=== PATIENT | male | born 1960 | race Caucasian/White ===

== ENCOUNTER 2016-08-29 12:16 | Inpatient (IN) | payer OTHER ==
--- NOTE | 2016-08-29 13:26 | EDPHY ---
H & P Stated Complaint: ETOH, First onset abdo distention. Time Seen by Provider: 08/29/16 13:25 - Personal History Current Tetanus/Diphtheria Vaccine: Unsure Current Tetanus Diphtheria and Acellular Pertussis (TDAP): Unsure - Medical/Surgical History Hx Asthma: No Hx Chronic Respiratory Disease: No Hx Diabetes: No Hx Cardiac Disease: No Hx Renal Disease: No Hx Cirrhosis: No Hx Alcoholism: No Hx HIV/AIDS: No Hx Splenectomy or Spleen Trauma: No Other PMH: HTN, Bilateral meniscus and ACL, Tib/Fib fracture, marijuana user. - Social History Smoking Status: Current some day smoker Constitutional: Initial Vital Signs Temperature (C) 36.4 C 08/29/16 12:37 Heart Rate 135 H 08/29/16 12:37 Respiratory Rate 18 08/29/16 12:37 Blood Pressure 129/87 H 08/29/16 12:37 O2 Sat (%) 90 L 08/29/16 12:37 O2 Delivery Mode Room Air Allergies/Adverse Reactions: No Known Allergies Allergy (Verified 08/29/16 12:40) Home Medications: Medication Instructions Recorded Lisinopril 08/29/16 Medical Decision Making ED Course/Re-evaluation: CHIEF COMPLAINT: Abdominal pain and distension HISTORY OF PRESENT ILLNESS: The patient is a 56 y/o male, with a history of alcoholism, complaining of progressively worsening abdominal pain and distension onset 2 weeks ago. He reports his abdomen has become significantly distended in the course of a couple weeks. He denies noticing jaundiced skin or eye, but he does note greenish light colored stool today without hematochezia. He denies history of ascites or liver disease and says his labs a few weeks ago were normal. His last alcohol use was 3 days ago. He denies fever, chills, vomiting, diarrhea, recent illness, or recent trauma. He reports 5lb increase over the last week. REVIEW OF SYSTEMS: A 10 point review of systems was performed and is negative with the exception of the elements mentioned in the history of present illness. PHYSICAL EXAM: HR 135, BP, O2 Sat, RR. Temp noted General Appearance: Alert, well hydrated, appropriate, and uncomfortable- appearing. Head: Atraumatic without scalp tenderness or obvious injury Eyes: Pupils equal, round, reactive to light and accommodation, EOMI, no trauma , no injection. Scleral icterus. Nose: Atraumatic, no rhinorrhea, clear. Throat: mucus membranes moist. Neck: Supple, nontender, no lymphadenopathy. No JVD. Respiratory: No retractions, no distress, no wheezes, and no accessory muscle use. Lungs are clear to auscultation, but diminished at the bases bilaterally. Cardiovascular: Tachycardic regular rate and rhythm, no murmurs, rubs, or gallops. Good capillary refill all extremities. Gastrointestinal: Abdomen is soft, diffuse tenderness, distension, no masses, no rebound, no guarding, no peritoneal signs. No medusa sign. Musculoskeletal: Normal active ROM of all extremities, atraumatic. No pedal edema. Neurological: Alert, appropriate, and interactive. Nonfocal neuro exam except presence of asterixis. Skin: No rashes, good turgor, no nodules on palpation. Spider angiomas on chest. Past medical history: Alcoholism, hypertension - lisinopril Past surgical history: denies Family history: mother had colon cancer Social history: Quit smoking 2 weeks ago. Heavy alcohol use. Marijuana use. Friend at bedside. PCP: [facility]. DIAGNOSTICS/PROCEDURES/CRITICAL CARE TIME: Abdominal CT. I viewed the images myself on the PACS system. DIFFERENTIAL DIAGNOSIS: The differential diagnosis for the patient's abdominal pain included but was not limited to cirrhosis, liver disease, ascites , viral hepatitis, alcohol withdrawal, appendicitis, cholecystitis, hernias, testicular torsion, gastritis, and urinary tract infection. MEDICAL DECISION MAKING: This is a 56 y/o male with a history of heavy alcohol use and no known liver disease who presents with a few week history of progressing abdominal pain and distension. He reports his most recent physical exam and labs were normal only a few weeks ago. His presentation is consistent with new onset alcoholic hepatitis and cirrhosis. Plan for IV, labs, imaging, pain management, and admission as he will require further interventions for nursing home management. 1425: Spoke with hospitalist service. Dr. Medina accepts admission. LFTs are significantly elevated. Creatinine is normal. Plan for abdominal CT. - Data Points Laboratory Results: Laboratory Results 08/29/16 13:56 08/29/16 13:56 08/29/16 08/29/16 08/29/16 13:56 13:56 13:56 WBC 7.50 10^3/uL 10^3/uL (3.80-9.50) RBC 4.86 10^6/uL 10^6/uL (4.40-6.38) Hgb 15.9 g/dL g/dL (13.7-17.5) Hct 45.9 % % (40.0-51.0) MCV 94.4 fL fL (81.5-99.8) MCH 32.7 pg pg (27.9-34.1) MCHC 34.6 g/dL g/dL (32.4-36.7) RDW 16.3 % H % (11.5-15.2) Plt Count 89 10^3/uL L 10^3/uL (150-400) MPV 10.1 fL fL (8.7-11.7) Neut % (Auto) 73.5 % % (39.3-74.2) Lymph % (Auto) 14.8 % L % (15.0-45.0) Rich % (Auto) 10.5 % % (4.5-13.0) Eos % (Auto) 0.5 % L % (0.6-7.6) Baso % (Auto) 0.3 % % (0.3-1.7) Nucleat RBC Rel Count 0.0 % % (0.0-0.2) Absolute Neuts (auto) 5.51 10^3/uL 10^3/uL (1.70-6.50) Absolute Lymphs (auto) 1.11 10^3/uL 10^3/uL (1.00-3.00) Absolute Monos (auto) 0.79 10^3/uL 10^3/uL (0.30-0.80) Absolute Eos (auto) 0.04 10^3/uL 10^3/uL (0.03-0.40) Absolute Basos (auto) 0.02 10^3/uL 10^3/uL (0.02-0.10) Absolute Nucleated RBC 0.00 10^3/uL 10^3/uL (0-0.01) Immature Gran % 0.4 % % (0.0-1.1) Immature Gran # 0.03 10^3/uL 10^3/uL (0.00-0.10) PT 17.0 SEC H SEC (12.0-15.0) INR 1.39 H (0.83-1.16) APTT 30.9 SEC SEC (23.0-38.0) Sodium 133 mEq/L L mEq/L (134-144) Potassium 3.9 mEq/L mEq/L (3.5-5.2) Chloride 95 mEq/L L mEq/L (97-110) Carbon Dioxide 26 mEq/l mEq/l (22-31) Anion Gap 12 mEq/L mEq/L (8-16) BUN 17 mg/dL mg/dL (7-23) Creatinine 0.8 mg/dL mg/dL (0.7-1.3) Estimated GFR > 60 Glucose 114 mg/dL H mg/dL (70-100) Calcium 8.2 mg/dL L mg/dL (8.5-10.4) Total Bilirubin 5.0 mg/dL H mg/dL (0.1-1.4) Conjugated Bilirubin 2.7 mg/dL H mg/dL (0.0-0.5) Unconjugated Bilirubin 2.3 mg/dL H mg/dL (0.0-1.1) AST 231 IU/L H IU/L (17-59) ALT 93 IU/L H IU/L (21-72) Alkaline Phosphatase 142 IU/L H IU/L (38-126) Total Protein 9.1 g/dL H g/dL (6.3-8.2) Albumin 3.2 g/dL L g/dL (3.5-5.0) Lipase 246.0 IU/L IU/L (23-300) Departure - Departure Disposition: [facility] Inpatient Acute Clinical Impression: Hyperbilirubinemia, Alcoholism Abdominal pain Qualifiers: Abdominal location: generalized Qualified Code(s): R10.84 - Generalized abdominal pain Ascites Qualifiers: Ascites type: due to alcoholic hepatitis Qualified Code(s): K70.11 - Alcoholic hepatitis with ascites Condition: Fair Referrals: Amy Pickard PA [Primary Care Provider] - As per Instructions Report Scribed for: Hasmukh Brandt Report Scribed by: Alicia Zuñiga Date of Report: 08/29/16 Time of Report: 14:35
[2016-08-29 14:23] LABS: % IMMATURE GRANULYOCYTES 0.4 % (0.0-1.1); ABSOLUTE IMMATURE GRANULOCYTES 0.03 10^3/uL (0.00-0.10); ADD DIFF? NO; ADD MORPH? NO; ADD SCAN? NO; ATYPICAL LYMPHOCYTE FLAG 30 (0-99); FRAGMENT RBC FLAG 0 (0-99); HEMATOCRIT 45.9 % (40.0-51.0); HEMOGLOBIN 15.9 g/dL (13.7-17.5); LEFT SHIFT FLG 0 (0-99); LIPEMIA HEMOLYSIS FLAG 90 (0-99); MEAN CELL HEMOGLOBIN 32.7 pg (27.9-34.1); MEAN CELL HEMOGLOBIN CONCENTR. 34.6 g/dL (32.4-36.7); MEAN CELL VOLUME 94.4 fL (81.5-99.8); MEAN PLATELET VOLUME 10.1 fL (8.7-11.7); PLATELET CLUMPS FLAG 10 (0-99); PLATELET COUNT 89 10^3/uL (150-400); RED BLOOD CELL COUNT 4.86 10^6/uL (4.40-6.38); RED CELL DISTRIBUTION WIDTH 16.3 % (11.5-15.2)
[2016-08-29 14:28] LABS: ALANINE AMINOTRANSFERASE 93 IU/L (21-72); ALBUMIN 3.2 g/dL (3.5-5.0); ALKALINE PHOSPHATASE 142 IU/L (38-126); ANION GAP 12 mEq/L (8-16); ASPARTATE AMINOTRANSFERASE 231 IU/L (17-59); BILIRUBIN-CONJUGATED 2.7 mg/dL (0.0-0.5); BILIRUBIN-UNCONJUGATED 2.3 mg/dL (0.0-1.1); CALCIUM 8.2 mg/dL (8.5-10.4); CARBON DIOXIDE 26 mEq/l (22-31); CHLORIDE 95 mEq/L (97-110); CREATININE 0.8 mg/dL (0.7-1.3); GLOMERULAR FILTRATION RATE > 60; GLUCOSE 114 mg/dL (70-100); POTASSIUM 3.9 mEq/L (3.5-5.2); SODIUM 133 mEq/L (134-144); TOTAL PROTEIN 9.1 g/dL (6.3-8.2)
[2016-08-29 14:30] LABS: INR 1.39 (0.83-1.16)
[2016-08-29 14:31] LABS: APTT 30.9 SEC (23.0-38.0)
[2016-08-29] MEDS ORDERED: IOPAMIDOL (ISOVUE-300) 100 ML BTL IV ONE (14:46)
--- NOTE | 2016-08-29 15:01 | PDGENHP ---
History and Physical History and Physical: HISTORY AND PHYSICAL CC: Abdominal pain and bloating HISTORY: Two weeks of increasing diffuse abdominal pain and distension, now with vomiting (no nausea) and loose stools (last yest) with no sign of bleeding, no fever, no chills or sweats, no sob, no chest pain. No prior hx of similar sxs, no hx of abd injury or surgery. No NSAID use. States he drinks a bottle of wine and 2 or so shots liquor daily. 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 Quit smoking 3 months ago ETOH as above MEDICATIONS: The patients list has been reconciled by our clinical pharmacist in the EMR. I have reviewed the list and ordered appropriate medicines. 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: Examination: General: alert, oriented, good mentation, relaxed Skin: warm, dry, mildly jaundiced, no rash HEENT: normal Neck: no mass or jvd Resps: relaxed Lungs: clear breath sounds Heart: regular, no murmur Abdomen: Quite distended with increased tension, mild diffuse tenderness without guarding or rebound, bowel sounds present, fluid wave and shifting dullness present suggest ascites, and caput medusae is present suggesting portal hypertension Upper Extremities: normal Lower Extremities: no edema, warm No Bleeding or bruising Neurologic: normal speech/language, normal orthodontic lab technician, no focal weakness IV site: looks normal LABORATORY DATA: Bilirubin up to 5 from 1 in April, AST at 230 with lesser elevation of ALT Renal function good, sodium slightly low 133 Platelets are mildly low and INR elevated at 1.39 RADIOLOGY STUDIES: CT scan of abdomen pelvis, with contrast, my personal review and interpretation of images: There is diffuse simple appearing ascites throughout the abdominal cavity. There is evidence of portal hypertension. There is no evidence of bowel obstruction I am waiting for final radiology report to compare with my findings ASSESSMENT: 1. ACUTE ABDOMINAL PAIN WITH EXAMINATION SUGGESTING ASCITES, AND WITH CAPUT MEDUSAE - STRONGLY SUSPECT ACUTE HEPATIC INSUFFICIENCY DUE TO ALCOHOLIC HEPATITIS, DIFF DX INCLUDES BOWEL OBSTRUCTION 2. HEPATIC TRANSAMINASE ELEVATION AND HIGH BILIRUBIN SUSPECT ALCOHOLIC HEPATITIS MOST LIKELY CAUSE 3. ALCOHOLISM 4. THROMBOCYTOPENIA AND COAGULOPATHY DUE TO ABOVE PLANS: -us guided paracentesis -further treatment decisions after these results -will check hepatitis panel -thiamine replacement -dvt prophylaxis -may need ciwa protocol as well I have reviewed the patient's case in detail with Dr. Hasmukh Brandt I have reviewed the patient's past medical records as part of this assessment, including previous emergency room visit and clinic records with lab reports
[2016-08-29] MEDS ORDERED: HYDROmorphONE/DILAUDID 1 MG/ML SYR IVP ONE (15:13)
[2016-08-29] MEDS ORDERED: ONDANSETRON 4 MG/2 ML VIAL IVP PRN (15:15)
[2016-08-29] MEDS: THIAMINE HCL 100 MG TAB PO SCH (17:17)
[2016-08-29] MEDS: oxyCODONE IR 5 MG TAB PO PRN ×2 (18:23→19:18)
[2016-08-29] MEDS: AMITRIPTYLINE HCL 25 MG TAB PO SCH (21:14)
[2016-08-30] MEDS: oxyCODONE IR 5 MG TAB PO PRN ×5 (00:05→20:49)
[2016-08-30] MEDS: ZOLPIDEM TARTRATE 5 MG TAB PO PRN ×2 (00:06→20:49)
[2016-08-30 05:06] LABS: % IMMATURE GRANULYOCYTES 0.3 % (0.0-1.1); ABSOLUTE IMMATURE GRANULOCYTES 0.02 10^3/uL (0.00-0.10); ABSOLUTE NRBC COUNT 0.02 10^3/uL (0-0.01); ADD DIFF? NO; ADD MORPH? NO; ADD SCAN? NO; ATYPICAL LYMPHOCYTE FLAG 20 (0-99); FRAGMENT RBC FLAG 0 (0-99); HEMATOCRIT 41.5 % (40.0-51.0); HEMOGLOBIN 14.5 g/dL (13.7-17.5); LEFT SHIFT FLG 0 (0-99); LIPEMIA HEMOLYSIS FLAG 90 (0-99); MEAN CELL HEMOGLOBIN 33.6 pg (27.9-34.1); MEAN CELL HEMOGLOBIN CONCENTR. 34.9 g/dL (32.4-36.7); MEAN CELL VOLUME 96.3 fL (81.5-99.8); MEAN PLATELET VOLUME 9.5 fL (8.7-11.7); NRBC-AUTO% 0.3 % (0.0-0.2); PLATELET CLUMPS FLAG 0 (0-99); PLATELET COUNT 75 10^3/uL (150-400); RED BLOOD CELL COUNT 4.31 10^6/uL (4.40-6.38); RED CELL DISTRIBUTION WIDTH 16.6 % (11.5-15.2)
[2016-08-30] MEDS: ENOXAPARIN 40 MG/0.4 ML SYR SC SCH (07:28)
[2016-08-30] MEDS: FUROSEMIDE 40 MG TAB PO SCH (08:37)
[2016-08-30] MEDS: THIAMINE HCL 100 MG TAB PO SCH (08:37)
[2016-08-30] MEDS: SPIRONOLACTONE 50 MG TAB PO SCH (08:37)
[2016-08-30] MEDS ORDERED: LISINOPRIL 20 MG TAB PO SCH (09:00)
[2016-08-30] MEDS ORDERED: chlordiazePOXIDE 25 MG CAP PO ONE (11:37)
[2016-08-30] MEDS ORDERED: LORazepam 2 MG/ML INJ IVP PRN (11:37)
--- NOTE | 2016-08-30 14:51 | HOSPPROG ---
Hospitalist Progress Note Assessment/Plan: # Acute alcohol withdrawal- patient with extensive daily alcohol use- tremulous on my examination this morning oxygen saturations 94% on 2 L - Librium 50 mg x1 now - start scheduled Librium 25 mg three times daily - IV Ativan p.r.n. for symptoms # New diagnosis cirrhosis- presumed secondary to alcohol and potentially hepatitis-C- HCV antibody positive on admit CT abdomen( personally reviewed and interpreted) shows cirrhosis - initiated low-dose diuretic - working with Gastroenterology for outpatient follow-up # tachycardia- heart rate in the 120s- suspect secondary to acute alcohol withdrawal - treatment as above - monitor closely # Hepatitis-C antibody positive- on history no obvious exposure- actively drinking not an excellent candidate for treatment currently - send hepatitis C RNA - can follow outpatient with GI # Acute ascites- patient with severe abdominal pain - ultrasound-guided paracentesis ordered - low-dose diuretic started # Alcohol abuse- the importance of abstinence reviewed with the patient and - will need outpatient resources at discharge - vitamin therapy and patient # 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 Subjective: severe abdominal pain from distention Objective: Vital Signs Temp Pulse Resp BP Pulse Ox 36.5 C 123 H 16 114/76 89 L 08/30/16 13:09 08/30/16 13:09 08/30/16 13:09 08/30/16 13:09 08/30/16 13:09 Laboratory Results 08/30/16 04:44 PT 17.0 SEC (12.0-15.0) H 08/29/16 13:56 INR 1.39 (0.83-1.16) H 08/29/16 13:56 - Physical Exam Constitutional: chronically ill appearing Eyes: anicteric sclera Ears, Nose, Mouth, Throat: dry mucous membranes Cardiovascular: regular rate and rhythym, tachycardia Respiratory: no respiratory distress, reduced air movement Gastrointestinal: normoactive bowel sounds, tenderness, ascites, distension Genitourinary: no bladder fullness Skin: warm Musculoskeletal: No asymmetric calves Neurologic: AAOx3, other ( no asterixis) Psychiatric: depressed Lymph, Heme, Immunologic: no cervical LAD ICD10 Worksheet Patient Problems: Problems Problem Status Onset Abdominal pain Acute Alcoholism Acute Ascites Acute Hyperbilirubinemia Acute
[2016-08-30] MEDS ORDERED: NA BICARBONATE 50 MEQ/50 ML VIAL ONE (15:06)
[2016-08-30] MEDS: chlordiazePOXIDE 25 MG CAP PO SCH ×2 (17:05→20:49)
[2016-08-30 17:46] LABS: GLUCOSE, PERITONEAL FLUID 115 mg/dL (55-113)
[2016-08-30] MEDS: AMITRIPTYLINE HCL 25 MG TAB PO SCH (20:49)
[2016-08-31 05:25] LABS: % IMMATURE GRANULYOCYTES 0.6 % (0.0-1.1); ABSOLUTE IMMATURE GRANULOCYTES 0.04 10^3/uL (0.00-0.10); ADD DIFF? NO; ADD MORPH? NO; ADD SCAN? NO; ATYPICAL LYMPHOCYTE FLAG 50 (0-99); FRAGMENT RBC FLAG 0 (0-99); HEMOGLOBIN 14.4 g/dL (13.7-17.5); LEFT SHIFT FLG 0 (0-99); LIPEMIA HEMOLYSIS FLAG 80 (0-99); MEAN CELL HEMOGLOBIN 32.5 pg (27.9-34.1); MEAN CELL HEMOGLOBIN CONCENTR. 33.5 g/dL (32.4-36.7); MEAN CELL VOLUME 97.1 fL (81.5-99.8); MEAN PLATELET VOLUME 10.4 fL (8.7-11.7); PLATELET CLUMPS FLAG 0 (0-99); PLATELET COUNT 70 10^3/uL (150-400); RED BLOOD CELL COUNT 4.43 10^6/uL (4.40-6.38); RED CELL DISTRIBUTION WIDTH 16.3 % (11.5-15.2)
[2016-08-31 05:56] LABS: ANION GAP 6 mEq/L (8-16); CALCIUM 7.5 mg/dL (8.5-10.4); CARBON DIOXIDE 28 mEq/l (22-31); CHLORIDE 94 mEq/L (97-110); CREATININE 1.2 mg/dL (0.7-1.3); GLOMERULAR FILTRATION RATE > 60; GLUCOSE 99 mg/dL (70-100); MAGNESIUM 1.5 mg/dL (1.6-2.3); POTASSIUM 3.8 mEq/L (3.5-5.2); SODIUM 128 mEq/L (134-144)
[2016-08-31 09:09] VITALS: O2SAT 92
[2016-08-31] MEDS: ENOXAPARIN 40 MG/0.4 ML SYR SC SCH (09:09)
[2016-08-31] MEDS: THIAMINE HCL 100 MG TAB PO SCH (09:37)
[2016-08-31] MEDS: SPIRONOLACTONE 50 MG TAB PO SCH (09:37)
[2016-08-31] MEDS: oxyCODONE IR 5 MG TAB PO PRN ×2 (09:38→13:44)
[2016-08-31] MEDS: chlordiazePOXIDE 25 MG CAP PO SCH (09:40)
[2016-08-31] MEDS: FUROSEMIDE 40 MG TAB PO SCH (09:40)
[2016-08-31 12:33] VITALS: BP 108/70; PULSE 110; TEMP 97.4
--- NOTE | 2016-08-31 13:27 | GDS ---
[f rep st] DISCHARGE SUMMARY DISCHARGE DIAGNOSES: 1. New diagnosis of cirrhosis presumed secondary to alcohol and potentially hepatitis C. 2. Acute alcohol withdrawal. 3. Suspected hepatitis C. 4. Acute ascites. 5. Long-standing alcohol abuse. 6. Thrombocytopenia presumed secondary to bone marrow toxicity with alcohol abuse. HISTORY OF PRESENT ILLNESS: This is a 56-year-old male who presents on 08/29/2016, with complaints of abdominal pain. For details of the patient's initial presentation, please see the history and ph ysical dated 08/29/2016. Consultative services on this patient include Interventional Radiology. PROCEDURES: On 08/30/2016, the patient had a large volume paracentesis. On 08/29/2016, the patient had a CT of the abdomen, which showed diffuse hepatocellular abnormality consistent with cirrhosis, portal hypertension with esophageal varices, gastric varices and splenomegaly, and a large amount o f ascites. HOSPITAL COURSE: 1. New diagnosis of cirrhosis. Patient does have a history of very heavy alcohol use in the past a nd had a hepatitis C-positive antibody. I suspect both are contributing to his advanced liver disea se. The patient was not encephalopathic at the time of his evaluation here. INR was 1.3, and AST a nd ALT were minimally elevated on admission. Discriminant function did not indicate the use of acut e treatment of steroids. The patient was educated about liver disease, initiated on low-dose diuret ics for his ascites, and is to follow in the [facility]. Dr. Knisey torres contacted and provided the contact information for this patient so outpatient followup could be e xpedited. 2. Severe ascites secondary to cirrhosis. Patient underwent large-volume paracentesis and has been tolerating low-dose diuretics. He will follow in the outpatient setting for laboratory check and s low up-titration of his diuretics as an outpatient. 3. Coagulopathy secondary to liver disease. The patient's INR is 1.3. He has no acute bleeding. I did encourage a high-vitamin K diet. 4. Thrombocytopenia. Patient had platelet counts 70-80 during this hospital stay. Suspect this is secondary to bone marrow suppression with alcohol abuse. Abstinence has been strongly encouraged. We expect his platelet counts to respond to this. It is successful in the outpatient setting. 5. Hepatitis C antibody positive. Patient was not able to report any known risk factors for hepati tis C. we have sent HCV, RNA, and PCR which are pending at the time of his discharge. These will b e followed by Gastroenterology in the outpatient setting. 6. Acute alcohol withdrawal. Patient drinks typically a bottle of wine and multiple hard alcohol d rinks a day. He was tremulous on the day of arrival and was initiated on the CIWA protocol [facility] Lib[facility]. He has minimal tremor on the day of disposition. Again, we have re-reviewed the im portance of absolute abstinence at discharge. Resources have been provided by Case Management. MEDICATIONS: At the time of transfer: Please reference medication reconciliation printed on 2016. PENDING STUDIES: At the time of this dictation include HCV, PCR, RNA, as well as hep B antibody terri dies. FOLLOWUP: Appointments for this patient include [facility] in the next 7-10 da ys, as well as with his primary care provider for ongoing support and assistance related to his new diagnosis and substance abuse. TIME: I spent greater than 30 minutes in the planning and coordination of this discharge. /[id number]/MODL
[2016-08-31 13:30] VITALS: RESP 15
[2016-08-31 14:57] LABS: HEPATITIS Bs Ab QUANT <5.0 mIU/mL
== END 2016-08-31 14:32 | disposition home or self-care (01) | DRG 433 ==
LOC: F1N 16:31
PROVIDERS: ADMIT Internal Medicine; ATTEND Hospitalist
PROC: HZ2ZZZZ Detoxification Services for Substance Abuse Treatment (ICD-10-PCS; 2016-08-29)
PROC: 0W9G3ZZ Drainage of Peritoneal Cavity, Percutaneous Approach (ICD-10-PCS; principal; 2016-08-30)
DX: K70.31 Alcoholic cirrhosis of liver with ascites (principal); F10.230 Alcohol dependence with withdrawal, uncomplicated; K76.6 Portal hypertension; I85.00 Esophageal varices without bleeding; I86.4 Gastric varices; D69.59 Other secondary thrombocytopenia; B18.2 Chronic viral hepatitis C; I10 Essential (primary) hypertension; Z87.890 Personal history of sex reassignment
CPT/HCPCS: G0397; G0472; J1170; Q9967

== ENCOUNTER → 2016-09-09 | Outpatient (CLI) | payer OTHER ==
[~2016-09-09] MED LIST: LIDOCAINE 1% 30 ML SDV ONE; NA BICARBONATE 50 MEQ/50 ML VIAL ONE
== END ==
LOC: FIMAGING 11:20
PROVIDERS: ATTEND Radiology Diagnostic Radiology
DX: R18.8 Other ascites (principal)

== ENCOUNTER → 2016-09-13 | Outpatient (CLI) | payer OTHER ==
[~2016-09-13] MED LIST changes: -LIDOCAINE 1% 30 ML SDV ONE
== END ==
LOC: FIMAGING 13:22
PROVIDERS: ATTEND Internal Medicine
PROC: 0W9G3ZZ Drainage of Peritoneal Cavity, Percutaneous Approach (ICD-10-PCS; principal; 2016-09-13)
DX: R18.8 Other ascites (principal)

== ENCOUNTER 2016-09-15 08:39 | Day surgery (SDC) | payer OTHER ==
[2016-09-15 10:13] LABS: ANION GAP 9 mEq/L (8-16); CALCIUM 8.5 mg/dL (8.5-10.4); CARBON DIOXIDE 24 mEq/l (22-31); CHLORIDE 98 mEq/L (97-110); CREATININE 0.7 mg/dL (0.7-1.3); GLOMERULAR FILTRATION RATE > 60; GLUCOSE 103 mg/dL (70-100); POTASSIUM 4.3 mEq/L (3.5-5.2); SODIUM 131 mEq/L (134-144)
[2016-09-15] MEDS ORDERED: MIDAZOLAM 2 MG/2 ML VIAL ONE (10:40)
[2016-09-15] MEDS ORDERED: fentaNYL 100 MCG/2 ML INJ ONE (10:45)
--- NOTE | 2016-09-15 12:12 | GPN ---
[f rep st] PROCEDURE NOTE DATE OF PROCEDURE: 09/15/2016 PREPROCEDURE DIAGNOSIS: Decompensated hepatitis c cirrhosis. POSTPROCEDURE DIAGNOSES: 1. Esophageal varices status post banding. 2. Portal hypertensive gastropathy. NAME OF PROCEDURE: Esophagogastroduodenoscopy with banding. ANESTHESIA: Monitored anesthesia care. INDICATIONS: The patient is a 56-year-old gentleman with history of chronic hepatitis C cirrhosis a nd ascites, who presents for EGD for bloating and evaluation for esophageal varices. The risks and benefits of the procedure were discussed the patient. Consent obtained. Risks include but are not limited to bleeding, perforation, and risks related to sedation. The patient is ASA class 3. DESCRIPTION OF PROCEDURE: The end-viewing endoscope was inserted into the esophagus, into the stoma ch, and second portion of the duodenum. The esophagus shows 2 columns of medium-sized varices locat ed at the GE junction. The stomach shows diffuse portal hypertensive gastropathy. Retroflexed view s did not show any evidence of gastric varices. The duodenum and second portion were normal. Next, the scope was removed and reinserted with the [employer] 7 shooter banding kit attached. Tw o bands were placed successfully over the 2 columns of medium-sized varices with complete eradicatio n. There was no bleeding during the procedure. IMPRESSION: 1. Esophageal varices status post banding. 2. Portal hypertensive gastropathy. RECOMMENDATIONS: 1. Discharge home with escort. 2. Advance diet as tolerated. Recommend a soft diet for the next 2 days. 3. Repeat EGD in 6 weeks at [facility] with monitored anesthesia care for repeat possible eso phageal banding and confirm eradication of esophageal varices. 4. Follow up with Dr. Waddell in clinic as previously scheduled for treatment of hepatitis C. Thank you for allowing me to participate in the care of your patient. Please do not hesitate to blanca katie with questions. /[id number]/MODL
[2016-09-15] MEDS ORDERED: PROPOFOL 200 MG/20 ML VIAL ONE (12:46)
== END 2016-09-15 12:55 | disposition home or self-care (01) ==
LOC: FSGY 08:39
PROVIDERS: ATTEND Internal Medicine Gastroenterology
PROC: 0D538ZZ Destruction of Lower Esophagus, Via Natural or Artificial Opening Endoscopic (ICD-10-PCS; principal; 2016-09-15 10:45)
DX: I85.10 Secondary esophageal varices without bleeding (principal); R18.8 Other ascites; K74.60 Unspecified cirrhosis of liver; F10.20 Alcohol dependence, uncomplicated; B19.20 Unspecified viral hepatitis C without hepatic coma; K76.6 Portal hypertension; Z80.0 Family history of malignant neoplasm of digestive organs
CPT/HCPCS: J2250; J2704; J3010

== ENCOUNTER → 2016-09-20 | Outpatient (CLI) | payer OTHER | LOC: FIMAGING 09:00 | PROVIDERS: ATTEND Internal Medicine | PROC: 0W9G3ZZ Drainage of Peritoneal Cavity, Percutaneous Approach (ICD-10-PCS; principal; 2016-09-20) | DX: R18.8 Other ascites (principal) ==

== ENCOUNTER → 2016-09-28 | Outpatient (CLI) | payer OTHER | LOC: FIMAGING 11:25 | PROVIDERS: ATTEND Internal Medicine | PROC: 0W9F3ZX Drainage of Abdominal Wall, Percutaneous Approach, Diagnostic (ICD-10-PCS; principal; 2016-09-28) | DX: R18.8 Other ascites (principal) ==

== ENCOUNTER → 2016-10-05 | Outpatient (CLI) | payer OTHER ==
[~2016-10-05] MED LIST changes: +ALBUMIN 25% 100 ML SOLN IV ONE; +ALBUMIN 25% 50 ML SOLN IV ONE; +LIDOCAINE 1% 30 ML SDV ONE
== END ==
LOC: FIMAGING 11:25
PROVIDERS: ATTEND Internal Medicine
PROC: 0W9F3ZZ Drainage of Abdominal Wall, Percutaneous Approach (ICD-10-PCS; principal; 2016-10-05)
DX: R18.8 Other ascites (principal)
CPT/HCPCS: P9047

== ENCOUNTER 2016-10-11 14:31 | Inpatient (IN) | payer OTHER ==
[2016-10-11] MEDS ORDERED: HYDROmorphONE/DILAUDID 1 MG/ML SYR IVP ONE (14:56)
[2016-10-11] MEDS ORDERED: ONDANSETRON 4 MG/2 ML VIAL IVP ONE (14:56)
[2016-10-11] MEDS ORDERED: cefTRIAXone 2 GM in D5W 50 ML IV ONE (14:56)
--- NOTE | 2016-10-11 14:59 | EDPHY ---
H & P Stated Complaint: Abdominal pain, infection Time Seen by Provider: 10/11/16 14:46 HPI/ROS: CHIEF COMPLAINT: Abdominal pain HISTORY OF PRESENT ILLNESS: The patient is a 56-year-old man with a history of cirrhosis and alcoholism who has weekly paracentesis. His primary doctor mostly called today and told him his peritoneal fluid from his paracentesis 2 days ago was infected and that he needed to come to the emergency department. He complains of diffuse abdominal pain. No fevers. Vomiting twice. No diarrhea. REVIEW OF SYSTEMS: Constitutional: denies: chills, fever, recent illness, recent injury EENTM: denies: blurred vision, double vision, nose congestion Respiratory: denies: cough, shortness of breath Cardiac: denies: chest pain, irregular heart rate, lightheadedness, palpitations Gastrointestinal/Abdominal: See HPI Genitourinary: denies: dysuria, frequency, hematuria, pain Musculoskeletal: denies: joint pain, muscle pain Skin: denies: lesions, rash, jaundice, bruising Neurological: denies: headache, numbness, paresthesia, tingling, dizziness, weakness Hematologic/Lymphatic: denies: blood clots, easy bleeding, easy bruising Immunologic/allergic: denies: HIV/AIDS, transplant EXAM: GENERAL: Well-appearing, well-nourished and in no acute distress. HEAD: Atraumatic, normocephalic. EYES: Pupils equal round and reactive to light, extraocular movements intact, sclera anicteric, conjunctiva are normal. ENT: TMs normal, nares patent, oropharynx clear without exudates. Moist mucous membranes. NECK: Normal range of motion, supple without lymphadenopathy or JVD. LUNGS: Breath sounds clear to auscultation bilaterally and equal. No wheezes rales or rhonchi. HEART: Regular rate and rhythm without murmurs, rubs or gallops. ABDOMEN: Diffuse swelling and ascites, mildly tender BACK: No CVA tenderness, no spinal tenderness, step-offs or deformities EXTREMITIES: Normal range of motion, no pitting or edema. No clubbing or cyanosis. NEUROLOGICAL: Cranial nerves II through XII grossly intact. Normal speech, normal gait. 5/5 strength, normal movement in all extremities, normal sensation PSYCH: Normal mood, normal affect. SKIN: Warm, dry, normal turgor, no visible rashes or lesions. Source: Patient Exam Limitations: No limitations - Personal History Current Tetanus Diphtheria and Acellular Pertussis (TDAP): Yes - Medical/Surgical History Hx Asthma: No Hx Chronic Respiratory Disease: No Hx Diabetes: No Hx Cardiac Disease: No Hx Renal Disease: No Hx Cirrhosis: Yes Hx Alcoholism: Yes Hx HIV/AIDS: No Hx Splenectomy or Spleen Trauma: No Other PMH: Bilateral meniscus and ACL tear/injury, Tib/Fib fracture, marijuana user, ETOH (former), ascites - Family History Significant Family History: No pertinent family hx - Social History Smoking Status: Former smoker Alcohol Use: Sober Drug Use: None Constitutional: Initial Vital Signs Temperature (C) 37.5 C 10/11/16 14:33 Heart Rate 132 H 10/11/16 14:33 Respiratory Rate 14 10/11/16 14:33 Blood Pressure 132/85 H 10/11/16 14:33 O2 Sat (%) 95 10/11/16 14:33 O2 Delivery Mode Room Air O2 (L/minute) 2 Allergies/Adverse Reactions: No Known Allergies Allergy (Verified 10/06/16 11:46) Home Medications: Medication Instructions Recorded Furosemide [Lasix 80 MG (*)] 80 mg PO DAILY 10/11/16 Herbals/Supplements -Info Only 1 ea PO DAILY 10/11/16 Multivitamins [Multivitamin (*)] 1 each PO DAILY 10/11/16 Spironolactone 200 mg PO DAILY 10/11/16 Temazepam [Restoril 15 MG (*)] 15 mg PO HS PRN 10/11/16 Medical Decision Making ED Course/Re-evaluation: 3:40 p.m. the patient's vital signs are stable. His heart rate is improving with IV fluids. Spoke with Dr BRAYAN Nguyen who agrees with admission. Patient qualifies for septic shock although he is not hypotensive. Differential Diagnosis: Partial list of the Differential diagnosis considered include but were not limited to; sepsis, spontaneous bacterial peritonitis and although unlikely based on the history and physical exam, I also considered obstruction, ischemia , volvulus. Critical Care Time: I spent a total of 35 minutes of critical care time in obtaining history, performing a physical exam, bedside monitoring of interventions, collecting and interpreting tests and discussion with consultants but not including time spent performing procedures. - Data Points Laboratory Results: Laboratory Results 10/11/16 14:56 10/11/16 14:56 Microbiology Results: MICROBIOLOGY 10/11/16 14:56 Blood Blood Culture - Preliminary 10/11/16 14:56 Blood Blood Panel (PCR) - Final Enterobacteriaceae Group Medications Given: Discontinued Medications Hydromorphone HCl (Dilaudid) 1 mg IVP EDNOW ONE Stop: 10/11/16 14:57 Last Admin: 10/11/16 15:01 Dose: 1 mg Hydromorphone HCl (Dilaudid) 0.2 mg IVP Q2HRS PRN PRN Reason: Pain, Severe Unable to Take PO Stop: 10/21/16 17:24 Last Admin: 10/12/16 02:56 Dose: 0.2 mg Ceftriaxone Sodium 2 gm/ (Dextrose) 50 mls @ 100 mls/hr IV EDNOW ONE PRN Reason: Protocol Stop: 10/11/16 15:25 Last Admin: 10/11/16 15:28 Dose: 50 mls Sodium Chloride (Ns) 1,000 mls @ 0 mls/hr IV ONCE ONE PRN Reason: Wide Open Stop: 10/11/16 15:14 Last Admin: 10/11/16 15:13 Dose: 1,000 mls Sodium Chloride (Ns) 1,900 mls @ 316.6666 mls/hr 30 ml/kg infuse over 6 hr ( 1900 ml) IV EDNOW ONE Stop: 10/11/16 21:19 Last Admin: 10/11/16 15:47 Dose: 1,900 mls Ondansetron HCl (Zofran) 4 mg IVP EDNOW ONE Stop: 10/11/16 14:57 Last Admin: 10/11/16 15:01 Dose: 4 mg Departure - Departure Disposition: [facility] Acute Clinical Impression: Spontaneous bacterial peritonitis, Septic shock Condition: Fair
[2016-10-11 15:13] LABS: % IMMATURE GRANULYOCYTES 0.6 % (0.0-1.1); ABSOLUTE IMMATURE GRANULOCYTES 0.07 10^3/uL (0.00-0.10); ADD DIFF? NO; ADD MORPH? NO; ADD SCAN? NO; ATYPICAL LYMPHOCYTE FLAG 10 (0-99); FRAGMENT RBC FLAG 0 (0-99); HEMATOCRIT 42.6 % (40.0-51.0); HEMOGLOBIN 15.5 g/dL (13.7-17.5); LEFT SHIFT FLG 80 (0-99); LIPEMIA HEMOLYSIS FLAG 90 (0-99); MEAN CELL HEMOGLOBIN CONCENTR. 36.4 g/dL (32.4-36.7); MEAN CELL VOLUME 90.8 fL (81.5-99.8); MEAN PLATELET VOLUME 9.9 fL (8.7-11.7); PLATELET CLUMPS FLAG 0 (0-99); PLATELET COUNT 112 10^3/uL (150-400); RED BLOOD CELL COUNT 4.69 10^6/uL (4.40-6.38); RED CELL DISTRIBUTION WIDTH 15.7 % (11.5-15.2)
[2016-10-11] MEDS ORDERED: NS 1,000 ML IV ONE (15:13)
[2016-10-11 15:19] LABS: ALANINE AMINOTRANSFERASE 102 IU/L (21-72); ALBUMIN 3.4 g/dL (3.5-5.0); ALKALINE PHOSPHATASE 115 IU/L (38-126); ANION GAP 14 mEq/L (8-16); ASPARTATE AMINOTRANSFERASE 139 IU/L (17-59); BILIRUBIN,TOTAL 6.3 mg/dL (0.1-1.4); BILIRUBIN-CONJUGATED 2.5 mg/dL (0.0-0.5); BILIRUBIN-UNCONJUGATED 3.8 mg/dL (0.0-1.1); CALCIUM 9.1 mg/dL (8.5-10.4); CARBON DIOXIDE 19 mEq/l (22-31); CHLORIDE 92 mEq/L (97-110); CREATININE 0.8 mg/dL (0.7-1.3); GLOMERULAR FILTRATION RATE > 60; GLUCOSE 122 mg/dL (70-100); POTASSIUM 4.6 mEq/L (3.5-5.2); SODIUM 125 mEq/L (134-144); TOTAL PROTEIN 8.9 g/dL (6.3-8.2)
[2016-10-11] MEDS ORDERED: NS 1,900 ML IV ONE (15:20)
[2016-10-11 15:22] LABS: INR 1.29 (0.83-1.16); PROTIME(PATIENT) 16.1 SEC (12.0-15.0)
[2016-10-11 15:23] LABS: APTT 33.9 SEC (23.0-38.0)
[2016-10-11] MEDS ORDERED: ACETAMINOPHEN 325 MG TAB PO PRN (15:39)
[2016-10-11] MEDS ORDERED: ONDANSETRON DISINTEGRATING 4 MG TAB PO PRN (15:39)
[2016-10-11] MEDS ORDERED: ONDANSETRON 4 MG/2 ML VIAL IVP PRN (15:39)
[2016-10-11] MEDS ORDERED: HYDROCODONE/APAP 5/325 TAB PO PRN (17:24)
[2016-10-11] MEDS: HYDROmorphONE/DILAUDID 1 MG/ML SYR IVP PRN ×2 (17:48→22:28)
--- NOTE | 2016-10-11 18:20 | GHP ---
[f rep st] HISTORY AND PHYSICAL DATE OF ADMISSION: 10/11/2016 CHIEF COMPLAINT: Abdominal pain. 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 Patient has a history of chronic ascites and presents to our radiology department typically weekly for ultrasound-guided paracenteses. He had his last tap performed just under a week ago without complication. Patient awoke the morning of presentation with severe abdominal pain, called in to his doctor for evaluation. Ultrasound-guided paracentesis performed early this morning was found to have a white blood cell count consistent with SBP, and the patient was called back for hospital admission. In the ED, the patient is reporting abdominal pain. Denies any nausea. Denies any subjective fevers or chills. Denies dizziness, vision changes, dysphagia, dyspepsia. Denies any recent diarrhea, dysuria, hematuria, or hematochezia. Denies lower extremity edema. Reports no history of abdominal pain in the past with his chronic ascites. The severity was new and the symptom was new altogether. PAST MEDICAL HISTORY: 1. 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 2. Hypertension. SOCIAL HISTORY: Patient has quit alcohol approximately 3 months ago. Additionally, quit tobacco at that time. Denies any illicit drugs. Occasionally smokes marijuana. FAMILY HISTORY: Mother has colon cancer. No history of liver disease otherwise. ADVANCE DIRECTIVES: He is full cor, full tube. His would be his medical decision maker. REVIEW OF SYSTEMS: A 10-point review of systems is negative with the exception of that reported in the HPI. PHYSICAL EXAMINATION: VITAL SIGNS: Blood pressure 106/73, heart rate 132, respiratory rate 14, satting 91% on room air. GENERAL: This is a very pleasant , thin-appearing, middle-aged male in no acute distress. HEENT: Notable for dry mucous membranes. Eye exam is negative for any icterus. CARDIAC: Patient has regular rate and rhythm. PULMONARY: Clear to auscultation bilaterally. GASTROINTESTINAL: Patient is distended, has positive bowel sounds, and is diffusely, markedly tender to palpation in all 4 quadrants. MUSCULOSKELETAL: Negative for any lower extremity edema. SKIN: Negative for any rashes or jaundice. NEUROLOGIC: Patient is alert and oriented x3. No asterixis is appreciated. PSYCHIATRIC: He is pleasant and cooperative on interview and examination. DATA: White count 11.4. Baselines appear to be normal. Hematocrit is 42. Platelet count of 112, which is his baseline. INR is 1.29. Lactic acid is 4.1. Sodium is 125, near his recent baseline. Creatinine is 0.8. Total bilirubin is 6.3. AST is 139, ALT 102. Peritoneal fluid analyzed this morning showed 4160 white blood cells, 91% neutrophils. Telemetry, which I personally reviewed and interpreted, showed sinus tachycardia with the heart rate in the 130s. ASSESSMENT AND PLAN: This is a 56-year-old male presenting with abdominal pain. 1. Acute sepsis, presumed secondary to spontaneous bacterial peritonitis: Patient is presenting with leukocytosis and tachycardia. Source is intra- abdominal. Plan to fluid resuscitate and start empiric antibiotics. 2. Spontaneous bacterial peritonitis: Patient has a history of chronic ascites. Peritoneal fluid gram stain and differential is consistent with infection. We have asked the lab to send the fluid obtained today, before antibiotics, down for culture. Initiating IV ceftriaxone. 3. Sinus tachycardia, suspect secondary to sepsis: Will fluid resuscitate and follow. 4. Abdominal pain secondary to spontaneous bacterial peritonitis: Will treat with as needed IV and p.o. narcotics. Did educate the patient about his hepatic clearance and the careful use of these medications. 5. Hypertension: Patient's blood pressures are actually borderline low. Will follow closely and will hold his antihypertensives on admission, as his risk for developing overt hypotension in the setting of sepsis is high. 6. Prophylaxis with heparin incase we need to re-tap in am 7. Diet: Low salt. 8. Disposition: I expect greater than 2 midnights as the patient is presenting with sepsis, intraabdominal infection, and is high risk based on his history of cirrhosis. I have discussed the case with the emergency room physician. Patient will be triaged to the stepdown unit for care. /[id number]/MODL MTDD
[2016-10-11] MEDS: HEPARIN 5,000 UNIT/0.5 ML SYR SC SCH (22:29)
[2016-10-11] MEDS: TEMAZEPAM 15 MG CAP PO PRN (22:37)
[2016-10-12] MEDS: HYDROmorphONE/DILAUDID 1 MG/ML SYR IVP PRN ×4 (00:41→09:46)
[2016-10-12] MEDS: HEPARIN 5,000 UNIT/0.5 ML SYR SC SCH (05:10)
[2016-10-12 05:32] LABS: % IMMATURE GRANULYOCYTES 0.6 % (0.0-1.1); ABSOLUTE IMMATURE GRANULOCYTES 0.07 10^3/uL (0.00-0.10); ADD DIFF? NO; ADD MORPH? NO; ADD SCAN? NO; ATYPICAL LYMPHOCYTE FLAG 0 (0-99); FRAGMENT RBC FLAG 0 (0-99); HEMATOCRIT 34.2 % (40.0-51.0); HEMOGLOBIN 12.5 g/dL (13.7-17.5); LEFT SHIFT FLG 60 (0-99); LIPEMIA HEMOLYSIS FLAG 90 (0-99); MEAN CELL HEMOGLOBIN 33.2 pg (27.9-34.1); MEAN CELL HEMOGLOBIN CONCENTR. 36.5 g/dL (32.4-36.7); MEAN PLATELET VOLUME 9.7 fL (8.7-11.7); PLATELET CLUMPS FLAG 0 (0-99); PLATELET COUNT 80 10^3/uL (150-400); RED BLOOD CELL COUNT 3.76 10^6/uL (4.40-6.38); RED CELL DISTRIBUTION WIDTH 15.4 % (11.5-15.2)
[2016-10-12] MEDS ORDERED: PROTOCOL CALCIUM 1 DOSE IV PRN (05:56)
[2016-10-12] MEDS ORDERED: PROTOCOL MAGNESIUM 1 DOSE IV PRN (05:56)
[2016-10-12 06:05] LABS: ALANINE AMINOTRANSFERASE 76 IU/L (21-72); ALBUMIN 2.3 g/dL (3.5-5.0); ALKALINE PHOSPHATASE 75 IU/L (38-126); ANION GAP 7 mEq/L (8-16); ASPARTATE AMINOTRANSFERASE 85 IU/L (17-59); BILIRUBIN,TOTAL 4.7 mg/dL (0.1-1.4); CALCIUM 8.1 mg/dL (8.5-10.4); CARBON DIOXIDE 21 mEq/l (22-31); CHLORIDE 96 mEq/L (97-110); CREATININE 0.7 mg/dL (0.7-1.3); GLOMERULAR FILTRATION RATE > 60; GLUCOSE 103 mg/dL (70-100); POTASSIUM 4.6 mEq/L (3.5-5.2); SODIUM 124 mEq/L (134-144); TOTAL PROTEIN 6.7 g/dL (6.3-8.2)
[2016-10-12 06:22] LABS: BILIRUBIN-CONJUGATED 1.9 mg/dL (0.0-0.5); BILIRUBIN-UNCONJUGATED 2.8 mg/dL (0.0-1.1)
[2016-10-12] MEDS ORDERED: cefTRIAXone 2 GM in D5W 50 ML IV SCH (09:00)
--- NOTE | 2016-10-12 12:24 | GCON ---
[f rep st] CONSULTATION INFECTIOUS DISEASE CONSULTATION DATE OF CONSULTATION: 10/12/2016 REFERRING PHYSICIAN: Tyson Ross MD REASON FOR CONSULTATION: Gram-negative isaiah bacteremia. HISTORY OF PRESENT ILLNESS: A 56-year-old male with end-stage liver disease secondary to alcoholism and hepatitis C who approximately 3 months ago developed decompensation of his cirrhosis with symptomatic ascites and subsequently established care with Dr. Waddell at [facility]. The patient has been undergoing weekly paracentesis and on the day of admission, developed a significantly worsening abdominal pain as compared to abdominal pain associated with tense ascites. The patient was brought in a day early for his paracentesis and cell count was found to be 4160 and patient was found to be tachycardic with chills. The patient was seen in the emergency room and found to have sepsis. Blood cultures were obtained as well as ascitic cultures from the paracentesis earlier that day. The patient was started on IV ceftriaxone. Overnight, patient reports significant improvement in his abdominal pain. He has no further chills. He "feels much improved." Patient's and 's concern are persistent recurrent ascites and their desire to initiate hepatitis treatment as soon as possible. They report that they have been waiting for several months without word whether his insurance will cover the drugs. Further they have concern they are due for endoscopy next week including upper and lower endoscopy. They were concerned whether they are stable enough to undergo this procedure next week. The patient has received 1 dose of antibiotics in August of 2016. Since then it has been years since he has been on antibiotics. He was not on prophylactic antibiotics for ascites. PAST MEDICAL HISTORY: 1. Alcohol dependence, no alcohol for 3 months; cirrhosis of the liver diagnosed in August of 2016, complicated by ascites, gastric and portal vein varices; thrombocytopenia and a mild coagulopathy. No history of encephalopathy. 2. Hypertension. 3. Hepatitis C, genotype 3 with a viral load of 90,977. PAST SURGICAL HISTORY: Patient with knee surgery in the past. ALLERGIES: NKDA.. MEDICATIONS: As an outpatient including amitriptyline, Lasix, and spironolactone. In hospital he has been started on the ceftriaxone 1 g IV daily. SOCIAL HISTORY: Alcohol, as per HPI. Occupation, patient has been employed for [employer] for 9 years. 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 They have 1 child; it is an adult. Former tobacco, quit also several months ago. No history of transfusions. The patient is originally from [place], but moved to the [facility] in the 1970[place]. FAMILY HISTORY: Mother has colon cancer. IMMUNIZATIONS: Influenza 02/2016, and Tdap 05/2011. REVIEW OF SYSTEMS: A complete 10-point review of systems was performed and is negative except as mentioned in the HPI. Pertinent negatives include no headache. No confusion. No melena or bright red blood. No cough or shortness of breath. No new rashes. The patient notes rash on his chest has been present for many years. PHYSICAL EXAMINATION: VITAL SIGNS: Blood pressure 97/58, heart rate 107, respiratory rate 16, saturation 98% on room air, temperature 36.4. GENERAL: This is a very pleasant male sitting in bed, no acute distress. is at bedside. HEENT: Patient with jaundice, fairly smooth tongue. No oral ulcerations or exudates. Mucous membranes dry. NECK: Supple. No lymphadenopathy. CARDIOVASCULAR: Tachycardic. Regular rate. No murmurs. CHEST: The patient had decreased breath sounds in the left base up to about 1/ 3. No crackles. ABDOMEN: Mild discomfort to diffuse palpation. Patient with an obvious tense ascites. EXTREMITIES: No clubbing, cyanosis, or edema. SKIN : Patient with spider angiomas scattered throughout. He has a palmar erythema. NEUROLOGIC: He is alert and oriented x4. Moving all 4 extremities equally. No asterixis. GENITOURINARY: No Goodwin. LABORATORY: White count 11,000, hematocrit 34, platelets of 80, neutrophils 71% . Creatinine 0.7. LFTs: AST 139 on admission, today 85. ALT 102-76. Alkaline phosphatase is normal at 75 today. Total bilirubin 6.3 on admission, today 4.7; in August was 3.0. Paracentesis ultrasound performed yesterday removed 2 L of yellow ascites. Cell count showed 4116 cells, 91% neutrophils, RBC 682. Blood cultures 1/2 cultures growing Enterobacter KITTY group. Peritoneal fluid aspirate. Gram stain is negative. Culture is pending. Past imaging CT scan in 08/2016 was personally reviewed by me. ASSESSMENT AND PLAN: This is a 56-year-old male with end-stage liver disease secondary to alcoholism and hepatitis C who presents with abdominal pain and chills, found to have spontaneous bacterial peritonitis with associated sepsis and complicated by gram-negative isaiah bacteremia. 1. Spontaneous bacterial peritonitis. 2. Gram-negative isaiah bacteremia. 3. Sepsis. RECOMMENDATIONS: 1. Agree with ceftriaxone. Can reduce the dose to 1 g IV daily. This drug is primarily liver metabolized. Further, with gram-negative isaiah bacteremia, a 1 g dose should be adequate. 2. Would repeat blood cultures after 48 hours of antibiotics, orders written. 3. Reasonable to repeat paracentesis for symptomatic improvement and repeat cell count to establish decline in WBC. 4. Consider GI consult for assessment of further more aggressive management of ascites and cirrhosis with multiple complications. 5. Duration and antibiotic therapy to treat SBP complicated by bacteremia to be determined based on further ID of organism and susceptibilities. Thank you for this consultation. We will continue to follow. /[id number]/MODL MTDD
[2016-10-12] MEDS: oxyCODONE IR 5 MG TAB PO PRN ×2 (12:44→19:42)
--- NOTE | 2016-10-12 18:40 | GPROG ---
[f rep st] PROGRESS NOTE SUBJECTIVE: The patient reports some mild abdominal discomfort. OBJECTIVE: VITAL SIGNS: Systolic blood pressure 100, heart rate 100-110, satting well on room air, net positive 2 L overnight. GENERAL: Chronically ill-appearing male, alert, awake, oriented x3. No apparent distress. CARDIAC: Tachycardic, regular rhythm. Trace bilateral lower extremity edema . A 2/6 systolic murmur at the sternum and apex. RESPIRATORY: Clear to auscultation bilaterally. No crackles or wheezes. No areas of reduced air movement. No bronchial breath sounds. GASTROINTE STINAL: Abdomen is distended, mildly tender to palpation, clearly acidic, bowel sounds are active. NEUROLOGIC: No asterixis, no tremulousness, patient has facial symmetry, motor strength is 5/5 micah ateral lower extremities. SKIN: Patient is clearly jaundiced. He does not have any abdominal woun ds over his abdomen. LABORATORY DATA: Total bilirubin 4.7, white blood cell count 11,700, creatinine 0.7, serum bicarbon ate 21, lactic acid 1.5, blood cultures demonstrating Enterobacter. Outside records include peritoneal fluid sample demonstrating 4160 white blood cells with 91% segmen pau neutrophils. ASSESSMENT: A 56-year-old male, presenting with severe sepsis secondary to spontaneous bacterial pe ritonitis, in the setting of end-stage liver disease. PLAN: 1. Severe sepsis. Evidenced by tachycardia, leukocytosis, clear source of infection notably sponta neous bacterial peritonitis, evidence of end-organ failure, notably lactic acidosis, resulting in au tonomic dysregulation in the setting of infection. a. - Patient is status post IV fluids and empiric IV antibiotics. b. - Continue to monitor fever curve and CBC. c. - Careful use of IV fluids moving forward given his propensity to accumulate in his abdomen as a scites. 2. Spontaneous bacterial peritonitis. Evidenced by 4000 white blood cells, with neutrophil predomi nance, tender abdomen in the setting of chronic ascites and chronic paracenteses. a. - Continue to treat with ceftriaxone. 3. Bacteremia. Enterobacter, discussed with Dr. Cotter, from infectious disease, consultation appr eciated. She advises that she will see the patient and make any appropriate adjustments from ceftri axone if needed. a. - Repeat blood cultures to be drawn tomorrow. 4. Metabolic acidosis. Acute, secondary to lactic acid, in the setting of severe sepsis, improved with IV fluids and treatment of sepsis. 5. End-stage liver disease. No evidence of hepatic encephalopathy or coma, will reinitiate patient 's home lactulose as soon as reconciled, continue to monitor liver panel. 6. Diet. Regular diet. 7. Prophylaxis. Moderate risk patient, Lovenox. 8. Code. Full. 9. Disposition. Anticipated discharge uncertain at this time, anticipating a stay greater than 48 hours warranting inpatient admission status for severe sepsis with SBP and bacteremia. The patient is a high medical complexity patient with high risk of worsening morbidity and/or mortal ity for the reasons as outlined above. /[id number]/MODL
[2016-10-12] MEDS: TEMAZEPAM 15 MG CAP PO PRN (19:42)
[2016-10-12 20:29] LABS: ALANINE AMINOTRANSFERASE 76 IU/L (21-72); ALBUMIN 2.3 g/dL (3.5-5.0); ALKALINE PHOSPHATASE 111 IU/L (38-126); ANION GAP 4 mEq/L (8-16); ASPARTATE AMINOTRANSFERASE 76 IU/L (17-59); BILIRUBIN,TOTAL 2.8 mg/dL (0.1-1.4); CALCIUM 7.8 mg/dL (8.5-10.4); CARBON DIOXIDE 24 mEq/l (22-31); CHLORIDE 92 mEq/L (97-110); CREATININE 0.6 mg/dL (0.7-1.3); GLOMERULAR FILTRATION RATE > 60; GLUCOSE 98 mg/dL (70-100); POTASSIUM 4.7 mEq/L (3.5-5.2); SODIUM 120 mEq/L (134-144); TOTAL PROTEIN 6.7 g/dL (6.3-8.2)
[2016-10-12 20:39] LABS: BILIRUBIN-CONJUGATED 1.4 mg/dL (0.0-0.5); BILIRUBIN-UNCONJUGATED 1.4 mg/dL (0.0-1.1)
--- NOTE | 2016-10-12 22:28 | PCMIDPN ---
Assessment/Plan: ADDENDUM Needs prevnar 13 before discharge then pneumovax 8 weeks after Objective: Vital Signs Temp Pulse Resp BP Pulse Ox 37.0 C 116 H 14 116/74 94 10/12/16 20:00 10/12/16 20:00 10/12/16 20:00 10/12/16 20:00 10/12/16 20:00 Microbiology 10/11/16 Unknown Gram Stain - Final Peritoneal Fluid - Aspirate Laboratory Results 10/12/16 05:20 10/12/16 20:11 10/11/16 10/12/16 10/13/16 05:59 05:59 05:59 Intake Total 2200 450 Output Total 375 695 Balance 1825 -245 ICD10 Worksheet Patient Problems: Problems Problem Status Onset Septic shock Acute Spontaneous bacterial peritonitis Acute Abdominal pain Acute Alcoholism Acute Ascites Acute Hyperbilirubinemia Acute
[2016-10-13] MEDS: oxyCODONE IR 5 MG TAB PO PRN ×5 (01:43→21:21)
[2016-10-13 01:52] LABS: RANDOM URINE POTASSIUM 13.9 mEq/L (0.5-35.0)
[2016-10-13 06:03] LABS: % IMMATURE GRANULYOCYTES 1.8 % (0.0-1.1); ABSOLUTE IMMATURE GRANULOCYTES 0.19 10^3/uL (0.00-0.10); ABSOLUTE NRBC COUNT 0.02 10^3/uL (0-0.01); ADD DIFF? NO; ADD MORPH? NO; ADD SCAN? NO; ATYPICAL LYMPHOCYTE FLAG 0 (0-99); FRAGMENT RBC FLAG 0 (0-99); HEMATOCRIT 34.9 % (40.0-51.0); HEMOGLOBIN 12.9 g/dL (13.7-17.5); LEFT SHIFT FLG 10 (0-99); LIPEMIA HEMOLYSIS FLAG 90 (0-99); MEAN CELL HEMOGLOBIN 33.2 pg (27.9-34.1); MEAN CELL VOLUME 89.9 fL (81.5-99.8); MEAN PLATELET VOLUME 9.9 fL (8.7-11.7); NRBC-AUTO% 0.2 % (0.0-0.2); PLATELET CLUMPS FLAG 20 (0-99); PLATELET COUNT 89 10^3/uL (150-400); RED BLOOD CELL COUNT 3.88 10^6/uL (4.40-6.38); RED CELL DISTRIBUTION WIDTH 15.6 % (11.5-15.2)
[2016-10-13 06:32] LABS: ALANINE AMINOTRANSFERASE 78 IU/L (21-72); ALBUMIN 2.3 g/dL (3.5-5.0); ALKALINE PHOSPHATASE 128 IU/L (38-126); ANION GAP 4 mEq/L (8-16); ASPARTATE AMINOTRANSFERASE 76 IU/L (17-59); BILIRUBIN,TOTAL 2.9 mg/dL (0.1-1.4); CALCIUM 8.1 mg/dL (8.5-10.4); CARBON DIOXIDE 22 mEq/l (22-31); CHLORIDE 93 mEq/L (97-110); CREATININE 0.6 mg/dL (0.7-1.3); GLOMERULAR FILTRATION RATE > 60; GLUCOSE 91 mg/dL (70-100); POTASSIUM 4.5 mEq/L (3.5-5.2); TOTAL PROTEIN 6.9 g/dL (6.3-8.2)
[2016-10-13 06:42] LABS: SODIUM 119 mEq/L (134-144)
[2016-10-13 06:49] LABS: BILIRUBIN-CONJUGATED 1.6 mg/dL (0.0-0.5); BILIRUBIN-UNCONJUGATED 1.3 mg/dL (0.0-1.1)
[2016-10-13] MEDS ORDERED: NS 1,000 ML IV SCH (08:45)
[2016-10-13] MEDS: ENOXAPARIN 40 MG/0.4 ML SYR SC SCH (09:44)
[2016-10-13] MEDS: LACTULOSE 20 GM/30 ML UDCUP PO SCH ×4 (09:44→21:23)
[2016-10-13] MEDS: ALBUMIN 25% 100 ML IV SCH ×4 (10:45→23:02)
[2016-10-13 13:29] LABS: ANION GAP 7 mEq/L (8-16); CALCIUM 8.2 mg/dL (8.5-10.4); CARBON DIOXIDE 23 mEq/l (22-31); CHLORIDE 94 mEq/L (97-110); CREATININE 0.6 mg/dL (0.7-1.3); GLOMERULAR FILTRATION RATE > 60; GLUCOSE 102 mg/dL (70-100); POTASSIUM 4.4 mEq/L (3.5-5.2); SODIUM 124 mEq/L (134-144)
--- NOTE | 2016-10-13 13:53 | PCMIDPN ---
Assessment/Plan: Assessment: sepsis following spontaneous bacterial peritonitis due to liver failure and chronic ascites and portal hypertension. Patient is also bacteremic with Klebsiella. Appears to be clinically improving with regards to current infection however underlying liver failure is an ongoing problem. Plan: 1. continue ceftriaxone coverage. 2. Follow up with sensitivity panel of the Klebsiella. 3. Follow up repeat blood cultures drawn today. 10/13/16 18:45 10/13/16 18:46 Subjective: Patient is resting in his hospital room. Communicating to him in the family with help of an historic interpreter. He is wearing a BiPAP mask. States that he is doing better. No complaints of pain. Objective: Ceftriaxone # 3 Vital Signs Temp Pulse Resp BP Pulse Ox 36.6 C 109 H 15 103/66 94 10/13/16 07:40 10/13/16 11:55 10/13/16 11:55 10/13/16 11:55 10/13/16 11:55 Microbiology 10/11/16 Unknown Gram Stain - Final Peritoneal Fluid - Aspirate Laboratory Results 10/13/16 05:01 10/13/16 12:30 10/12/16 10/13/16 10/14/16 05:59 05:59 05:59 Intake Total 2200 950 Output Total 375 1398 475 Balance 8777 -123 -546 - Physical Exam General Appearance: WD/WN, alert, no apparent distress, non-toxic Respiratory: lungs clear, normal breath sounds, No respiratory distress Cardiac/Chest: regular rate, rhythm, tachycardia, No irregularly irregular Abdomen: distended, No non-tender Skin: normal color, warm/dry, No rash Neuro/Psych: alert, normal mood/affect ICD10 Worksheet Patient Problems: Problems Problem Status Onset Septic shock Acute Spontaneous bacterial peritonitis Acute Abdominal pain Acute Alcoholism Acute Ascites Acute Hyperbilirubinemia Acute
[2016-10-13 19:31] LABS: ANION GAP 9 mEq/L (8-16); CALCIUM 8.1 mg/dL (8.5-10.4); CARBON DIOXIDE 23 mEq/l (22-31); CHLORIDE 96 mEq/L (97-110); CREATININE 0.6 mg/dL (0.7-1.3); GLOMERULAR FILTRATION RATE > 60; GLUCOSE 91 mg/dL (70-100); POTASSIUM 4.2 mEq/L (3.5-5.2); SODIUM 128 mEq/L (134-144)
[2016-10-13] MEDS: TEMAZEPAM 15 MG CAP PO PRN (21:24)
[2016-10-13 22:09] LABS: ANION GAP 7 mEq/L (8-16); CALCIUM 8.2 mg/dL (8.5-10.4); CARBON DIOXIDE 23 mEq/l (22-31); CHLORIDE 93 mEq/L (97-110); CREATININE 0.6 mg/dL (0.7-1.3); GLOMERULAR FILTRATION RATE > 60; GLUCOSE 86 mg/dL (70-100); POTASSIUM 4.1 mEq/L (3.5-5.2); SODIUM 123 mEq/L (134-144)
--- NOTE | 2016-10-13 22:46 | HOSPPROG ---
Hospitalist Progress Note Assessment/Plan: Assessment: 56 yo M p/w severe sepsis in setting of Klebsiella SBP/bactermia, cirrhosis, and acute hyponatremia Plan: 1. Severe Sepsis. POA, s/p IVF and Abx - cont to monitor WBC, fever curve 2. Klebsiella SBP and bacteremia. Awaiting sensitivities, cont CTX 3. Cirrhosis. 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 Waddell, f/u short-term - patient does not recall plan for TIPS, but suspect this could aid in reducing ascites - holding diuretics given acute issues - placed on sched lactulose - plan on therapeutic para tomorrow if hemodynamically stabilized 4. Hyponatremia. Acute, severe, 2/2 renal hypoperfusion in setting of infxn and 3rd spacing from low oncotic pressure, Dereck 5 - start albumin melo + NS, discontinued NS once Na level starts increasing - Na stabilizing, potentially plateau, place on 1L fluid restriction and repeat Dereck now Diet. Regular PPx. High risk, on lovenox 40 Code. Full Dispo. ADD uncertain Subjective: reports increasing abd distension, discomfort Objective: Vital Signs Temp Pulse Resp BP Pulse Ox 36.8 C 105 H 18 101/60 95 10/13/16 15:45 10/13/16 15:45 10/13/16 15:45 10/13/16 15:45 10/13/16 15:45 Microbiology 10/11/16 Unknown Gram Stain - Final Peritoneal Fluid - Aspirate Laboratory Results 10/13/16 05:01 10/13/16 21:30 10/12/16 10/13/16 10/14/16 05:59 05:59 05:59 Intake Total 2200 950 923 Output Total 375 1395 475 Balance 1825 -445 448 PT 16.1 SEC (12.0-15.0) H 10/11/16 14:56 INR 1.29 (0.83-1.16) H 10/11/16 14:56 - Time Spent With Patient Time Spent with Patient: greater than 35 minutes Time Spent with Patient: Greater than 35 minutes spent on this patients care, greater than 50% of time spent counseling, educating, and coordinating care regarding the above mentioned plan. - Physical Exam Constitutional: chronically ill appearing, uncomfortable Cardiovascular: systolic murmur (I/6 at all valves), tachycardia, No irregularly irregular, No edema Respiratory: no respiratory distress, no rales or rhonchi, clear to auscultation Gastrointestinal: tenderness (mild), ascites, distension (moderate) Neurologic: AAOx3, No asterixes Psychiatric: interacting appropriately, not anxious, not encephalopathic, thought process linear ICD10 Worksheet Patient Problems: Problems Problem Status Onset Abdominal pain Acute Ascites Acute Hyperbilirubinemia Acute Alcoholism Acute Spontaneous bacterial peritonitis Acute Septic shock Acute
[2016-10-14] MEDS: oxyCODONE IR 5 MG TAB PO PRN ×5 (01:29→18:53)
[2016-10-14 04:46] LABS: % IMMATURE GRANULYOCYTES 2.1 % (0.0-1.1); ABSOLUTE IMMATURE GRANULOCYTES 0.11 10^3/uL (0.00-0.10); ADD DIFF? NO; ADD MORPH? NO; ADD SCAN? NO; ATYPICAL LYMPHOCYTE FLAG 0 (0-99); FRAGMENT RBC FLAG 0 (0-99); HEMATOCRIT 29.2 % (40.0-51.0); HEMOGLOBIN 10.5 g/dL (13.7-17.5); LEFT SHIFT FLG 20 (0-99); LIPEMIA HEMOLYSIS FLAG 90 (0-99); MEAN CELL HEMOGLOBIN 33.4 pg (27.9-34.1); MEAN PLATELET VOLUME 10.9 fL (8.7-11.7); PLATELET CLUMPS FLAG 0 (0-99); PLATELET COUNT 89 10^3/uL (150-400); RED BLOOD CELL COUNT 3.14 10^6/uL (4.40-6.38); RED CELL DISTRIBUTION WIDTH 15.8 % (11.5-15.2)
[2016-10-14] MEDS: ALBUMIN 25% 100 ML IV SCH ×3 (05:00→17:42)
[2016-10-14 05:03] LABS: ALANINE AMINOTRANSFERASE 57 IU/L (21-72); ALBUMIN 2.9 g/dL (3.5-5.0); ALKALINE PHOSPHATASE 68 IU/L (38-126); ANION GAP 6 mEq/L (8-16); ASPARTATE AMINOTRANSFERASE 66 IU/L (17-59); BILIRUBIN,TOTAL 2.3 mg/dL (0.1-1.4); CALCIUM 8.3 mg/dL (8.5-10.4); CARBON DIOXIDE 24 mEq/l (22-31); CHLORIDE 95 mEq/L (97-110); CREATININE 0.7 mg/dL (0.7-1.3); GLOMERULAR FILTRATION RATE > 60; GLUCOSE 88 mg/dL (70-100); POTASSIUM 4.8 mEq/L (3.5-5.2); SODIUM 125 mEq/L (134-144); TOTAL PROTEIN 6.6 g/dL (6.3-8.2)
[2016-10-14 05:10] LABS: BILIRUBIN-CONJUGATED 1.1 mg/dL (0.0-0.5); BILIRUBIN-UNCONJUGATED 1.2 mg/dL (0.0-1.1)
[2016-10-14] MEDS: ENOXAPARIN 40 MG/0.4 ML SYR SC SCH (08:26)
[2016-10-14] MEDS: LACTULOSE 20 GM/30 ML UDCUP PO SCH ×3 (08:32→20:01)
[2016-10-14] MEDS ORDERED: LIDOCAINE 1% 300 MG/30 ML SDV ONE (09:19)
[2016-10-14] MEDS ORDERED: NORFLURANE/HFC SPRAY 103.5 ML SPRAY TP PRN (09:23)
--- NOTE | 2016-10-14 09:27 | PCMIDPN ---
Assessment/Plan: Assessment: sepsis following spontaneous bacterial peritonitis due to liver failure and chronic ascites and portal hypertension. Patient is also bacteremic with Klebsiella. Sensitivity panel shows sensitivity to ceftriaxone. Appears to be clinically improving with regards to current infection however underlying liver failure is an ongoing problem. Plan: 1. continue ceftriaxone coverage. 2. Follow up repeat blood cultures drawn yesterday. 10/14/16 16:18 Subjective: Patient is heading down to interventional Radiology this morning for repeat therapeutic paracentesis. States he is feeling better. No fevers or chills. Tolerating ceftriaxone without issue Objective: Ceftriaxone #4 Vital Signs Temp Pulse Resp BP Pulse Ox 36.7 C 105 H 20 104/65 90 L 10/14/16 08:00 10/14/16 08:00 10/14/16 08:00 10/14/16 08:00 10/14/16 08:00 Microbiology 10/11/16 Unknown Gram Stain - Final Peritoneal Fluid - Aspirate Laboratory Results 10/14/16 04:20 10/14/16 04:20 10/13/16 10/14/16 10/15/16 05:59 05:59 05:59 Intake Total 950 1123 Output Total 1395 1050 Balance -445 73 - Physical Exam General Appearance: WD/WN, alert, no apparent distress, toxic (Mildly toxic in appearance) Respiratory: lungs clear, normal breath sounds, No respiratory distress Cardiac/Chest: regular rate, rhythm, No tachycardia Abdomen: soft, distended, No mass Skin: normal color, warm/dry, No rash Neuro/Psych: alert, normal mood/affect, oriented x 3 ICD10 Worksheet Patient Problems: Problems Problem Status Onset Septic shock Acute Spontaneous bacterial peritonitis Acute Abdominal pain Acute Alcoholism Acute Ascites Acute Hyperbilirubinemia Acute
[2016-10-14 11:46] LABS: GLUCOSE, PERITONEAL FLUID 100 mg/dL (55-113)
--- NOTE | 2016-10-14 16:31 | HOSPPROG ---
Hospitalist Progress Note Assessment/Plan: Assessment: 56 yo M p/w severe sepsis in setting of Klebsiella SBP/bacteremia, cirrhosis, and acute hyponatremia Plan: 1. Severe Sepsis. POA, s/p IVF and Abx, holding further IVF - cont to monitor WBC, fever curve 2. Klebsiella SBP and bacteremia. CTX sensitive, drawn prior to admit, f/u BCx NGTD - repeat para w/ elevated WBCs, less neutrophil predominance - appreciate ID consultation, start date of 14 days likely 10/13 3. Cirrhosis. 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 Waddell, f/u short-term - patient does not recall plan for TIPS, but suspect this could aid in reducing ascites - holding diuretics given acute issues, restart when hyponatremia stabilized - placed on sched lactulose 4. Hyponatremia. Acute on chronic, reviewed outside records (baseline 125-130), 2/2 renal hypoperfusion in setting of infxn and 3rd spacing from low oncotic pressure, Dereck remains 5 s/p scheduled albumin and NS - therapeutic para today to reduce intra-abdominal pressure which may be resulting in renal artery compression and reduced renal blood flow - cont scheduled albumin to improve oncotic pressure - repeat Na level now Diet. Regular PPx. High risk, on lovenox 40 Code. Full Dispo. ADD uncertain High complexity patient, high risk of worsening morbidity / mortality 2/2 issues outlined above. Subjective: patient reports abdominal pain has been significantly improved with up titration of oxycodone Objective: Vital Signs Temp Pulse Resp BP Pulse Ox 36.8 C 104 H 18 109/68 99 10/14/16 16:00 10/14/16 16:00 10/14/16 16:00 10/14/16 16:00 10/14/16 16:00 Microbiology 10/11/16 Unknown Gram Stain - Final Peritoneal Fluid - Aspirate Body Fluid Culture - Final Klebsiella Oxytoca Laboratory Results 10/14/16 04:20 10/14/16 04:20 10/13/16 10/14/16 10/15/16 05:59 05:59 05:59 Intake Total 950 1123 Output Total 1395 1050 Balance -445 73 PT 16.1 SEC (12.0-15.0) H 10/11/16 14:56 INR 1.29 (0.83-1.16) H 10/11/16 14:56 - Physical Exam Constitutional: no apparent distress, not in pain, chronically ill appearing, uncomfortable Eyes: icteric sclera Cardiovascular: tachycardia, edema ( trace bilateral lower extremities), No systolic murmur, No irregularly irregular Respiratory: no respiratory distress, no rales or rhonchi, clear to auscultation Gastrointestinal: normoactive bowel sounds, tenderness ( mild to moderate palpation), ascites, distension ( moderate), No guarding Neurologic: AAOx3 Psychiatric: interacting appropriately, not anxious, not encephalopathic, thought process linear ICD10 Worksheet Patient Problems: Problems Problem Status Onset Abdominal pain Acute Ascites Acute Hyperbilirubinemia Acute Alcoholism Acute Spontaneous bacterial peritonitis Acute Septic shock Acute
[2016-10-14] MEDS: TEMAZEPAM 15 MG CAP PO PRN (20:01)
[2016-10-15] MEDS: ALBUMIN 25% 100 ML IV SCH ×3 (00:18→13:32)
[2016-10-15] MEDS: oxyCODONE IR 5 MG TAB PO PRN ×5 (01:19→22:21)
[2016-10-15 06:27] LABS: % IMMATURE GRANULYOCYTES 2.1 % (0.0-1.1); ADD DIFF? NO; ADD MORPH? NO; ADD SCAN? NO; ATYPICAL LYMPHOCYTE FLAG 20 (0-99); FRAGMENT RBC FLAG 0 (0-99); HEMOGLOBIN 10.4 g/dL (13.7-17.5); LEFT SHIFT FLG 20 (0-99); LIPEMIA HEMOLYSIS FLAG 90 (0-99); MEAN CELL HEMOGLOBIN 32.6 pg (27.9-34.1); MEAN CELL HEMOGLOBIN CONCENTR. 35.9 g/dL (32.4-36.7); MEAN CELL VOLUME 90.9 fL (81.5-99.8); MEAN PLATELET VOLUME 9.9 fL (8.7-11.7); PLATELET CLUMPS FLAG 0 (0-99); PLATELET COUNT 75 10^3/uL (150-400); RED BLOOD CELL COUNT 3.19 10^6/uL (4.40-6.38); RED CELL DISTRIBUTION WIDTH 15.6 % (11.5-15.2)
[2016-10-15 07:13] LABS: ALANINE AMINOTRANSFERASE 50 IU/L (21-72); ALBUMIN 3.5 g/dL (3.5-5.0); ALKALINE PHOSPHATASE 77 IU/L (38-126); ANION GAP 10 mEq/L (8-16); ASPARTATE AMINOTRANSFERASE 68 IU/L (17-59); BILIRUBIN,TOTAL 2.5 mg/dL (0.1-1.4); CALCIUM 8.3 mg/dL (8.5-10.4); CARBON DIOXIDE 23 mEq/l (22-31); CHLORIDE 95 mEq/L (97-110); CREATININE 0.5 mg/dL (0.7-1.3); GLOMERULAR FILTRATION RATE > 60; GLUCOSE 104 mg/dL (70-100); POTASSIUM 4.2 mEq/L (3.5-5.2); SODIUM 128 mEq/L (134-144); TOTAL PROTEIN 6.5 g/dL (6.3-8.2)
[2016-10-15 07:20] LABS: BILIRUBIN-CONJUGATED 1.2 mg/dL (0.0-0.5); BILIRUBIN-UNCONJUGATED 1.3 mg/dL (0.0-1.1)
[2016-10-15] MEDS: LACTULOSE 20 GM/30 ML UDCUP PO SCH ×3 (08:10→20:38)
[2016-10-15] MEDS: ENOXAPARIN 40 MG/0.4 ML SYR SC SCH (08:10)
[2016-10-15] MEDS ORDERED: PNEUMOCOCCAL 0.5ML VACCINE VIAL IM ONE (08:32)
--- NOTE | 2016-10-15 12:29 | PCMIDPN ---
Assessment/Plan: 1. Bacteremic SBP secondary to Klebsiella: Patient is much better. Repeat paracentesis shows that ascitic fluid has sterilized, and leukocytosis has improved. Upon review of the literature, bacteremic spontaneous bacterial peritonitis with common organisms such as this can be treated with 5 days of antibiotics. Therefore, given his clinical improvement will continue antibiotics for another day until discharge, likely tomorrow. Then, he will need SBP prophylaxis with either Bactrim DS 1 tab daily or ciprofloxacin 500 mg p.o. daily moving forward indefinitely. This was conveyed to the patient. If he is started on Bactrim, the patient will need outpatient follow-up in short order to ensure that he is not developing a rash, or subclinical side effects such as transaminitis or other. Subjective: In good spirits. Minimal discomfort. Feels much better compared with hospital admission. Objective: Ceftriaxone 1 g IV daily day 5. Afebrile Vital Signs Temp Pulse Resp BP Pulse Ox 36.8 C 96 16 109/73 96 10/15/16 08:00 10/15/16 08:00 10/15/16 08:00 10/15/16 08:00 10/15/16 08:00 Microbiology 10/14/16 08:26 Gram Stain - Final Peritoneal Fluid - Aspirate 10/11/16 Unknown Gram Stain - Final Peritoneal Fluid - Aspirate Body Fluid Culture - Final Klebsiella Oxytoca Laboratory Results 10/15/16 05:35 10/15/16 05:35 10/14/16 10/15/16 10/16/16 05:59 05:59 05:59 Intake Total 1123 1500 Output Total 1050 1600 Balance 73 -100 blood cultures have sterilized on October 13 Peritoneal fluid October 14 no growth Previous blood cultures from October 11 are growing Klebsiella oxytoca as well as peritoneal fluid - Physical Exam EENT: scleral icterus Respiratory: lungs clear Abdomen: distended, No tender Skin: other ( spider angiomata upper chest and abdomen) ICD10 Worksheet Patient Problems: Problems Problem Status Onset Septic shock Acute Spontaneous bacterial peritonitis Acute Abdominal pain Acute Alcoholism Acute Ascites Acute Hyperbilirubinemia Acute
[2016-10-15] MEDS ORDERED: PNEUMOCOCCAL 0.5ML VACCINE VIAL SC ONE (14:30)
--- NOTE | 2016-10-15 15:29 | HOSPPROG ---
Hospitalist Progress Note Assessment/Plan: * SBP with Klebsiella bacteremia * per ID will need 5 day course of IV antibiotics which he has had * will discharge on prophylaxis * end-stage liver disease * he follows with Gastroenterology * ascites * will restart Lasix and Aldactone * hyponatremia * sodium back to baseline * severe sepsis * resolved * disposition * home possibly tomorrow Subjective: No new complaints. Some mild abdominal discomfort. Objective: Vital Signs Temp Pulse Resp BP Pulse Ox 36.8 C 96 16 109/73 96 10/15/16 08:00 10/15/16 08:00 10/15/16 08:00 10/15/16 08:00 10/15/16 08:00 Microbiology 10/14/16 08:26 Gram Stain - Final Peritoneal Fluid - Aspirate 10/11/16 Unknown Gram Stain - Final Peritoneal Fluid - Aspirate Body Fluid Culture - Final Klebsiella Oxytoca Laboratory Results 10/15/16 05:35 10/15/16 05:35 10/14/16 10/15/16 10/16/16 05:59 05:59 05:59 Intake Total 1123 1500 Output Total 1050 1600 Balance 73 -100 PT 16.1 SEC (12.0-15.0) H 10/11/16 14:56 INR 1.29 (0.83-1.16) H 10/11/16 14:56 discussed with Infectious Disease - Physical Exam Constitutional: no apparent distress, appears nourished, not in pain Eyes: anicteric sclera, EOMI Ears, Nose, Mouth, Throat: moist mucous membranes, hearing normal, ears appear normal Cardiovascular: regular rate and rhythym, no murmur, rub, or gallop Respiratory: no respiratory distress Gastrointestinal: normoactive bowel sounds, soft, non-tender abdomen, ascites Skin: warm Neurologic: AAOx3 Psychiatric: interacting appropriately, not anxious, not encephalopathic, thought process linear ICD10 Worksheet Patient Problems: Problems Problem Status Onset Septic shock Acute Spontaneous bacterial peritonitis Acute Abdominal pain Acute Alcoholism Acute Ascites Acute Hyperbilirubinemia Acute
[2016-10-15] MEDS: SPIRONOLACTONE 100 MG TAB PO SCH (15:54)
[2016-10-15] MEDS: FUROSEMIDE 80 MG TAB PO SCH (15:54)
[2016-10-15] MEDS: TEMAZEPAM 15 MG CAP PO PRN (20:39)
[2016-10-16] MEDS: oxyCODONE IR 5 MG TAB PO PRN ×3 (02:58→12:01)
[2016-10-16 05:02] LABS: ALANINE AMINOTRANSFERASE 59 IU/L (21-72); ALBUMIN 3.8 g/dL (3.5-5.0); ALKALINE PHOSPHATASE 70 IU/L (38-126); ANION GAP 10 mEq/L (8-16); ASPARTATE AMINOTRANSFERASE 82 IU/L (17-59); BILIRUBIN,TOTAL 2.7 mg/dL (0.1-1.4); CALCIUM 8.4 mg/dL (8.5-10.4); CARBON DIOXIDE 25 mEq/l (22-31); CHLORIDE 98 mEq/L (97-110); CREATININE 0.5 mg/dL (0.7-1.3); GLOMERULAR FILTRATION RATE > 60; GLUCOSE 94 mg/dL (70-100); POTASSIUM 3.9 mEq/L (3.5-5.2); SODIUM 133 mEq/L (134-144); TOTAL PROTEIN 7.1 g/dL (6.3-8.2)
[2016-10-16 05:09] LABS: BILIRUBIN-CONJUGATED 0.9 mg/dL (0.0-0.5); BILIRUBIN-UNCONJUGATED 1.8 mg/dL (0.0-1.1)
[2016-10-16] MEDS: SPIRONOLACTONE 100 MG TAB PO SCH (07:26)
[2016-10-16] MEDS: FUROSEMIDE 80 MG TAB PO SCH (07:27)
[2016-10-16] MEDS: ENOXAPARIN 40 MG/0.4 ML SYR SC SCH (07:27)
[2016-10-16] MEDS: LACTULOSE 20 GM/30 ML UDCUP PO SCH (07:27)
[2016-10-16 08:29] VITALS: BP 102/77; PULSE 70; RESP 18; TEMP 98.6; O2SAT 96
--- NOTE | 2016-10-16 13:41 | GDS ---
[f rep st] DISCHARGE SUMMARY DISCHARGE DIAGNOSES: 1. Spontaneous bacterial peritonitis. 2. End-stage liver disease secondary to alcohol. 3. Severe sepsis. 4. Hyponatremia. HISTORY: This is a 56-year-old male with a history of end-stage liver disease. He presented with a bdominal pain. HOSPITAL COURSE: The patient was found to have SBP. He grew out Klebsiella and Enterobacter in blo od and Klebsiella in ascites. Repeat ascitic fluid aspirate 3 days after antibiotics was negative. He was treated with 6 days of IV ceftriaxone. Per recent guidelines, 5 days of treatment is suffic ient. Infectious Disease was following the patient. They have recommended prophylaxis with Cipro, which he will continue. I have given him a prescription for that. He will be discharged home. DISPOSITION: Home. DISCHARGE MEDICATIONS: He is to resume his home medicines. In addition, he will be given Cipro 500 mg daily. FOLLOWUP INSTRUCTIONS: He is instructed to follow up with his heavy repairer, Dr. Waddell, in 1 -2 weeks. Greater than 30 minutes were spent on discharge. /[id number]/MODL
== END 2016-10-16 14:59 | disposition home or self-care (01) | DRG 871 ==
LOC: F2N 17:16
PROVIDERS: ADMIT Hospitalist; ATTEND Internal Medicine
PROC: 0W9G3ZX Drainage of Peritoneal Cavity, Percutaneous Approach, Diagnostic (ICD-10-PCS; principal; 2016-10-14)
DX: A41.59 Other Gram-negative sepsis (principal); K65.2 Spontaneous bacterial peritonitis; E87.1 Hypo-osmolality and hyponatremia; K70.31 Alcoholic cirrhosis of liver with ascites; B19.20 Unspecified viral hepatitis C without hepatic coma; I10 Essential (primary) hypertension; F10.21 Alcohol dependence, in remission; Z23 Encounter for immunization
CPT/HCPCS: 96374; G0009; J0696; J1170; J1650; J2405; P9047

== ENCOUNTER → 2016-10-11 | Outpatient (CLI) | payer OTHER ==
[~2016-10-11] MED LIST changes: -ALBUMIN 25% 100 ML SOLN IV ONE; -ALBUMIN 25% 50 ML SOLN IV ONE
== END ==
LOC: FIMAGING 09:46
PROVIDERS: ATTEND Internal Medicine
PROC: 0W9F30Z Drainage of Abdominal Wall with Drainage Device, Percutaneous Approach (ICD-10-PCS; principal; 2016-10-11)
DX: R18.8 Other ascites (principal); K74.60 Unspecified cirrhosis of liver; R10.9 Unspecified abdominal pain

== ENCOUNTER → 2016-10-19 | Outpatient (CLI) | payer OTHER ==
[~2016-10-19] MED LIST changes: -LIDOCAINE 1% 30 ML SDV ONE; +LIDOCAINE 1% 300 MG/30 ML SDV ONE; -NA BICARBONATE 50 MEQ/50 ML VIAL ONE
== END ==
LOC: FIMAGING 10:50
PROVIDERS: ATTEND Internal Medicine
PROC: 0W9F30Z Drainage of Abdominal Wall with Drainage Device, Percutaneous Approach (ICD-10-PCS; principal; 2016-10-19)
DX: R18.8 Other ascites (principal)

== ENCOUNTER → 2016-10-26 | Outpatient (CLI) | payer OTHER ==
[~2016-10-26] MED LIST changes: +LIDO/EPI 1% **for epidural** 30 ML SDV ONE
== END ==
LOC: FIMAGING 12:51
PROVIDERS: ATTEND Internal Medicine
DX: Z53.8 Procedure and treatment not carried out for other reasons (principal)

== ENCOUNTER → 2016-12-22 | Outpatient (CLI) | payer OTHER | LOC: FIMAGING 13:50 | PROVIDERS: ATTEND Internal Medicine | DX: R18.8 Other ascites (principal) ==

== ENCOUNTER 2017-01-19 10:50 | Inpatient (IN) | payer OTHER ==
[2017-01-19] MEDS ORDERED: NS 1,000 ML IV ONE (12:45)
--- NOTE | 2017-01-19 12:45 | EDPHY ---
H & P Stated Complaint: N/V for 2 days. Lower abdo pain. 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 The patient has a history of chronic ascites as well as history of SBP from Klebsiella. The patient presents to the ED with worsening abdominal pain, distention, nausea, vomiting and newly diagnosed hyponatremia. The patient denies fever but does report chills. He complains primarily of pain in his mid abdominal area. The patient denies the cough or congestion. The patient feels globally weak. He denies any headache or additional complaints. REVIEW OF SYSTEMS: A comprehensive 10 point review of systems is otherwise negative aside from elements mentioned in the history of present illness. Source: Patient Exam Limitations: No limitations - Personal History Current Tetanus Diphtheria and Acellular Pertussis (TDAP): Yes - Medical/Surgical History Hx Asthma: No Hx Chronic Respiratory Disease: No Hx Diabetes: No Hx Cardiac Disease: No Hx Renal Disease: No Hx Cirrhosis: Yes Hx Alcoholism: Yes Hx HIV/AIDS: No Hx Splenectomy or Spleen Trauma: No Other PMH: Bilateral meniscus and ACL tear/injury, Tib/Fib fracture, marijuana user, ETOH (former), ascites - Social History Smoking Status: Former smoker - Physical Exam Exam: General Appearance: Deconditioned thin male Eyes: Scleral icterus ENT, Mouth: Dry mucous membranes Respiratory: There are no retractions, lungs are clear to auscultation Cardiovascular: Regular rate and rhythm Gastrointestinal: Abdomen is distended, positive fluid wave, tenderness around the mid abdominal area and right upper quadrant Neurological: A&O, normal motor function, normal sensory exam, normal cranial nerves Skin: Warm and dry, no rashes Musculoskeletal: Neck is supple nontender Extremities: symmetrical, full range of motion Constitutional: Initial Vital Signs Temperature (C) 36.5 C 01/19/17 10:55 Heart Rate 93 01/19/17 10:55 Respiratory Rate 16 01/19/17 10:55 Blood Pressure 120/82 H 01/19/17 10:55 O2 Sat (%) 93 01/19/17 10:55 O2 Delivery Mode Room Air Allergies/Adverse Reactions: No Known Allergies Allergy (Verified 10/06/16 11:46) Home Medications: Medication Instructions Recorded Herbals/Supplements -Info Only 1 ea PO DAILY 10/11/16 Ciprofloxacin HCl [Ciprofloxacin] 500 mg PO DAILY 01/19/17 Furosemide [Lasix 80 MG (*)] 80 mg PO DAILY 01/19/17 Multivitamins [Multivitamin (*)] 1 each PO DAILY 01/19/17 Ribavirin 2 each PO HS 01/19/17 Ribavirin 3 each PO DAILY 01/19/17 Spironolactone 200 mg PO DAILY 01/19/17 Temazepam [Restoril 15 MG (*)] 15 mg PO HSPRN PRN 01/19/17 Medical Decision Making - Diagnostics Imaging Results: Imaging Impressions Abdomen Ultrasound 01/19/17 12:58 Impression: No ascites identified. Paracentesis was therefore not performed. Findings discussed with Cornelius Vasquez at 14:38 hour, 01/19/2017. ED Course/Re-evaluation: The patient had an IV established. I reviewed his laboratory testing from yesterday which demonstrated a sodium of 120. I have ordered a diagnostic and therapeutic paracentesis. The patient is quite dehydrated deconditioned and will require admission to the hospital. The patient was referred here by his phlebotomy services representative Dr. Jacky Waddell. Consultation was made with the hospitalist service. The patient will be admitted by Dr. Paola Mendoza. The patient did go for an abdominal ultrasound which demonstrates no evidence of obvious ascites. The hospitalist service has requested no IV fluid rehydration in the ED secondary to his hyponatremia. The patient will be transferred to a medical-surgical floor in stable condition. Differential Diagnosis: Differential diagnosis considered includes hepatic encephalopathy, dehydration, renal failure, metabolic abnormality, SBP - Data Points Laboratory Results: Laboratory Results 01/19/17 12:51 01/19/17 12:51 01/19/17 01/19/17 01/19/17 12:51 12:51 12:51 WBC 11.20 10^3/uL H 10^3/uL (3.80-9.50) RBC 3.83 10^6/uL L 10^6/uL (4.40-6.38) Hgb 12.7 g/dL L g/dL (13.7-17.5) Hct 36.4 % L % (40.0-51.0) MCV 95.0 fL fL (81.5-99.8) MCH 33.2 pg pg (27.9-34.1) MCHC 34.9 g/dL g/dL (32.4-36.7) RDW 14.4 % % (11.5-15.2) Plt Count 159 10^3/uL 10^3/uL (150-400) MPV 9.2 fL fL (8.7-11.7) Neut % (Auto) 74.7 % H % (39.3-74.2) Lymph % (Auto) 12.2 % L % (15.0-45.0) [place] % (Auto) 9.4 % % (4.5-13.0) Eos % (Auto) 0.9 % % (0.6-7.6) Baso % (Auto) 0.3 % % (0.3-1.7) Nucleat RBC Rel Count 0.0 % % (0.0-0.2) Absolute Neuts (auto) 8.37 10^3/uL H 10^3/uL (1.70-6.50) Absolute Lymphs (auto) 1.37 10^3/uL 10^3/uL (1.00-3.00) Absolute Monos (auto) 1.05 10^3/uL H 10^3/uL (0.30-0.80) Absolute Eos (auto) 0.10 10^3/uL 10^3/uL (0.03-0.40) Absolute Basos (auto) 0.03 10^3/uL 10^3/uL (0.02-0.10) Absolute Nucleated RBC 0.00 10^3/uL 10^3/uL (0-0.01) Immature Gran % 2.5 % H % (0.0-1.1) Immature Gran # 0.28 10^3/uL H 10^3/uL (0.00-0.10) PT 16.3 SEC H SEC (12.0-15.0) INR 1.31 H (0.83-1.16) APTT 35.3 SEC SEC (23.0-38.0) Sodium 121 mEq/L L mEq/L (134-144) Potassium 4.1 mEq/L mEq/L (3.5-5.2) Chloride 85 mEq/L L mEq/L (97-110) Carbon Dioxide 23 mEq/l mEq/l (22-31) Anion Gap 13 mEq/L mEq/L (8-16) BUN 25 mg/dL H mg/dL (7-23) Creatinine 1.3 mg/dL mg/dL (0.7-1.3) Estimated GFR 57 Glucose 104 mg/dL H mg/dL (70-100) Calcium 9.5 mg/dL mg/dL (8.5-10.4) Total Bilirubin 6.4 mg/dL H mg/dL (0.1-1.4) Conjugated Bilirubin 2.2 mg/dL H mg/dL (0.0-0.5) Unconjugated Bilirubin 4.2 mg/dL H mg/dL (0.0-1.1) AST 74 IU/L H IU/L (17-59) ALT 59 IU/L IU/L (21-72) Alkaline Phosphatase 110 IU/L IU/L (38-126) Total Protein 8.5 g/dL H g/dL (6.3-8.2) Albumin 3.3 g/dL L g/dL (3.5-5.0) Lipase 147 IU/L IU/L (23-300) Medications Given: Discontinued Medications Sodium Chloride (Ns) 1,000 mls @ 0 mls/hr IV EDNOW ONE; Wide Open PRN Reason: Protocol Stop: 01/19/17 12:46 Last Admin: 01/19/17 13:21 Dose: 1,000 mls Departure - Departure Disposition: [facility] Acute Clinical Impression: Hyponatremia, Dehydration, Cirrhosis Condition: Fair
[2017-01-19 13:06] LABS: % IMMATURE GRANULYOCYTES 2.5 % (0.0-1.1); ABSOLUTE IMMATURE GRANULOCYTES 0.28 10^3/uL (0.00-0.10); ADD DIFF? NO; ADD MORPH? NO; ADD SCAN? NO; ATYPICAL LYMPHOCYTE FLAG 0 (0-99); FRAGMENT RBC FLAG 0 (0-99); HEMATOCRIT 36.4 % (40.0-51.0); HEMOGLOBIN 12.7 g/dL (13.7-17.5); LEFT SHIFT FLG 20 (0-99); LIPEMIA HEMOLYSIS FLAG 90 (0-99); MEAN CELL HEMOGLOBIN 33.2 pg (27.9-34.1); MEAN CELL HEMOGLOBIN CONCENTR. 34.9 g/dL (32.4-36.7); MEAN PLATELET VOLUME 9.2 fL (8.7-11.7); PLATELET CLUMPS FLAG 0 (0-99); PLATELET COUNT 159 10^3/uL (150-400); RED BLOOD CELL COUNT 3.83 10^6/uL (4.40-6.38); RED CELL DISTRIBUTION WIDTH 14.4 % (11.5-15.2)
[2017-01-19 13:14] LABS: INR 1.31 (0.83-1.16); PROTIME(PATIENT) 16.3 SEC (12.0-15.0)
[2017-01-19 13:15] LABS: APTT 35.3 SEC (23.0-38.0)
[2017-01-19 13:23] LABS: ALANINE AMINOTRANSFERASE 59 IU/L (21-72); ALBUMIN 3.3 g/dL (3.5-5.0); ALKALINE PHOSPHATASE 110 IU/L (38-126); ANION GAP 13 mEq/L (8-16); ASPARTATE AMINOTRANSFERASE 74 IU/L (17-59); BILIRUBIN,TOTAL 6.4 mg/dL (0.1-1.4); BILIRUBIN-CONJUGATED 2.2 mg/dL (0.0-0.5); BILIRUBIN-UNCONJUGATED 4.2 mg/dL (0.0-1.1); CALCIUM 9.5 mg/dL (8.5-10.4); CARBON DIOXIDE 23 mEq/l (22-31); CHLORIDE 85 mEq/L (97-110); CREATININE 1.3 mg/dL (0.7-1.3); GLOMERULAR FILTRATION RATE 57; GLUCOSE 104 mg/dL (70-100); POTASSIUM 4.1 mEq/L (3.5-5.2); SODIUM 121 mEq/L (134-144); TOTAL PROTEIN 8.5 g/dL (6.3-8.2)
[2017-01-19] MEDS ORDERED: ACETAMINOPHEN 325 MG TAB PO PRN (14:17)
--- NOTE | 2017-01-19 15:56 | GHP ---
[f rep st] HISTORY AND PHYSICAL DATE OF ADMISSION: 01/19/2017 CHIEF COMPLAINT: Nausea, vomiting and hyponatremia. HISTORY OF PRESENT ILLNESS: A 56-year-old male with history of cirrhosis, secondary to hep C alcohol, who was sent over by his primary care physician for hyponatremia. For the past week, patient has not been feeling well. He has been having intermittent nausea and vomiting, more so today. He has had no fevers or sweats, but chills. He was hospitalized October 05 with sepsis secondary to SBP due to Klebsiella, completed treatment, and has been on prophylactic Cipro, which he has been compliant with. Since that time, he says he has good days and bad days as far as his abdominal pain, but it has been worse over the past week. Pain is diffuse and crampy in nature. Denies any leg or belly swelling. No headaches. No ill contacts. No cough. No dysuria. Patient has been taking his diuretics REVIEW OF SYSTEMS: I completed a 10-point review of systems, negative except as noted in HPI. PAST MEDICAL HISTORY: 1. Cirrhosis secondary hep C and alcohol. 2. Hep C, currently on ribavirin treatment. 3. Hypertension. ALLERGIES: No known drug allergies. PAST SURGERIES: Knee surgery. FAMILY HISTORY: Mother with colon cancer. HOME MEDICATIONS: Multivitamin, Restoril p.r.n., spironolactone 200 mg daily, herbal supplement, Lasix 80 mg daily, ciprofloxacin 500 daily, ribavirin 2 at bedtime, 3 daily. PHYSICAL EXAMINATION: VITAL SIGNS: Temperature 36.5, blood pressure 120/82, heart rate 90s, respirations 16, 93% on room air. GENERAL: Chronically ill- appearing male lying in bed in no acute distress. HEENT: PERRLA. Scleral icterus. Very dry mucous membranes. CV: Regular rate and rhythm. No murmurs, gallops, or rubs. LUNGS: Clear to auscultation bilaterally. ABDOMEN: Mild distention which he says is his norm. Diffuse tenderness, more so in the left lower quadrant. No rebound or guarding. : No suprapubic or CVA tenderness. Musculoskeletal: 5/5 upper lower extremity strength. NEUROLOGIC: 2 through 12 intact. PSYCH: Alert and oriented x3. No asterixis. SKIN: Poor turgor. LABORATORY DATA: WBC 11, hemoglobin 12, hematocrit 36, platelets 159. INR 1.31 , PTT 16. Sodium 121 (baseline is 126, 131). Potassium 4.1, chloride 85, carbon dioxide 23, BUN 25, creatinine 1.1, baseline is 0.8. Total bilirubin 6.4 , conjugated 2.2, unconjugated 4.2, AST 74, ALT 59, total protein 8.5, albumin 3.3, lipase 147. Abdominal ultrasound: No ascites was identified, thus no paracentesis. ASSESSMENT AND PLAN: 1. Hypovolemic hyponatremia, secondary to nausea, vomiting and concomitantly taking diuretics. Will check urine studies and give back gentle intravenous fluids with serial BMPs to avoid over-correction too quickly. 2. Nausea, vomiting, gastroenteritis versus side effect of ribavirin. P.r.n. antiemetics. 3. Hepatitis C. Continue home medications. 4. Metabolic encephalopathy. Per and patient, he has been more confused. Minimal asterixis on exam. Suspect secondary to hyponatremia. We will check ammonia level. 5. Cirrhosis, secondary to alcohol and hepatitis C. He is dehydrated on exam here. Hold diuretics. 6. JON: Cr 1.3 (baseline 0.8). Check urine lytes. Dry on exam. Gentle IVFs 7. Normocytic anemia. Hemoglobin and hematocrit are stable at baseline. No evidence of bleeding. 8. Abdominal pain; this is chronic for patient. There was no ascites to drain. We will continue prophylactic Cipro dose. 9. Diet: Regular. 10. Deep venous thrombosis prophylaxis. Sequential compression devices. 11. Patient warrants inpatient admission given acute on chronic abdominal pain , hyponatremia which requires serial laboratories and intravenous fluids. /[id number]/MODL MTDD
[2017-01-19] MEDS: ONDANSETRON DISINTEGRATING 4 MG TAB PO PRN (16:38)
[2017-01-19] MEDS: NS 1,000 ML IV SCH (16:39)
[2017-01-19] MEDS: oxyCODONE IR 5 MG TAB PO PRN ×2 (16:57→22:35)
[2017-01-19] MEDS ORDERED: RIBAVIRIN PO SCH ×2 (21:00)
[2017-01-19] MEDS ORDERED: NS 500 ML IV ONE (21:30)
[2017-01-19] MEDS: TEMAZEPAM 15 MG CAP PO PRN (22:35)
[2017-01-20 00:45] LABS: ANION GAP 8 mEq/L (8-16); CALCIUM 8.3 mg/dL (8.5-10.4); CARBON DIOXIDE 22 mEq/l (22-31); CHLORIDE 91 mEq/L (97-110); CREATININE 1.2 mg/dL (0.7-1.3); GLOMERULAR FILTRATION RATE > 60; GLUCOSE 89 mg/dL (70-100); POTASSIUM 4.3 mEq/L (3.5-5.2); SODIUM 121 mEq/L (134-144)
[2017-01-20] MEDS ORDERED: NS BOLUS 500 ML (Wide open) IV ONE (01:00)
[2017-01-20 03:42] LABS: COLOR YELLOW; LEUKOCYTE ESTERASE,URINE NEGATIVE (NEGATIVE); NITRITE,URINE NEGATIVE (NEGATIVE)
[2017-01-20 03:57] LABS: HEMATOCRIT 29.9 % (40.0-51.0); HEMOGLOBIN 10.4 g/dL (13.7-17.5); MEAN CELL HEMOGLOBIN 33.4 pg (27.9-34.1); MEAN CELL HEMOGLOBIN CONCENTR. 34.8 g/dL (32.4-36.7); MEAN CELL VOLUME 96.1 fL (81.5-99.8); RED BLOOD CELL COUNT 3.11 10^6/uL (4.40-6.38); RED CELL DISTRIBUTION WIDTH 14.6 % (11.5-15.2)
[2017-01-20] MEDS: NS 1,000 ML IV SCH (03:58)
[2017-01-20 04:11] LABS: ALANINE AMINOTRANSFERASE 49 IU/L (21-72); ALBUMIN 2.2 g/dL (3.5-5.0); ALKALINE PHOSPHATASE 101 IU/L (38-126); ANION GAP 5 mEq/L (8-16); ASPARTATE AMINOTRANSFERASE 55 IU/L (17-59); BILIRUBIN,TOTAL 3.1 mg/dL (0.1-1.4); CALCIUM 8.1 mg/dL (8.5-10.4); CARBON DIOXIDE 22 mEq/l (22-31); CHLORIDE 92 mEq/L (97-110); CREATININE 1.2 mg/dL (0.7-1.3); GLOMERULAR FILTRATION RATE > 60; GLUCOSE 94 mg/dL (70-100); POTASSIUM 4.4 mEq/L (3.5-5.2); TOTAL PROTEIN 6.3 g/dL (6.3-8.2)
[2017-01-20 04:17] LABS: SODIUM 119 mEq/L (134-144)
[2017-01-20 04:31] LABS: BILIRUBIN-CONJUGATED 1.2 mg/dL (0.0-0.5); BILIRUBIN-UNCONJUGATED 1.9 mg/dL (0.0-1.1)
[2017-01-20] MEDS: oxyCODONE IR 5 MG TAB PO PRN ×5 (04:37→23:45)
[2017-01-20] MEDS ORDERED: ALBUMIN 25% 200 ML IV ONE (04:38)
[2017-01-20] MEDS ORDERED: SODIUM Cl 3% 500 ML IV SCH (04:45)
--- NOTE | 2017-01-20 04:55 | HOSPPROG ---
Hospitalist Progress Note Assessment/Plan: I was initially called regarding low blood pressure. SBP in the 80s all night. Dr. Nguyen had earlier given 500cc NS bolus x 1. Sodium had not been checked since admission so I ordered stat chem7. Na was still 121 and unchanged since admission. I ordered another NS bolus for his hypotension. Was called to see patient again a few hours later for ongoing hypotension. Another stat chem7 was ordered. Sodium is now 119 which is critical. Patient is without new complaints. Epigastric pain uncontrolled on oxycodone 5mg. A+O x 3 Lungs CTA bilaterally CVS - RRR no murmur abd - distended but non-tender - unclear if element of ascites Ext - no LE edema A/P: 1. Critical hyponatremia - initially working diagnosis was hypovolemia, but he has worsened with NS. Urine sodium 28 suggests there is still an element of hypovolemia however. I suspect with his hypotension, his renal perfusion is suboptimal. At this point, I don't feel comfortable giving any further NS. Will transfer to SDU and start 3% saline at 30cc per hour for slow correction. Check chem7 q 2 hours. 2. Hypotension - I don't think he is septic. Ability to give further IVF bolus is limited by need for slow correction of sodium. Renal function still looks good despite hypotension. Will administer IV albumin to improve intra- vascular volume. Check lactate. Monitor BP closely in SDU. 3. Epigastric pain - not getting relief with oxycodone 5mg. Start empiric Protonix. Recently had sepsis with Enterobacter and Klebsiella in blood - attributed to SBP. Has not had gallbladder work-up. Check US RUQ abd. Limited US yesterday shows no current ascites. CC time - 45 minutes Objective: Vital Signs Temp Pulse Resp BP Pulse Ox 36.6 C 92 16 89/51 L 96 01/20/17 03:19 01/20/17 03:19 01/20/17 03:19 01/20/17 03:19 01/20/17 03:19 Laboratory Results 01/20/17 03:45 01/20/17 03:45 01/18/17 01/19/17 01/20/17 05:59 05:59 05:59 Intake Total 275 Output Total 300 Balance -25 PT 16.3 SEC (12.0-15.0) H 01/19/17 12:51 INR 1.31 (0.83-1.16) H 01/19/17 12:51 ICD10 Worksheet Patient Problems: Problems Problem Status Onset Cirrhosis Acute Dehydration Acute Hyponatremia Acute Abdominal pain Acute Alcoholism Acute Ascites Acute Hyperbilirubinemia Acute Septic shock Acute Spontaneous bacterial peritonitis Acute
[2017-01-20] MEDS: ONDANSETRON DISINTEGRATING 4 MG TAB PO PRN (05:02)
[2017-01-20] MEDS ORDERED: HYDROmorphONE/DILAUDID 1 MG/ML INJ IVP PRN (05:28)
[2017-01-20 07:05] LABS: ANION GAP 10 mEq/L (8-16); CALCIUM 8.2 mg/dL (8.5-10.4); CARBON DIOXIDE 20 mEq/l (22-31); CHLORIDE 94 mEq/L (97-110); GLOMERULAR FILTRATION RATE > 60; GLUCOSE 83 mg/dL (70-100); POTASSIUM 4.5 mEq/L (3.5-5.2); SODIUM 124 mEq/L (134-144)
--- NOTE | 2017-01-20 08:30 | HOSPPROG ---
Hospitalist Progress Note Assessment/Plan: #Acute cholecystitis: U/S shows 5mm stone. Afebrile. Leukocytosis resolved. LQ/ Flagyl. I spoke with Dr. Mistry who states not a good surgical candidate. LFTs improving. If abd pain worsens or labs in wrong direction, consider MRCP and IR drainage #Hypovolemic hyponatremia -hypotensive overnight, received albumin and 60cc hypertonic saline 119-->124 -spoke with Dr. Avery with Renal. Overall increase only 3 since admission. Goal Na by tomorrow 130. q6hr BMP #JON: prerenal based on urine lytes #Cirrhosis: 2/2 Etoh, HCV #Hyperbilirubinemia: due to stone, cholecystitis #Leukocytosis: resolved. Blood cultures pending #h/o Etoh abuse: none for several months #Normocytic anemia: H/H stable #Hypotension: multifactorial with infection, dehydration. Lactate NL. #HCV: on Ribavarin #Diet: ADAT #DVT ppx: SCDs Critical care time spent: 60 min bedside with pt and . And reviewing labs, imaging and discussing case with Dr. Avery and Dr. Mistry n Subjective: abd pain diffusely in LLQ, not different from his normal abd pain. Objective: Vital Signs Temp Pulse Resp BP Pulse Ox 36.3 C 88 14 95/60 L 98 01/20/17 06:14 01/20/17 06:14 01/20/17 06:14 01/20/17 06:14 01/20/17 06:14 Laboratory Results 01/20/17 03:45 01/20/17 06:35 01/19/17 01/20/17 01/21/17 05:59 05:59 05:59 Intake Total 275 Output Total 300 Balance -25 PT 16.3 SEC (12.0-15.0) H 01/19/17 12:51 INR 1.31 (0.83-1.16) H 01/19/17 12:51 - Physical Exam Constitutional: no apparent distress Eyes: PERRL, icteric sclera Ears, Nose, Mouth, Throat: dry mucous membranes Cardiovascular: regular rate and rhythym, no murmur, rub, or gallop Respiratory: no respiratory distress, no rales or rhonchi Gastrointestinal: normoactive bowel sounds, tenderness (midline and LLQ TTP), distension (mild distension), No guarding, No rebound Genitourinary: no bladder fullness Skin: warm Musculoskeletal: full muscle strength, no muscle tenderness Neurologic: AAOx3, CN II-XII Intact Psychiatric: interacting appropriately ICD10 Worksheet Patient Problems: Problems Problem Status Onset Cirrhosis Acute Dehydration Acute Hyponatremia Acute Abdominal pain Acute Alcoholism Acute Ascites Acute Hyperbilirubinemia Acute Septic shock Acute Spontaneous bacterial peritonitis Acute
[2017-01-20] MEDS ORDERED: RIBAVIRIN PO SCH (09:00)
[2017-01-20] MEDS ORDERED: CIPROFLOXACIN 500 MG TAB PO SCH (09:00)
[2017-01-20] MEDS ORDERED: Herbals/Supplements -Info Only PO SCH (09:00)
[2017-01-20] MEDS ORDERED: RIBAVIRIN 600 MG PO SCH (09:00)
[2017-01-20] MEDS ORDERED: SOFOSBUVIR PO SCH (09:15)
[2017-01-20] MEDS ORDERED: VELPATASVIR PO SCH (09:15)
[2017-01-20] MEDS: VELPATASVIR PO SCH (09:24)
[2017-01-20] MEDS: SOFOSBUVIR PO SCH (09:24)
[2017-01-20] MEDS: MULTIVITAMINS 1 EACH TAB PO SCH (09:25)
[2017-01-20] MEDS: PANTOPRAZOLE SODIUM 40 MG TAB PO SCH (09:25)
[2017-01-20] MEDS: LACTULOSE 20 GM/30 ML UDCUP PO SCH ×2 (09:25→19:59)
[2017-01-20 10:56] LABS: ANION GAP 7 mEq/L (8-16); CALCIUM 8.6 mg/dL (8.5-10.4); CARBON DIOXIDE 23 mEq/l (22-31); CHLORIDE 92 mEq/L (97-110); GLOMERULAR FILTRATION RATE > 60; GLUCOSE 83 mg/dL (70-100); POTASSIUM 4.6 mEq/L (3.5-5.2); SODIUM 122 mEq/L (134-144)
[2017-01-20] MEDS ORDERED: NS 1,000 ML IV SCH (11:15)
--- NOTE | 2017-01-20 12:35 | ASMTCASEMG ---
Living Arrangements What is your living Answers: With Spouse arrangement? Who do you live with? Type Of Residence What kind of residence do Answers: House you live in? Case Management Evaluation Functional: Able to Answers: Yes return Home with Prior Level of Function/Care Functional: ADL / IADL Answers: Chronic Illness Performance Deficits Due to: Deconditioning Education Needs Answers: Advance Directive Disease Teaching Discharge Plan Comments Coordination Status Comments Notes: Patient with a hx of cirrhosis secondary to hepC alcohol was sent by his PCP for hyponatremia. Patient also has ongoing abdominal pain and was having more nausea and vomiting than usual. Metabolic encephalopathy probably secondary to hyponatremia has caused more confusion as well. No orders for therapies at this time. D/C needs unclear. CM will follow. Date Signed: 01/20/2017 12:35 PM Electronically Signed By:Adia Lion
[2017-01-20 14:24] LABS: ANION GAP 9 mEq/L (8-16); CALCIUM 7.5 mg/dL (8.5-10.4); CARBON DIOXIDE 20 mEq/l (22-31); CHLORIDE 99 mEq/L (97-110); CREATININE 0.8 mg/dL (0.7-1.3); GLOMERULAR FILTRATION RATE > 60; GLUCOSE 105 mg/dL (70-100); POTASSIUM 4.1 mEq/L (3.5-5.2); SODIUM 128 mEq/L (134-144)
[2017-01-20] MEDS: DICYCLOMINE 10 MG CAP PO SCH ×2 (15:52→21:53)
[2017-01-20] MEDS: hydrOXYzine HCL 25 MG TAB PO PRN (20:28)
[2017-01-20] MEDS: ONDANSETRON 4 MG/2 ML VIAL IVP PRN (20:55)
[2017-01-20 21:22] LABS: ANION GAP 10 mEq/L (8-16); CALCIUM 8.7 mg/dL (8.5-10.4); CARBON DIOXIDE 24 mEq/l (22-31); CHLORIDE 92 mEq/L (97-110); CREATININE 0.9 mg/dL (0.7-1.3); GLOMERULAR FILTRATION RATE > 60; GLUCOSE 71 mg/dL (70-100); POTASSIUM 4.7 mEq/L (3.5-5.2); SODIUM 126 mEq/L (134-144)
[2017-01-21] MEDS: hydrOXYzine HCL 25 MG TAB PO PRN ×4 (03:29→22:21)
[2017-01-21] MEDS: ONDANSETRON DISINTEGRATING 4 MG TAB PO PRN (05:41)
[2017-01-21] MEDS: oxyCODONE IR 5 MG TAB PO PRN ×4 (05:41→22:22)
[2017-01-21 06:49] LABS: ALANINE AMINOTRANSFERASE 47 IU/L (21-72); ALKALINE PHOSPHATASE 76 IU/L (38-126); ANION GAP 9 mEq/L (8-16); ASPARTATE AMINOTRANSFERASE 54 IU/L (17-59); BILIRUBIN,TOTAL 5.5 mg/dL (0.1-1.4); CALCIUM 8.7 mg/dL (8.5-10.4); CARBON DIOXIDE 22 mEq/l (22-31); CHLORIDE 93 mEq/L (97-110); CREATININE 0.8 mg/dL (0.7-1.3); GLOMERULAR FILTRATION RATE > 60; GLUCOSE 84 mg/dL (70-100); POTASSIUM 4.8 mEq/L (3.5-5.2); SODIUM 124 mEq/L (134-144); TOTAL PROTEIN 6.7 g/dL (6.3-8.2)
[2017-01-21 06:58] LABS: BILIRUBIN-CONJUGATED 1.4 mg/dL (0.0-0.5); BILIRUBIN-UNCONJUGATED 4.1 mg/dL (0.0-1.1)
[2017-01-21] MEDS: LACTULOSE 20 GM/30 ML UDCUP PO SCH ×2 (08:31→20:17)
[2017-01-21] MEDS: DICYCLOMINE 10 MG CAP PO SCH ×3 (08:31→22:19)
[2017-01-21] MEDS: MULTIVITAMINS 1 EACH TAB PO SCH (08:31)
[2017-01-21] MEDS: PANTOPRAZOLE SODIUM 40 MG TAB PO SCH (08:31)
[2017-01-21] MEDS: SOFOSBUVIR PO SCH (08:34)
[2017-01-21] MEDS: VELPATASVIR PO SCH (08:34)
[2017-01-21] MEDS ORDERED: VELPATASVIR PO SCH (09:00)
[2017-01-21] MEDS ORDERED: SOFOSBUVIR PO SCH (09:00)
[2017-01-21] MEDS: ONDANSETRON 4 MG/2 ML VIAL IVP PRN (15:45)
--- NOTE | 2017-01-21 17:43 | GCON ---
[f rep st] CONSULTATION INPATIENT NEPHROLOGY CONSULTATION DATE OF CONSULTATION: 01/21/2017 REFERRING PHYSICIAN: Tyson Ross MD REASON FOR CONSULTATION: Hyponatremia. HISTORY OF PRESENT ILLNESS: The patient is a 56-year-old man with a history of cirrhosis secondary to hepatitis C and alcohol abuse, who was sent to the emergency room after being found to have worse lorne labs as an outpatient. He has had several days of intermittent nausea and vomiting and poor or al intake. He denies any fevers. He has been taking Lasix 80 mg a day and spironolactone 200 mg a day. He has required a paracentesis in the past, but it has been several weeks since this was last done. His initial labs on presentation showed a sodium of 124 and a creatinine of 1.0. Reviewing l abs in the [facility] system, it appears that his sodium typically runs in the mid 120s, with his labs prior to this admission of 126 on January 05 and 121 on January 19. He was felt to be hypovolemic on exam, and he was given some IV normal saline. Unfortunately, his sodium then dropped to 119. He wa s then, at that point, given some IV albumin and a total of 60 cc of hypertonic saline. His sodium then improved to 124. At this point, the hypertonic saline was discontinued. He has not been on an y IV fluids overnight. His Lasix and spironolactone have been held. As part of his workup for naus ea and abdominal pain, he was noted to have acute cholecystitis. His ultrasound showed a 5 mm stone , not felt to be a good surgical candidate, but plans to possibly consider drain by Interventional R adiology. He is currently on Levaquin and Flagyl for this. His family reports that he was a bit co nfused yesterday prior to admission, but this has resolved and they feel he is at his baseline. How ever, he continues to have poor oral intake and has only drunk approximately 200 cc of fluid and has eaten only a partial bagel today. He reports that he has had 2 episodes of vomiting earlier today. Reviewing his vitals, he has not had any fevers noted. Blood cultures are still pending. Of note , he has had a prior admission for Klebsiella SBP in September. REVIEW OF SYSTEMS: GENERAL: He has had generalized malaise. No fevers. Poor oral intake. HEENT: No sore throat. PULMONARY: No shortness of breath. CARDIAC: No chest pain. No lower extremity edema. GI: He has had nausea and vomiting, nonbloody. No bloody stools. Some abdominal pain, th at he describes as crampy in nature. : No dysuria or difficulty voiding. Nursing reports he has had some urine retention, requiring straight catheter overnight. NEUROLOGIC: He had some confusio n prior to admission, but this has resolved. Some generalized weakness. No headaches. SKIN: No r gabriela. ENDOCRINE: No history of diabetes. No polyuria or polydipsia. HEMATOLOGIC: No witnessed bl eeding. PAST MEDICAL HISTORY: 1. 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 He has seen Hepatology as a n outpatient. He has required large volume paracentesis. 2. Klebsiella SBP in September 2016. 3. Hepatitis C. Is currently getting ribavirin treatment. 4. History of hypertension, but his blood pressures have actually been on the lower side. 5. Urine retention. 6. Chronic hyponatremia, attributed to his liver disease. FAMILY HISTORY: His mother had colon cancer. SOCIAL HISTORY: It appears that he was actively drinking earlier this year, as he had admission in August for alcohol withdrawal. It is unclear when he last quit drinking. No tobacco. MEDICATIONS: Outpatient medications included multivitamin, Restoril, spironolactone 200 mg daily, L asix 80 mg daily, ciprofloxacin 500 mg weekly, ribavirin 2 at bedtime and 3 daily. PHYSICAL EXAMINATION: VITAL SIGNS: His temperature is 36.6 with a blood pressure 98/60. Pulse is 86. Satting 95% on room air. GENERAL: He is chronically ill appearing. No acute distress. Lying comfortably in bed. HEENT: His mucous membranes are somewhat dry. Mild scleral icterus. NECK: Supple. LUNGS: Clear to auscultation bilaterally. CARDIOVASCULAR: Regular rate and rhythm. No r ub. ABDOMEN: Distended with some ascites and mildly tender throughout. No rebound or guarding. G U: No Goodwin in place. EXTREMITIES: No edema. Warm. NEUROLOGIC: Alert and oriented x3. LABORATORY DATA: Sodium 124, potassium 4.8, chloride 93, bicarbonate 22, BUN 18, creatinine 0.8, gl ucose 84, calcium 8.7, total bilirubin 5.5, conjugated bilirubin 1.4. AST 54, ALT 47, alkaline phos phatase 76. Total protein 6.7. Albumin 3.0. White blood cell count 9.17, hemoglobin 10.4, hematoc rit 29.9, platelets 112. His urinalysis was negative for blood or protein. His initial urine sodiu m was 28 and urine osmolarity was 548. INR is 1.31. Blood cultures are pending. IMAGING: His abdominal ultrasound did not show significant pocket of fluid to safely tap. ASSESSMENT AND PLAN: The patient is a 56-year-old man with a history of cirrhosis secondary to alco hol and hepatitis C, who now presents with several days of nausea and vomiting, poor oral intake and worsening hyponatremia. 1. Hyponatremia: He does have chronic hyponatremia that is likely due to his underlying liver dise ase. Reviewing labs in the system here, it appears that his sodium typically runs in the mid 120s. His sodium on admission was 121 and did drop as low as 119. At that point, he was started on 3% sa line and his sodium did rise steadily up to a value of 128 yesterday afternoon. However, he has sin ce started to trend downward, down to 123. This has been in the setting of very minimal oral intake and no IV fluids. He still appears to be dry on exam for me. His urine sodium is difficult to int erpret as he was on Lasix. He does have a high urine osmolarity. At this point, I would give him s ome IV albumin to try to help his mobilize the fluid. His mental status is back to normal, so I do not think we are at the point where we need to do 3% saline. I would continue to hold diuretics. O ur next step could also be to add in some salt tablets if he is able to tolerate. We will continue to follow his labs closely every few hours, and I have left parameters for nursing to call me if it is trending in the wrong direction. 2. Abdominal pain: He does appear to have cholecystitis and he is being managed with antibiotics. He does have a 5 mm stone. Discussing with the hospitalist, he is not felt to be a good surgical c andidate, and the hope is to place a drain by Interventional Radiology in the next few days. He koehler s have blood cultures that are pending. 3. Cirrhosis secondary to alcohol and hepatitis C: He is having ongoing ribavirin therapy for his hepatitis C. He has not required a large volume paracentesis. He is at risk for development of hep atorenal syndrome, and we need to follow his kidney function closely. His last creatinine was okay at 0.8. Thank you very much for the consultation. We will continue to follow closely with you. I have disc ussed my recommendations with Dr. Ross. Please do not hesitate to call with any questions. /[id number]/MODL
--- NOTE | 2017-01-21 18:03 | HOSPPROG ---
Hospitalist Progress Note Assessment/Plan: assessment: 56-year-old male presents with acute nausea and vomiting as well as abdominal pain in the setting of acute cholecystitis, cirrhosis, severe hyponatremia Plan: # Acute cholecystitis: U/S shows 5mm stone in the neck w/ leukocytosis - d/w Dr. Mistry, the indirect hyperbilirubinemia and diffuse abdominal tenderness make it somewhat unclear whether the cause of his symptoms are biliary in nature, and the US interpretation is difficult in setting of ascites - that said, patient remains very nauseated, particularly with PO intake, and this may be indicative of biliary obstruction - will get HIDA scan to further delineate, and will require IR drain if positive , as surgical excision carries very high risk - ongoing pain control - cont D#3 Abx (levo/flagyl), monitor WBC # Acute on chronic hypovolemic hyponatremia: Dereck 28, poor PO intake, baseline mid-120s - d/w Dr. Riojas, she recommends volume expanding him w/ albumin and gauge effect w/ q4hr labs - if responding, cont q12 albumin, if not, increase to q6 and salt tabs - currently functionally fluid restricting - hold on further hypertonic saline # JON: 2/2 hypovolemia/hypoperfusion, resolved # Cirrhosis: 2/2 Etoh, HCV, unclear as to whether his manager wound is considering transplant, on ribavirin - holding lasix/aldactone while volume expanding - on sbp ppx w/ levoflox - unable to get diagnostic para to r/o SBP given low amt of ascites on US today # Hyperbilirubinemia: indirect, unclear if due to stone of hepatic stasis # h/o Etoh abuse: none for several months # Normocytic anemia: H/H stable # HCV: on Ribavarin # Diet: ADAT # DVT ppx: SCDs # Code: Full # Dispo: ADD uncertain, remains ill High-level of medical complexity, high risk of worsening morbidity and/or mortality, secondary to the issues as outlined above. Subjective: reports ongoing nausea, poor oral intake Objective: Vital Signs Temp Pulse Resp BP Pulse Ox 36.6 C 86 16 98/60 L 95 01/21/17 16:16 01/21/17 16:16 01/21/17 16:16 01/21/17 16:16 01/21/17 16:16 Laboratory Results 01/20/17 03:45 01/20/17 01/21/17 01/22/17 05:59 05:59 05:59 Intake Total 275 1420 Output Total 300 1950 500 Balance -25 -530 -500 PT 16.3 SEC (12.0-15.0) H 01/19/17 12:51 INR 1.31 (0.83-1.16) H 01/19/17 12:51 - Physical Exam Constitutional: no apparent distress, chronically ill appearing, uncomfortable, No not in pain Cardiovascular: regular rate and rhythym, systolic murmur (II/ at sternum), No irregularly irregular, No tachycardia, No edema Respiratory: no respiratory distress, no rales or rhonchi, clear to auscultation Gastrointestinal: normoactive bowel sounds, tenderness (mild throughout), distension (mild-moderate), No guarding Neurologic: AAOx3, sensation intact bilaterally, No weakness, No asterixes Psychiatric: interacting appropriately, not anxious, not encephalopathic, thought process linear ICD10 Worksheet Patient Problems: Problems Problem Status Onset Abdominal pain Acute Ascites Acute Hyperbilirubinemia Acute Alcoholism Acute Spontaneous bacterial peritonitis Acute Septic shock Acute Hyponatremia Acute Dehydration Acute Cirrhosis Acute
[2017-01-21] MEDS: ALBUMIN 25% 100 ML IV SCH ×2 (18:18→20:18)
[2017-01-22] MEDS: TEMAZEPAM 15 MG CAP PO PRN (00:25)
[2017-01-22] MEDS: SODIUM CHLORIDE 1,000 MG TAB PO SCH ×4 (00:25→20:15)
[2017-01-22 05:36] LABS: % IMMATURE GRANULYOCYTES 0.9 % (0.0-1.1); ABSOLUTE IMMATURE GRANULOCYTES 0.05 10^3/uL (0.00-0.10); ADD DIFF? NO; ADD MORPH? NO; ADD SCAN? NO; ATYPICAL LYMPHOCYTE FLAG 0 (0-99); FRAGMENT RBC FLAG 0 (0-99); HEMATOCRIT 23.7 % (40.0-51.0); LEFT SHIFT FLG 10 (0-99); LIPEMIA HEMOLYSIS FLAG 90 (0-99); MEAN CELL HEMOGLOBIN 33.3 pg (27.9-34.1); MEAN CELL HEMOGLOBIN CONCENTR. 33.8 g/dL (32.4-36.7); MEAN CELL VOLUME 98.8 fL (81.5-99.8); MEAN PLATELET VOLUME 9.2 fL (8.7-11.7); PLATELET CLUMPS FLAG 0 (0-99); PLATELET COUNT 58 10^3/uL (150-400); RED CELL DISTRIBUTION WIDTH 14.4 % (11.5-15.2)
[2017-01-22 06:00] LABS: ALANINE AMINOTRANSFERASE 41 IU/L (21-72); ALKALINE PHOSPHATASE 60 IU/L (38-126); ANION GAP 7 mEq/L (8-16); ASPARTATE AMINOTRANSFERASE 46 IU/L (17-59); CARBON DIOXIDE 24 mEq/l (22-31); CHLORIDE 91 mEq/L (97-110); CREATININE 0.9 mg/dL (0.7-1.3); GLOMERULAR FILTRATION RATE > 60; GLUCOSE 89 mg/dL (70-100); POTASSIUM 5.1 mEq/L (3.5-5.2); SODIUM 122 mEq/L (134-144); TOTAL PROTEIN 6.3 g/dL (6.3-8.2)
[2017-01-22 06:06] LABS: BILIRUBIN-CONJUGATED 1.6 mg/dL (0.0-0.5); BILIRUBIN-UNCONJUGATED 4.4 mg/dL (0.0-1.1)
[2017-01-22] MEDS: oxyCODONE IR 5 MG TAB PO PRN ×3 (07:32→20:31)
--- NOTE | 2017-01-22 07:32 | SOAPPROG ---
SOAP Progress Note Assessment/Plan: Assessment: 1)hyponatremia -chronically runs high 120s which is likely due to liver disease -acute lowering likely due to relative intravascular depletion (several days poor po intake, n/v in setting of diuretics) -initally received short course of 3% saline then was essentially NPO due to nausea- Na dipped back to down to low 120s -albumin added and now NaCl tabs--- Na up to 124 last check, goal no more than 132 by am labs tomorrow. Continue 1L free water restriction. Encourage po intake for solute. 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 Still not eating much but reports appetite is better. No abd pain, sob. Had signficant PVR and bernal placed last night. Objective: Vital Signs Temp Pulse Resp BP Pulse Ox 36.8 C 98 12 87/55 L 95 01/22/17 07:24 01/22/17 07:24 01/22/17 07:24 01/22/17 07:24 01/22/17 07:24 Laboratory Results 01/22/17 05:08 01/22/17 05:20 01/21/17 01/22/17 01/23/17 05:59 05:59 05:59 Intake Total 1420 740 Output Total 1950 2049 Balance -530 -1310 PT 16.3 SEC (12.0-15.0) H 01/19/17 12:51 INR 1.31 (0.83-1.16) H 01/19/17 12:51 Physical Exam - Physical Exam General Appearance: alert, no apparent distress, other (chronically ill) EENT: other (mmm) Neck: supple Cardiac/Chest: regular rate, rhythm Abdomen: non-tender, other (distended but no tense ascites) Male Genitalia: other (bernal in) Extremities: other (no edema) Neuro/Psych: alert, oriented x 3 ICD10 Worksheet Patient Problems: Problems Problem Status Onset Cirrhosis Acute Dehydration Acute Hyponatremia Acute Abdominal pain Acute Alcoholism Acute Ascites Acute Hyperbilirubinemia Acute Septic shock Acute Spontaneous bacterial peritonitis Acute
[2017-01-22] MEDS: PANTOPRAZOLE SODIUM 40 MG TAB PO SCH (07:35)
[2017-01-22] MEDS: MULTIVITAMINS 1 EACH TAB PO SCH (07:35)
[2017-01-22] MEDS: DICYCLOMINE 10 MG CAP PO SCH ×3 (07:35→20:15)
[2017-01-22] MEDS: LACTULOSE 20 GM/30 ML UDCUP PO SCH ×2 (07:36→20:16)
[2017-01-22] MEDS: SOFOSBUVIR PO SCH (07:43)
[2017-01-22] MEDS: VELPATASVIR PO SCH (07:43)
[2017-01-22] MEDS: hydrOXYzine HCL 25 MG TAB PO PRN ×3 (07:57→20:16)
[2017-01-22] MEDS: ALBUMIN 25% 100 ML IV SCH ×2 (09:56→20:15)
--- NOTE | 2017-01-22 15:50 | GCON ---
[f rep st] CONSULTATION INPATIENT CONSULTATION NOTE REFERRING PHYSICIAN: Emily Perez MD REASON FOR CONSULTATION: Abnormal liver testing, and possible cholecystitis. CHIEF COMPLAINT: Abdominal pain. HISTORY OF PRESENT ILLNESS: Briefly, the patient is a 56-year-old male with a history of portal hypertensive liver disease, related to hepatitis C and alcohol. He reports his last drink was more than 6 months ago. He is currently on hepatitis C therapy, with only a few weeks left prior to completion. His portal hypertension has been complicated by hyponatremia, ascites, SBP, and varices. He describes a recent hospital stay for bacteremia and peritonitis. He was treated with antibiotics at that time, and discharged home on prophylactic ciprofloxacin. He reports that over the last week to 10 days, he has began to feel unwell, with intermittent nausea, vomiting, and abdominal pain. He reports no fevers or chills, but admits to significant abdominal pain. He has been feeling weaker with decreased exercise tolerance and poor appetite as well. He was evaluated in our outpatient clinic, where labs revealed worsening hyponatremia. He was recommended to go to [facility] for admission and management of this. Inpatient evaluation, included RUQ US. Concern for cholecystitis was raised based on US findings. PAST MEDICAL HISTORY: Includes cirrhosis secondary to hep C and alcohol, for which he is currently on treatment, as well as high blood pressure. ALLERGIES: None. PAST SURGERIES: Include a knee surgery. FAMILY HISTORY: Includes mother with colon cancer. HOME MEDICINES: Multivitamin, Restoril, spironolactone, herbal supplements, Lasix, ciprofloxacin, and ribavirin. REVIEW OF SYSTEMS: A complete 10-system review was undertaken with the patient , and it is negative, except for the pertinent positives and negatives described in the history of present illness. PHYSICAL EXAMINATION: GENERAL: This is a chronically ill-appearing male, in no apparent distress. HEENT: His pupils are equal, round, reactive to light and accommodation. His sclerae are mildly icteric. His oropharynx is dry. NECK: Supple without lymphadenopathy. HEART: Regular, without murmurs. LUNGS : Clear to auscultation with good respiratory effort. ABDOMEN: Soft, nontender. He has no physical exam clues to suggest ongoing ascites. EXTREMITIES: Free of cyanosis, clubbing, edema. He has a slight tremor and minimal asterixis on neuro exam. PSYCH: Reveals an alert and oriented male, who is cooperative. SKIN: Reveals spider telangiectasias. LABORATORY TESTING: Shows a white count of 5.35, hemoglobin of 8.0, hematocrit of 23.7, platelet count of 58. INR of 1.3. Sodium of 122, potassium of 5.1, chloride of 91, bicarb of 24, BUN of 16, creatinine of 0.9. Total bilirubin of 6.0, conjugated of 1.6, unconjugated 4.4. AST, ALT, and alk phos are normal. On admission, AST was 74. Right upper quadrant ultrasound on 01/19/2017, reveals no ascites. Right upper quadrant ultrasound on 01/20/2017, reveals cholelithiasis with a 5 mm gallstone lodged at the gallbladder neck, with gallbladder wall thickening suggestive of acute cholecystitis. There is also discovery of a partial thrombosis in the main portal vein. Repeat ultrasound on 01/21/2017, again revealed no ascites. Hepatobiliary scan on 01/22/2017, reveals normal gallbladder filling and contractility. There was prompt homogeneous uptake and extrahepatic excretion in the biliary tree, as well as to the gallbladder and small bowel. The ejection fraction was 76%. IMPRESSION AND RECOMMENDATIONS: The patient has been admitted to the hospital with nausea, abdominal pain. His exam and laboratory testing has been notable for a lack of ascites, and profound hyponatremia. The etiology for his abdominal symptoms is somewhat elusive. Ultrasound is perhaps suggestive of biliary tract disease, but HIDA scan was normal. Meanwhile, his elevated bilirubin is likely unconjugated bilirubin from ribavirin and hemolysis. Blood cultures from this hospital stay are currently pending. It is possible that his abdominal symptoms are in large part related to his hyponatremia, in the absence of an underlying infection. He did have polymicrobial bacteremia in September of this year. While it is possible that that could be a consequence of biliary tract disease. His current ultrasound and HIDA scan are somewhat inconclusive. At this point, I recommend continued aggressive therapy for hyponatremia. We could consider a workup for adrenal insufficiency, and worsening hypothyroidism in the setting of hyponatremia and abdominal pain. We should withhold diuretics , and give gently IV rehydration. He may accumulate ascites and LE edema, but those consequences of hyponatremia correction are tolerable. For now, I would defer any invasive therapies related to his gallbladder. In the absence of clear evidence for biliary sepsis and cholecystitis, the increased risk of perc drainage, surgery, etc. may not be warranted. If he has the development of a white count, fever, hypotension, or worsening liver tests, we may need to reconsider. /[id number]/MODL MTDD
--- NOTE | 2017-01-22 17:18 | HOSPPROG ---
Hospitalist Progress Note Assessment/Plan: * Severe resistant hyponatremia - ? SIADH -salt tabs + fluid restriction - serial labs per renal -check am cortisol * Abdominal pain -ultrasound concerning for acute cholecystitis but HIDA negative -check CT abd/pelvis * Recent Klebsiella sepsis due to SBP -now on chronic Cipro * Etoh/HCV cirrhosis -holding diuretics -currently no ascites -on ribavirin * Etoh abuse -ceased use once liver disease diagnosed x months * Worsening anemia - no clinical evidence for bleeding -follow Subjective: Still with abdominal pain Objective: Vital Signs Temp Pulse Resp BP Pulse Ox 37.4 C 107 H 20 94/54 L 94 01/22/17 15:42 01/22/17 15:42 01/22/17 15:42 01/22/17 15:42 01/22/17 15:42 Laboratory Results 01/22/17 05:08 01/22/17 14:30 01/21/17 01/22/17 01/23/17 05:59 05:59 05:59 Intake Total 1420 740 450 Output Total 1950 2050 250 Balance -530 -1310 200 PT 16.3 SEC (12.0-15.0) H 01/19/17 12:51 INR 1.31 (0.83-1.16) H 01/19/17 12:51 d/w Dr. Euceda regarding possible gallbladder disease HIDA - normal! - Physical Exam Constitutional: no apparent distress, appears nourished, not in pain Cardiovascular: regular rate and rhythym, no murmur, rub, or gallop Respiratory: no respiratory distress, no rales or rhonchi, clear to auscultation Gastrointestinal: normoactive bowel sounds, no palpable masses, tenderness, distension, No ascites, No guarding, No rebound Skin: no rashes or abrasions, no fluctuance, no induration Neurologic: AAOx3, sensation intact bilaterally Psychiatric: interacting appropriately, not anxious, not encephalopathic, thought process linear ICD10 Worksheet Patient Problems: Problems Problem Status Onset Cirrhosis Acute Dehydration Acute Hyponatremia Acute Abdominal pain Acute Alcoholism Acute Ascites Acute Hyperbilirubinemia Acute Septic shock Acute Spontaneous bacterial peritonitis Acute
[2017-01-22] MEDS ORDERED: IOPAMIDOL (ISOVUE-300) 100 ML BTL ONE (18:59)
[2017-01-23 04:58] LABS: % IMMATURE GRANULYOCYTES 0.5 % (0.0-1.1); ABSOLUTE IMMATURE GRANULOCYTES 0.03 10^3/uL (0.00-0.10); ADD DIFF? NO; ADD MORPH? NO; ADD SCAN? NO; ATYPICAL LYMPHOCYTE FLAG 0 (0-99); FRAGMENT RBC FLAG 0 (0-99); HEMATOCRIT 21.3 % (40.0-51.0); HEMOGLOBIN 7.1 g/dL (13.7-17.5); LEFT SHIFT FLG 0 (0-99); LIPEMIA HEMOLYSIS FLAG 80 (0-99); MEAN CELL HEMOGLOBIN 33.5 pg (27.9-34.1); MEAN CELL HEMOGLOBIN CONCENTR. 33.3 g/dL (32.4-36.7); MEAN CELL VOLUME 100.5 fL (81.5-99.8); MEAN PLATELET VOLUME 9.7 fL (8.7-11.7); PLATELET CLUMPS FLAG 0 (0-99); PLATELET COUNT 57 10^3/uL (150-400); RED BLOOD CELL COUNT 2.12 10^6/uL (4.40-6.38); RED CELL DISTRIBUTION WIDTH 14.5 % (11.5-15.2)
[2017-01-23 05:15] LABS: ALANINE AMINOTRANSFERASE 37 IU/L (21-72); ALBUMIN 3.3 g/dL (3.5-5.0); ALKALINE PHOSPHATASE 65 IU/L (38-126); ANION GAP 9 mEq/L (8-16); ASPARTATE AMINOTRANSFERASE 41 IU/L (17-59); BILIRUBIN-CONJUGATED 2.1 mg/dL (0.0-0.5); BILIRUBIN-UNCONJUGATED 3.9 mg/dL (0.0-1.1); CALCIUM 8.8 mg/dL (8.5-10.4); CARBON DIOXIDE 22 mEq/l (22-31); CHLORIDE 94 mEq/L (97-110); CREATININE 0.8 mg/dL (0.7-1.3); GLOMERULAR FILTRATION RATE > 60; GLUCOSE 87 mg/dL (70-100); SODIUM 125 mEq/L (134-144); TOTAL PROTEIN 6.2 g/dL (6.3-8.2)
[2017-01-23 05:42] LABS: CORTISOL-AM 6.3 ug/dL (4.5-22.7)
--- NOTE | 2017-01-23 08:08 | SOAPPROG ---
SOAP Progress Note Assessment/Plan: Assessment/Plan: 1. HCV - on therapy - abstinent from ETOH x 6 months - may benefit from transplant eval ultimately 2. Portal Hypertension - from HCV/ETOH 3. Hyponatremia - appreciate renal - fluid restriction, salt tabs, hold diuretics - dc bernal? 4. Abdominal Pain - etiology? - agree with additional imaging via CT scan - tolerating po w/o trouble - PPI for possible gastritis/GERD/etc - check h.pylori labs 5. Cholecystitis? - US concerning - HIDA reassuring - clinically does not appear to be septic/infected - blood cultures are NGTD - defer any invasive GB management plan for now 6. Anemia - rehydration - contribution of ribavirin induced hemolysis - no clinical evidence of blood loss - monitor for now 7. Hyperbilirubinemia - likely hemolysis from ribavirin, given nl AST/ALT/ALK 8. SBP hx - continue abx prophylaxis 9. Ascites - no evidence on US x2 - may develop as hypoNa is corrected - will monitor, may need paracentesis pending progress of ascites 10. Dispo? - once HypoNa corrected and abd symptoms improve to allow po intake can consider dc home - patient is seen by Dr. Waddell (associate brand manager) in our office Subjective: CC: f/u liver disease S: no fever ongoing mild persistent abdominal symptoms no vomiting no confusion poor appetite no SOB no chest pain Objective: Vital Signs Temp Pulse Resp BP Pulse Ox 37.1 C 105 H 20 91/66 L 96 01/23/17 00:00 01/23/17 00:00 01/23/17 00:00 01/23/17 00:00 01/23/17 00:00 Laboratory Results 01/23/17 04:35 01/23/17 04:35 01/22/17 01/23/17 01/24/17 05:59 05:59 05:59 Intake Total 740 450 Output Total 2050 1210 Balance -1310 -760 PT 16.3 SEC (12.0-15.0) H 01/19/17 12:51 INR 1.31 (0.83-1.16) H 01/19/17 12:51 Laboratory Tests 01/19/17 01/19/17 01/20/17 12:51 12:51 03:30 WBC 11.20 H Hct 36.4 L Plt Count 159 INR 1.31 H Sodium Potassium Chloride Carbon Dioxide Anion Gap BUN Creatinine Total Bilirubin Conjugated Bilirubin Unconjugated Bilirubin AST ALT Alkaline Phosphatase Total Protein Albumin TSH Cortisol AM Sample Ur Random Sodium 28 L 01/20/17 01/21/17 01/22/17 03:45 23:38 05:08 WBC 9.17 5.35 Hct 29.9 L 23.7 L Plt Count 112 L 58 L D INR Sodium Potassium Chloride Carbon Dioxide Anion Gap BUN Creatinine Total Bilirubin Conjugated Bilirubin Unconjugated Bilirubin AST ALT Alkaline Phosphatase Total Protein Albumin TSH Cortisol AM Sample Ur Random Sodium 55 01/23/17 01/23/17 04:35 04:35 WBC 5.75 Hct 21.3 L Plt Count 57 L INR Sodium 125 L Potassium 5.0 Chloride 94 L Carbon Dioxide 22 Anion Gap 9 BUN 15 Creatinine 0.8 Total Bilirubin 6.0 H Conjugated Bilirubin 2.1 H Unconjugated Bilirubin 3.9 H AST 41 ALT 37 Alkaline Phosphatase 65 Total Protein 6.2 L Albumin 3.3 L TSH 0.724 Cortisol AM Sample 6.3 Ur Random Sodium Physical Exam - Physical Exam EENT: PERRL/EOMI, No scleral icterus (R), No scleral icterus (L) Neck: non-tender Cardiac/Chest: normal peripheral pulses, regular rate, rhythm Abdomen: normal bowel sounds, non-tender, soft, hepatomegaly, No distended, No guarding, No rebound, No ascites Skin: normal color, warm/dry, cyanosis Extremities: normal range of motion Neuro/Psych: no motor/sensory deficits ICD10 Worksheet Patient Problems: Problems Problem Status Onset Cirrhosis Acute Dehydration Acute Hyponatremia Acute Abdominal pain Acute Alcoholism Acute Ascites Acute Hyperbilirubinemia Acute Septic shock Acute Spontaneous bacterial peritonitis Acute
[2017-01-23] MEDS: hydrOXYzine HCL 25 MG TAB PO PRN ×2 (08:17→18:29)
[2017-01-23] MEDS: oxyCODONE IR 5 MG TAB PO PRN ×2 (08:17→18:29)
[2017-01-23] MEDS: PANTOPRAZOLE SODIUM 40 MG TAB PO SCH (09:37)
[2017-01-23] MEDS: MULTIVITAMINS 1 EACH TAB PO SCH (09:37)
[2017-01-23] MEDS: ALBUMIN 25% 100 ML IV SCH (09:37)
[2017-01-23] MEDS: CIPROFLOXACIN 500 MG TAB PO SCH (09:37)
[2017-01-23] MEDS: DICYCLOMINE 10 MG CAP PO SCH ×2 (09:37→16:34)
[2017-01-23] MEDS ORDERED: MAGNESIUM CITRATE 300 ML BOTTLE PO ONE (09:37)
[2017-01-23] MEDS: LACTULOSE 20 GM/30 ML UDCUP PO SCH ×2 (09:37→20:39)
[2017-01-23] MEDS: SODIUM CHLORIDE 1,000 MG TAB PO SCH ×3 (09:37→20:39)
[2017-01-23] MEDS: SOFOSBUVIR PO SCH (09:38)
[2017-01-23] MEDS: VELPATASVIR PO SCH (09:38)
--- NOTE | 2017-01-23 11:45 | SOAPPROG ---
SOAP Progress Note Assessment/Plan: Assessment: 1)hyponatremia -chronically runs high 120s which is likely due to liver disease -urine NA 28, urine Osm 528 -TSH ok, cortisol pending -acute lowering likely due to relative intravascular depletion (several days poor po intake, n/v in setting of diuretics), no sig ascites on imaging, no edema on exam -initally received short course of 3% saline then was essentially NPO due to nausea- Na dipped back to down to low 120s and has been slowly rising to mid 120s now -albumin added and now NaCl tabs/oral fluid restriction--- Na up to 125 last check. I think this will continue to improve as he takes in more solute and encouraged better po intake. I will change freq of labs to q12 hours as stable with parameters for RN to call if not correcting appropriately 2)ESLD- Hep C/EtOH -has been on ribavarin -GI to see 3)Abd pain -initially concerning for cholecystistis but HIDA and CT ok- does not appear clinically infected 4)Urine retention - significant PVR and bernal placed-> now removed. I asked RN to recheck PVR now to ensure voiding ok as may need to replace 5)anemia-- significant decrease over past few days,no witnessed bleeding. 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 Yesterday just bites fruit. HIDA scan neg. No vomiting, sob, fevers. Objective: Vital Signs Temp Pulse Resp BP Pulse Ox 36.7 C 107 H 12 107/65 95 01/23/17 08:00 01/23/17 08:00 01/23/17 08:00 01/23/17 08:00 01/23/17 08:00 Laboratory Results 01/23/17 04:35 01/23/17 04:35 01/22/17 01/23/17 01/24/17 05:59 05:59 05:59 Intake Total 740 450 Output Total 0 1210 Balance -1310 -760 PT 16.3 SEC (12.0-15.0) H 01/19/17 12:51 INR 1.31 (0.83-1.16) H 01/19/17 12:51 Physical Exam - Physical Exam General Appearance: no apparent distress, other (chronically ill) EENT: other (mm) Neck: supple Respiratory: lungs clear Cardiac/Chest: regular rate, rhythm Abdomen: soft, other (no tense ascites, mild tenderness diffusely) Skin: warm/dry Extremities: other (no edema) Neuro/Psych: alert, oriented x 3 ICD10 Worksheet Patient Problems: Problems Problem Status Onset Cirrhosis Acute Dehydration Acute Hyponatremia Acute Abdominal pain Acute Alcoholism Acute Ascites Acute Hyperbilirubinemia Acute Septic shock Acute Spontaneous bacterial peritonitis Acute
--- NOTE | 2017-01-23 12:18 | ASMTCMCOM ---
CM Note CM Note Notes: Spoke w/RN, pt cleared by PT. Anticipate will dc home w/support of when medically stable, CM available for any changes. Date Signed: 01/23/2017 12:18 PM Electronically Signed By:Micheline Perez
--- NOTE | 2017-01-23 16:02 | HOSPPROG ---
Hospitalist Progress Note Assessment/Plan: * Hyponatremia -suspect volume depletion super-imposed on chronic low Na due to liver disease -salt tabs + fluid restriction -check Jareth stim * Abdominal pain - CT c/w constipation (despite lactulose!) -tx constipation * Esophageal thickening and + Hpylori abx -consider EGD -empiric PPI -consider empiric abx tx H pylori * Recent Klebsiella sepsis due to SBP -now on chronic Cipro prophylaxis * Etoh/HCV cirrhosis -holding diuretics -currently no ascites -on ribavirin - almost complete 12 week course -Etoh ceased - consider outpatient transplant eval * Hemolytic anemia - GI suspects due to ribavirin -rapid decline - may need transfusion Subjective: Had a BM yesterday, but really minimal BM compared to how much lactulose he has received. Still abd pain Objective: Vital Signs Temp Pulse Resp BP Pulse Ox 37.6 C 107 H 12 94/52 L 96 01/23/17 15:39 01/23/17 15:39 01/23/17 15:39 01/23/17 15:39 01/23/17 15:39 Laboratory Results 01/23/17 04:35 01/23/17 04:35 01/22/17 01/23/17 01/24/17 05:59 05:59 05:59 Intake Total 740 450 Output Total 2050 1210 Balance -1310 -760 PT 16.3 SEC (12.0-15.0) H 01/19/17 12:51 INR 1.31 (0.83-1.16) H 01/19/17 12:51 case d/w Dr. Holden regarding plan for hyponatremia CT abd - some pericholecystic fluid, esophageal thickening, constipation - Physical Exam Constitutional: no apparent distress, appears nourished, not in pain Cardiovascular: regular rate and rhythym, no murmur, rub, or gallop Respiratory: no respiratory distress, no rales or rhonchi, clear to auscultation Gastrointestinal: normoactive bowel sounds, soft, non-tender abdomen, no palpable masses Skin: no rashes or abrasions, no fluctuance, no induration Neurologic: AAOx3, sensation intact bilaterally Psychiatric: interacting appropriately, not anxious, not encephalopathic, thought process linear ICD10 Worksheet Patient Problems: Problems Problem Status Onset Cirrhosis Acute Dehydration Acute Hyponatremia Acute Abdominal pain Acute Alcoholism Acute Ascites Acute Hyperbilirubinemia Acute Septic shock Acute Spontaneous bacterial peritonitis Acute
[2017-01-24 05:13] LABS: % IMMATURE GRANULYOCYTES 0.4 % (0.0-1.1); ABSOLUTE IMMATURE GRANULOCYTES 0.02 10^3/uL (0.00-0.10); ADD DIFF? NO; ADD MORPH? NO; ADD SCAN? NO; ATYPICAL LYMPHOCYTE FLAG 10 (0-99); FRAGMENT RBC FLAG 20 (0-99); HEMATOCRIT 22.1 % (40.0-51.0); HEMOGLOBIN 7.2 g/dL (13.7-17.5); LEFT SHIFT FLG 0 (0-99); LIPEMIA HEMOLYSIS FLAG 80 (0-99); MEAN CELL HEMOGLOBIN 33.3 pg (27.9-34.1); MEAN CELL HEMOGLOBIN CONCENTR. 32.6 g/dL (32.4-36.7); MEAN CELL VOLUME 102.3 fL (81.5-99.8); MEAN PLATELET VOLUME 9.6 fL (8.7-11.7); PLATELET CLUMPS FLAG 0 (0-99); PLATELET COUNT 56 10^3/uL (150-400); RED BLOOD CELL COUNT 2.16 10^6/uL (4.40-6.38); RED CELL DISTRIBUTION WIDTH 15.2 % (11.5-15.2)
[2017-01-24 05:30] LABS: ALANINE AMINOTRANSFERASE 32 IU/L (21-72); ALBUMIN 3.2 g/dL (3.5-5.0); ALKALINE PHOSPHATASE 63 IU/L (38-126); ASPARTATE AMINOTRANSFERASE 38 IU/L (17-59); BILIRUBIN,TOTAL 4.8 mg/dL (0.1-1.4); BILIRUBIN-CONJUGATED 1.7 mg/dL (0.0-0.5); BILIRUBIN-UNCONJUGATED 3.1 mg/dL (0.0-1.1); CALCIUM 8.7 mg/dL (8.5-10.4); CARBON DIOXIDE 22 mEq/l (22-31); CHLORIDE 96 mEq/L (97-110); CREATININE 0.9 mg/dL (0.7-1.3); GLOMERULAR FILTRATION RATE > 60; GLUCOSE 118 mg/dL (70-100); SODIUM 126 mEq/L (134-144); TOTAL PROTEIN 6.2 g/dL (6.3-8.2)
[2017-01-24] MEDS ORDERED: COSYNTROPIN 0.25 MG/2 ML SYRINGE IVP ONE (06:00)
[2017-01-24 06:27] LABS: ANION GAP 8 mEq/L (8-16); POTASSIUM 5.1 mEq/L (3.5-5.2)
[2017-01-24 06:49] LABS: CORTISOL-AM 21.7 ug/dL (4.5-22.7)
[2017-01-24 07:01] LABS: CORTISOL-AM 6.2 ug/dL (4.5-22.7)
[2017-01-24] MEDS: oxyCODONE IR 5 MG TAB PO PRN ×2 (07:51→16:12)
[2017-01-24] MEDS: LACTULOSE 20 GM/30 ML UDCUP PO SCH ×2 (07:51→20:41)
[2017-01-24] MEDS: SODIUM CHLORIDE 1,000 MG TAB PO SCH ×3 (07:51→22:09)
[2017-01-24] MEDS: CIPROFLOXACIN 500 MG TAB PO SCH (07:52)
[2017-01-24] MEDS: PANTOPRAZOLE SODIUM 40 MG TAB PO SCH ×2 (07:52→20:41)
[2017-01-24] MEDS: MULTIVITAMINS 1 EACH TAB PO SCH (07:52)
[2017-01-24] MEDS: hydrOXYzine HCL 25 MG TAB PO PRN ×2 (07:52→16:12)
[2017-01-24] MEDS: SOFOSBUVIR PO SCH (09:57)
[2017-01-24] MEDS: VELPATASVIR PO SCH (09:57)
--- NOTE | 2017-01-24 10:03 | SOAPPROG ---
SOAP Progress Note Assessment/Plan: Assessment/Plan: 1. HCV - on therapy - abstinent from ETOH x 6 months - may benefit from transplant eval ultimately 2. Portal Hypertension - from HCV/ETOH - complicated by varices, ascites, encephalopathy, SBP 3. Hyponatremia - appreciate renal help - fluid restriction, salt tabs, hold diuretics - dc bernal? - Na gradually improving - anticipate LE edema and ascites 4. Abdominal Pain - constipation? increase lactulose - h.pylori - begin treatment - if remains inpt, can plan EGD tomorrow (overdue for variceal surveillance regardless) - ok to defer EGD to outpt, if can go home today, otherwise - patient anxious to dc home, and need for EGD is relatively elective - BID PPI during h.pylori therapy, then QD therafter 5. Cholecystitis? - US concerning - HIDA reassuring - clinically does not appear to be septic/infected - blood cultures are NGTD - defer any invasive GB management plan for now 6. Anemia - rehydration - contribution of ribavirin induced hemolysis - no clinical evidence of blood loss - monitor for now 7. Hyperbilirubinemia - likely hemolysis from ribavirin, given nl AST/ALT/ALK 8. SBP hx - continue abx prophylaxis 9. Ascites - no evidence on US x2 - may develop as hypoNa is corrected - will monitor, may need paracentesis pending progress of ascites 10. Dispo - patient anxious to dc home today - has GI clinic f/u next week - good timing 01/24/17 10:28 Subjective: CC: f/u hyponatremia and abdominal pain S: still with abdominal pain and distension, but much improved tolerating po without difficulty no fever no melena no hematochezia or hematemesis tolerating po having multiple BMs last 24 hrs Objective: Vital Signs Temp Pulse Resp BP Pulse Ox 36.9 C 110 H 14 108/64 95 01/24/17 08:00 01/24/17 08:00 01/24/17 08:00 01/24/17 08:00 01/24/17 08:00 Laboratory Results 01/24/17 04:55 01/24/17 05:58 01/23/17 01/24/17 01/25/17 05:59 05:59 05:59 Intake Total 450 900 Output Total 1210 125 Balance -760 900 -125 PT 16.3 SEC (12.0-15.0) H 08/31/17 12:51 INR 1.31 (0.83-1.16) H 01/19/17 12:51 Laboratory Tests 01/19/17 01/19/17 01/20/17 12:51 12:51 03:45 WBC Hgb 12.7 L 10.4 L Hct 36.4 L 29.9 L MCV Plt Count 112 L Haptoglobin INR 1.31 H Sodium Total Bilirubin Conjugated Bilirubin Unconjugated Bilirubin AST ALT Alkaline Phosphatase H. pylori IgG Antibody 01/22/17 01/22/17 01/22/17 05:08 14:30 22:00 WBC Hgb 8.0 L Hct 23.7 L MCV Plt Count 58 L D Haptoglobin INR Sodium 123 L 123 L Total Bilirubin Conjugated Bilirubin Unconjugated Bilirubin AST ALT Alkaline Phosphatase H. pylori IgG Antibody 01/23/17 01/23/17 01/23/17 04:35 04:35 04:35 WBC Hgb 7.1 L Hct 21.3 L MCV Plt Count 57 L Haptoglobin Pending INR Sodium 125 L Total Bilirubin Conjugated Bilirubin Unconjugated Bilirubin AST ALT Alkaline Phosphatase H. pylori IgG Antibody 01/23/17 01/23/17 01/24/17 04:35 17:10 04:55 WBC 4.93 Hgb 7.2 L Hct 22.1 L MCV 102.3 H Plt Count 56 L Haptoglobin INR Sodium 127 L Total Bilirubin Conjugated Bilirubin Unconjugated Bilirubin AST ALT Alkaline Phosphatase H. pylori IgG Antibody POSITIVE H 01/24/17 01/24/17 04:55 05:58 WBC Hgb Hct MCV Plt Count Haptoglobin INR Sodium 126 L 125 L Total Bilirubin 4.8 H Conjugated Bilirubin 1.7 H Unconjugated Bilirubin 3.1 H AST 38 ALT 32 Alkaline Phosphatase 63 H. pylori IgG Antibody Laboratory Tests 01/19/17 01/23/17 01/24/17 12:51 04:35 04:55 WBC 4.93 Hgb 7.2 L Hct 22.1 L MCV 102.3 H Plt Count 56 L INR 1.31 H Total Bilirubin Conjugated Bilirubin Unconjugated Bilirubin AST ALT Alkaline Phosphatase H. pylori IgG Antibody POSITIVE H 01/24/17 04:55 WBC Hgb Hct MCV Plt Count INR Total Bilirubin 4.8 H Conjugated Bilirubin 1.7 H Unconjugated Bilirubin 3.1 H AST 38 ALT 32 Alkaline Phosphatase 63 H. pylori IgG Antibody Physical Exam - Physical Exam EENT: PERRL/EOMI Respiratory: lungs clear, normal breath sounds Cardiac/Chest: normal peripheral pulses Abdomen: normal bowel sounds, non-tender, soft, distended Skin: normal color, No jaundice Extremities: normal range of motion, No pedal edema Neuro/Psych: no motor/sensory deficits ICD10 Worksheet Patient Problems: Problems Problem Status Onset Cirrhosis Acute Dehydration Acute Hyponatremia Acute Abdominal pain Acute Alcoholism Acute Ascites Acute Hyperbilirubinemia Acute Septic shock Acute Spontaneous bacterial peritonitis Acute
--- NOTE | 2017-01-24 13:08 | CPEKG ---
Heart Rate: 99 RR Interval: 606 P-R Interval: 148 QRSD Interval: 72 QT Interval: 356 QTC Interval: 457 P Huntley: 38 QRS Huntley: 33 T Wave Huntley: 41 EKG Severity - NORMAL ECG - EKG Impression: SINUS RHYTHM Electronically Signed By: Jeanie Burrell 24-Jan-2017 18:00:23
--- NOTE | 2017-01-24 14:26 | ASMTCMCOM ---
CM Note CM Note Notes: PT/OT have both recommended patient can d/c home independently. No further cm needs. CM available if needs change. Date Signed: 01/24/2017 02:25 PM Electronically Signed By:Adia Lion
--- NOTE | 2017-01-24 14:26 | SOAPPROG ---
SOAP Progress Note Assessment/Plan: Assessment:Plan: Hyponatremia-likely multifactorial -underlying liver disease -he has been nauseated with decreased oral intake while being on antiviral therapy for his Hep C -he is near the end of this treatment, so it is important to see it through to completion -Na 126 -repeat urine studies requested -I would continue to encourage increased solute intake and to limit oral fluids -will follow 01/24/17 14:23 Subjective: stable overnite Objective: Vital Signs Temp Pulse Resp BP Pulse Ox 36.9 C 110 H 14 108/64 95 01/24/17 08:00 01/24/17 08:00 01/24/17 08:00 01/24/17 08:00 01/24/17 08:00 Laboratory Results 01/24/17 04:55 01/24/17 05:58 01/23/17 01/24/17 01/25/17 05:59 05:59 05:59 Intake Total 450 900 Output Total 1210 125 Balance -760 900 -125 PT 16.3 SEC (12.0-15.0) H 01/19/17 12:51 INR 1.31 (0.83-1.16) H 01/19/17 12:51 Physical Exam - Physical Exam General Appearance: WD/WN, alert, no apparent distress, thin EENT: normal ENT inspection Neck: normal inspection Respiratory: lungs clear, normal breath sounds, No respiratory distress Cardiac/Chest: regular rate, rhythm, No diastolic murmur, No systolic murmur Abdomen: normal bowel sounds, non-tender, soft, distended, No hepatomegaly, No splenomegaly Skin: normal color, warm/dry Extremities: other (R lee bony deformity due to prior tibial fracture), No swelling Neuro/Psych: no motor/sensory deficits, alert, normal mood/affect ICD10 Worksheet Patient Problems: Problems Problem Status Onset Cirrhosis Acute Dehydration Acute Hyponatremia Acute Abdominal pain Acute Alcoholism Acute Ascites Acute Hyperbilirubinemia Acute Septic shock Acute Spontaneous bacterial peritonitis Acute
--- NOTE | 2017-01-24 17:50 | HOSPPROG ---
Hospitalist Progress Note Assessment/Plan: * Hyponatremia -suspect volume depletion super-imposed on chronic low Na due to liver disease -salt tabs + fluid restriction -sodium still too low for discharge - d/w Dr. Padilla * Esophageal thickening and + Hpylori abx -outpatient EGD per Dr. Euceda -empiric PPI + abx for Hpylori * Recent Klebsiella sepsis due to SBP -now on chronic Cipro prophylaxis -concern for acute lexie -US concerning but HIDA okay * Etoh/HCV cirrhosis -holding diuretics -currently no ascites -on ribavirin - almost complete 12 week course -Etoh ceased - consider outpatient transplant eval * Hemolytic anemia - GI suspects due to ribavirin -rapid decline - may need transfusion -a little better today - follow Subjective: Lots of BM but abd pain no better. Nauseated but able to eat. Objective: Vital Signs Temp Pulse Resp BP Pulse Ox 37.2 C 99 12 94/63 L 96 01/24/17 16:00 01/24/17 16:00 01/24/17 16:00 01/24/17 16:00 01/24/17 16:00 Laboratory Results 01/24/17 04:55 01/24/17 05:58 01/23/17 01/24/17 01/25/17 05:59 05:59 05:59 Intake Total 450 900 0 Output Total 1210 125 Balance -760 900 -125 PT 16.3 SEC (12.0-15.0) H 01/19/17 12:51 INR 1.31 (0.83-1.16) H 01/19/17 12:51 EKG viewed, my personal interpretation is - NSR, not tachycardic, no ischemic change - Physical Exam Constitutional: no apparent distress, appears nourished, not in pain Cardiovascular: regular rate and rhythym, no murmur, rub, or gallop Respiratory: no respiratory distress, no rales or rhonchi, clear to auscultation Gastrointestinal: normoactive bowel sounds, soft, non-tender abdomen, no palpable masses Skin: no rashes or abrasions, no fluctuance, no induration Neurologic: AAOx3, sensation intact bilaterally Psychiatric: interacting appropriately, not anxious, not encephalopathic, thought process linear ICD10 Worksheet Patient Problems: Problems Problem Status Onset Cirrhosis Acute Dehydration Acute Hyponatremia Acute Abdominal pain Acute Alcoholism Acute Ascites Acute Hyperbilirubinemia Acute Septic shock Acute Spontaneous bacterial peritonitis Acute
[2017-01-24] MEDS: CLARITHROMYCIN 500 MG TAB PO SCH (20:41)
[2017-01-24] MEDS: TEMAZEPAM 15 MG CAP PO PRN (22:13)
[2017-01-25 05:28] LABS: % IMMATURE GRANULYOCYTES 0.5 % (0.0-1.1); ABSOLUTE IMMATURE GRANULOCYTES 0.03 10^3/uL (0.00-0.10); ADD DIFF? NO; ADD MORPH? NO; ADD SCAN? NO; ATYPICAL LYMPHOCYTE FLAG 20 (0-99); FRAGMENT RBC FLAG 0 (0-99); HEMATOCRIT 21.5 % (40.0-51.0); LEFT SHIFT FLG 0 (0-99); LIPEMIA HEMOLYSIS FLAG 80 (0-99); MEAN CELL HEMOGLOBIN 33.5 pg (27.9-34.1); MEAN CELL HEMOGLOBIN CONCENTR. 32.6 g/dL (32.4-36.7); MEAN CELL VOLUME 102.9 fL (81.5-99.8); PLATELET CLUMPS FLAG 0 (0-99); PLATELET COUNT 66 10^3/uL (150-400); RED BLOOD CELL COUNT 2.09 10^6/uL (4.40-6.38); RED CELL DISTRIBUTION WIDTH 15.5 % (11.5-15.2)
[2017-01-25 05:35] LABS: ALANINE AMINOTRANSFERASE 32 IU/L (21-72); ALKALINE PHOSPHATASE 64 IU/L (38-126); ANION GAP 6 mEq/L (8-16); ASPARTATE AMINOTRANSFERASE 37 IU/L (17-59); BILIRUBIN,TOTAL 4.1 mg/dL (0.1-1.4); BILIRUBIN-CONJUGATED 1.5 mg/dL (0.0-0.5); BILIRUBIN-UNCONJUGATED 2.6 mg/dL (0.0-1.1); CALCIUM 8.5 mg/dL (8.5-10.4); CARBON DIOXIDE 24 mEq/l (22-31); CHLORIDE 96 mEq/L (97-110); GLOMERULAR FILTRATION RATE > 60; GLUCOSE 114 mg/dL (70-100); POTASSIUM 4.9 mEq/L (3.5-5.2); SODIUM 126 mEq/L (134-144)
[2017-01-25] MEDS ORDERED: NS 1,000 ML IV ONE (08:49)
--- NOTE | 2017-01-25 08:55 | PDANEPAE ---
ANE History of Present Illness EGD for esophageal thickening in setting of HepC and ETOH liver disease ANE Past Medical History - Cardiovascular History Hx Hypertension: No Hx Arrhythmias: No Hx Chest Pain: No Hx Coronary Artery / Peripheral Vascular Disease: No Hx CHF / Valvular Disease: No Hx Palpitations: No - Pulmonary History Hx COPD: No Hx Asthma/Reactive Airway Disease: No Hx Recent Upper Respiratory Infection: No Hx Oxygen in Use at Home: No Hx Sleep Apnea: No Sleep Apnea Screening Result - Last Documented: Positive - Endocrine History Hx Diabetes: No Hypothyroid: No Hyperthyroid: No Obesity: no - Renal History Hx Renal Disorders: No - Liver History Hx Hepatic Disorders: Yes Hepatic History Comment: ESLD, HEpC and ETOH, abstinent x 6 mos - Neurological & Psychiatric Hx Hx Neurological and Psychiatric Disorders: No - GI History GERD: mild ANE Review of Systems Review of systems is: negative Review of Systems: - Exercise capacity Exercise capacity: >=4 METS ANE Patient History - Allergies Allergies/Adverse Reactions: No Known Allergies Allergy (Verified 10/06/16 11:46) - Home Medications Home medications: home medication list seen and reviewed Home Medications: Herbals/Supplements -Info Only 1 ea PO DAILY 10/11/16 [Last Taken 01/18/17] Ciprofloxacin HCl [Ciprofloxacin] 500 mg PO DAILY 01/19/17 [Last Taken 01/18/17] Furosemide [Lasix 80 MG (*)] 80 mg PO DAILY 01/19/17 [Last Taken 01/18/17] Multivitamins [Multivitamin (*)] 1 each PO DAILY 01/19/17 [Last Taken 01/18/17] Ribavirin 400 mg PO HS 01/19/17 [Last Taken 01/18/17] Ribavirin 600 mg PO DAILY 01/19/17 [Last Taken 01/18/17] Spironolactone 200 mg PO DAILY 01/19/17 [Last Taken 01/18/17] Temazepam [Restoril 15 MG (*)] 15 mg PO HSPRN PRN 01/19/17 [Last Taken 01/18/17] Sofosbuvir/Velpatasvir [Epclusa 400 mg-100 mg Tablet] 1 each PO DAILY 01/20/17 [ Last Taken Unknown] - NPO status NPO Status: no food or drink >8 hours NPO Since - Liquids (Date): 01/25/17 NPO Since - Liquids (Time): 00:00 NPO Since - Solids (Date): 01/25/17 NPO Since - Solids (Time): 00:00 - Anes Hx Anes Hx: no prior problems - Smoking Hx Smoking Status: Former smoker - Alcohol Use Alcohol Use: Sober - Family Anes Hx Family Anes Hx: none ANE Labs/Vital Signs - Labs Result Diagrams: 01/25/17 04:42 01/25/17 04:42 - Vital Signs Blood Pressure: 94/60 Heart Rate: 106 Respiratory Rate: 16 O2 Sat (%): 95 Height: 170.18 cm Weight: 61.552 kg ANE Physical Exam - Airway Neck exam: FROM Mallampati Score: Class 2 Mouth exam: normal dental/mouth exam - Pulmonary Pulmonary: no respiratory distress - Cardiovascular Cardiovascular: regular rate and rhythym - ASA Status ASA Status: IV ANE Anesthesia Plan Anesthesia Plan: GA with mask (high risk due to low Na, ESLD, Anemia, pt understands and agrees to proceed)
[2017-01-25] MEDS ORDERED: LIDOCAINE 2% 5 ML SDV ONE (09:00)
[2017-01-25] MEDS ORDERED: PROPOFOL/EMULSION 500 MG/50 ML BOTTLE IV ONE (09:00)
--- NOTE | 2017-01-25 09:18 | SUROPNOTE ---
[facility] Operative Report - Surgery EGD Indication: abdominal pain, variceal surveillance Medication: per anesthesia Description of Procedure: after informed consent was obtained, the patient was placed in the left lateral decubitus position. The forward viewing upper endoscope was advanced to the proximal duodenum. retroflexed views in the gastric cardia were obtained. The patient tolerated the procedure well. Complications: none acutely Findings: 1. esophageal varices, grade 2-3, 2 bands applied no bleeding during or after band placement 2. portal hypertensive gastropathy in the body and cardia 3. erosive gastritis with shallow ulceration in the gastric cardia - bx'd 4. normal duodenum Impression/Recs: 1. Variceal Surveillance - recommend recall EGD in 4-6 weeks to continue banding and variceal eradication - follow with Dr. Waddell as outpt to continue to manage underlying liver disease 2. Abd pain - may be partly from gastric erosions? - bx'd - already on h.pylori treatment - complete h.pylori therapy and check stool ag or breath test in 8-12 weeks to document eradication 3. FEN - ok to advance diet
[2017-01-25] MEDS ORDERED: fentaNYL 100 MCG/2 ML INJ IVP PRN (09:22)
[2017-01-25] MEDS ORDERED: NALOXONE HCL 0.4 MG/ML INJ IVP PRN (09:22)
[2017-01-25] MEDS ORDERED: ONDANSETRON 4 MG/2 ML VIAL IVP PRN (09:22)
[2017-01-25] MEDS ORDERED: ALBUTEROL 3 ML DEYVIAL IH PRN (09:22)
[2017-01-25] MEDS ORDERED: ONDANSETRON 4 MG/2 ML VIAL ONE (09:23)
--- NOTE | 2017-01-25 09:23 | POSTANESTH ---
Post Anesthetic Evaluation Cardiovascular Status: Normal, Stable Respiratory Status: Normal, Stable Level of Consciousness/Mental Status: Can Participate in Eval Pain Control: Adequate, Prn Tx Ordered Nausea/Vomiting Control: Adequate, Prn Tx Ordered Complications Possibly Related to Anesthesia: None Noted
[2017-01-25] MEDS: oxyCODONE IR 5 MG TAB PO PRN ×2 (11:25→18:53)
[2017-01-25] MEDS: SODIUM CHLORIDE 1,000 MG TAB PO SCH ×3 (11:26→21:51)
[2017-01-25] MEDS: CLARITHROMYCIN 500 MG TAB PO SCH ×2 (11:26→20:45)
[2017-01-25] MEDS: CIPROFLOXACIN 500 MG TAB PO SCH (11:26)
[2017-01-25] MEDS: PANTOPRAZOLE SODIUM 40 MG TAB PO SCH ×2 (11:27→20:46)
[2017-01-25] MEDS: LACTULOSE 20 GM/30 ML UDCUP PO SCH ×2 (11:27→20:47)
[2017-01-25] MEDS: MULTIVITAMINS 1 EACH TAB PO SCH (11:27)
[2017-01-25] MEDS: SOFOSBUVIR PO SCH (11:32)
[2017-01-25] MEDS: VELPATASVIR PO SCH (11:32)
--- NOTE | 2017-01-25 13:45 | SOAPPROG ---
SOAP Progress Note Assessment/Plan: Assessment: 1. HypoNa: undetectable Ayah, c/w vol depletion +/- hemodynamics of cirrhosis. Does not appear particularly overloaded, will give iv albumin in effort to improve renal hemodynamics. Though not overtly hypotensive would consider adding midodrine as well for same reason. At current level of 126, risk of overly rapid correction is minimal and I do not recommend frequent lab monitoring. Cont current po fluid restriction. As volume status increases, adding loop diuretic should help increase renal free water excretion. 2. cirrhosis: on rx for Hep C 3. anemia: eval in process. Plan: 01/25/17 13:41 Subjective: Tired but no other acute c/o. Notes relatively poor uo. Objective: Vital Signs Temp Pulse Resp BP Pulse Ox 37.1 C 101 H 14 112/66 91 L 01/25/17 13:07 01/25/17 13:07 01/25/17 13:07 01/25/17 13:07 01/25/17 13:07 Microbiology 01/20/17 10:55 Blood Culture - Final Blood 01/20/17 09:46 Blood Culture - Final Blood Laboratory Results 01/25/17 04:42 01/25/17 04:42 01/24/17 01/25/17 01/26/17 05:59 05:59 05:59 Intake Total 900 1000 530 Output Total 125 Balance 900 875 530 PT 16.3 SEC (12.0-15.0) H 01/19/17 12:51 INR 1.31 (0.83-1.16) H 01/19/17 12:51 Physical Exam - Physical Exam General Appearance: no apparent distress Respiratory: lungs clear Cardiac/Chest: tachycardia Abdomen: non-tender, soft Extremities: pedal edema (none) ICD10 Worksheet Patient Problems: Problems Problem Status Onset Cirrhosis Acute Dehydration Acute Hyponatremia Acute Abdominal pain Acute Alcoholism Acute Ascites Acute Hyperbilirubinemia Acute Septic shock Acute Spontaneous bacterial peritonitis Acute
[2017-01-25] MEDS: ALBUMIN 25% 100 ML IV SCH ×2 (14:46→20:41)
--- NOTE | 2017-01-25 16:41 | HOSPPROG ---
Hospitalist Progress Note Assessment/Plan: * Hyponatremia due to volume repletion -IV Albumin today -Nephrology is considering Midodrine -cont Salt tables and fluid restriction -hold diuretics * Esophageal thickening and + Hpylori abx -outpatient EGD per Dr. Euceda -empiric PPI + abx for Hpylori * Recent Klebsiella sepsis due to SBP -now on chronic Cipro prophylaxis -concern for acute lexie -US concerning but HIDA okay * Etoh/HCV cirrhosis -holding diuretics -currently no ascites -on ribavirin - almost complete 12 week course -Etoh ceased - consider outpatient transplant eval * Hemolytic anemia - GI suspects due to ribavirin -rapid decline - may need transfusion -Recheck H/H tomorrow, if below 7, would transfuse one unit. Dispo: cont inpatient Subjective: No complaints. Albumin started today. VSS. Hgb is down to 7. New patient encounter Objective: Vital Signs Temp Pulse Resp BP Pulse Ox 36.9 C 100 16 103/61 94 01/25/17 15:47 01/25/17 15:47 01/25/17 15:47 01/25/17 15:47 01/25/17 15:47 Microbiology 01/20/17 10:55 Blood Culture - Final Blood 01/20/17 09:46 Blood Culture - Final Blood Laboratory Results 01/25/17 04:42 01/25/17 04:42 01/24/17 01/25/17 01/26/17 05:59 05:59 05:59 Intake Total 900 1000 530 Output Total 125 Balance 900 875 530 PT 16.3 SEC (12.0-15.0) H 01/19/17 12:51 INR 1.31 (0.83-1.16) H 01/19/17 12:51 - Physical Exam Constitutional: chronically ill appearing Eyes: PERRL, EOMI Ears, Nose, Mouth, Throat: moist mucous membranes Cardiovascular: regular rate and rhythym, No JVD, No edema Respiratory: no respiratory distress, reduced air movement Gastrointestinal: tenderness, distension Skin: warm Neurologic: AAOx3 Psychiatric: interacting appropriately, encephalopathic (mild), poor insight, poor memory ICD10 Worksheet Patient Problems: Problems Problem Status Onset Cirrhosis Acute Dehydration Acute Hyponatremia Acute Abdominal pain Acute Alcoholism Acute Ascites Acute Hyperbilirubinemia Acute Septic shock Acute Spontaneous bacterial peritonitis Acute
[2017-01-25] MEDS: TEMAZEPAM 15 MG CAP PO PRN (21:51)
[2017-01-26] MEDS: ALBUMIN 25% 100 ML IV SCH ×4 (02:25→20:33)
[2017-01-26 05:25] LABS: HEMATOCRIT 19.7 % (40.0-51.0); MEAN CELL HEMOGLOBIN 33.3 pg (27.9-34.1); MEAN CELL VOLUME 104.2 fL (81.5-99.8); RED BLOOD CELL COUNT 1.89 10^6/uL (4.40-6.38)
[2017-01-26 05:31] LABS: HEMOGLOBIN 6.3 g/dL (13.7-17.5)
[2017-01-26 05:42] LABS: ALBUMIN 3.6 g/dL (3.5-5.0); ANION GAP 12 mEq/L (8-16); CALCIUM 8.8 mg/dL (8.5-10.4); CARBON DIOXIDE 20 mEq/l (22-31); CHLORIDE 100 mEq/L (97-110); CREATININE 0.8 mg/dL (0.7-1.3); GLOMERULAR FILTRATION RATE > 60; GLUCOSE 91 mg/dL (70-100); MAGNESIUM 1.8 mg/dL (1.6-2.3); POTASSIUM 4.5 mEq/L (3.5-5.2); SODIUM 132 mEq/L (134-144)
[2017-01-26] MEDS: oxyCODONE IR 5 MG TAB PO PRN ×3 (08:08→16:57)
[2017-01-26] MEDS: CLARITHROMYCIN 500 MG TAB PO SCH ×2 (08:18→20:39)
[2017-01-26] MEDS: SODIUM CHLORIDE 1,000 MG TAB PO SCH ×3 (09:10→21:49)
[2017-01-26] MEDS: CIPROFLOXACIN 500 MG TAB PO SCH (09:10)
[2017-01-26] MEDS: MULTIVITAMINS 1 EACH TAB PO SCH (09:11)
[2017-01-26] MEDS: PANTOPRAZOLE SODIUM 40 MG TAB PO SCH ×2 (09:11→20:40)
[2017-01-26] MEDS: LACTULOSE 20 GM/30 ML UDCUP PO SCH ×2 (09:12→20:40)
--- NOTE | 2017-01-26 10:09 | SOAPPROG ---
SOAP Progress Note Assessment/Plan: Assessment:Plan: Hyponatremia-likely multifactorial -underlying liver disease -he has been nauseated with decreased oral intake while being on antiviral therapy for his Hep C -he is near the end of this treatment, but now looks like he is having complications of hemolysis -given albumin yesterday -Na 132 -will add midodrine due to current BP readings -CPM Anemia-worse -getting blood -low haptoglobin and elevated retic -likely hemolysis -LDH requested SBP-on abx 01/26/17 10:12 Subjective: poor sleep last night abdomen still uncomfortable Objective: Vital Signs Temp Pulse Resp BP Pulse Ox 37.1 C 104 H 16 83/61 L 98 01/26/17 08:43 01/26/17 08:53 01/26/17 08:43 01/26/17 08:43 01/26/17 08:53 Microbiology 01/20/17 10:55 Blood Culture - Final Blood 01/20/17 09:46 Blood Culture - Final Blood Laboratory Results 01/26/17 04:41 01/26/17 04:41 01/25/17 01/26/17 01/27/17 05:59 05:59 05:59 Intake Total 1000 780 Output Total 125 1075 900 Balance 875 -295 -900 PT 16.3 SEC (12.0-15.0) H 01/19/17 12:51 INR 1.31 (0.83-1.16) H 01/19/17 12:51 Physical Exam - Physical Exam General Appearance: WD/WN, alert, mild distress EENT: normal ENT inspection Neck: normal inspection Respiratory: decreased breath sounds (at bases, otherwise clear) Cardiac/Chest: regular rate, rhythm, No diastolic murmur, No systolic murmur Abdomen: normal bowel sounds, distended, No non-tender, No hepatomegaly, No splenomegaly Skin: jaundice Extremities: No swelling Neuro/Psych: no motor/sensory deficits, alert, normal mood/affect ICD10 Worksheet Patient Problems: Problems Problem Status Onset Cirrhosis Acute Dehydration Acute Hyponatremia Acute Abdominal pain Acute Alcoholism Acute Ascites Acute Hyperbilirubinemia Acute Septic shock Acute Spontaneous bacterial peritonitis Acute
[2017-01-26] MEDS: MIDODRINE HCL 5 MG TAB PO SCH ×3 (10:49→16:58)
[2017-01-26] MEDS: VELPATASVIR PO SCH (10:53)
[2017-01-26] MEDS: SOFOSBUVIR PO SCH (10:53)
[2017-01-26 11:11] LABS: LACTATE DEHYDROGENASE 390 IU/L (313-618)
--- NOTE | 2017-01-26 11:49 | SOAPPROG ---
SOAP Progress Note Assessment/Plan: Assessment/Plan: 1. HCV/Cirrhosis/Portal Htn - on therapy - abstinent from ETOH x 6 months - may benefit from transplant eval ultimately - from HCV/ETOH - complicated by varices, ascites, encephalopathy, SBP - s/p EGD on 01/25 with banding 2. Hyponatremia - appreciate renal help - fluid restriction, salt tabs, hold diuretics - dc bernal? - Na gradually improving - mentation normal 3. Abdominal Pain - on h.pylori tx - symptoms seem to be resolving - EGD with some erosions 4. Cholecystitis? - essentially rule out 5. Anemia - rehydration - contribution of ribavirin induced hemolysis? although haptoglobin normal - EGD without bleeding source - agree with pRBCs, monitor 6. Hyperbilirubinemia - likely hemolysis from ribavirin, given nl AST/ALT/ALK 7. SBP hx - continue abx prophylaxis 8. Ascites - no evidence of recurrence yet 9. Dispo - once Na stable, H/H stable can consider dc home with liver clinic f/u Subjective: CC: f/u liver disease, hyponatremia S: feeling stronger after blood transfusion no fever no abd pain tolerating po having more BMs no melena or hematemesis Objective: Vital Signs Temp Pulse Resp BP Pulse Ox 36.7 C 90 16 96/66 L 95 01/26/17 11:29 01/26/17 11:29 01/26/17 11:29 01/26/17 11:29 01/26/17 11:29 Microbiology 01/20/17 10:55 Blood Culture - Final Blood 01/20/17 09:46 Blood Culture - Final Blood Laboratory Results 01/26/17 04:41 01/26/17 04:41 01/25/17 01/26/17 01/27/17 05:59 05:59 05:59 Intake Total 1000 780 300 Output Total 125 1075 1150 Balance 875 -295 -850 PT 16.3 SEC (12.0-15.0) H 01/19/17 12:51 INR 1.31 (0.83-1.16) H 01/19/17 12:51 Laboratory Tests 01/19/17 01/23/17 01/23/17 12:51 04:35 04:35 WBC Hct MCV Plt Count Haptoglobin <14 L INR 1.31 H Sodium Potassium Chloride Creatinine Estimated GFR Total Bilirubin Conjugated Bilirubin Unconjugated Bilirubin Albumin H. pylori IgG Antibody POSITIVE H 01/24/17 01/24/17 01/24/17 04:55 05:58 17:47 WBC Hct MCV Plt Count Haptoglobin INR Sodium 126 L 125 L 126 L Potassium Chloride Creatinine Estimated GFR Total Bilirubin Conjugated Bilirubin Unconjugated Bilirubin Albumin H. pylori IgG Antibody 01/25/17 01/26/17 01/26/17 04:42 04:41 04:41 WBC 3.76 L Hct 19.7 L MCV 104.2 H Plt Count 57 L Haptoglobin INR Sodium 126 L 132 L Potassium 4.5 Chloride 100 Creatinine 0.8 Estimated GFR > 60 Total Bilirubin 4.1 H Conjugated Bilirubin 1.5 H Unconjugated Bilirubin 2.6 H Albumin 3.6 H. pylori IgG Antibody Physical Exam - Physical Exam General Appearance: alert, no apparent distress EENT: PERRL/EOMI, scleral icterus (R), scleral icterus (L) Respiratory: chest non-tender, lungs clear, normal breath sounds Cardiac/Chest: normal peripheral pulses, No edema Abdomen: normal bowel sounds, non-tender, soft, No pulsatile mass, No distended , No guarding, No rebound, No hernia, No ascites Skin: normal color Extremities: normal range of motion Neuro/Psych: no motor/sensory deficits ICD10 Worksheet Patient Problems: Problems Problem Status Onset Cirrhosis Acute Dehydration Acute Hyponatremia Acute Abdominal pain Acute Alcoholism Acute Ascites Acute Hyperbilirubinemia Acute Septic shock Acute Spontaneous bacterial peritonitis Acute
[2017-01-26] MEDS: hydrOXYzine HCL 25 MG TAB PO PRN ×2 (12:07→20:45)
--- NOTE | 2017-01-26 14:32 | HOSPPROG ---
Hospitalist Progress Note Assessment/Plan: 56-year-old male admitted with hyponatremia. He has known cirrhosis secondary to the use of alcohol and hepatitis-C. He has recently been under treatment for spontaneous bacterial peritonitis with outpatient antibiotics and he completed that course of antibiotics. Patient is new to me today. * Hyponatremia due to volume repletion -IV Albumin today -Nephrology is considering Midodrine -cont Salt tables and fluid restriction -hold diuretics * Esophageal thickening and + Hpylori abx -outpatient EGD per Dr. Euceda -empiric PPI + abx for Hpylori * Recent Klebsiella sepsis due to SBP -now on chronic Cipro prophylaxis -concern for acute lexie -US concerning but PREMA okay * Etoh/HCV cirrhosis/ Portal hypertension. -holding diuretics -on ribavirin - almost complete 12 week course -Etoh ceased - consider outpatient transplant eval * Abdominal pain: Patient is on H pylori treatment and his symptoms seem to be resolving. EGD showed some erosions. * Hemolytic anemia - GI suspects due to ribavirin Though haptoglobin is normal. -rapid decline - may need transfusion -Recheck H/H tomorrow, if below 7, would transfuse one unit. - Hyper bilirubinemia. This is likely secondary to a myolysis due to the ribavirin. He has normal liver functions and alkaline phosphatase. Disposition: Once his sodium is stable and his hemolysis is stabilized with a stable hemoglobin he can be discharged home with liver clinic follow-up. Subjective: Alert and without complaints no complaints of chest pain shortness of breath or abdominal pain. Objective: Vital Signs Temp Pulse Resp BP Pulse Ox 36.7 C 90 16 96/66 L 95 01/26/17 11:29 01/26/17 11:29 01/26/17 11:29 01/26/17 11:29 01/26/17 11:29 Microbiology 01/20/17 10:55 Blood Culture - Final Blood 01/20/17 09:46 Blood Culture - Final Blood Laboratory Results 01/26/17 04:41 01/26/17 04:41 01/25/17 01/26/17 01/27/17 05:59 05:59 05:59 Intake Total 1000 780 400 Output Total 125 1075 1150 Balance 875 -295 -750 PT 16.3 SEC (12.0-15.0) H 01/19/17 12:51 INR 1.31 (0.83-1.16) H 01/19/17 12:51 - Time Spent With Patient Time Spent with Patient: greater than 35 minutes Time Spent with Patient: Greater than 35 minutes spent on this patients care, greater than 50% of time spent counseling, educating, and coordinating care regarding the above mentioned plan. - Pending Discharge Pending Discharge Within 24 Hours: No Pending Discharge Within 48 Hours: No - Physical Exam Constitutional: no apparent distress, chronically ill appearing Eyes: PERRL, icteric sclera Ears, Nose, Mouth, Throat: moist mucous membranes, hearing normal Cardiovascular: regular rate and rhythym, no murmur, rub, or gallop Respiratory: no respiratory distress, no rales or rhonchi Gastrointestinal: normoactive bowel sounds, soft, non-tender abdomen, ascites, distension Genitourinary: no bladder fullness Skin: warm Musculoskeletal: full muscle strength Neurologic: AAOx3, CN II-XII Intact Psychiatric: interacting appropriately ICD10 Worksheet Patient Problems: Problems Problem Status Onset Abdominal pain Acute Ascites Acute Hyperbilirubinemia Acute Alcoholism Acute Spontaneous bacterial peritonitis Acute Septic shock Acute Hyponatremia Acute Dehydration Acute Cirrhosis Acute
[2017-01-26 18:36] LABS: HEMATOCRIT 23.9 % (40.0-51.0); HEMOGLOBIN 7.8 g/dL (13.7-17.5)
[2017-01-26] MEDS: TEMAZEPAM 15 MG CAP PO PRN (21:49)
[2017-01-27] MEDS: ALBUMIN 25% 100 ML IV SCH ×4 (02:16→21:42)
[2017-01-27 05:15] LABS: % IMMATURE GRANULYOCYTES 0.4 % (0.0-1.1); ABSOLUTE IMMATURE GRANULOCYTES 0.02 10^3/uL (0.00-0.10); ADD DIFF? NO; ADD MORPH? NO; ADD SCAN? NO; ATYPICAL LYMPHOCYTE FLAG 10 (0-99); FRAGMENT RBC FLAG 0 (0-99); HEMATOCRIT 21.6 % (40.0-51.0); HEMOGLOBIN 7.2 g/dL (13.7-17.5); LEFT SHIFT FLG 0 (0-99); LIPEMIA HEMOLYSIS FLAG 80 (0-99); MEAN CELL HEMOGLOBIN 34.1 pg (27.9-34.1); MEAN CELL HEMOGLOBIN CONCENTR. 33.3 g/dL (32.4-36.7); MEAN CELL VOLUME 102.4 fL (81.5-99.8); MEAN PLATELET VOLUME 9.6 fL (8.7-11.7); PLATELET CLUMPS FLAG 0 (0-99); PLATELET COUNT 64 10^3/uL (150-400); RED BLOOD CELL COUNT 2.11 10^6/uL (4.40-6.38); RED CELL DISTRIBUTION WIDTH 16.1 % (11.5-15.2)
[2017-01-27 05:25] LABS: INR 2.24 (0.83-1.16)
[2017-01-27 05:32] LABS: ALANINE AMINOTRANSFERASE 27 IU/L (21-72); ALBUMIN 4.2 g/dL (3.5-5.0); ALKALINE PHOSPHATASE 40 IU/L (38-126); ANION GAP 14 mEq/L (8-16); ASPARTATE AMINOTRANSFERASE 29 IU/L (17-59); BILIRUBIN,TOTAL 5.5 mg/dL (0.1-1.4); CALCIUM 8.8 mg/dL (8.5-10.4); CARBON DIOXIDE 18 mEq/l (22-31); CHLORIDE 100 mEq/L (97-110); CREATININE 1.3 mg/dL (0.7-1.3); GLOMERULAR FILTRATION RATE 57; GLUCOSE 95 mg/dL (70-100); MAGNESIUM 1.9 mg/dL (1.6-2.3); POTASSIUM 4.6 mEq/L (3.5-5.2); SODIUM 132 mEq/L (134-144); TOTAL PROTEIN 6.7 g/dL (6.3-8.2)
[2017-01-27 05:42] LABS: BILIRUBIN-CONJUGATED 2.1 mg/dL (0.0-0.5); BILIRUBIN-UNCONJUGATED 3.4 mg/dL (0.0-1.1)
[2017-01-27] MEDS: oxyCODONE IR 5 MG TAB PO PRN ×3 (07:12→16:28)
[2017-01-27] MEDS: MULTIVITAMINS 1 EACH TAB PO SCH (08:04)
[2017-01-27] MEDS: CIPROFLOXACIN 500 MG TAB PO SCH (08:04)
[2017-01-27] MEDS: MIDODRINE HCL 5 MG TAB PO SCH ×3 (08:04→16:02)
[2017-01-27] MEDS: SODIUM CHLORIDE 1,000 MG TAB PO SCH ×3 (08:04→21:06)
[2017-01-27] MEDS: PANTOPRAZOLE SODIUM 40 MG TAB PO SCH ×2 (08:04→20:13)
[2017-01-27] MEDS: CLARITHROMYCIN 500 MG TAB PO SCH ×2 (08:04→20:13)
[2017-01-27] MEDS: LACTULOSE 20 GM/30 ML UDCUP PO SCH ×2 (08:05→20:17)
--- NOTE | 2017-01-27 08:24 | HOSPPROG ---
Hospitalist Progress Note Assessment/Plan: 56-year-old male admitted with hyponatremia. He has known cirrhosis secondary to the use of alcohol and hepatitis-C. He has recently been under treatment for spontaneous bacterial peritonitis with outpatient antibiotics and he completed that course of antibiotics. Patient is new to me today. * Hyponatremia due to volume repletion -IV Albumin today -Nephrology is considering Midodrine -cont Salt tables and fluid restriction -hold diuretics * Esophageal thickening and + Hpylori abx -outpatient EGD per Dr. Euceda -empiric PPI + abx for Hpylori * Recent Klebsiella sepsis due to SBP -now on chronic Cipro prophylaxis -concern for acute lexie -US concerning but PREMA okay * Etoh/HCV cirrhosis/ Portal hypertension. -holding diuretics -on ribavirin - almost complete 12 week course -Etoh ceased - consider outpatient transplant eval * Abdominal pain: Patient is on H pylori treatment and his symptoms seem to be resolving. EGD showed some erosions. * Hemolytic anemia - GI suspects due to ribavirin Though haptoglobin is normal. -rapid decline - may need transfusion -Recheck H/H tomorrow, if below 7, would transfuse one unit. - Hyper bilirubinemia. This is likely secondary to a myolysis due to the ribavirin. He has normal liver functions and alkaline phosphatase. Disposition: Once his sodium is stable and his hemolysis is stabilized with a stable hemoglobin he can be discharged home with liver clinic follow-up. Subjective: no complaints. No chest pain, abdominal pain, cough, SOB, headache , diarrhea Objective: Vital Signs Temp Pulse Resp BP Pulse Ox 36.4 C 83 17 89/55 L 95 01/27/17 08:00 01/27/17 08:00 01/27/17 08:00 01/27/17 08:00 01/27/17 08:00 Laboratory Results 01/27/17 04:40 01/27/17 04:40 01/26/17 01/27/17 01/28/17 05:59 05:59 05:59 Intake Total 780 1302 Output Total 1075 2660 Balance -295 -1358 PT 25.0 SEC (12.0-15.0) H 01/27/17 04:40 INR 2.24 (0.83-1.16) H 01/27/17 04:40 Laboratory Tests 01/19/17 01/24/17 01/24/17 12:51 04:55 05:58 Hgb 7.2 L INR 1.31 H Sodium 125 L Albumin 01/25/17 01/25/17 01/26/17 04:42 04:42 04:41 Hgb 7.0 L 6.3 L INR Sodium Albumin 3.0 L 01/26/17 01/27/17 01/27/17 18:30 04:40 04:40 Hgb 7.8 L INR 2.24 H Sodium 132 L Albumin 01/27/17 04:40 Hgb 7.2 L INR Sodium Albumin - Time Spent With Patient Time Spent with Patient: greater than 35 minutes Time Spent with Patient: Greater than 35 minutes spent on this patients care, greater than 50% of time spent counseling, educating, and coordinating care regarding the above mentioned plan. - Pending Discharge Pending Discharge Within 24 Hours: No Pending Discharge Within 48 Hours: No - Physical Exam Constitutional: no apparent distress, chronically ill appearing Eyes: PERRL, icteric sclera Ears, Nose, Mouth, Throat: moist mucous membranes, hearing normal Cardiovascular: regular rate and rhythym, no murmur, rub, or gallop Respiratory: no respiratory distress, no rales or rhonchi, clear to auscultation Gastrointestinal: normoactive bowel sounds, soft, non-tender abdomen, no palpable masses, distension Genitourinary: no bladder fullness Skin: warm Musculoskeletal: generalized weakness Neurologic: AAOx3, CN II-XII Intact Psychiatric: interacting appropriately ICD10 Worksheet Patient Problems: Problems Problem Status Onset Abdominal pain Acute Alcoholism Acute Ascites Acute Cirrhosis Acute Dehydration Acute Hyperbilirubinemia Acute Hyponatremia Acute Septic shock Acute Spontaneous bacterial peritonitis Acute
[2017-01-27] MEDS: VELPATASVIR PO SCH (09:37)
[2017-01-27] MEDS: SOFOSBUVIR PO SCH (09:37)
--- NOTE | 2017-01-27 09:53 | SOAPPROG ---
[facility] Progress Note Assessment/Plan: Assessment/Plan: 1. HCV/Cirrhosis/Portal Htn - completed therapy while inpt - abstinent from ETOH x 6 months - may benefit from transplant eval ultimately - complicated by varices, ascites, encephalopathy, SBP - s/p EGD on 01/25 with banding - INR up, Bili stable, Cr stable - MELD-NA is 27 2. Hyponatremia - appreciate renal help - fluid restriction, salt tabs, hold diuretics - mentation normal 3. Abdominal Pain - on h.pylori tx - symptoms seem to be resolving - EGD with some erosions 5. Anemia - EGD without bleeding source - ribavirin done (HXCV therapy complted during hosptial stay) - follow 6. SBP hx - continue abx prophylaxis 7. Ascites - no evidence of recurrence yet 8. Dispo - once Na stable, H/H stable can consider dc home with liver clinic f/u - has liver clinic appointment next week already - consider dc home today? tomorrow? - Dr. Dorantes to assume service/rounding at 01/27/17 at 1700, call with questions Subjective: CC: f/u liver disease S: feeling tired wants to go home eating normally having multiple loose BMs no fever no pain Objective: Vital Signs Temp Pulse Resp BP Pulse Ox 36.4 C 83 17 89/55 L 95 01/27/17 08:00 01/27/17 08:00 01/27/17 08:00 01/27/17 08:00 01/27/17 08:00 Laboratory Results 01/27/17 04:40 01/27/17 04:40 01/26/17 01/27/17 01/28/17 05:59 05:59 05:59 Intake Total 780 1302 Output Total 1075 2660 Balance -295 -1358 PT 25.0 SEC (12.0-15.0) H 01/27/17 04:40 INR 2.24 (0.83-1.16) H 01/27/17 04:40 Laboratory Tests 01/23/17 01/23/17 01/24/17 04:35 04:35 05:58 WBC Hgb Hct MCV Plt Count Haptoglobin <14 L INR Sodium Potassium Chloride Carbon Dioxide BUN Creatinine Total Bilirubin Conjugated Bilirubin Unconjugated Bilirubin AST ALT Alkaline Phosphatase Lactate Dehydrogenase Cortisol AM Sample 21.7 H. pylori IgG Antibody POSITIVE H 01/26/17 01/27/17 01/27/17 04:41 04:40 04:40 WBC Hgb Hct MCV Plt Count Haptoglobin INR 2.24 H Sodium 132 L Potassium 4.6 Chloride 100 Carbon Dioxide 18 L BUN 23 Creatinine 1.3 D Total Bilirubin 5.5 H Conjugated Bilirubin 2.1 H Unconjugated Bilirubin 3.4 H AST 29 ALT 27 Alkaline Phosphatase 40 Lactate Dehydrogenase 390 Cortisol AM Sample H. pylori IgG Antibody 01/27/17 04:40 WBC 5.04 Hgb 7.2 L Hct 21.6 L MCV 102.4 H Plt Count 64 L Haptoglobin INR Sodium Potassium Chloride Carbon Dioxide BUN Creatinine Total Bilirubin Conjugated Bilirubin Unconjugated Bilirubin AST ALT Alkaline Phosphatase Lactate Dehydrogenase Cortisol AM Sample H. pylori IgG Antibody Physical Exam - Physical Exam General Appearance: alert EENT: PERRL/EOMI, scleral icterus (R), scleral icterus (L) Respiratory: lungs clear, normal breath sounds, No respiratory distress Cardiac/Chest: normal peripheral pulses, regular rate, rhythm, No edema Abdomen: normal bowel sounds, non-tender, soft, No distended, No guarding, No rebound Skin: warm/dry Extremities: normal range of motion Neuro/Psych: no motor/sensory deficits ICD10 Worksheet Patient Problems: Problems Problem Status Onset Cirrhosis Acute Dehydration Acute Hyponatremia Acute Abdominal pain Acute Alcoholism Acute Ascites Acute Hyperbilirubinemia Acute Septic shock Acute Spontaneous bacterial peritonitis Acute
--- NOTE | 2017-01-27 14:07 | SOAPPROG ---
SOAP Progress Note Assessment/Plan: Assessment/Plan: Hyponatremia: likely multifactorial with volume depletion and cirrhosis, now sodium stable at 132. - Continue salt tabs. - Continue 1L fluid restriction. - Will continue to monitor. Anemia: Hgb down to 7.2, was 7.8 s/p transfusion yesterday. Some labs can be difficult to interpret in setting of cirrhosis but does have low haptoglobin, strongly suspect hemolysis. - Would recommend transfusing again today. - Off ribavirin, which may be cause. - Will continue to monitor. JON: Cr up from 0.8 to 1.3. - No need for HD. - Will increase midodrine given his persistent hypotension. - Would recommend paracentesis to help ascites in case of abominal compartment syndrome, but would restrict to 2-3L only. - Additional transfusion may also help. - Will continue to monitor. - Avoid hypotension and nephrotoxins. Subjective: No acute events overnight. Pt states he is feeling better and hoping to leave soon. He has ascites which he feels is no worse, last tapped about a month ago. Objective: Vital Signs Temp Pulse Resp BP Pulse Ox 36.7 C 85 18 94/70 L 90 L 01/27/17 12:00 01/27/17 12:00 01/27/17 12:00 01/27/17 12:00 01/27/17 12:00 Laboratory Results 01/27/17 04:40 01/27/17 04:40 01/26/17 01/27/17 01/28/17 05:59 05:59 05:59 Intake Total 780 1302 Output Total 1075 2660 Balance -295 -1358 PT 25.0 SEC (12.0-15.0) H 01/27/17 04:40 INR 2.24 (0.83-1.16) H 01/27/17 04:40 General: alert and oriented, no acute distress Eyes; EOMI, PERRL, sclerae icteric OP: Clear CV: RRR Resp: CTA bilat, nonlabored respirations on NC Abd; SOft, distended, +ascites, NTTP Ext: no edema Neuro: CN II-XII grossly intact Psych: cooperative, appropriate mood and affect ICD10 Worksheet Patient Problems: Problems Problem Status Onset Cirrhosis Acute Dehydration Acute Hyponatremia Acute Abdominal pain Acute Alcoholism Acute Ascites Acute Hyperbilirubinemia Acute Septic shock Acute Spontaneous bacterial peritonitis Acute
--- NOTE | 2017-01-27 14:18 | HOSPPROG ---
Hospitalist Progress Note Assessment/Plan: 56-year-old male admitted with hyponatremia. He has known cirrhosis secondary to the use of alcohol and hepatitis-C. He has recently been under treatment for spontaneous bacterial peritonitis with outpatient antibiotics and he completed that course of antibiotics. during this hospitalization the patient developed hemolytic anemia probably secondary to ribavirin. The ribavirin has been stopped. - Hyponatremia due to volume repletion -IV Albumin today - Midodrine has been prescribed along with salt tablets and fluid restriction - holding diuretics. - Hemolytic anemia secondary to hemolysis with a low haptoglobin secondary to ribavirin - ribavirin and has been stopped and it appears the myolysis has stopped. Haptoglobin was low. - Hemoglobin today 7.2 and will be transfused 2 units PRBCs as precaution. - Ascites: This is significant and has been increasing in the last 3 days. Additionally his creatinine is rising slightly in raises a concern of a paddle renal syndrome. - Paracentesis of 3 L today. Will limit the amount of fluid to avoid hypotension. Hopefully the decrease in the ascitic fluid will assist renal perfusion. -Esophageal thickening and + Hpylori abx -outpatient EGD per Dr. Euceda -empiric PPI + abx for Hpylori -Recent Klebsiella sepsis due to SBP -now on chronic Cipro prophylaxis -concern for acute lexie -US concerning but MARLON gaspar -Etoh/HCV cirrhosis/ Portal hypertension. -holding diuretics - Completed 12 weeks of ripe a fair in therapy but now is off due to hemolytic anemia. -Etoh ceased - consider outpatient transplant eval -Abdominal pain: Resolved - Hyper bilirubinemia. This is likely secondary to a myolysis due to the ribavirin. He has normal liver functions and alkaline phosphatase. Disposition: Once his sodium is stable and his hemolysis is stabilized with a stable hemoglobin he can be discharged home with liver clinic follow-up. - today will have a paracentesis and received 2 units of PRBCs. - Recheck hemoglobin in the morning and possible discharge in 1-2 days to home. He lives with his in [facility]. Time: 40 minutes. Case was discussed with Nephrology and laboratories were all reviewed. Subjective: Reports he is feeling well without abdominal pain nausea or vomiting he is eating well. Objective: Vital Signs Temp Pulse Resp BP Pulse Ox 36.7 C 85 18 94/70 L 90 L 01/27/17 12:00 01/27/17 12:00 01/27/17 12:00 01/27/17 12:00 01/27/17 12:00 Laboratory Results 01/27/17 04:40 01/27/17 04:40 01/26/17 01/27/17 01/28/17 05:59 05:59 05:59 Intake Total 780 1302 Output Total 1075 2660 Balance -295 -1358 PT 25.0 SEC (12.0-15.0) H 01/27/17 04:40 INR 2.24 (0.83-1.16) H 01/27/17 04:40 - Time Spent With Patient Time Spent with Patient: greater than 35 minutes Time Spent with Patient: Greater than 35 minutes spent on this patients care, greater than 50% of time spent counseling, educating, and coordinating care regarding the above mentioned plan. - Pending Discharge Pending Discharge Within 24 Hours: No Pending Discharge Within 48 Hours: Yes Pending Discharge Date: 01/29/17 Pending Discharge Time: 11:00 - Physical Exam Constitutional: no apparent distress, chronically ill appearing Eyes: PERRL, icteric sclera Ears, Nose, Mouth, Throat: moist mucous membranes, hearing normal Cardiovascular: regular rate and rhythym, systolic murmur Respiratory: no respiratory distress, no rales or rhonchi, clear to auscultation , other ( Diaphragms are elevated due to the ascites.) Gastrointestinal: normoactive bowel sounds, soft, non-tender abdomen, ascites, distension Genitourinary: no bladder fullness Skin: warm, other ( Jaundiced appearance of the skin; proient itching is noted ) Musculoskeletal: full muscle strength Neurologic: AAOx3, CN II-XII Intact, other ( no asterixis) Psychiatric: interacting appropriately ICD10 Worksheet Patient Problems: Problems Problem Status Onset Abdominal pain Acute Ascites Acute Hyperbilirubinemia Acute Alcoholism Acute Spontaneous bacterial peritonitis Acute Septic shock Acute Hyponatremia Acute Dehydration Acute Cirrhosis Acute
[2017-01-27] MEDS: TEMAZEPAM 15 MG CAP PO PRN (20:13)
[2017-01-28] MEDS: ALBUMIN 25% 100 ML IV SCH ×2 (01:50→08:58)
[2017-01-28 05:00] LABS: % IMMATURE GRANULYOCYTES 0.6 % (0.0-1.1); ABSOLUTE IMMATURE GRANULOCYTES 0.04 10^3/uL (0.00-0.10); ADD DIFF? NO; ADD MORPH? NO; ADD SCAN? NO; ATYPICAL LYMPHOCYTE FLAG 0 (0-99); FRAGMENT RBC FLAG 0 (0-99); HEMATOCRIT 28.8 % (40.0-51.0); HEMOGLOBIN 9.3 g/dL (13.7-17.5); LEFT SHIFT FLG 10 (0-99); LIPEMIA HEMOLYSIS FLAG 80 (0-99); MEAN CELL HEMOGLOBIN 32.6 pg (27.9-34.1); MEAN CELL HEMOGLOBIN CONCENTR. 32.3 g/dL (32.4-36.7); MEAN CELL VOLUME 101.1 fL (81.5-99.8); MEAN PLATELET VOLUME 9.7 fL (8.7-11.7); PLATELET CLUMPS FLAG 10 (0-99); PLATELET COUNT 66 10^3/uL (150-400); RED BLOOD CELL COUNT 2.85 10^6/uL (4.40-6.38); RED CELL DISTRIBUTION WIDTH 18.5 % (11.5-15.2)
[2017-01-28 05:10] LABS: ALBUMIN 4.7 g/dL (3.5-5.0); ANION GAP 17 mEq/L (8-16); CALCIUM 9.3 mg/dL (8.5-10.4); CARBON DIOXIDE 19 mEq/l (22-31); CHLORIDE 99 mEq/L (97-110); CREATININE 2.1 mg/dL (0.7-1.3); GLOMERULAR FILTRATION RATE 33; GLUCOSE 81 mg/dL (70-100); MAGNESIUM 1.9 mg/dL (1.6-2.3); POTASSIUM 4.6 mEq/L (3.5-5.2); SODIUM 135 mEq/L (134-144)
[2017-01-28] MEDS: oxyCODONE IR 5 MG TAB PO PRN ×5 (07:14→20:31)
[2017-01-28] MEDS: CLARITHROMYCIN 500 MG TAB PO SCH ×2 (08:57→20:27)
[2017-01-28] MEDS: MIDODRINE HCL 5 MG TAB PO SCH ×3 (08:58→16:12)
[2017-01-28] MEDS: MULTIVITAMINS 1 EACH TAB PO SCH (08:58)
[2017-01-28] MEDS: LACTULOSE 20 GM/30 ML UDCUP PO SCH ×2 (08:58→20:47)
[2017-01-28] MEDS: CIPROFLOXACIN 500 MG TAB PO SCH (09:03)
[2017-01-28] MEDS: SODIUM CHLORIDE 1,000 MG TAB PO SCH ×2 (09:07→20:27)
[2017-01-28] MEDS: PANTOPRAZOLE SODIUM 40 MG TAB PO SCH ×2 (09:08→20:27)
[2017-01-28] MEDS: SOFOSBUVIR PO SCH (09:23)
[2017-01-28] MEDS: VELPATASVIR PO SCH (09:23)
--- NOTE | 2017-01-28 10:13 | SOAPPROG ---
SOAP Progress Note Assessment/Plan: Assessment/Plan: JON: Cr up from 0.8 to 1.3 and now 2.1 today. Concerning for ATN in setting of anemia and hypotension, no signs of abdominal compartment syndrome, could also have hepatorenal syndrome. - No emergent need for HD at this time but is a possibility if he continues to worsen, discussed with pt today. - Noted that peripheral eos are wnl, less likely AIN but would consider changing abx. - Will continue midodrine. - Will continue albumin, cut down dose since albumin improved. - Will start on octreotide. - Will check urine sodium, urine Cr, urine protein, RF, C3, C4. - Will check renal US. - Will continue to monitor. - Avoid hypotension and nephrotoxins. Hyponatremia: likely multifactorial with volume depletion and cirrhosis, now sodium stable at 135. - Will cut down salt tabs to BID. - Continue 1.2L fluid restriction. - Will continue to monitor. Anemia: Some labs can be difficult to interpret in setting of cirrhosis but does have low haptoglobin, strongly suspect hemolysis. Pt now off ribavirin and s/p 2 units PRBCs with good response. Will continue to monitor. Hypotension: improved on midodrine and s/p blood transfusion, will continue to monitor. Subjective: No acute events overnight. Pt had 2 units PRBCs yesterday and tolerated well. He went for paracentesis but not enough fluid found, so not done. His SBP is in 100s today. He feels about the same. Objective: Vital Signs Temp Pulse Resp BP Pulse Ox 36.8 C 81 14 109/67 95 01/28/17 07:33 01/28/17 07:33 01/28/17 07:33 01/28/17 07:33 01/28/17 07:33 Laboratory Results 01/28/17 04:36 01/28/17 04:36 01/27/17 01/28/17 01/29/17 05:59 05:59 05:59 Intake Total 1302 200 Output Total 2660 900 Balance -1358 -700 PT 25.0 SEC (12.0-15.0) H 01/27/17 04:40 INR 2.24 (0.83-1.16) H 01/27/17 04:40 General: alert and oriented, no acute distress Eyes; EOMI, PERRL OP: Clear CV: RRR Resp: Nonlabored respiraitons on NC Abd: Soft, NT Ext: no edema BLE Neuro: CN II-XII grossly intact, no asterixis Psych; cooperative, appropriate mood and affect ICD10 Worksheet Patient Problems: Problems Problem Status Onset Cirrhosis Acute Dehydration Acute Hyponatremia Acute Abdominal pain Acute Alcoholism Acute Ascites Acute Hyperbilirubinemia Acute Septic shock Acute Spontaneous bacterial peritonitis Acute
[2017-01-28] MEDS: OCTREOTIDE 100 MCG/1 ML INJ SC SCH ×3 (10:46→21:26)
--- NOTE | 2017-01-28 10:52 | HOSPPROG ---
Hospitalist Progress Note Assessment/Plan: 56-year-old male admitted with hyponatremia. He has known cirrhosis secondary to the use of alcohol and hepatitis-C. He has recently been under treatment for spontaneous bacterial peritonitis with outpatient antibiotics and he completed that course of antibiotics. during this hospitalization the patient developed hemolytic anemia probably secondary to ribavirin. He has completed Ribavirin therapy in the hospital # cirrhosis secondary to hepatitis-C and alcohol. Complicated by portal hypertension, esophageal varices and recent SBP. Completed 12 weeks of therapy of ribavirin for hepatitis-C. * Appreciate GI input * Still too ill to be discharge however will eventually follow up with Dr. Waddell # acute renal failure. Discussed with Nephrology. Possible etiologies include ATN from anemia and hypotension. No evidence of abdominal compartment syndrome on ultrasound Unfortunately could also represent hepatorenal syndrome. Patient has not yet improved with albumin and blood transfusions. His blood pressure is better today. * Further evaluation by Nephrology * Start octreotide for possible hepatorenal syndrome * Appreciate Nephrology input # hemolytic anemia likely secondary to ribavirin. Status post transfusions in the hospital his hemoglobin is stable today, he has completed therapy for hepatitis C with the ribavirin * Monitor hemoglobin while in hospital # hyponatremia. Mildly low sodium on admission has since improved with treatment of blood and Midrin and albumin. * Continue to monitor # ascites: Minimal ascites noted on ultrasound. Recent history of SBP treated. # esophageal thickening and positive H pylori. Currently on empiric PPI and H pylori treatment. Subjective: Patient new to me and chart reviewed. Patient needs to go to the bathroom, no specific complaints today. Denies abdominal pain. Does seem a little bit confused Objective: Vital Signs Temp Pulse Resp BP Pulse Ox 36.8 C 81 14 109/67 95 01/28/17 07:33 01/28/17 07:33 01/28/17 07:33 01/28/17 07:33 01/28/17 07:33 Laboratory Results 01/28/17 04:36 01/28/17 04:36 01/27/17 01/28/17 01/29/17 05:59 05:59 05:59 Intake Total 1302 200 Output Total 2660 900 Balance -1358 -700 PT 25.0 SEC (12.0-15.0) H 01/27/17 04:40 INR 2.24 (0.83-1.16) H 01/27/17 04:40 - Physical Exam Constitutional: not in pain, chronically ill appearing Eyes: PERRL, EOMI, icteric sclera Ears, Nose, Mouth, Throat: moist mucous membranes Cardiovascular: regular rate and rhythym Respiratory: no respiratory distress, clear to auscultation Gastrointestinal: normoactive bowel sounds, distension, No tenderness Genitourinary: no bladder fullness Skin: warm Musculoskeletal: generalized weakness, No muscular tenderness Neurologic: No facial droop Psychiatric: interacting appropriately, not anxious ICD10 Worksheet Patient Problems: Problems Problem Status Onset Abdominal pain Acute Ascites Acute Hyperbilirubinemia Acute Alcoholism Acute Spontaneous bacterial peritonitis Acute Septic shock Acute Hyponatremia Acute Dehydration Acute Cirrhosis Acute
--- NOTE | 2017-01-28 12:10 | SOAPPROG ---
SOAP Progress Note Assessment/Plan: Assessment: 56 year old gentleman with HCV, Cirrhosis and portal hypertension. He has completed antiviral treatment for HCV. He has a history of ETOH and has been abstinent for the last six months. On antibiotic prophylaxis for SBP. He is s/p EGD with banding on 01/25/17. MELD Score 27. Has had a rise in creatinine. Nephrology following and treating for possible ATN. He has been started on Octreotide. Recent limited abdominal U/S without significant Ascites Plan: Continue present care and supportive care. Appreciate nephrology input. If can discharge soon patient does have a follow up appointment with Hepatology , Dr. Waddell. 01/28/17 12:19 Subjective: CC: Cirrhosis portal hypertension, hyponatremia and azotemia. Patient reports that he feels well. Denies any pain or discomfort. Objective: Vital Signs Temp Pulse Resp BP Pulse Ox 36.9 C 75 16 106/71 96 01/28/17 11:27 01/28/17 11:27 01/28/17 11:27 01/28/17 11:27 01/28/17 11:27 Laboratory Results 01/28/17 04:36 01/28/17 04:36 01/27/17 01/28/17 01/29/17 05:59 05:59 05:59 Intake Total 1302 200 Output Total 2660 900 Balance -1358 -700 PT 25.0 SEC (12.0-15.0) H 01/27/17 04:40 INR 2.24 (0.83-1.16) H 01/27/17 04:40 Generic Name Dose Route Start Last Admin Trade Name Freq PRN Reason Stop Dose Admin Acetaminophen 650 mg 01/19/17 14:17 01/19/17 18:37 Tylenol PO 07/18/17 14:16 650 mg Q4HRS PRN Administration Pain, Mild/Fever, Can Take PO Amoxicillin 1,000 mg 01/24/17 21:00 01/28/17 08:57 Amoxicillin PO 02/07/17 20:59 1,000 mg BID PHILIPP Administration Protocol Ciprofloxacin 500 mg 01/23/17 09:00 01/28/17 09:03 Cipro PO 02/22/17 08:59 500 mg DAILY PHILIPP Administration Protocol Clarithromycin 500 mg 01/24/17 21:00 01/28/17 08:57 Biaxin PO 02/07/17 20:59 500 mg BID PHILIPP Administration Protocol Hydroxyzine HCl 25 mg 01/20/17 19:41 01/26/17 20:45 Hydroxyzine Hcl PO 07/19/17 19:40 25 mg Q6HRS PRN Administration Itching Albumin Human 100 mls @ 0 mls/hr 01/29/17 09:00 Flexbumin 25 % (Premix) IV 07/28/17 08:59 DAILY PHILIPP As Directed Lactulose 20 gm 01/20/17 09:00 01/28/17 08:58 Cephulac PO 07/19/17 08:59 20 gm BID PHILIPP Administration Midodrine 7.5 mg 01/27/17 13:29 01/28/17 12:03 Proamatine/Midodrin PO 07/25/17 10:14 7.5 mg TID@0800,1200,1600 PHILIPP Administration Miscellaneous Medication 1 each 01/20/17 09:15 01/28/17 09:23 Sofosbuvir/Velpatasvir [Epclusa 400 Mg-100 Mg Tablet] PO 07/19/17 09:14 Not Given DAILY PHILIPP Multivitamins 1 each 01/20/17 09:00 01/28/17 08:58 Tab-A-Demetrio PO 07/19/17 08:59 1 each DAILY PHILIPP Administration Octreotide Acetate 100 mcg 01/28/17 10:15 01/28/17 10:46 Sandostatin SC 07/27/17 10:14 100 mcg TID PHILIPP Administration Ondansetron HCl 4 mg 01/19/17 14:17 01/21/17 15:45 Zofran IVP 07/18/17 14:16 4 mg Q4HRS PRN Administration Nausea/Vomiting, Can't Take PO Ondansetron HCl 4 mg 01/19/17 14:17 01/21/17 05:41 Zofran Odt PO 07/18/17 14:16 4 mg Q4HRS PRN Administration Nausea/Vomiting, Use 1st Oxycodone HCl 5 - 10 mg 01/28/17 08:36 Oxycodone Ir PO 02/07/17 08:35 Q4 PRN Pain, Severe Able to Take PO Pantoprazole Sodium 40 mg 01/24/17 21:00 01/28/17 09:08 Protonix PO 02/07/17 20:59 40 mg BID PHILIPP Administration Sodium Chloride 1,000 mg 01/28/17 21:00 Salt Tablet PO 07/27/17 20:59 BID PHILIPP Temazepam 15 mg 01/19/17 14:24 01/27/17 20:13 Restoril PO 07/18/17 14:23 15 mg HS PRN Administration insomnia Discontinued Medications Generic Name Dose Route Start Last Admin Trade Name Antonyq PRN Reason Stop Dose Admin Albuterol 3 ml 01/25/17 09:22 Proventil Neb IH 01/25/17 10:22 Q10M PRN PACU, Wheezing Ciprofloxacin 500 mg 01/20/17 09:00 01/20/17 09:44 Cipro PO 02/19/17 08:59 500 mg DAILY PHILIPP Administration Protocol Cosyntropin 0.25 mg 01/24/17 06:00 01/24/17 04:57 Cortrosyn Syringe IVP 01/24/17 06:01 0.25 mg DAILY@0600 ONE Administration Dicyclomine HCl 10 mg 01/20/17 16:00 01/23/17 16:34 Bentyl PO 07/19/17 15:59 Not Given TID PHILIPP Fentanyl 25 - 100 mcg 01/25/17 09:22 Sublimaze IVP 01/25/17 10:22 Q5M PRN PACU, IMMEDIATE Pain control Hydromorphone HCl 0.2 - 0.4 mg 01/20/17 05:28 01/20/17 22:55 Dilaudid IVP 01/30/17 05:27 0.2 mg Q2HRS PRN Administration Pain, Severe Unable to Take PO Sodium Chloride 1,000 mls @ 0 mls/hr 01/19/17 12:45 01/19/17 13:21 Ns IV 01/19/17 12:46 1,000 mls EDNOW ONE Administration Protocol Wide Open Sodium Chloride 1,000 mls @ 100 mls/hr 01/19/17 15:45 01/20/17 03:58 Ns IV 07/18/17 15:44 1,000 mls CONT PHILIPP Administration Sodium Chloride 500 mls @ 1,500 mls/hr 01/19/17 21:30 01/19/17 21:49 Ns IV 01/19/17 21:49 500 mls ONCE ONE Administration Sodium Chloride 500 mls @ 0 mls/hr 01/20/17 01:00 01/20/17 01:02 Ns IV 01/20/17 01:01 500 mls ONCE ONE Administration Wide Open Albumin Human 200 mls @ 0 mls/hr 01/20/17 04:38 01/20/17 05:02 Flexbumin 25 % (Premix) IV 01/20/17 04:39 200 mls ONCE ONE Administration As Directed Sodium Chloride 500 mls @ 30 mls/hr 01/20/17 04:45 01/20/17 06:46 Sodium Chloride 3% IV 07/19/17 04:44 500 mls CONT PHILIPP Administration Sodium Chloride 1,000 mls @ 75 mls/hr 01/20/17 11:15 Ns IV 07/19/17 11:14 CONT PHILIPP Levofloxacin/Dextrose 150 mls @ 100 mls/hr 01/20/17 14:00 01/22/17 07:36 Levaquin 750 Mg (Premix) IV 02/19/17 13:59 150 mls DAILY PHILIPP Administration Protocol Metronidazole/Sodium Chloride 50 mls @ 50 mls/hr 01/20/17 14:00 01/22/17 14: 25 Flagyl 250 Mg (Premix) IV 02/19/17 13:59 50 mls Q8HRS PHILIPP Administration Protocol Albumin Human 100 mls @ 0 mls/hr 01/21/17 19:00 01/23/17 09:37 Flexbumin 25 % (Premix) IV 07/20/17 18:59 100 mls BID PHILIPP Administration As Directed Sodium Chloride 1,000 mls @ 0 mls/hr 01/25/17 08:49 01/25/17 11:31 Ns IV 01/25/17 08:50 Not Given ONCE ONE As Directed Albumin Human 100 mls @ 0 mls/hr 01/25/17 14:00 01/28/17 08:58 Flexbumin 25 % (Premix) IV 07/24/17 13:59 100 mls Q6H PHILIPP Administration As Directed Iopamidol Confirm 01/22/17 18:59 Isovue-300 Administered 01/22/17 19:00 Dose 100 ml .ROUTE .STK-MED ONE Lidocaine HCl Confirm 01/25/17 09:00 Xylocaine-Mpf 2% Vial Administered 01/25/17 09:01 Dose 5 ml .ROUTE .STK-MED ONE Magnesium Citrate 300 ml 01/23/17 09:37 01/23/17 10:58 Magnesium Citrate PO 01/23/17 09:38 300 ml ONCE ONE Administration Midodrine 5 mg 01/26/17 10:15 01/27/17 12:06 Proamatine/Midodrin PO 07/25/17 10:14 5 mg TID@0800,1200,1600 PHILIPP Administration Miscellaneous Medication 400 mg 01/19/17 21:00 01/25/17 20:47 Ribavirin [Ribavirin] PO 07/18/17 20:59 400 mg HS PHILIPP Administration Miscellaneous Medication 600 mg 01/20/17 09:00 01/26/17 10:52 Ribavirin [Ribavirin] PO 07/19/17 08:59 Not Given DAILY PHILIPP Miscellaneous Medication 1 each 01/20/17 09:15 Sofosbuvir/Velpatasvir [Epclusa 400 Mg-100 Mg Tablet] PO 07/19/17 09:14 DAILY PHILIPP Naloxone HCl 0.1 mg 01/25/17 09:22 Narcan IVP 01/25/17 10:22 Q2M PRN PACU Resp Rate <10/min Ondansetron HCl Confirm 01/25/17 09:23 Zofran Administered 01/25/17 09:24 Dose 4 mg .ROUTE .STK-MED ONE Ondansetron HCl 2 - 4 mg 01/25/17 09:22 01/25/17 09:31 Zofran IVP 01/25/17 10:22 4 mg Q10M PRN Administration PACU, Nausea/Vomiting Oxycodone HCl 5 mg 01/19/17 16:45 01/20/17 04:37 Oxycodone Ir PO 01/29/17 16:44 5 mg Q4 PRN Administration Pain, Severe Able to Take PO Oxycodone HCl 5 - 10 mg 01/20/17 05:27 01/28/17 07:35 Oxycodone Ir PO 01/29/17 16:44 5 mg Q4 PRN Administration Pain, Severe Able to Take PO Pantoprazole Sodium 40 mg 01/20/17 09:00 01/24/17 07:52 Protonix PO 07/19/17 08:59 40 mg DAILY PHILIPP Administration Propofol Confirm 01/25/17 09:00 Diprivan 10 Mg/Ml (Premix) Administered 01/25/17 09:01 Dose 500 mg IV .STK-MED ONE Sodium Chloride 1,000 mg 01/22/17 00:30 01/28/17 09:07 Salt Tablet PO 07/21/17 00:29 1,000 mg TID PHILIPP Administration Physical Exam - Physical Exam General Appearance: alert, no apparent distress EENT: PERRL/EOMI Respiratory: lungs clear Cardiac/Chest: regular rate, rhythm Abdomen: normal bowel sounds, soft, distended Skin: normal color, warm/dry Neuro/Psych: alert, oriented x 3 ICD10 Worksheet Patient Problems: Problems Problem Status Onset Cirrhosis Acute Dehydration Acute Hyponatremia Acute Abdominal pain Acute Alcoholism Acute Ascites Acute Hyperbilirubinemia Acute Septic shock Acute Spontaneous bacterial peritonitis Acute
[2017-01-28] MEDS: TEMAZEPAM 15 MG CAP PO PRN (20:32)
[2017-01-29] MEDS: oxyCODONE IR 5 MG TAB PO PRN ×6 (00:20→21:25)
[2017-01-29 04:49] LABS: % IMMATURE GRANULYOCYTES 0.3 % (0.0-1.1); ABSOLUTE IMMATURE GRANULOCYTES 0.02 10^3/uL (0.00-0.10); ADD DIFF? NO; ADD MORPH? NO; ADD SCAN? NO; ATYPICAL LYMPHOCYTE FLAG 0 (0-99); FRAGMENT RBC FLAG 0 (0-99); HEMOGLOBIN 9.4 g/dL (13.7-17.5); LEFT SHIFT FLG 0 (0-99); LIPEMIA HEMOLYSIS FLAG 80 (0-99); MEAN CELL HEMOGLOBIN 33.5 pg (27.9-34.1); MEAN CELL HEMOGLOBIN CONCENTR. 33.6 g/dL (32.4-36.7); MEAN CELL VOLUME 99.6 fL (81.5-99.8); MEAN PLATELET VOLUME 9.6 fL (8.7-11.7); PLATELET CLUMPS FLAG 0 (0-99); PLATELET COUNT 75 10^3/uL (150-400); RED BLOOD CELL COUNT 2.81 10^6/uL (4.40-6.38); RED CELL DISTRIBUTION WIDTH 18.4 % (11.5-15.2)
[2017-01-29 05:12] LABS: ALBUMIN 4.5 g/dL (3.5-5.0); ANION GAP 16 mEq/L (8-16); CALCIUM 9.3 mg/dL (8.5-10.4); CARBON DIOXIDE 18 mEq/l (22-31); CHLORIDE 101 mEq/L (97-110); CREATININE 2.1 mg/dL (0.7-1.3); GLOMERULAR FILTRATION RATE 33; GLUCOSE 103 mg/dL (70-100); MAGNESIUM 2.1 mg/dL (1.6-2.3); POTASSIUM 4.6 mEq/L (3.5-5.2); SODIUM 135 mEq/L (134-144)
[2017-01-29] MEDS: MIDODRINE HCL 5 MG TAB PO SCH ×3 (07:45→16:57)
[2017-01-29] MEDS ORDERED: ALBUMIN 25% 100 ML IV SCH (09:00)
[2017-01-29] MEDS: CLARITHROMYCIN 500 MG TAB PO SCH ×2 (09:57→20:03)
[2017-01-29] MEDS: CIPROFLOXACIN 500 MG TAB PO SCH (09:57)
[2017-01-29] MEDS: MULTIVITAMINS 1 EACH TAB PO SCH (09:58)
--- NOTE | 2017-01-29 10:15 | SOAPPROG ---
SOAP Progress Note Assessment/Plan: Assessment: 56 year old gentleman with HCV, Cirrhosis and portal hypertension. Stable renal function. Renal feels that this is not HRS and prerenal azotemia. Will keep Octreotide and midodrine for another day. Complete abdominal U/S without significant ascites. Plan: Stable renal function. Hopefully discharge in day or two. On discharge patient to follow up with Hepatology, Dr. Waddell. 01/29/17 10:16 Subjective: CC: Cirrhosis, renal failure Patient feeling well. No significant complaints. Objective: Vital Signs Temp Pulse Resp BP Pulse Ox 36.9 C 67 18 90/57 L 95 01/29/17 07:23 01/29/17 07:23 01/29/17 07:23 01/29/17 07:23 01/29/17 07:23 Laboratory Results 01/29/17 04:23 01/29/17 04:23 01/28/17 01/29/17 01/30/17 05:59 05:59 05:59 Intake Total 200 860 Output Total 900 650 Balance -700 210 PT 25.0 SEC (12.0-15.0) H 01/27/17 04:40 INR 2.24 (0.83-1.16) H 01/27/17 04:40 Generic Name Dose Route Start Last Admin Trade Name Freq PRN Reason Stop Dose Admin Acetaminophen 650 mg 01/19/17 14:17 01/19/17 18:37 Tylenol PO 07/18/17 14:16 650 mg Q4HRS PRN Administration Pain, Mild/Fever, Can Take PO Amoxicillin 1,000 mg 01/24/17 21:00 01/29/17 09:57 Amoxicillin PO 02/07/17 20:59 1,000 mg BID PHILIPP Administration Protocol Ciprofloxacin 500 mg 01/23/17 09:00 01/29/17 09:57 Cipro PO 02/22/17 08:59 500 mg DAILY PHILIPP Administration Protocol Clarithromycin 500 mg 01/24/17 21:00 01/29/17 09:57 Biaxin PO 02/07/17 20:59 500 mg BID PHILIPP Administration Protocol Hydroxyzine HCl 25 mg 01/20/17 19:41 01/26/17 20:45 Hydroxyzine Hcl PO 07/19/17 19:40 25 mg Q6HRS PRN Administration Itching Albumin Human 100 mls @ 0 mls/hr 01/29/17 09:00 01/29/17 09:57 Flexbumin 25 % (Premix) IV 07/28/17 08:59 100 mls DAILY PHILIPP Administration As Directed Lactulose 20 gm 01/20/17 09:00 01/28/17 20:47 Cephulac PO 07/19/17 08:59 Not Given BID PHILIPP Midodrine 10 mg 01/29/17 08:55 Proamatine/Midodrin PO 07/25/17 10:14 TID@0800,1200,1600 [facility] Miscellaneous Medication 1 each 01/20/17 09:15 01/28/17 09:23 Sofosbuvir/Velpatasvir [Epclusa 400 Mg-100 Mg Tablet] PO 07/19/17 09:14 Not Given DAILY [facility] Multivitamins 1 each 01/20/17 09:00 01/29/17 09:58 Tab-A-Demetrio PO 07/19/17 08:59 1 each DAILY PHILIPP Administration Octreotide Acetate 100 mcg 01/28/17 10:15 01/28/17 21:26 Sandostatin SC 07/27/17 10:14 100 mcg TID PHILIPP Administration Ondansetron HCl 4 mg 01/19/17 14:17 01/21/17 15:45 Zofran IVP 07/18/17 14:16 4 mg Q4HRS PRN Administration Nausea/Vomiting, Can't Take PO Ondansetron HCl 4 mg 01/19/17 14:17 01/21/17 05:41 Zofran Odt PO 07/18/17 14:16 4 mg Q4HRS PRN Administration Nausea/Vomiting, Use 1st Oxycodone HCl 5 - 10 mg 01/28/17 08:36 01/29/17 07:45 Oxycodone Ir PO 02/07/17 08:35 10 mg Q4 PRN Administration Pain, Severe Able to Take PO Pantoprazole Sodium 40 mg 01/24/17 21:00 01/28/17 20:27 Protonix PO 02/07/17 20:59 40 mg BID PHILIPP Administration Sodium Chloride 1,000 mg 01/28/17 21:00 01/28/17 20:27 Salt Tablet PO 07/27/17 20:59 1,000 mg BID PHILIPP Administration Temazepam 15 mg 01/19/17 14:24 01/28/17 20:32 Restoril PO 07/18/17 14:23 15 mg HS PRN Administration insomnia Discontinued Medications Generic Name Dose Route Start Last Admin Trade Name Samantha PRN Reason Stop Dose Admin Albuterol 3 ml 01/25/17 09:22 Proventil Neb IH 01/25/17 10:22 Q10M PRN PACU, Wheezing Ciprofloxacin 500 mg 01/20/17 09:00 01/20/17 09:44 Cipro PO 02/19/17 08:59 500 mg DAILY PHILIPP Administration Protocol Cosyntropin 0.25 mg 01/24/17 06:00 01/24/17 04:57 Cortrosyn Syringe IVP 01/24/17 06:01 0.25 mg DAILY@0600 ONE Administration Dicyclomine HCl 10 mg 01/20/17 16:00 01/23/17 16:34 Bentyl PO 07/19/17 15:59 Not Given TID PHILIPP Fentanyl 25 - 100 mcg 01/25/17 09:22 Sublimaze IVP 01/25/17 10:22 Q5M PRN PACU, IMMEDIATE Pain control Hydromorphone HCl 0.2 - 0.4 mg 01/20/17 05:28 01/20/17 22:55 Dilaudid IVP 01/30/17 05:27 0.2 mg Q2HRS PRN Administration Pain, Severe Unable to Take PO Sodium Chloride 1,000 mls @ 0 mls/hr 01/19/17 12:45 01/19/17 13:21 Ns IV 01/19/17 12:46 1,000 mls EDNOW ONE Administration Protocol Wide Open Sodium Chloride 1,000 mls @ 100 mls/hr 01/19/17 15:45 01/20/17 03:58 Ns IV 07/18/17 15:44 1,000 mls CONT PHILIPP Administration Sodium Chloride 500 mls @ 1,500 mls/hr 01/19/17 21:30 01/19/17 21:49 Ns IV 01/19/17 21:49 500 mls ONCE ONE Administration Sodium Chloride 500 mls @ 0 mls/hr 01/20/17 01:00 01/20/17 01:02 Ns IV 01/20/17 01:01 500 mls ONCE ONE Administration Wide Open Albumin Human 200 mls @ 0 mls/hr 01/20/17 04:38 01/20/17 05:02 Flexbumin 25 % (Premix) IV 01/20/17 04:39 200 mls ONCE ONE Administration As Directed Sodium Chloride 500 mls @ 30 mls/hr 01/20/17 04:45 01/20/17 06:46 Sodium Chloride 3% IV 07/19/17 04:44 500 mls CONT PHILIPP Administration Sodium Chloride 1,000 mls @ 75 mls/hr 01/20/17 11:15 Ns IV 07/19/17 11:14 CONT PHILIPP Levofloxacin/Dextrose 150 mls @ 100 mls/hr 01/20/17 14:00 01/22/17 07:36 Levaquin 750 Mg (Premix) IV 02/19/17 13:59 150 mls DAILY PHILIPP Administration Protocol Metronidazole/Sodium Chloride 50 mls @ 50 mls/hr 01/20/17 14:00 01/22/17 14: 25 Flagyl 250 Mg (Premix) IV 02/19/17 13:59 50 mls Q8HRS PHILIPP Administration Protocol Albumin Human 100 mls @ 0 mls/hr 01/21/17 19:00 01/23/17 09:37 Flexbumin 25 % (Premix) IV 07/20/17 18:59 100 mls BID PHILIPP Administration As Directed Sodium Chloride 1,000 mls @ 0 mls/hr 01/25/17 08:49 01/25/17 11:31 Ns IV 01/25/17 08:50 Not Given ONCE ONE As Directed Albumin Human 100 mls @ 0 mls/hr 01/25/17 14:00 01/28/17 08:58 Flexbumin 25 % (Premix) IV 07/24/17 13:59 100 mls Q6H PHILIPP Administration As Directed Iopamidol Confirm 01/22/17 18:59 Isovue-300 Administered 01/22/17 19:00 Dose 100 ml .ROUTE .STK-MED ONE Lidocaine HCl Confirm 01/25/17 09:00 Xylocaine-Mpf 2% Vial Administered 01/25/17 09:01 Dose 5 ml .ROUTE .STK-MED ONE Magnesium Citrate 300 ml 01/23/17 09:37 01/23/17 10:58 Magnesium Citrate PO 01/23/17 09:38 300 ml ONCE ONE Administration Midodrine 5 mg 01/26/17 10:15 01/27/17 12:06 Proamatine/Midodrin PO 07/25/17 10:14 5 mg TID@0800,1200,1600 PHILIPP Administration Midodrine 7.5 mg 01/27/17 13:29 01/29/17 07:45 Proamatine/Midodrin PO 07/25/17 10:14 7.5 mg TID@0800,1200,1600 PHILIPP Administration Miscellaneous Medication 400 mg 01/19/17 21:00 01/25/17 20:47 Ribavirin [Ribavirin] PO 07/18/17 20:59 400 mg HS PHILIPP Administration Miscellaneous Medication 600 mg 01/20/17 09:00 01/26/17 10:52 Ribavirin [Ribavirin] PO 07/19/17 08:59 Not Given DAILY PHILIPP Miscellaneous Medication 1 each 01/20/17 09:15 Sofosbuvir/Velpatasvir [Epclusa 400 Mg-100 Mg Tablet] PO 07/19/17 09:14 DAILY PHILIPP Naloxone HCl 0.1 mg 01/25/17 09:22 Narcan IVP 01/25/17 10:22 Q2M PRN PACU Resp Rate <10/min Ondansetron HCl Confirm 01/25/17 09:23 Zofran Administered 01/25/17 09:24 Dose 4 mg .ROUTE .STK-MED ONE Ondansetron HCl 2 - 4 mg 01/25/17 09:22 01/25/17 09:31 Zofran IVP 01/25/17 10:22 4 mg Q10M PRN Administration PACU, Nausea/Vomiting Oxycodone HCl 5 mg 01/19/17 16:45 01/20/17 04:37 Oxycodone Ir PO 01/29/17 16:44 5 mg Q4 PRN Administration Pain, Severe Able to Take PO Oxycodone HCl 5 - 10 mg 01/20/17 05:27 01/28/17 07:35 Oxycodone Ir PO 01/29/17 16:44 5 mg Q4 PRN Administration Pain, Severe Able to Take PO Pantoprazole Sodium 40 mg 01/20/17 09:00 01/24/17 07:52 Protonix PO 07/19/17 08:59 40 mg DAILY PHILIPP Administration Propofol Confirm 01/25/17 09:00 Diprivan 10 Mg/Ml (Premix) Administered 01/25/17 09:01 Dose 500 mg IV .STK-MED ONE Sodium Chloride 1,000 mg 01/22/17 00:30 01/28/17 09:07 Salt Tablet PO 07/21/17 00:29 1,000 mg TID PHILIPP Administration Physical Exam - Physical Exam General Appearance: alert, no apparent distress Respiratory: lungs clear, normal breath sounds Abdomen: normal bowel sounds, non-tender, soft Skin: normal color, warm/dry, jaundice Neuro/Psych: no motor/sensory deficits, alert, normal mood/affect, oriented x 3 ICD10 Worksheet Patient Problems: Problems Problem Status Onset Cirrhosis Acute Dehydration Acute Hyponatremia Acute Abdominal pain Acute Alcoholism Acute Ascites Acute Hyperbilirubinemia Acute Septic shock Acute Spontaneous bacterial peritonitis Acute
--- NOTE | 2017-01-29 10:22 | HOSPPROG ---
Hospitalist Progress Note Assessment/Plan: 56-year-old male admitted with hyponatremia. He has known cirrhosis secondary to the use of alcohol and hepatitis-C. He has recently been under treatment for spontaneous bacterial peritonitis with outpatient antibiotics and he completed that course of antibiotics. during this hospitalization the patient developed hemolytic anemia probably secondary to ribavirin. He has completed Ribavirin therapy in the hospital # cirrhosis secondary to hepatitis-C and alcohol. Complicated by portal hypertension, esophageal varices and recent SBP. Completed 12 weeks of therapy of ribavirin for hepatitis-C. * Appreciate GI input * Still too ill to be discharge however will eventually follow up with Dr. Waddell # acute renal failure. Discussed with Nephrology. Possible etiologies include ATN from anemia and hypotension. No evidence of abdominal compartment syndrome on ultrasound Unfortunately could also represent hepatorenal syndrome. Creatinine stable Mohan today * discussed with Nephrology * continue octreotide for now, continue the Midodrin * Appreciate Nephrology input # hemolytic anemia likely secondary to ribavirin. Status post transfusions in the hospital his hemoglobin is stable today, he has completed therapy for hepatitis C with the ribavirin * Monitor hemoglobin while in hospital # hyponatremia. Mildly low sodium on admission has since improved with treatment of blood and Midrin and albumin. * Continue to monitor # ascites: Minimal ascites noted on ultrasound. Recent history of SBP treated. # esophageal thickening and positive H pylori. Currently on empiric PPI and H pylori treatment. Subjective: patient more alert today. Denies significant abdominal pain. No shortness of breath. Ambulating around the worm feels weakness diffusely but able to be independent. Objective: Vital Signs Temp Pulse Resp BP Pulse Ox 36.9 C 67 18 90/57 L 95 01/29/17 07:23 01/29/17 07:23 01/29/17 07:23 01/29/17 07:23 01/29/17 07:23 Laboratory Results 01/29/17 04:23 01/29/17 04:23 01/28/17 01/29/17 01/30/17 05:59 05:59 05:59 Intake Total 200 860 100 Output Total 900 650 295 Balance -700 210 -195 PT 25.0 SEC (12.0-15.0) H 01/27/17 04:40 INR 2.24 (0.83-1.16) H 01/27/17 04:40 - Physical Exam Constitutional: no apparent distress, chronically ill appearing Eyes: PERRL, icteric sclera Ears, Nose, Mouth, Throat: moist mucous membranes Cardiovascular: regular rate and rhythym Respiratory: no respiratory distress, reduced air movement Gastrointestinal: normoactive bowel sounds, distension, No tenderness Genitourinary: no bladder fullness Skin: warm Musculoskeletal: generalized weakness Neurologic: other ( Alert), No facial droop Psychiatric: interacting appropriately, not anxious, not encephalopathic ICD10 Worksheet Patient Problems: Problems Problem Status Onset Abdominal pain Acute Ascites Acute Hyperbilirubinemia Acute Alcoholism Acute Spontaneous bacterial peritonitis Acute Septic shock Acute Hyponatremia Acute Dehydration Acute Cirrhosis Acute
[2017-01-29] MEDS: OCTREOTIDE 100 MCG/1 ML INJ SC SCH ×3 (10:25→21:24)
[2017-01-29] MEDS: LACTULOSE 20 GM/30 ML UDCUP PO SCH ×2 (10:26→22:37)
[2017-01-29] MEDS: SOFOSBUVIR PO SCH (10:32)
[2017-01-29] MEDS: VELPATASVIR PO SCH (10:32)
[2017-01-29] MEDS: PANTOPRAZOLE SODIUM 40 MG TAB PO SCH ×2 (10:35→20:04)
[2017-01-29] MEDS: SODIUM CHLORIDE 1,000 MG TAB PO SCH (10:35)
--- NOTE | 2017-01-29 10:54 | SOAPPROG ---
SOAP Progress Note Assessment/Plan: Assessment/Plan: JON: Cr up from 0.8 to 1.3 to 2.1, today now remains stable at 2.1. Concerning for ATN in setting of anemia and hypotension, no signs of abdominal compartment syndrome, could also have hepatorenal syndrome but seems less likely. - No emergent need for HD at this time. - Noted that peripheral eos are wnl, less likely AIN but would consider changing abx. - Will increase midodrine. - Will continue albumin, cut down dose since albumin improved. - Will continue octreotide for now. - Will continue to monitor. - Avoid hypotension and nephrotoxins. Hyponatremia: likely multifactorial with volume depletion and cirrhosis, now sodium stable at 135. - Will cut down salt tabs to daily. - Continue 1.2L fluid restriction. - Will continue to monitor. Anemia: Some labs can be difficult to interpret in setting of cirrhosis but does have low haptoglobin, strongly suspect hemolysis. Pt now off ribavirin and s/p 2 units PRBCs with good response and remains stable now. Will continue to monitor. Hypotension: improved on midodrine and s/p blood transfusion, will increase midodrine and continue to monitor. Subjective: No acute events overnight. Pt states he is feeling well, has no complaints. Objective: Vital Signs Temp Pulse Resp BP Pulse Ox 36.9 C 67 18 90/57 L 95 01/29/17 07:23 01/29/17 07:23 01/29/17 07:23 01/29/17 07:23 01/29/17 07:23 Laboratory Results 01/29/17 04:23 01/29/17 04:23 01/28/17 01/29/17 01/30/17 05:59 05:59 05:59 Intake Total 200 860 100 Output Total 900 650 295 Balance -700 210 -195 PT 25.0 SEC (12.0-15.0) H 01/27/17 04:40 INR 2.24 (0.83-1.16) H 01/27/17 04:40 General: alert and oriented, no acute distress Eyes; EOMI, PERRL, sclerae icteric OP: clear CV: RRR RESP: CTAB, nonlabored respirations Abd; SOft, NT Ext: no edema BLE Neuro: CN II-XII grossly intact, no asterixis Psych; cooperative, appropriate mood and affect ICD10 Worksheet Patient Problems: Problems Problem Status Onset Cirrhosis Acute Dehydration Acute Hyponatremia Acute Abdominal pain Acute Alcoholism Acute Ascites Acute Hyperbilirubinemia Acute Septic shock Acute Spontaneous bacterial peritonitis Acute
--- NOTE | 2017-01-29 17:09 | ASMTCMCOM ---
CM Note CM Note Notes: Pt's d/c plan is still home independent, however, he is still too ill to d/c, per hospitalist. CM will continue to follow Date Signed: 01/29/2017 03:00 PM Electronically Signed By:Sophie Silvestre
[2017-01-29] MEDS: TEMAZEPAM 15 MG CAP PO PRN (21:25)
[2017-01-29] MEDS: hydrOXYzine HCL 25 MG TAB PO PRN (21:25)
[2017-01-30 04:45] LABS: % IMMATURE GRANULYOCYTES 0.4 % (0.0-1.1); ABSOLUTE IMMATURE GRANULOCYTES 0.02 10^3/uL (0.00-0.10); ADD DIFF? NO; ADD MORPH? NO; ADD SCAN? NO; ATYPICAL LYMPHOCYTE FLAG 0 (0-99); FRAGMENT RBC FLAG 0 (0-99); HEMATOCRIT 28.2 % (40.0-51.0); HEMOGLOBIN 9.2 g/dL (13.7-17.5); LEFT SHIFT FLG 0 (0-99); LIPEMIA HEMOLYSIS FLAG 80 (0-99); MEAN CELL HEMOGLOBIN 32.7 pg (27.9-34.1); MEAN CELL HEMOGLOBIN CONCENTR. 32.6 g/dL (32.4-36.7); MEAN CELL VOLUME 100.4 fL (81.5-99.8); MEAN PLATELET VOLUME 9.1 fL (8.7-11.7); PLATELET CLUMPS FLAG 10 (0-99); PLATELET COUNT 71 10^3/uL (150-400); RED BLOOD CELL COUNT 2.81 10^6/uL (4.40-6.38); RED CELL DISTRIBUTION WIDTH 18.2 % (11.5-15.2)
[2017-01-30 07:31] LABS: ALBUMIN 4.2 g/dL (3.5-5.0); ANION GAP 12 mEq/L (8-16); CALCIUM 9.2 mg/dL (8.5-10.4); CARBON DIOXIDE 20 mEq/l (22-31); CHLORIDE 103 mEq/L (97-110); CREATININE 1.6 mg/dL (0.7-1.3); GLOMERULAR FILTRATION RATE 45; GLUCOSE 93 mg/dL (70-100); POTASSIUM 4.6 mEq/L (3.5-5.2); SODIUM 135 mEq/L (134-144)
[2017-01-30 08:20] VITALS: PULSE 76
[2017-01-30] MEDS: CLARITHROMYCIN 500 MG TAB PO SCH (08:37)
[2017-01-30] MEDS: PANTOPRAZOLE SODIUM 40 MG TAB PO SCH (08:38)
[2017-01-30] MEDS: MULTIVITAMINS 1 EACH TAB PO SCH (08:38)
[2017-01-30] MEDS: MIDODRINE HCL 5 MG TAB PO SCH ×2 (08:38→12:10)
[2017-01-30] MEDS: CIPROFLOXACIN 500 MG TAB PO SCH (08:38)
[2017-01-30] MEDS: LACTULOSE 20 GM/30 ML UDCUP PO SCH (08:38)
[2017-01-30] MEDS: OCTREOTIDE 100 MCG/1 ML INJ SC SCH (08:39)
[2017-01-30] MEDS: oxyCODONE IR 5 MG TAB PO PRN (08:59)
[2017-01-30] MEDS ORDERED: SODIUM CHLORIDE 1,000 MG TAB PO SCH (09:00)
--- NOTE | 2017-01-30 10:14 | SOAPPROG ---
SOAP Progress Note Assessment/Plan: Assessment:Plan: Hyponatremia-likely multifactorial -underlying liver disease -now normal at 135 -continue midodrine due to BP readings -stop albumin and octreotide -CPM Anemia-stable -s/p blood -low haptoglobin and elevated retic -likely hemolysis -LDH was not elevated SBP-s/p abx ARF-resolved -likely hemodynamically-mediated ARF -baseline creatinine right around 1 -better with transfusion, albumin and midodrine -avoid JASEN-i, ARB, NSAIDs and IV contrast -follow up with GI -may benefit from periodic albumin infusions 01/30/17 10:13 Subjective: feeling better Objective: Vital Signs Temp Pulse Resp BP Pulse Ox 36.5 C 76 16 122/76 H 98 01/30/17 08:00 01/30/17 08:00 01/30/17 08:00 01/30/17 08:00 01/30/17 08:00 Laboratory Results 01/30/17 04:36 01/30/17 04:36 01/29/17 01/30/17 01/31/17 05:59 05:59 05:59 Intake Total 860 880 Output Total 650 765 Balance 210 115 PT 25.0 SEC (12.0-15.0) H 01/27/17 04:40 INR 2.24 (0.83-1.16) H 01/27/17 04:40 Physical Exam - Physical Exam General Appearance: alert, no apparent distress EENT: normal ENT inspection Neck: normal inspection Respiratory: decreased breath sounds (1/3 bilaterally) Cardiac/Chest: regular rate, rhythm, No diastolic murmur, No systolic murmur Abdomen: normal bowel sounds, non-tender, soft, distended Back: Normal inspection Skin: jaundice Extremities: No swelling Neuro/Psych: no motor/sensory deficits, alert, normal mood/affect ICD10 Worksheet Patient Problems: Problems Problem Status Onset Cirrhosis Acute Dehydration Acute Hyponatremia Acute Abdominal pain Acute Alcoholism Acute Ascites Acute Hyperbilirubinemia Acute Septic shock Acute Spontaneous bacterial peritonitis Acute
--- NOTE | 2017-01-30 11:55 | PDHOMEO2F ---
Home Oxygen Face to Face Home Orders: I certify that a physician or a nurse practitioner or physician's anesthesia assistant has had a [id number] encounter with this patient on the date of this order due to the diagnosis listed, which relates to the primary reason the patient requires home oxygen. Alternative treatments have been tried, or considered, and deemed ineffective. It is anticipated that supplemental oxygen will result in improvement with treatment. Home oxygen qualifying diagnosis: cirrhosis, pulmonary edema, copd SpO2 on room air (%): 80 Frequency of home oxygen needed: continuous Home oxygen liters per minute: 2-3 Home oxygen delivery device: nasal cannula Concentrator: Yes E-tanks for mobility and back up: Yes If ordering portable O2, is the patient mobile in the home?: Yes I certify that, based on these findings, the home oxygen is medically necessary for this patient for the following length of time. Length of time home oxygen needed: 1 month (unknown.)
[2017-01-30 12:06] VITALS: BP 111/66; RESP 12; TEMP 97.8; O2SAT 92
--- NOTE | 2017-01-30 12:25 | GDS ---
[f rep st] DISCHARGE SUMMARY DIAGNOSES: 1. Hemolytic anemia, likely secondary to treatment for hepatitis C, has completed 12-week therapy of ribavirin for his hepatitis C. 2. Helicobacter pylori positive, currently in the middle of a 14-day course for treatment. 3. Acute renal failure, likely secondary to acute tubular necrosis from anemia and hypotension, slow improvement in renal function. Diuretics on hold until renal function improving. 4. Hyponatremia, mild. 5. Ascites, minimal ascites noted on ultrasound this admission. 6. 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 Patient has been abstinent since July of 2016. FOLLOWUP: Will be with Dr. Waddell and hopeful he will be placed on the transplant list. CONSULTATIONS: Include GI, Dr. Neymar Euceda and Nephrology. PROCEDURES DONE: 1. Abdominal ultrasound: Initially with no ascites. 2. Abdominal CT scan: Cholelithiasis, small amount of perihepatic free fluid, mild wall motion, thi ckening of the distal esophagus, constipation and DJD. 3. HIDA scan: Normal. 4. EGD: Findings, esophageal varices, portal hypertension, and erosive gastritis. 5. Followup ultrasound showing minimal ascites, no hydronephrosis. HOSPITAL COURSE: The patient is a 56-year-old man with a history significant for cirrhosis secondary to alcohol use and hepatitis C. He has been treated with ribavirin for hepatitis C and presented wi th nausea, vomiting, hyponatremia. On admission, evaluation included the above procedures, GI was co nsulted and felt that his abdominal symptoms may be related to his hyponatremia. There was no ascite s noted despite having a polymicrobial bacteremia and recent spontaneous bacterial peritonitis. He d id undergo imaging which was concerning for possible cholelithiasis; however, he had a normal HIDA sc an and it was felt this was not causing his issues. He underwent upper endoscopy for this, again wit hout clear etiology except for some gastritis and was treated for positive H pylori testing. He drop ped his hemoglobin significantly and with an elevated bilirubin, it was felt secondary to hemolysis f rom the ribavirin. The ribavirin was discontinued and over the course of his hospitalization, his he moglobin did stabilize. Unfortunately, due to the hypotension and acute illness from the anemia and hyponatremia, his renal function declined significantly. Nephrology was consulted and felt that this likely represented ATN from the hypotension. His renal function continued to decline and stabilized after addition of midodrine to treat his hypotension and octreotide as well as albumin. At the time of discharge, his creatinine did improve to 1.6 and Nephrology feels it will continue to improve ove r the next few days. However, I will continue to hold his diuretics until his renal function is stab le. On the day of discharge, he shows no evidence of encephalopathy. His abdominal exam is benign. He has had no fevers and his lab data is fairly stable. CONDITION ON DISCHARGE: Good. He has been afebrile. Heart rate 70s, blood pressure 122/76. He is 80% on room air while sleeping and will need supplemental oxygen at home. DISCHARGE MEDICATIONS: Please see discharge medication form. Of note, his hepatitis C treatments pack ve been discontinued. He is on a treatment course for H pylori and will complete 14 days. He needs followup with Dr. Waddell, and he has an appointment scheduled on Monday. I will order a metaboli c panel to be done prior to that appointment to check his renal function and electrolytes. Dr. Miki bass can decide on resuming his diuretics at that time. Total time spent with patient on day of discharge in coordination of care is 40 minutes. /[id number]/MODL
[2017-01-30 12:49] LABS: C3 COMPLEMENT COMPONENT 24 mg/dL (75 - 175); C4 COMPLEMENT COMPONENT 5 mg/dL (14 - 40)
--- NOTE | 2017-01-30 15:20 | ASMTCMCOM ---
CM Note CM Note Notes: Patient to d/c home today independently. All medications are PO. No further d/c needs. Date Signed: 01/30/2017 03:20 PM Electronically Signed By:Adia Lion
== END 2017-01-30 15:51 | disposition home or self-care (01) | DRG 641 ==
LOC: F3E 15:45 → F2N 01-20 05:20 → F3E 01-21 16:00
PROVIDERS: ADMIT Internal Medicine; ATTEND Internal Medicine
PROC: 0DB68ZX Excision of Stomach, Via Natural or Artificial Opening Endoscopic, Diagnostic (ICD-10-PCS; 2017-01-25)
PROC: 0DL Gastrointestinal System, Occlusion (ICD-10-PCS; 2017-01-25)
PROC: 30233N1 Transfusion of Nonautologous Red Blood Cells into Peripheral Vein, Percutaneous Approach (ICD-10-PCS; principal; 2017-01-26)
DX: E87.1 Hypo-osmolality and hyponatremia (principal); I85.10 Secondary esophageal varices without bleeding; I82.3 Embolism and thrombosis of renal vein; K76.6 Portal hypertension; N17.9 Acute kidney failure, unspecified; K70.30 Alcoholic cirrhosis of liver without ascites; K80.00 Calculus of gallbladder with acute cholecystitis without obstruction; B18.2 Chronic viral hepatitis C; D59.2 Drug-induced nonautoimmune hemolytic anemia; K29.00 Acute gastritis without bleeding; T37.5X5A Adverse effect of antiviral drugs, initial encounter; E86.1 Hypovolemia; E86.0 Dehydration; R10.11 Right upper quadrant pain; L29.8 Other pruritus; R33.9 Retention of urine, unspecified; F12.90 Cannabis use, unspecified, uncomplicated; F10.21 Alcohol dependence, in remission; Z80.0 Family history of malignant neoplasm of digestive organs; Z86.19 Personal history of other infectious and parasitic diseases
CPT/HCPCS: 82607-90; 83010-90; 97161-GP; 97166-GO; 97535-GO; A9537; J0834; J1170; J1956; J2354; J2405; J2704; P9016; P9047; Q9967

== ENCOUNTER 2017-02-12 23:50 | Observation (INO) | payer OTHER ==
[2017-02-13 00:52] LABS: % IMMATURE GRANULYOCYTES 0.7 % (0.0-1.1); ABSOLUTE IMMATURE GRANULOCYTES 0.04 10^3/uL (0.00-0.10); ADD DIFF? NO; ADD MORPH? NO; ADD SCAN? NO; ATYPICAL LYMPHOCYTE FLAG 50 (0-99); FRAGMENT RBC FLAG 0 (0-99); HEMATOCRIT 32.1 % (40.0-51.0); HEMOGLOBIN 10.4 g/dL (13.7-17.5); LEFT SHIFT FLG 0 (0-99); LIPEMIA HEMOLYSIS FLAG 80 (0-99); MEAN CELL HEMOGLOBIN CONCENTR. 32.4 g/dL (32.4-36.7); MEAN CELL VOLUME 95.8 fL (81.5-99.8); MEAN PLATELET VOLUME 9.5 fL (8.7-11.7); PLATELET CLUMPS FLAG 10 (0-99); PLATELET COUNT 109 10^3/uL (150-400); RED BLOOD CELL COUNT 3.35 10^6/uL (4.40-6.38); RED CELL DISTRIBUTION WIDTH 16.9 % (11.5-15.2)
--- NOTE | 2017-02-13 00:52 | EDPHY ---
H & P Stated Complaint: syncope, feel downstairs and back pain Time Seen by Provider: 02/13/17 00:17 HPI/ROS: Chief Complaint: Confusion, syncope HPI: 56-year-old male with a history of hepatitis and cirrhosis. He was recently hospitalized with worsening jaundice and hyponatremia. Is also supposed to be taking home oxygen is only using intermittently. Patient's states that he has been increasingly confused and restless for the last couple days. He has not been pacing back complaining of pain. He was sent home from his recent hospitalization with pain medicine but is not longer taking any. Denies any fevers or chills. No nausea or vomiting. Patient's also states that he has been increasingly confused for the last couple days. Patient states that tonight he is going up the stairs when he was 3 stairs up he felt lightheaded and had a syncopal episode. Patient states he landed on his buttocks. He did not his head. He believes he had a brief loss of consciousness. Currently denies any headache. No neck pain. No nausea or vomiting. He does state that he feels that his abdomen is increasingly distended. No urinary urgency or frequency. ROS: 10 point Review of Systems is negative except as noted in the HPI. PMH: Hepatitis, cirrhosis, hyponatremia Social History: No smoking, former alcohol, no recreational drug use Family History: non-contributory Physical Exam: Gen: Awake, Alert, No Distress, jaundiced HEENT: Nose: no rhinorrhea Eyes: PERRLA, EOMI, scleral icterus Mouth: Moist mucosa Neck: Supple, no JVD Chest: nontender, lungs clear to auscultation Heart: S1, S2 normal, no murmur Abd: Soft, distended, not tympanitic, mild diffuse tenderness without guarding Back: no CVA tenderness, no midline tenderness Ext: no edema, non-tender Skin: no rash Neuro: CN II-XII intact, Sensation grossly intact, Strength 5/5 in bilateral upper and lower extremities - Medical/Surgical History Hx Asthma: No Hx Chronic Respiratory Disease: No Hx Diabetes: No Hx Cardiac Disease: Yes Hx Renal Disease: No Hx Cirrhosis: Yes Hx Alcoholism: Yes Hx HIV/AIDS: No Hx Splenectomy or Spleen Trauma: No Other PMH: Bilateral meniscus and ACL tear/injury, Tib/Fib fracture, marijuana user, ETOH (former), ascites, Hep C, sepsis'. cirrhosis - Social History Smoking Status: Former smoker Constitutional: Initial Vital Signs Temperature (C) 37.2 C 02/12/17 23:53 Heart Rate 109 H 02/12/17 23:53 Respiratory Rate 20 02/12/17 23:53 Blood Pressure 123/86 H 02/12/17 23:53 O2 Sat (%) 96 02/12/17 23:53 O2 Delivery Mode Room Air Allergies/Adverse Reactions: No Known Allergies Allergy (Verified 02/12/17 23:53) Home Medications: Medication Instructions Recorded Multivitamins [Multivitamin (*)] 1 each PO DAILY 01/19/17 Temazepam [Restoril 15 MG (*)] 15 mg PO HSPRN PRN 01/19/17 Amoxicillin Trihydrate [Amoxil] 1,000 mg PO BID #14 cap 01/30/17 Ciprofloxacin [Cipro] 500 mg PO DAILY #1 tab 01/30/17 Clarithromycin [Biaxin (*)] 500 mg PO BID #14 tab 01/30/17 Midodrine HCl [Proamatine/Midodrin] 10 mg PO TID@0800,1200,1600 #90 tab 01/30/17 Pantoprazole Sodium [Protonix 40mg 40 mg PO BID #14 tab 01/30/17 (*)] oxyCODONE IR [Oxycodone Ir (*)] 5 - 10 mg PO Q4 PRN #20 tab 01/30/17 Medical Decision Making - Diagnostics Imaging Results: Chest x-ray: No acute infiltrates or failure, questionable abnormal bowel gas pattern Abdominal x-ray: Nonspecific bowel gas pattern with no air-fluid levels noted ED Course/Re-evaluation: 56-year-old male with a history of liver disease with increasing confusion, abdominal pain and possible syncope however he states that he was fully a couple of water when he was on the stairs and he was still holding it after his vent. Therefore there was no loss of tone. He is mildly confused jaundice tear. Bilirubin is 4.8 which is near to his recent baseline. Sodium is appropriate. He has had worsening pain and confusion the last 2 days. I have discussed with Dr. Darling, hospitalist. She will admit to her service for further evaluation. - Data Points Laboratory Results: Laboratory Results 02/13/17 00:45 02/13/17 00:45 02/13/17 02/13/17 02/13/17 01:18 00:45 00:45 WBC RBC Hgb Hct MCV MCH MCHC RDW Plt Count MPV Neut % (Auto) Lymph % (Auto) [place] % (Auto) Eos % (Auto) Baso % (Auto) Nucleat RBC Rel Count Absolute Neuts (auto) Absolute Lymphs (auto) Absolute Monos (auto) Absolute Eos (auto) Absolute Basos (auto) Absolute Nucleated RBC Immature Gran % Immature Gran # Sodium 137 mEq/L mEq/L (134-144) Potassium 3.3 mEq/L L mEq/L (3.5-5.2) Chloride 104 mEq/L mEq/L (97-110) Carbon Dioxide 23 mEq/l mEq/l (22-31) Anion Gap 10 mEq/L mEq/L (8-16) BUN 4 mg/dL L mg/dL (7-23) Creatinine 0.5 mg/dL L mg/dL (0.7-1.3) Estimated GFR > 60 Glucose 111 mg/dL H mg/dL (70-100) Calcium 8.5 mg/dL mg/dL (8.5-10.4) Total Bilirubin 4.8 mg/dL H mg/dL (0.1-1.4) Conjugated Bilirubin 1.6 mg/dL H mg/dL (0.0-0.5) Unconjugated Bilirubin 3.2 mg/dL H mg/dL (0.0-1.1) AST 52 IU/L IU/L (17-59) ALT 39 IU/L IU/L (21-72) Alkaline Phosphatase 114 IU/L IU/L (38-126) Troponin I Pending Total Protein 6.8 g/dL g/dL (6.3-8.2) Albumin 3.3 g/dL L g/dL (3.5-5.0) Lipase 530 IU/L H IU/L (23-300) Urine Color YELLOW Urine Appearance CLEAR Urine pH 7.0 (5.0-7.5) Ur Specific [place] 1.009 (1.002-1.030) Urine Protein NEGATIVE (NEGATIVE) Urine Ketones NEGATIVE (NEGATIVE) Urine Blood 1+ H (NEGATIVE) Urine Nitrate NEGATIVE (NEGATIVE) Urine Bilirubin NEGATIVE (NEGATIVE) Urine Urobilinogen 4.0 EU H EU (0.2-1.0) Ur Leukocyte Esterase NEGATIVE (NEGATIVE) Urine RBC 3-5 /hpf H /hpf (0-3) Urine WBC 1-3 /hpf /hpf (0-3) Ur Epithelial Cells NONE SEEN /lpf /lpf (NONE-1+) Hyaline Casts 1-5 /lpf /lpf (0-1) Urine Mucus TRACE /lpf /lpf (NONE-1+) Urine Glucose NEGATIVE (NEGATIVE) 02/13/17 00:45 WBC 5.80 10^3/uL 10^3/uL (3.80-9.50) RBC 3.35 10^6/uL L 10^6/uL (4.40-6.38) Hgb 10.4 g/dL L g/dL (13.7-17.5) Hct 32.1 % L % (40.0-51.0) MCV 95.8 fL fL (81.5-99.8) MCH 31.0 pg pg (27.9-34.1) MCHC 32.4 g/dL g/dL (32.4-36.7) RDW 16.9 % H % (11.5-15.2) Plt Count 109 10^3/uL L 10^3/uL (150-400) MPV 9.5 fL fL (8.7-11.7) Neut % (Auto) 47.4 % % (39.3-74.2) Lymph % (Auto) 27.6 % % (15.0-45.0) Edmunds % (Auto) 17.2 % H % (4.5-13.0) Eos % (Auto) 6.4 % % (0.6-7.6) Baso % (Auto) 0.7 % % (0.3-1.7) Nucleat RBC Rel Count 0.0 % % (0.0-0.2) Absolute Neuts (auto) 2.75 10^3/uL 10^3/uL (1.70-6.50) Absolute Lymphs (auto) 1.60 10^3/uL 10^3/uL (1.00-3.00) Absolute Monos (auto) 1.00 10^3/uL H 10^3/uL (0.30-0.80) Absolute Eos (auto) 0.37 10^3/uL 10^3/uL (0.03-0.40) Absolute Basos (auto) 0.04 10^3/uL 10^3/uL (0.02-0.10) Absolute Nucleated RBC 0.00 10^3/uL 10^3/uL (0-0.01) Immature Gran % 0.7 % % (0.0-1.1) Immature Gran # 0.04 10^3/uL 10^3/uL (0.00-0.10) Sodium Potassium Chloride Carbon Dioxide Anion Gap BUN Creatinine Estimated GFR Glucose Calcium Total Bilirubin Conjugated Bilirubin Unconjugated Bilirubin AST ALT Alkaline Phosphatase Troponin I Total Protein Albumin Lipase Urine Color Urine Appearance Urine pH Ur Specific [place] Urine Protein Urine Ketones Urine Blood Urine Nitrate Urine Bilirubin Urine Urobilinogen Ur Leukocyte Esterase Urine RBC Urine WBC Ur Epithelial Cells Hyaline Casts Urine Mucus Urine Glucose Departure - Departure Disposition: [facility] Inpatient Acute Clinical Impression: Cirrhosis, Abdominal pain, Confusion Condition: Fair Referrals: Amy Pickard PA [Primary Care Provider] - As per Instructions
[2017-02-13 01:00] LABS: ALANINE AMINOTRANSFERASE 39 IU/L (21-72); ALBUMIN 3.3 g/dL (3.5-5.0); ALKALINE PHOSPHATASE 114 IU/L (38-126); ANION GAP 10 mEq/L (8-16); ASPARTATE AMINOTRANSFERASE 52 IU/L (17-59); BILIRUBIN,TOTAL 4.8 mg/dL (0.1-1.4); CALCIUM 8.5 mg/dL (8.5-10.4); CARBON DIOXIDE 23 mEq/l (22-31); CHLORIDE 104 mEq/L (97-110); CREATININE 0.5 mg/dL (0.7-1.3); GLOMERULAR FILTRATION RATE > 60; GLUCOSE 111 mg/dL (70-100); POTASSIUM 3.3 mEq/L (3.5-5.2); SODIUM 137 mEq/L (134-144); TOTAL PROTEIN 6.8 g/dL (6.3-8.2)
[2017-02-13 01:17] LABS: BILIRUBIN-CONJUGATED 1.6 mg/dL (0.0-0.5); BILIRUBIN-UNCONJUGATED 3.2 mg/dL (0.0-1.1)
[2017-02-13 01:44] LABS: COLOR YELLOW; LEUKOCYTE ESTERASE,URINE NEGATIVE (NEGATIVE); NITRITE,URINE NEGATIVE (NEGATIVE)
[2017-02-13 01:51] LABS: MUCUS TRACE /lpf (NONE-1+)
[2017-02-13] MEDS ORDERED: fentaNYL 100 MCG/2 ML INJ IVP ONE ×2 (02:04→02:07)
[2017-02-13] MEDS ORDERED: POLYETHYLENE GLYCOL 3350 17 GM PKT PO PRN (03:06)
[2017-02-13] MEDS ORDERED: LACTULOSE 20 GM/30 ML UDCUP PO PRN (03:06)
[2017-02-13] MEDS ORDERED: MAGNESIUM HYDROXIDE 30 ML UDCUP PO PRN (03:06)
[2017-02-13] MEDS ORDERED: BISACODYL 10 MG SUPP PR PRN (03:06)
[2017-02-13] MEDS ORDERED: NS 500 ML IV ONE (03:07)
[2017-02-13] MEDS ORDERED: ALBUTEROL 3 ML DEYVIAL IH PRN (03:07)
[2017-02-13] MEDS ORDERED: ONDANSETRON DISINTEGRATING 4 MG TAB PO PRN (03:07)
[2017-02-13] MEDS ORDERED: ONDANSETRON 4 MG/2 ML VIAL IVP PRN (03:07)
[2017-02-13] MEDS ORDERED: NS W/ 20 KCl/L 1,000 ML IV SCH (03:15)
[2017-02-13] MEDS: oxyCODONE IR 5 MG TAB PO PRN ×5 (03:30→21:03)
--- NOTE | 2017-02-13 05:07 | GHP ---
[f rep st] HISTORY AND PHYSICAL DATE OF ADMISSION: 02/13/2017 CHIEF COMPLAINT: Possible syncope and confusion. HISTORY OF PRESENT ILLNESS: The patient is a 56-year-old male with a history of cirrhosis secondary to alcohol and hepatitis C, who was recently hospitalized with hyponatremia and complications from ribavirin therapy. He presents to the emergency department with his today after a possible syncopal episode. He was discharged from the hospital on January 30 with home oxygen. He states he went downstairs to get some water and was not wearing his oxygen. Upon climbing the stairs, he began to feel lightheaded, dizzy, as if he were going to blackout. He was able to hold the glass of water in his hand throughout the whole event and sit down on the stairs. It sounds like he did not actually lose tone. When his found him, he seemed a bit confused, and they brought him to the emergency department. He has otherwise been doing fairly well at home. They do note increasing abdominal girth. He was previously on diuretics for ascites secondary to his cirrhosis; however, his diuretics were held at hospital discharge due to acute renal failure in the setting of ribavirin toxicity. He denies fevers. He does have intermittent abdominal pain and is noted to be constipated on abdominal plain film in the emergency department. He denies nausea or vomiting. He reports he does follow his fluid restriction, but feels he drinks plenty of fluids. He has had no hematemesis, coffee-ground emesis, bright red blood per rectum, or melanotic stools. He is followed by Dr. Waddell for his liver disease In the emergency department, he did have positive orthostatic vital signs. He was noted to be mildly tachycardic with a heart rate in the 100-110 range. He was afebrile and was on his baseline oxygen requirement. Given his possible syncopal episode and overall weakness and orthostasis, he was admitted to the hospital for further management. PAST MEDICAL HISTORY: 1. Cirrhosis secondary to hepatitis C and alcohol. 2. History of ascites. He had just minimal ascites by ultrasound during the last hospitalization. 3. Hepatitis C, status post ribavirin treatment. 4. History of hemolytic anemia secondary to ribavirin toxicity. 5. Chronic hypoxemic respiratory failure, on 2 L of oxygen at baseline. 6. Helicobacter pylori positive, status post 14-day treatment course. 7. History of hyponatremia. PAST SURGERY HISTORY: He has had knee surgery. MEDICATIONS: Please see [facility] for complete updated outpatient medication list. ALLERGIES: He has no known drug allergies. FAMILY HISTORY: His mother had colon cancer. SOCIAL HISTORY: The patient lives at home independently with his . Although they report he is eating and drinking fairly well, he has been quite weak. REVIEW OF SYSTEMS: A 10-point review of systems was performed and was negative , except as per HPI. OBJECTIVE: VITAL SIGNS: Current temperature 36.9, blood pressure 116/88, heart rate 106, respiratory rate 20, he is 93% on 2 L oxygen by nasal cannula. GENERAL: The patient is awake, alert, and oriented, in no acute distress. HEENT: Head is atraumatic, normocephalic. Oropharynx is dry. Pupils are equal , round, and reactive to light. Mild scleral icterus is noted. Conjunctivae are pale. Neck is supple. There is no JVD. Heart has a regular rate and rhythm, though mildly tachycardic. Lungs are clear to auscultation bilaterally. Abdomen is soft, protuberant, moderately distended, but not tense. Fluid wave is present. He is slightly tympanitic. Normoactive bowel sounds are present. He is minimally tender. There are no peritoneal signs. EXTREMITIES: He has trace bilateral lower extremity edema. Extremities are otherwise warm and well perfused. His skin is dry. NEUROLOGIC: There is no asterixis. He seems to be mentating at or near his baseline. LABORATORY DATA: CBC reveals a normal white blood cell count, hemoglobin 10.4, which is improved from 2 weeks ago, at 9.2, platelets 109, also improved from 71 ,000. INR is pending. Complete metabolic panel is remarkable for a potassium of 3.3, total bilirubin 4.8, which is down from 6.5 two weeks ago, conjugated bilirubin 1.6, nonconjugated 3.2. AST and ALT are normal. Alkaline phosphatase is normal. Troponin is negative. Albumin is 3.3, which has trended down from 4.5 over the past 2 weeks. Lipase is 530. Urinalysis reveals 1+ blood, 3-5 red cells. No pyuria and negative nitrites. IMAGING STUDIES: Chest x-ray performed in the emergency department was personally reviewed and interpreted. There was no evidence of infiltrate or pleural effusions, or any acute cardiopulmonary process. Abdominal plain film shows some air-filled bowel, possibly consistent with constipation. ASSESSMENT AND PLAN: The patient is a 56-year-old male with a history of cirrhosis and intermittent ascites, who presents to the emergency department with possible syncope and weakness, and is found to be orthostatic. 1. Possible syncope. I do not think he actually lost consciousness, as he was able to hold his glass of water throughout this event on his stairs. It sounds like he is getting weaker. In addition, he took his oxygen off to go up and down the stairs, and this may have provoked a hypoxemic event. I will give him a gentle fluid bolus and run some IV fluids overnight. PT and OT evaluations are requested. He will be monitored on telemetry, though I doubt this is cardiac syncope. 2. Cirrhosis with ascites. His bilirubin has trended down since his last admission. He does have increased abdominal girth, though no fevers, and his abdomen is relatively nontender so low suspicion for SBP. His diuretics were stopped during his last hospitalization due to acute renal failure. I suspect he is reaccumulating some ascites. Will order a paracentesis for the morning with cell count and culture. Send PT and INR. He appears intravascularly deplete and is receiving fluids for now; however, he likely needs to resume his diuretics at low doses once his volume status is improved 3. Tachycardia. As above, giving IVF's. Considered PE, will send a d dimer. If elevated, will obtain CTPA. 4. Acute encephalopathy. He actually appears to be mentating well, although was reportedly confused. This may have been secondary to hypoxemia, as he had his oxygen off. We will check an ammonia level, as he is at risk for hepatic encephalopathy. 5. Hypokalemia. Replace and follow. 6. Chronic hypoxemic respiratory failure. He is on his baseline oxygen requirement. There are no acute findings on his chest x-ray, and again he is afebrile. 7. Anemia. He developed hemolytic anemia from ribavirin toxicity earlier this month. His hemoglobin has improved since then. He has no transfusion needs and no evidence of bleeding. 8. Thrombocytopenia. This is chronic and improved from his previous hospitalization. 9. Constipation. Bowel protocol ordered. 10. Deep venous thrombosis prophylaxis. Will defer Lovenox for now, as I am planning a paracentesis for the morning. If he remains hospitalized, would start Lovenox post-procedure. CODE STATUS: Patient is a full code. /[id number]/MODL MTDD
[2017-02-13 06:15] LABS: % IMMATURE GRANULYOCYTES 0.4 % (0.0-1.1); ABSOLUTE IMMATURE GRANULOCYTES 0.02 10^3/uL (0.00-0.10); ADD DIFF? NO; ADD MORPH? NO; ADD SCAN? NO; ATYPICAL LYMPHOCYTE FLAG 50 (0-99); FRAGMENT RBC FLAG 0 (0-99); HEMATOCRIT 30.7 % (40.0-51.0); HEMOGLOBIN 10.1 g/dL (13.7-17.5); LEFT SHIFT FLG 0 (0-99); LIPEMIA HEMOLYSIS FLAG 80 (0-99); MEAN CELL HEMOGLOBIN 31.2 pg (27.9-34.1); MEAN CELL HEMOGLOBIN CONCENTR. 32.9 g/dL (32.4-36.7); MEAN CELL VOLUME 94.8 fL (81.5-99.8); MEAN PLATELET VOLUME 9.2 fL (8.7-11.7); PLATELET CLUMPS FLAG 10 (0-99); PLATELET COUNT 95 10^3/uL (150-400); RED BLOOD CELL COUNT 3.24 10^6/uL (4.40-6.38); RED CELL DISTRIBUTION WIDTH 16.8 % (11.5-15.2)
[2017-02-13 06:24] LABS: INR 2.31 (0.83-1.16); PROTIME(PATIENT) 25.6 SEC (12.0-15.0)
[2017-02-13 06:32] LABS: ALANINE AMINOTRANSFERASE 38 IU/L (21-72); ALBUMIN 3.1 g/dL (3.5-5.0); ALKALINE PHOSPHATASE 98 IU/L (38-126); ANION GAP 10 mEq/L (8-16); ASPARTATE AMINOTRANSFERASE 43 IU/L (17-59); BILIRUBIN,TOTAL 4.8 mg/dL (0.1-1.4); CARBON DIOXIDE 23 mEq/l (22-31); CHLORIDE 105 mEq/L (97-110); CREATININE 0.4 mg/dL (0.7-1.3); GLOMERULAR FILTRATION RATE > 60; GLUCOSE 99 mg/dL (70-100); POTASSIUM 3.5 mEq/L (3.5-5.2); SODIUM 138 mEq/L (134-144)
[2017-02-13 06:39] LABS: BILIRUBIN-CONJUGATED 1.8 mg/dL (0.0-0.5)
[2017-02-13] MEDS: hydrOXYzine HCL 25 MG TAB PO PRN (07:01)
[2017-02-13] MEDS ORDERED: IOPAMIDOL (ISOVUE 370) 100 ML BTL IV ONE ×2 (07:51→07:56)
[2017-02-13] MEDS ORDERED: TEMAZEPAM 15 MG CAP PO PRN (09:01)
[2017-02-13] MEDS ORDERED: POTASSIUM CL 20 MEQ TAB PO ONE (09:02)
[2017-02-13] MEDS ORDERED: FUROSEMIDE 20 MG/2 ML VIAL IVP SCH (09:15)
[2017-02-13] MEDS: SENNOSIDES/DOCUSATE SODIUM TAB PO SCH ×2 (10:06→21:03)
--- NOTE | 2017-02-13 10:56 | HOSPPROG ---
Hospitalist Progress Note Assessment/Plan: Prolonged service in addition to the history and physical performed by Dr. Naye Darling, direct patient care, at bedside with patient and , from 5:00 a.m. until 10:10 a.m., 35 minutes, addressing the following: -patient presents with a near syncopal episode most likely secondary to hypoxia in the setting of not wearing his home supplemental oxygen, resulting in a mechanical fall, no trauma -the etiology of patient's hypoxia is most likely secondary to a left-sided pleural effusion in the setting of end-stage liver disease and not being on diuretics for approximately 1 month -the patient's and I have both reiterated to the patient the necessity of wearing his home supplemental oxygen and anticipation that he will require at all times -on physical exam, the patient has moderate abdominal distension without tenderness, most likely ascites, reduced air movement in his left base, no inspiratory crackles, trace bilateral lower extremity edema, no asterixis, alert awake oriented x3, somewhat impulsive movements and occasionally poor judgment -it is my impression that the patient is hypovolemic in the setting of being off of diuretics for 1 month after a 2 week hospitalization including acute kidney injury, decompensated cirrhosis -cautious reintroduction of his diuretics is warranted, and we will start with IV Lasix 20 mg q.8 hours and gauge effect, with the plan to transition to oral Lasix tomorrow if he does demonstrate appreciable diuresis -the patient does present tachycardiac and he did receive IV fluids in the emergency department, but we will stop IV fluids now as he appears total body hypervolemic with an 8 kg weight gain since his last hospitalization -I have discussed his presentation with doctor Naye Darling, we agree that ultrasound should be performed to evaluate the degree of ascites and whether would be safe to provide a therapeutic paracentesis for the patient at this time -if it is determined that paracentesis can be performed, then we may need fresh frozen plasma as his INR is currently 2.3, and he is at high risk of bleeding -his chest CT demonstrates no pulmonary embolism, he does have a left lower lobe effusion, risk greater than benefit of therapeutically tapping this effusion, will proceed with Lasix Objective: Vital Signs Temp Pulse Resp BP Pulse Ox 36.4 C 102 H 16 114/82 H 98 02/13/17 07:23 02/13/17 07:23 02/13/17 07:23 02/13/17 07:23 02/13/17 07:23 Laboratory Results 02/13/17 05:45 02/13/17 05:45 02/12/17 02/13/17 02/14/17 05:59 05:59 05:59 Intake Total 300 Balance 300 PT 25.6 SEC (12.0-15.0) H 02/13/17 05:45 INR 2.31 (0.83-1.16) H 02/13/17 05:45 ICD10 Worksheet Patient Problems: Problems Problem Status Onset Abdominal pain Acute Ascites Acute Hyperbilirubinemia Acute Alcoholism Acute Spontaneous bacterial peritonitis Acute Septic shock Acute Hyponatremia Acute Dehydration Acute Cirrhosis Acute Confusion Acute
[2017-02-13] MEDS ORDERED: LORazepam 0.5 MG TAB PO ONE (12:27)
[2017-02-13] MEDS ORDERED: LIDOCAINE 1% 300 MG/30 ML SDV ONE (13:30)
[2017-02-13] MEDS: FUROSEMIDE 20 MG/2 ML VIAL IVP SCH ×2 (14:28→22:24)
[2017-02-13 15:30] LABS: GLUCOSE, PERITONEAL FLUID 117 mg/dL (55-113)
[2017-02-13] MEDS ORDERED: FLU VACC QS 2017-18 (3YR+)/PF 0.5 ML SYR (FLUARIX QUAD) IM ONE (22:27)
[2017-02-13] MEDS ORDERED: PNEUMOCOCCAL 0.5ML VACCINE VIAL IM ONE (22:27)
[2017-02-14] MEDS: oxyCODONE IR 5 MG TAB PO PRN ×2 (02:14→07:20)
[2017-02-14 05:25] LABS: % IMMATURE GRANULYOCYTES 0.4 % (0.0-1.1); ABSOLUTE IMMATURE GRANULOCYTES 0.02 10^3/uL (0.00-0.10); ADD DIFF? NO; ADD MORPH? NO; ADD SCAN? NO; ATYPICAL LYMPHOCYTE FLAG 40 (0-99); FRAGMENT RBC FLAG 0 (0-99); HEMATOCRIT 31.4 % (40.0-51.0); HEMOGLOBIN 10.2 g/dL (13.7-17.5); LEFT SHIFT FLG 0 (0-99); LIPEMIA HEMOLYSIS FLAG 80 (0-99); MEAN CELL HEMOGLOBIN 30.9 pg (27.9-34.1); MEAN CELL HEMOGLOBIN CONCENTR. 32.5 g/dL (32.4-36.7); MEAN CELL VOLUME 95.2 fL (81.5-99.8); MEAN PLATELET VOLUME 9.5 fL (8.7-11.7); PLATELET CLUMPS FLAG 20 (0-99); PLATELET COUNT 98 10^3/uL (150-400); RED CELL DISTRIBUTION WIDTH 16.9 % (11.5-15.2)
[2017-02-14 05:26] LABS: ALANINE AMINOTRANSFERASE 33 IU/L (21-72); ALBUMIN 2.9 g/dL (3.5-5.0); ALKALINE PHOSPHATASE 114 IU/L (38-126); ANION GAP 8 mEq/L (8-16); ASPARTATE AMINOTRANSFERASE 47 IU/L (17-59); BILIRUBIN,TOTAL 3.9 mg/dL (0.1-1.4); CALCIUM 7.9 mg/dL (8.5-10.4); CARBON DIOXIDE 25 mEq/l (22-31); CHLORIDE 101 mEq/L (97-110); CREATININE 0.6 mg/dL (0.7-1.3); GLOMERULAR FILTRATION RATE > 60; GLUCOSE 93 mg/dL (70-100); POTASSIUM 3.6 mEq/L (3.5-5.2); SODIUM 134 mEq/L (134-144); TOTAL PROTEIN 6.2 g/dL (6.3-8.2)
[2017-02-14] MEDS: FUROSEMIDE 20 MG/2 ML VIAL IVP SCH (05:31)
[2017-02-14 05:34] LABS: BILIRUBIN-CONJUGATED 1.5 mg/dL (0.0-0.5); BILIRUBIN-UNCONJUGATED 2.4 mg/dL (0.0-1.1)
[2017-02-14 07:44] VITALS: BP 114/77; PULSE 112; RESP 16; TEMP 98.4; O2SAT 93
[2017-02-14] MEDS: SENNOSIDES/DOCUSATE SODIUM TAB PO SCH (09:55)
[2017-02-14] MEDS: hydrOXYzine HCL 25 MG TAB PO PRN (09:55)
[2017-02-14] MEDS ORDERED: PNEUMOCOCCAL 0.5ML VACCINE VIAL IM ONE (10:04)
--- NOTE | 2017-02-14 11:23 | ASMTCMCOM ---
CM Note CM Note Notes: Pt is discharging independent today w/ supportive . CM consulted w/ ROSANNA Paez regarding d/c plan of care. Naty, case management from Dr. Maradiaga was in today to see pt. Naty will f/u with pt tomorrow with an outpatient appt to see a specialist. CM available for changes. Date Signed: 02/14/2017 11:23 AM Electronically Signed By:GAUDENCIO Yang
--- NOTE | 2017-02-14 15:13 | ASDISCHSUM ---
Discharge Information Plan Status:Home with No Needs Medically Cleared to Leave:02/14/2017 Discharge Date:02/14/2017 11:36 AM CM D/C Disposition:Home, Routine, Self-Care ADT D/C Disposition:Home, Routine, Self-Care Projected Discharge Date:02/14/2017 12:00 AM Transportation at D/C: Discharge Delay Reason: Follow-Up Date:02/14/2017 12:00 AM Discharge Slot: Final Diagnosis: Placement Information Patient Contact Information Contact Name:PAWAN Relationship: Address:[address] City:[place] Alternate Phone: State/Zip Code:[place] [address] Email: Financial Information Financial Class:Xin Damon Primary Plan Desc:XIN GARZON Primary Plan Number:[id number] Secondary Plan Desc: Secondary Plan Number: Assessment Information [facility] CM Progress Note CM Note CM Note Notes: Pt is discharging independent today w/ supportive . CM consulted w/ ROSANNA Paez regarding d/c plan of care. Naty, case management from Dr. Maradiaga was in today to see pt. Naty will f/u with pt tomorrow with an outpatient appt to see a specialist. CM available for changes. Date Signed: 02/14/2017 11:23 AM Electronically Signed By:GAUDENCIO Yang Intervention Information
--- NOTE | 2017-02-14 15:36 | PDDCSUM ---
Discharge Summary Discharge Summary: DISCHARGE SUMMARY FOLLOW-UP ITEMS: Repeat serum chemistry and CBC prior to follow-up appointment with Dr. Jacky Waddell, follow-up final ascitic fluid culture results DATE OF ADMISSION: 02/13/2017 DATE OF DISCHARGE: 02/14/2017 DISCHARGE DIAGNOSES: 1. Acute syncope 2. End-stage liver disease with cirrhosis and ascites 3. Left-sided pleural effusion CONSULTATIONS: None PROCEDURES / IMAGING: Paracentesis with negative Gram stain, less than 250 white blood cells, lymphocyte predominant CHIEF COMPLAINT: Acute syncope SUBJECTIVE: Patient is feeling well at time of discharge, he is excited to go home PHYSICAL EXAM ON DISCHARGE: Systolic blood pressure is 100, heart rates 100, afebrile overnight, satting well on room air, net-500 cc overnight, abdomen is much softer than day prior, nontender, lungs are clear to auscultation bilaterally with some reduced air movement bilateral bases, trace bilateral lower extremity edema LABS ON DISCHARGE: Potassium 3.6, creatinine 0.6, total bilirubin 3.9 HOSPITAL COURSE BY PROBLEM: The patient presented with near syncopal episode and resultant fall in the setting of hypoxia and not wearing his home oxygen. He had notable pleural effusion on chest x-ray, and notable ascites on physical exam. He is hypovolemic in the setting of discontinuing his diuretics during his last hospitalization. Has gained 8 kg of weight since that time. We will observe the patient overnight while we diurese him with 20 mg of IV Lasix q.8 hours and we noted appreciable diuresis. We will discharge him home with 20 mg of oral Lasix twice daily and Aldactone 25 mg once daily. I recommended that he repeat his outpatient labs prior to his follow-up appointment next week with Dr. Jacky Waddell. I have also recommended that the patient always wear supplemental oxygen and he has his oxygen needs reassessed at his outpatient hepatology appointment next week. Of note, the patient was ruled out for spontaneous bacterial peritonitis with normal diagnostic study of his ascitic fluid, with 2.1 L therapeutically removed. DISCHARGE MEDICATIONS: Please see official discharge medication reconciliation sheet in chart , continue other home medications with the addition Aldactone 25 mg daily, Lasix 20 mg twice daily. DISCHARGE INSTRUCTIONS: Please follow up with hepatology next week as scheduled, labs prior.
== END 2017-02-14 11:36 | disposition home or self-care (01) ==
LOC: F2W 02-13 02:56 → F3E 02-13 14:52
PROVIDERS: ADMIT Hospitalist; ATTEND Hospitalist
PROC: 0W9G3ZX Drainage of Peritoneal Cavity, Percutaneous Approach, Diagnostic (ICD-10-PCS; principal; 2017-02-13)
DX: R55 Syncope and collapse (principal); K72.90 Hepatic failure, unspecified without coma; K74.60 Unspecified cirrhosis of liver; R18.8 Other ascites; J90 Pleural effusion, not elsewhere classified; Z87.891 Personal history of nicotine dependence
CPT/HCPCS: 96374; 97165-GO; G0008; G0009; G0378; J1940; J3010; Q9967

== ENCOUNTER → 2017-02-28 | Outpatient (CLI) | payer OTHER ==
[~2017-02-28] MED LIST changes: -LIDO/EPI 1% **for epidural** 30 ML SDV ONE
== END ==
LOC: FIMAGING 13:25
PROVIDERS: ATTEND Internal Medicine
PROC: 0W9G3ZZ Drainage of Peritoneal Cavity, Percutaneous Approach (ICD-10-PCS; principal; 2017-02-28)
DX: R18.8 Other ascites (principal)

== ENCOUNTER → 2017-03-20 | Outpatient (CLI) | payer OTHER | LOC: FIMAGING 13:30 | PROVIDERS: ATTEND Internal Medicine | PROC: 0W9F3ZZ Drainage of Abdominal Wall, Percutaneous Approach (ICD-10-PCS; principal; 2017-03-20) | DX: R18.8 Other ascites (principal) ==

== ENCOUNTER → 2017-04-05 | Outpatient (CLI) | payer OTHER ==
[2017-04-05 17:08] LABS: GLUCOSE, PERITONEAL FLUID 109 mg/dL (55-113)
== END ==
LOC: FIMAGING 13:07
PROVIDERS: ATTEND Internal Medicine
PROC: 0W9F30Z Drainage of Abdominal Wall with Drainage Device, Percutaneous Approach (ICD-10-PCS; principal; 2017-04-05)
DX: R18.8 Other ascites (principal); K74.60 Unspecified cirrhosis of liver

== ENCOUNTER → 2017-04-14 | Outpatient (CLI) | payer OTHER | LOC: FIMAGING 09:07 | PROVIDERS: ATTEND Internal Medicine | PROC: 0W9F30Z Drainage of Abdominal Wall with Drainage Device, Percutaneous Approach (ICD-10-PCS; principal; 2017-04-14) | DX: R18.8 Other ascites (principal); K74.60 Unspecified cirrhosis of liver ==

== ENCOUNTER 2017-05-01 16:11 | Inpatient (IN) | payer OTHER ==
--- NOTE | 2017-05-01 16:37 | EDPHY ---
H & P Stated Complaint: N/V since this morning;last paracentesis > 2wks ago Time Seen by Provider: 05/01/17 16:26 HPI/ROS: CHIEF COMPLAINT: Abdominal pain, distention, vomiting HISTORY OF PRESENT ILLNESS: The patient has a history of cirrhosis secondary to hepatitis-C and alcohol abuse. He presents to the ED with complaints of abdominal pain, distention and vomiting. The patient reports he last had a paracentesis 2 weeks ago. The patient denies fever, vomiting, cough or recent trauma. The patient is currently taking lactulose in addition to his regular medications for his cirrhosis. The patient has been compliant with his medications until today which she has not been able to tolerate secondary to his vomiting. The patient denies any hematemesis or melena. The patient's regular grooving machine operator is Dr. Jacky Waddell. REVIEW OF SYSTEMS: A comprehensive 10 point review of systems is otherwise negative aside from elements mentioned in the history of present illness. Source: Patient Exam Limitations: No limitations - Personal History Current Tetanus Diphtheria and Acellular Pertussis (TDAP): Yes - Medical/Surgical History Hx Asthma: No Hx Chronic Respiratory Disease: No Hx Diabetes: No Hx Cardiac Disease: Yes Hx Renal Disease: No Hx Cirrhosis: Yes Hx Alcoholism: Yes Hx HIV/AIDS: No Hx Splenectomy or Spleen Trauma: No Other PMH: Bilateral meniscus and ACL tear/injury, Tib/Fib fracture, marijuana user, ETOH (former), ascites, Hep C, sepsis'. cirrhosis - Social History Smoking Status: Former smoker - Physical Exam Exam: General Appearance: Thin cachectic male Eyes: Scleral icterus ENT, Mouth: Mucous membranes moist Respiratory: There are no retractions, lungs are clear to auscultation Cardiovascular: Regular rate and rhythm Gastrointestinal: Distension, tense ascites, mild generalized tenderness Neurological: A&O, normal motor function, normal sensory exam, normal cranial nerves Skin: Jaundice Musculoskeletal: Neck is supple nontender Extremities: symmetrical, full range of motion Constitutional: Initial Vital Signs Temperature (C) 36.8 C 05/01/17 16:16 Heart Rate 132 H 05/01/17 16:16 Respiratory Rate 18 05/01/17 16:16 Blood Pressure 119/87 H 05/01/17 16:16 O2 Sat (%) 95 05/01/17 16:16 O2 Delivery Mode Room Air Allergies/Adverse Reactions: No Known Allergies Allergy (Verified 05/01/17 16:15) Home Medications: Medication Instructions Recorded Temazepam [Restoril 15 MG (*)] 15 mg PO HS PRN 02/13/17 Furosemide 20 mg PO BIDDIUR #60 tablet 02/14/17 Spironolactone 25 mg PO DAILY #30 tablet 02/14/17 oxyCODONE IR [Oxycodone Ir (*)] 10 mg PO Q4H PRN #30 tab 02/14/17 Bp Med 05/01/17 Medical Decision Making ED Course/Re-evaluation: The patient presents to the ED with a history of increasing abdominal ascites, vomiting in the lays. The patient is noted to be normothermic upon arrival. The patient had screening laboratory studies performed. He does have a slight leukocytosis. The patient received 750 mg of IV Levaquin to cover for possible SBP. I have ordered a diagnostic and therapeutic paracentesis. Consultation was made with Dr. Ross from the hospitalist service. He will admit the patient this evening. The patient did received 4 mg of IV Zofran. He received 2 mg of IV morphine. I re-evaluated the patient at 6:30 p.m.. He is comfortable with admission to the hospital. He understands the plan for further evaluation with a diagnostic and therapeutic paracentesis. Differential Diagnosis: Differential diagnosis considered includes ascites, spontaneous bacterial peritonitis, dehydration, metabolic abnormality, anemia - Data Points Laboratory Results: Laboratory Results 05/01/17 16:43 05/01/17 16:43 05/01/17 05/01/17 05/01/17 16:43 16:43 16:43 WBC 13.60 10^3/uL H 10^3/uL (3.80-9.50) RBC 4.95 10^6/uL 10^6/uL (4.40-6.38) Hgb 15.5 g/dL g/dL (13.7-17.5) Hct 44.2 % % (40.0-51.0) MCV 89.3 fL fL (81.5-99.8) MCH 31.3 pg pg (27.9-34.1) MCHC 35.1 g/dL g/dL (32.4-36.7) RDW 17.1 % H % (11.5-15.2) Plt Count 82 10^3/uL L 10^3/uL (150-400) MPV 10.3 fL fL (8.7-11.7) Neut % (Auto) 93.3 % H % (39.3-74.2) Lymph % (Auto) 4.3 % L % (15.0-45.0) [place] % (Auto) 1.8 % L % (4.5-13.0) Eos % (Auto) 0.0 % L % (0.6-7.6) Baso % (Auto) 0.3 % % (0.3-1.7) Nucleat RBC Rel Count 0.0 % % (0.0-0.2) Absolute Neuts (auto) 12.68 10^3/uL H 10^3/uL (1.70-6.50) Absolute Lymphs (auto) 0.59 10^3/uL L 10^3/uL (1.00-3.00) Absolute Monos (auto) 0.25 10^3/uL L 10^3/uL (0.30-0.80) Absolute Eos (auto) 0.00 10^3/uL L 10^3/uL (0.03-0.40) Absolute Basos (auto) 0.04 10^3/uL 10^3/uL (0.02-0.10) Absolute Nucleated RBC 0.00 10^3/uL 10^3/uL (0-0.01) Immature Gran % 0.3 % % (0.0-1.1) Seg Neutrophils % 60 % % Band Neutrophils % 29 % % Lymphocytes % 3 % % Metamyelocytes % 8 % % Immature Gran # 0.04 10^3/uL 10^3/uL (0.00-0.10) Absolute Seg Neuts 8.16 10^/uL H 10^/uL (1.70-6.50) Absolute Band Neuts 3.94 10^3/uL H 10^3/uL (0.00-0.70) Absolute Lymphocytes 0.41 10^3/uL L 10^3/uL (1.00-3.00) Absolute Metamyelocyte 1.09 10^3/mL H 10^3/mL (0.00-0.00) RBC/WBC/PLT Morphology NORMAL (NORMAL) Platelet Estimate DECREASED L (ADEQ) PT 19.8 SEC H SEC (12.0-15.0) INR 1.67 H (0.83-1.16) APTT 38.3 SEC H SEC (23.0-38.0) Sodium 137 mEq/L mEq/L (134-144) Potassium 4.1 mEq/L mEq/L (3.5-5.2) Chloride 99 mEq/L mEq/L (97-110) Carbon Dioxide 18 mEq/l L mEq/l (22-31) Anion Gap 20 mEq/L H mEq/L (8-16) BUN 11 mg/dL mg/dL (7-23) Creatinine 0.7 mg/dL mg/dL (0.7-1.3) Estimated GFR > 60 Glucose 126 mg/dL H mg/dL (70-100) Calcium 8.8 mg/dL mg/dL (8.5-10.4) Total Bilirubin 4.7 mg/dL H mg/dL (0.1-1.4) Conjugated Bilirubin 1.3 mg/dL H mg/dL (0.0-0.5) Unconjugated Bilirubin 3.4 mg/dL H mg/dL (0.0-1.1) AST 65 IU/L H IU/L (17-59) ALT 27 IU/L IU/L (21-72) Alkaline Phosphatase 100 IU/L IU/L (38-126) Total Protein 7.7 g/dL g/dL (6.3-8.2) Albumin 3.0 g/dL L g/dL (3.5-5.0) Lipase 24 IU/L IU/L (23-300) Departure - Departure Disposition: [facility] Inpatient Acute Clinical Impression: Ascites, Dehydration, Vomiting Condition: Fair Referrals: Curt Colvin [Primary Care Provider] - As per Instructions
[2017-05-01 17:09] LABS: PLATELET COUNT 82 10^3/uL (150-400)
[2017-05-01 17:10] LABS: INR 1.67 (0.83-1.16); PROTIME(PATIENT) 19.8 SEC (12.0-15.0)
[2017-05-01] MEDS ORDERED: PROMETHAZINE HCL 25 MG/ML INJ IVP PRN (17:58)
[2017-05-01] MEDS ORDERED: PROMETHAZINE HCL 25 MG TAB PO PRN (17:58)
[2017-05-01] MEDS ORDERED: ONDANSETRON DISINTEGRATING 4 MG TAB PO PRN (17:58)
[2017-05-01] MEDS ORDERED: LIDOCAINE 1% 300 MG/30 ML SDV ONE (18:14)
[2017-05-01] MEDS: ONDANSETRON 4 MG/2 ML VIAL IVP PRN (20:05)
[2017-05-01] MEDS ORDERED: TEMAZEPAM 15 MG CAP PO PRN (20:39)
[2017-05-01] MEDS: oxyCODONE IR 5 MG TAB PO PRN (21:10)
[2017-05-01] MEDS: AMITRIPTYLINE HCL 25 MG TAB PO SCH (21:11)
[2017-05-01] MEDS: LACTULOSE 20 GM/30 ML UDCUP PO SCH (21:11)
[2017-05-01] MEDS: MIDODRINE HCL 5 MG TAB PO SCH (21:31)
--- NOTE | 2017-05-01 23:23 | PDGENHP ---
History and Physical - Chief Complaint Acute abdominal pain - History of Present Illness Primary freight service inspector: Dr. Jacky Waddell HPI: 56-year-old male presenting with acute abdominal pain characterized as a diffuse tenderness located in the abdomen with associated emesis and worsening ascites. Onset of symptoms was approximately 10:00 a.m. on the day of presentation and duration was persistent thereafter. This occurred in the context of progressively worsening ascites since his last paracentesis, which was approximately 2 and half weeks ago. Patient reports he has otherwise been taking all of his home medications, and he reports that the lactulose is very effective in making him move his bowels. The Lasix is also very effective in causing urination. He does experience some lightheadedness which is exacerbated by standing, and this has led him to be particular less active. He has attempted to manage abdominal pain with home dosages of oxycodone, but he reports he has vomiting the pills up. History Information - Allergies/Home Medication List Allergies/Adverse Reactions: No Known Allergies Allergy (Verified 05/01/17 16:15) Home Medications: Temazepam [Restoril 15 MG (*)] 15 mg PO HS PRN 02/13/17 [Last Taken 04/30/17 21: 00] Amitriptyline HCl [Elavil 25 mg (RX)] 25 mg PO HS 05/01/17 [Last Taken 04/30/17 21:00] Cholecalciferol Vit D3 [Vitamin D3 (*)] 3,000 units PO DAILY 05/01/17 [Last Taken 04/30/17 08:00] Furosemide [Lasix 20 MG (*)] 20 mg PO BIDDIUR 05/01/17 [Last Taken 04/30/17 16: 00] Lactulose 20 gm PO BID 05/01/17 [Last Taken 04/30/17 16:00] Midodrine HCl 5 mg PO TID 05/01/17 [Last Taken 04/30/17 16:00] Multivitamins [Multivitamin (*)] 1 tab PO DAILY 05/01/17 [Last Taken 04/30/17 08 :00] Spironolactone [Aldactone 25 MG (*)] 25 mg PO DAILY 05/01/17 [Last Taken 08:00] oxyCODONE IR [Oxycodone Ir (*)] 5 mg PO BID PRN 05/01/17 [Last Taken 04/30/17 21 :00] I have personally reviewed and updated: family history, medical history, social history, surgical history - Past Medical History Additional medical history: End-stage liver disease secondary to alcohol and hepatitis C virus. 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 Knee surgery - Family History Additional family history: Mother with colon cancer - Social History Smoking Status: Former smoker Alcohol Use: Sober Drug Use: None Additional social history: Previously independent in his ADLs, lives with Review of Systems Review of Systems: ROS: 10pt was reviewed & negative except for what was stated in HPI & below Constitutional: Reports: weakness Gastrointestinal: Reports: vomitting, abdominal pain, diarrhea Physical Exam Physical Exam: Temp Pulse Resp BP Pulse Ox 36.7 C 112 H 16 119/75 94 05/01/17 23:03 05/01/17 23:03 05/01/17 23:03 05/01/17 23:03 05/01/17 23:03 O2 (L/minute) 2 Constitutional: no apparent distress, chronically ill appearing, uncomfortable, No not in pain (Moderate in abdomen) Eyes: PERRL, EOMI, icteric sclera Ears, Nose, Mouth, Throat: moist mucous membranes, hearing normal, ears appear normal, no oral mucosal ulcers Cardiovascular: regular rate and rhythym, systolic murmur (1/6 at all valve location), No irregularly irregular, No tachycardia, No edema Respiratory: no respiratory distress, no rales or rhonchi, clear to auscultation Gastrointestinal: normoactive bowel sounds, tenderness (Moderate to mild palpation), ascites, distension (Moderate), No guarding Skin: warm, normal color, no rashes or abrasions, no fluctuance, no induration, No mottled Neurologic: AAOx3, sensation intact bilaterally, other (Mildly tremulous hands) , No weakness, No asterixes Psychiatric: interacting appropriately, not anxious, not encephalopathic, thought process linear Lab Data & Imaging Review 05/01/17 16:43 05/01/17 16:43 WBC 13.60 10^3/uL (3.80-9.50) H 05/01/17 16:43 RBC 4.95 10^6/uL (4.40-6.38) 05/01/17 16:43 Hgb 15.5 g/dL (13.7-17.5) 05/01/17 16:43 Hct 44.2 % (40.0-51.0) 05/01/17 16:43 MCV 89.3 fL (81.5-99.8) 05/01/17 16:43 MCH 31.3 pg (27.9-34.1) 05/01/17 16:43 MCHC 35.1 g/dL (32.4-36.7) 05/01/17 16:43 RDW 17.1 % (11.5-15.2) H 05/01/17 16:43 Plt Count 82 10^3/uL (150-400) L 05/01/17 16:43 MPV 10.3 fL (8.7-11.7) 05/01/17 16:43 Neut % (Auto) 93.3 % (39.3-74.2) H 05/01/17 16:43 Lymph % (Auto) 4.3 % (15.0-45.0) L 05/01/17 16:43 [place] % (Auto) 1.8 % (4.5-13.0) L 05/01/17 16:43 Eos % (Auto) 0.0 % (0.6-7.6) L 05/01/17 16:43 Baso % (Auto) 0.3 % (0.3-1.7) 05/01/17 16:43 Nucleat RBC Rel Count 0.0 % (0.0-0.2) 05/01/17 16:43 Absolute Neuts (auto) 12.68 10^3/uL (1.70-6.50) H 05/01/17 16:43 Absolute Lymphs (auto) 0.59 10^3/uL (1.00-3.00) L 05/01/17 16:43 Absolute Monos (auto) 0.25 10^3/uL (0.30-0.80) L 05/01/17 16:43 Absolute Eos (auto) 0.00 10^3/uL (0.03-0.40) L 05/01/17 16:43 Absolute Basos (auto) 0.04 10^3/uL (0.02-0.10) 05/01/17 16:43 Absolute Nucleated RBC 0.00 10^3/uL (0-0.01) 05/01/17 16:43 Immature Gran % 0.3 % (0.0-1.1) 05/01/17 16:43 Seg Neutrophils % 60 % 05/01/17 16:43 Band Neutrophils % 29 % 05/01/17 16:43 Lymphocytes % 3 % 05/01/17 16:43 Metamyelocytes % 8 % 05/01/17 16:43 Immature Gran # 0.04 10^3/uL (0.00-0.10) 05/01/17 16:43 Absolute Seg Neuts 8.16 10^/uL (1.70-6.50) H 05/01/17 16:43 Absolute Band Neuts 3.94 10^3/uL (0.00-0.70) H 05/01/17 16:43 Absolute Lymphocytes 0.41 10^3/uL (1.00-3.00) L 05/01/17 16:43 Absolute Metamyelocyte 1.09 10^3/mL (0.00-0.00) H 05/01/17 16:43 RBC/WBC/PLT Morphology NORMAL (NORMAL) 05/01/17 16:43 Platelet Estimate DECREASED (ADEQ) L 05/01/17 16:43 PT 19.8 SEC (12.0-15.0) H 05/01/17 16:43 INR 1.67 (0.83-1.16) H 05/01/17 16:43 APTT 38.3 SEC (23.0-38.0) H 05/01/17 16:43 Sodium 137 mEq/L (134-144) 05/01/17 16:43 Potassium 4.1 mEq/L (3.5-5.2) 05/01/17 16:43 Chloride 99 mEq/L (97-110) 05/01/17 16:43 Carbon Dioxide 18 mEq/l (22-31) L 05/01/17 16:43 Anion Gap 20 mEq/L (8-16) H 05/01/17 16:43 BUN 11 mg/dL (7-23) 05/01/17 16:43 Creatinine 0.7 mg/dL (0.7-1.3) 05/01/17 16:43 Estimated GFR > 60 05/01/17 16:43 Glucose 126 mg/dL (70-100) H 05/01/17 16:43 Calcium 8.8 mg/dL (8.5-10.4) 05/01/17 16:43 Total Bilirubin 4.7 mg/dL (0.1-1.4) H 05/01/17 16:43 Conjugated Bilirubin 1.3 mg/dL (0.0-0.5) H 05/01/17 16:43 Unconjugated Bilirubin 3.4 mg/dL (0.0-1.1) H 05/01/17 16:43 AST 65 IU/L (17-59) H 05/01/17 16:43 ALT 27 IU/L (21-72) 05/01/17 16:43 Alkaline Phosphatase 100 IU/L (38-126) 05/01/17 16:43 Total Protein 7.7 g/dL (6.3-8.2) 05/01/17 16:43 Albumin 3.0 g/dL (3.5-5.0) L 05/01/17 16:43 Lipase 24 IU/L (23-300) 05/01/17 16:43 Urine Color GRAYSON 05/01/17 21:45 Urine Appearance CLEAR 05/01/17 21:45 Urine pH 5.0 (5.0-7.5) 05/01/17 21:45 Ur Specific [place] 1.018 (1.002-1.030) 05/01/17 21:45 Urine Protein NEGATIVE (NEGATIVE) 05/01/17 21:45 Urine Ketones NEGATIVE (NEGATIVE) 05/01/17 21:45 Urine Blood 2+ (NEGATIVE) H 05/01/17 21:45 Urine Nitrate NEGATIVE (NEGATIVE) 05/01/17 21:45 Urine Bilirubin NEGATIVE (NEGATIVE) 05/01/17 21:45 Urine Urobilinogen 2.0 EU (0.2-1.0) H 05/01/17 21:45 Ur Leukocyte Esterase NEGATIVE (NEGATIVE) 05/01/17 21:45 Urine RBC 5-10 /hpf (0-3) H 05/01/17 21:45 Urine WBC 3-5 /hpf (0-3) H 05/01/17 21:45 Ur Epithelial Cells NONE SEEN /lpf (NONE-1+) 05/01/17 21:45 Hyaline Casts 15-25 /lpf (0-1) H 05/01/17 21:45 Urine Mucus TRACE /lpf (NONE-1+) 05/01/17 21:45 Urine Glucose NEGATIVE (NEGATIVE) 05/01/17 21:45 Fluid Meso/Macro/Glascock % 12 % (70-100) L 05/01/17 17:54 Fluid Glucose Cancelled 05/01/17 17:54 Fluid Total Protein Cancelled 05/01/17 17:54 Peritoneal Source PERITONEAL 05/01/17 17:54 Peritoneal Color YELLOW (CLS/PALE YL) H 05/01/17 17:54 Peritoneal Appearance CLOUDY (CLEAR) H 05/01/17 17:54 Peritoneal WBC 8440 /mm3 (0-0) H 05/01/17 17:54 Peritoneal RBC 6303 /mm3 (0-0) H 05/01/17 17:54 Periton Neutrophils 85 % (0-7) H 05/01/17 17:54 Periton Lymphocytes % 3 % (0-18) 05/01/17 17:54 Peritoneal Tot Protein < 2.0 g/dL 05/01/17 17:54 Peritoneal Glucose 100 mg/dL (55-113) 05/01/17 17:54 Assessment & Plan Assessment: 56-year-old male presenting with acute spontaneous bacterial peritonitis in the setting of end-stage liver disease Plan: 1. SBP. Acute, new problem this provider, further workup indicated. Evidenced by greater than 8000 white blood cells on diagnostic paracentesis with neutrophil predominance, abdominal pain, leukocytosis -Gram stain and culture currently pending -discussed with Dr. Kings Vasquez, we both agree that IV levofloxacin is an appropriate choice, continue -therapeutically remove 3 L of fluid 2. End-stage liver disease. Meld 20, 3-4% 90 day mortality, obvious impairment of synthetic function with thrombocytopenia, coagulopathy, worsening hyperbilirubinemia -reviewed outside records including 02/22/2017 total bilirubin level 3.4 -reviewed most recent discharge summary by Dr. Tyson Ross, 02/14/2017, reports the patient was discharged on Lasix 20 mg twice daily, Aldactone 25 mg once daily, hemodynamically stable at that time -will hold diuretics given his acute infection, reinitiate once he has completely stabilized -will continue lactulose scheduled -will continue to monitor labs to monitor synthetic function The patient will continue to work with Dr. Jacky Waddell, despite patient nearing end of life, he continues to want aggressive care 3. Continuous opiate dependency. Continue home pain medications Diet. Regular Prophylaxis. High risk patient, SCDs, hold pharm given coagulopathies Code. Full per patient, is MD POAnitha Disposition. Anticipated discharge uncertain at this time, anticipated length stay is greater than 48 hr warranting inpatient admission status for reasonable amount of medical necessity including spontaneous bacterial peritonitis in the setting of high risk comorbid end-stage liver disease rendering patient high- level of medical complexity.
[2017-05-02 06:32] LABS: PLATELET COUNT 73 10^3/uL (150-400)
[2017-05-02] MEDS: MIDODRINE HCL 5 MG TAB PO SCH ×3 (08:46→21:37)
[2017-05-02] MEDS: oxyCODONE IR 5 MG TAB PO PRN ×2 (09:05→20:13)
--- NOTE | 2017-05-02 10:01 | PDMN ---
Medical Necessity Medical necessity: Pt meets INPT criteria per and [facility] [place] [facility] Liver Disease Complications (spontaneous bacterial peritonitis in the setting of end-stage liver disease with thrombocytopenia, cogulopathy, worsening hyperbilirubinemia per H&P).
[2017-05-02] MEDS: ONDANSETRON 4 MG/2 ML VIAL IVP PRN ×2 (10:15→16:17)
[2017-05-02] MEDS: CHOLECALCIFEROL VIT D3 1,000 UNITS TAB PO SCH (10:33)
[2017-05-02] MEDS: LACTULOSE 20 GM/30 ML UDCUP PO SCH ×2 (10:33→20:13)
[2017-05-02] MEDS: MULTIVITAMINS 1 EACH TAB PO SCH (10:33)
--- NOTE | 2017-05-02 11:05 | HOSPPROG ---
Hospitalist Progress Note Assessment/Plan: Mr Hayes is a 56-year-old male presenting with abdominal pain and has acute spontaneous bacterial peritonitis. Today is my first encounter with the patient , chart reviewed. Will ask ID to get involved with his care. *SBP -started on Levaquin -changed to Ceftriaxone 2 gms for better penetration but will ask ID to weigh in -s/p paracentesis w removal of close to 4 L of fluid *hypoalbuminemia -will give iv albumin now *nausea without vomiting -will order iv hydration if not drinking *ESLD/MELD is 20 -on transplant list -hyperbilirubinemia * sepsis w Tachycardia with associated elevated WBC -due to SBP -will check a lactate now *continuous opiate dependency -home meds resumed *thrombocytopenia -will follow *DVT prophylaxis Disposition. pending/ he will require another midnight stay for treatment of the above Subjective: Nav is feeling poorly today, has no appetite. Objective: Vital Signs Temp Pulse Resp BP Pulse Ox 36.5 C 117 H 17 114/76 91 L 05/02/17 08:20 05/02/17 08:20 05/02/17 08:20 05/02/17 08:20 05/02/17 08:20 Microbiology 05/01/17 17:54 Gram Stain - Final Peritoneal Fluid - Aspirate Laboratory Results 05/02/17 05:20 05/02/17 05:20 05/01/17 05/02/17 05/03/17 05:59 05:59 05:59 Intake Total 950 Output Total 700 Balance 250 PT 19.8 SEC (12.0-15.0) H 05/01/17 16:43 INR 1.67 (0.83-1.16) H 05/01/17 16:43 - Physical Exam Constitutional: chronically ill appearing, uncomfortable Eyes: PERRL Ears, Nose, Mouth, Throat: hearing normal Cardiovascular: regular rate and rhythym Respiratory: no respiratory distress Gastrointestinal: ascites Skin: warm Musculoskeletal: generalized weakness Neurologic: AAOx3 Psychiatric: interacting appropriately ICD10 Worksheet Patient Problems: Problems Problem Status Onset Ascites Acute Dehydration Acute Vomiting Acute Abdominal pain Acute Alcoholism Acute Cirrhosis Acute Confusion Acute Hyperbilirubinemia Acute Hyponatremia Acute Septic shock Acute Spontaneous bacterial peritonitis Acute
[2017-05-02] MEDS ORDERED: ALBUMIN 5% 250 ML IV ONE (11:11)
[2017-05-02] MEDS ORDERED: ALBUMIN 25% 200 ML IV ONE (11:14)
--- NOTE | 2017-05-02 11:22 | ASMTCASEMG ---
Living Arrangements What is your living Answers: With Spouse arrangement? Who do you live with? Type Of Residence What kind of residence do Answers: House you live in? Discharge Plan Comments Coordination Status Comments Notes: CM spoke w/ Susan RN regarding d/c POC. Pt is a 56 y/o man admitted for ascities and vomiting. Therapies have been ordered and awaiting recommendations. Needs are TBD at this time. CM to follow. Plan: TBD Date Signed: 05/02/2017 11:22 AM Electronically Signed By:GAUDENCIO Yang
[2017-05-02] MEDS: D5W NS 1,000 ML IV SCH (18:04)
--- NOTE | 2017-05-02 18:57 | GCON ---
[f rep st] CONSULTATION INFECTIOUS DISEASE CONSULTATION DATE OF CONSULTATION: 05/02/2017 REFERRING PHYSICIAN: Marce Iraheta NP REASON FOR CONSULTATION: Spontaneous bacterial peritonitis for further evaluation and opinion. CHIEF COMPLAINT: Abdominal pain. HISTORY OF PRESENT ILLNESS: This is a 56-year-old male with a past medical history significant for h istory of liver disease secondary to alcohol, hepatitis C status post treatment with occlusal and rib avirin with clearance period, SBP with bacteremia in the past secondary to Klebsiella oxytoca. He ca me in yesterday due to increasing abdominal pain which was acute and progressive in nature. His last paracentesis was 2-1/2 weeks ago. He felt like his abdomen was continuing to become more and more d istended and he was having more pain. He apparently 2 weeks ago was evaluated down at the [facility] for liver transplantation. He was started on lactulose at the time. He states that he has been having 2 loose bowel movements each day since that time. He has been on Lasix therapy. He denied any fevers or shaking chills, but does not feel well. Yesterday he had greater than 3 L remov ed of serous ascites fluid, which was sent for analysis. He states that despite that, he has not fel t much better. He was started on Levaquin yesterday. Infectious Disease is now consulted for furthe r evaluation and opinion. REVIEW OF SYSTEMS: GENERAL: Denies any fever or shaking chills. HEAD: No headache. EYES: No alexandra nge in vision. ENT: No sore throat or difficulty swallowing, ear pain or any drainage. CARDIOVASCU LAR: Denies any chest pain. He is tachycardic. RESPIRATORY: Denies any shortness of breath, cough or sputum production. ABDOMEN: Abdominal pain all over with some nausea and no vomiting, and 2 loo se bowel movements each day. URINE: Denies any dysuria or hematuria. MUSCULOSKELETAL: Denies any joint pain or muscle aches. SKIN: Denies any rashes. The rest of the 10-point review of systems es sentially negative except for above. PAST MEDICAL HISTORY: Significant for end-stage liver disease secondary to alcohol, hepatitis C stat us post treatment. PAST SURGICAL HISTORY: Significant for knee surgeries secondary to ACL tear with no hardware in plac e, recurrent paracentesis. ALLERGIES: No known drug allergies. FAMILY HISTORY: Significant for colon cancer. SOCIAL HISTORY: He is a former smoker and formerly used to drink alcohol but has not recently. No i llicit drug usage. Lives with his . 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 MEDICATIONS: As per MAR. PHYSICAL EXAMINATION: VITAL SIGNS: Temperature current 36.5, pulse is 117, blood pressure 114/76, r espiratory rate is 17, saturation 91% on 2 L O2 via nasal cannula. GENERAL: Patient is resting in b ed in no acute respiratory distress. Awake, alert, and oriented x3. He appears weak. HEENT: Head is normocephalic, atraumatic. Eyes without conjunctival injection or petechiae noted. Oropharynx is clear. There is no posterior erythema or thrush. CARDIOVASCULAR: S1, S2. Regular rhythm. He is tachycardic no obvious murmurs appreciated. RESPIRATORY: Clear to auscultate bilaterally. No rhonc hi appreciated. ABDOMEN: Bowel sounds are quiet. Abdomen is distended but not tense. Abdominal pa in all over. EXTREMITIES: No lower extremity edema. MUSCULOSKELETAL: No obvious joint effusions. SKIN: No obvious rashes. LABORATORY DATA: White blood cell count is 13.1, hemoglobin 13.8, platelets are 73, neutrophil count is 87%. Sodium 134, potassium 3.9, chloride is 98, bicarb is 25, BUN is 14, creatinine is 0.7. Tot al bilirubin 4.5, AST 63, ALT 29, alkaline phosphatase 103. Peritoneal fluid shows cloudy fluid with 8440 whites, 6303 RBCs, neutrophil predominance of 85%. Protein is less than 2. No blood cultures were done on admission. The peritoneal fluid has 1+ polys, no organisms. Cultures pending. No imag ing has been done on this admission so far. ASSESSMENT: Spontaneous bacterial peritonitis. PLAN: Agree with ceftriaxone but will reduce dose down to 1 g daily. We will follow cultures to bet ter adjust antimicrobials. We will also collect blood cultures today as well to increase microbiolog ic data, given that he continues to not feel well. If the patient does not continue to feel better i n the next 24 to 48 hours, would recommend further imaging to further evaluate. Also monitor stool o utput. His loose stools are likely related to recent lactulose intake, but given his recent prior hi story to antibiotics, we will keep a close eye as he would be at increased risk for C difficile. Aga in, continue to monitor for close clinical improvement; if does not continue to improve also in the n ext 48 hours, may need to consider repeat paracentesis as well to ensure that peritoneal WBCs are imp roving. He also may need to be considered for antibiotic microbial prophylaxis for SBP in the future , given previous episode. Care coordinated with the hospitalist team. Plan of care discussed with the patient and his at bedside. I thank you very much for this opportunity to care for your patient in consultation. /[id number]/MODL
[2017-05-02] MEDS: AMITRIPTYLINE HCL 25 MG TAB PO SCH (20:13)
[2017-05-03] MEDS: D5W NS 1,000 ML IV SCH (02:16)
[2017-05-03] MEDS ORDERED: ALBUMIN 25% 50 ML IV ONE (04:19)
[2017-05-03] MEDS ORDERED: FUROSEMIDE 20 MG/2 ML VIAL IVP ONE (04:19)
[2017-05-03 06:01] LABS: PLATELET COUNT 61 10^3/uL (150-400)
[2017-05-03] MEDS: MIDODRINE HCL 5 MG TAB PO SCH ×3 (09:57→22:37)
[2017-05-03] MEDS: CHOLECALCIFEROL VIT D3 1,000 UNITS TAB PO SCH (09:57)
[2017-05-03] MEDS: MULTIVITAMINS 1 EACH TAB PO SCH (09:57)
[2017-05-03] MEDS: LACTULOSE 20 GM/30 ML UDCUP PO SCH ×2 (09:58→22:36)
--- NOTE | 2017-05-03 11:39 | PCMIDPN ---
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 No identification yet. Patient is currently covered with ceftriaxone monotherapy. Clinically he is stable in not worsened. White blood cells have normalized. Plan: 1. Continue ceftriaxone empiric therapy. 2. Follow up on gram-negative isaiah identification from the peritoneal fluid. 3. Make decisions on IV treatment versus p.o. treatment given the identification sensitivity of the isolate. 05/03/17 13:16 Subjective: Patient is resting in his hospital bed. He states he feels poorly still. Continues to acknowledge ongoing abdominal pain. No diarrhea. No fevers or chills. Objective: Ceftriaxone # 1 Vital Signs Temp Pulse Resp BP Pulse Ox 36.6 C 106 H 16 118/78 94 05/03/17 11:00 05/03/17 11:00 05/03/17 11:00 05/03/17 11:00 05/03/17 11:00 Microbiology 05/01/17 17:54 Gram Stain - Final Peritoneal Fluid - Aspirate Laboratory Results 05/03/17 05:40 05/03/17 05:40 05/02/17 05/03/17 05/04/17 05:59 05:59 05:59 Intake Total 950 3012 Output Total 700 600 Balance 250 2412 - Physical Exam General Appearance: WD/WN, alert, no apparent distress, non-toxic Respiratory: lungs clear, normal breath sounds, No respiratory distress Cardiac/Chest: regular rate, rhythm, No tachycardia Abdomen: soft, distended, No non-tender Skin: normal color, warm/dry, No rash Neuro/Psych: alert, normal mood/affect, oriented x 3 ICD10 Worksheet Patient Problems: Problems Problem Status Onset Ascites Acute Dehydration Acute Vomiting Acute Abdominal pain Acute Alcoholism Acute Cirrhosis Acute Confusion Acute Hyperbilirubinemia Acute Hyponatremia Acute Septic shock Acute Spontaneous bacterial peritonitis Acute
[2017-05-03] MEDS: LORazepam 2 MG/ML INJ IVP PRN (15:23)
[2017-05-03] MEDS: oxyCODONE IR 5 MG TAB PO PRN (15:23)
--- NOTE | 2017-05-03 16:16 | HOSPPROG ---
Hospitalist Progress Note Assessment/Plan: Mr Hayes is a 56-year-old male presenting with abdominal pain and has acute spontaneous bacterial peritonitis. *SBP -Ceftriaxone #2 -patient c/o ongoing abdominal pain -s/p paracentesis w removal of close to 4 L of fluid *ascites -abdomen is slightly larger than my eval yesterday -unable to resume diuretics, has very little intake *hypoalbuminemia -will give iv albumin now *nausea without vomiting -will order iv hydration if not drinking -no relief w zofran and phenegran, trial of low dose ativan *ESLD/MELD is 20 -on transplant list -hyperbilirubinemia. Better today * sepsis w Tachycardia with associated elevated WBC -due to SBP -lactate stable, wbc improving *continuous opiate dependency -home meds resumed *thrombocytopenia -will follow *DVT prophylaxis: encourage mobilization, has low platelet count Disposition. pending Subjective: Nav is feeling poorly, doesn't want to eat or drink/ has ongoing abdominal pain. Objective: Vital Signs Temp Pulse Resp BP Pulse Ox 37.0 C 111 H 19 113/76 94 05/03/17 15:31 05/03/17 15:31 05/03/17 15:31 05/03/17 15:31 05/03/17 15:31 Microbiology 05/01/17 17:54 Gram Stain - Final Peritoneal Fluid - Aspirate Laboratory Results 05/03/17 05:40 05/03/17 05:40 05/02/17 05/03/17 05/04/17 05:59 05:59 05:59 Intake Total 950 3012 Output Total 700 600 Balance 250 2412 PT 19.8 SEC (12.0-15.0) H 05/01/17 16:43 INR 1.67 (0.83-1.16) H 05/01/17 16:43 - Physical Exam Constitutional: chronically ill appearing, uncomfortable, No not in pain Eyes: PERRL Ears, Nose, Mouth, Throat: hearing normal Cardiovascular: regular rate and rhythym, tachycardia Respiratory: no respiratory distress Gastrointestinal: tenderness, ascites Skin: warm, No normal color (pale) Musculoskeletal: generalized weakness Neurologic: AAOx3 Psychiatric: interacting appropriately ICD10 Worksheet Patient Problems: Problems Problem Status Onset Ascites Acute Dehydration Acute Vomiting Acute Abdominal pain Acute Alcoholism Acute Cirrhosis Acute Confusion Acute Hyperbilirubinemia Acute Hyponatremia Acute Septic shock Acute Spontaneous bacterial peritonitis Acute
[2017-05-03] MEDS: AMITRIPTYLINE HCL 25 MG TAB PO SCH (22:37)
[2017-05-04 05:29] LABS: PLATELET COUNT 52 10^3/uL (150-400)
[2017-05-04] MEDS: oxyCODONE IR 5 MG TAB PO PRN ×3 (06:05→21:26)
--- NOTE | 2017-05-04 11:08 | HOSPPROG ---
Hospitalist Progress Note Assessment/Plan: Mr Hayes is a 56-year-old male presenting with abdominal pain and has acute spontaneous bacterial peritonitis. *SBP -Ceftriaxone #3 -patient c/o ongoing abdominal pain -s/p paracentesis w removal of close to 4 L of fluid -discussed w ID about further imaging, will hold off for now *ascites -abdomen is similar in size as yesterday -unable to resume diuretics, has very little intake -will get daily weights *Hyponatremia -awaiting urine studies *hypoalbuminemia -will give iv albumin now *nausea without vomiting -will order iv hydration if not drinking -no relief w zofran and phenegran, trial of low dose ativan *ESLD/MELD is 20 -on transplant list -hyperbilirubinemia. Better today * sepsis w Tachycardia with associated elevated WBC -due to SBP -lactate stable, wbc improving -cont to be tachycardic *hypoxemia -chest xray shows nothing acute -suspect it is from atelectasis and his abdomen (ascites is likely impacting him ) *continuous opiate dependency -home meds resumed *thrombocytopenia -will follow *DVT prophylaxis: encourage mobilization, has low platelet count Disposition. pending, Reviewed his care w Dr Cotter, will cont lactulose as ordered. Labs improving. Will cont close monitoring. Subjective: Nav said he feels poorly today and not much better. Objective: Vital Signs Temp Pulse Resp BP Pulse Ox 36.8 C 114 H 20 139/92 H 89 L 05/04/17 08:00 05/04/17 08:00 05/04/17 08:00 05/04/17 08:00 05/04/17 08:00 Microbiology 05/01/17 17:54 Gram Stain - Final Peritoneal Fluid - Aspirate Laboratory Results 05/04/17 04:39 05/04/17 04:39 05/03/17 05/04/17 05/05/17 05:59 05:59 05:59 Intake Total 3012 850 Output Total 600 Balance 2412 850 PT 19.8 SEC (12.0-15.0) H 05/01/17 16:43 INR 1.67 (0.83-1.16) H 05/01/17 16:43 - Physical Exam Constitutional: chronically ill appearing, uncomfortable, No not in pain Eyes: PERRL Ears, Nose, Mouth, Throat: hearing normal Cardiovascular: regular rate and rhythym, tachycardia Respiratory: no respiratory distress, reduced air movement (bibasilar w few crackles r base) Gastrointestinal: tenderness, ascites Skin: warm Musculoskeletal: generalized weakness Neurologic: AAOx3, other (intermittent confusion) Psychiatric: interacting appropriately, poor memory ICD10 Worksheet Patient Problems: Problems Problem Status Onset Ascites Acute Dehydration Acute Vomiting Acute Abdominal pain Acute Alcoholism Acute Cirrhosis Acute Confusion Acute Hyperbilirubinemia Acute Hyponatremia Acute Septic shock Acute Spontaneous bacterial peritonitis Acute
[2017-05-04] MEDS: CHOLECALCIFEROL VIT D3 1,000 UNITS TAB PO SCH (11:50)
[2017-05-04] MEDS: MIDODRINE HCL 5 MG TAB PO SCH ×3 (11:50→21:26)
[2017-05-04] MEDS: LACTULOSE 20 GM/30 ML UDCUP PO SCH ×2 (11:50→21:35)
[2017-05-04] MEDS: MULTIVITAMINS 1 EACH TAB PO SCH (11:51)
--- NOTE | 2017-05-04 15:23 | PCMIDPN ---
Assessment/Plan: #Sepsis due to SBP: resolved #SBP with Ecoli with underlying Cirrhosis - slow to improve but some signs of improvement with resolved leukocytosis, resolved N/V, improving mentation (per family report). Still has tachycardia --continue ceftriaxone --continue to address need for repeat tap or CT abd/pelvis tomorrow meds Ceftriaxone 1gm IV daily #3, 05/02 s/p levo x 2 doses Microbiology 05/01/17 17:54 Peritoneal Fluid - Aspirate Body Fluid Culture - Final Escherichia Coli only R Amp, Amp/sulbactam 05/02/17 14:34 Blood Cx (2) NGTD Subjective: patient still c/o abdominal pain no diarrhea drinking some fluids today Objective: Vital Signs Temp Pulse Resp BP Pulse Ox 36.7 C 106 H 20 123/79 H 97 05/04/17 12:11 05/04/17 12:11 05/04/17 12:11 05/04/17 12:11 05/04/17 12:11 Microbiology 05/01/17 17:54 Gram Stain - Final Peritoneal Fluid - Aspirate Body Fluid Culture - Final Escherichia Coli Laboratory Results 05/04/17 04:39 05/04/17 04:39 05/03/17 05/04/17 05/05/17 05:59 05:59 05:59 Intake Total 3012 850 Output Total 600 400 Balance 2412 850 -400 - Physical Exam General Appearance: alert, cachetic, thin EENT: pale conjunctiva, dry mucous membranes, No thrush Respiratory: other (decreased bs), No accessory muscle use Cardiac/Chest: tachycardia Extremities: pedal edema Abdomen: normal bowel sounds, soft, ascites, No peritoneal signs Skin: jaundice, pallor Neuro/Psych: alert, oriented x 3, depressed affect - Time Spent With Patient Time Spent with Patient: greater than 35 minutes (reviewing measures of improvement, plans for IV antibiotics, potential need for additional w/u) Time Spent with Patient: Greater than 35 minutes spent on this patients care, greater than 50% of time spent counseling, educating, and coordinating care regarding the above mentioned plan. ICD10 Worksheet Patient Problems: Problems Problem Status Onset Ascites Acute Dehydration Acute Vomiting Acute Abdominal pain Acute Alcoholism Acute Cirrhosis Acute Confusion Acute Hyperbilirubinemia Acute Hyponatremia Acute Septic shock Acute Spontaneous bacterial peritonitis Acute
[2017-05-04] MEDS: AMITRIPTYLINE HCL 25 MG TAB PO SCH (21:26)
[2017-05-05 04:53] LABS: PLATELET COUNT 58 10^3/uL (150-400)
[2017-05-05] MEDS: oxyCODONE IR 5 MG TAB PO PRN ×2 (08:52→16:22)
[2017-05-05] MEDS: MULTIVITAMINS 1 EACH TAB PO SCH (08:53)
[2017-05-05] MEDS: MIDODRINE HCL 5 MG TAB PO SCH ×3 (08:53→21:21)
[2017-05-05] MEDS: CHOLECALCIFEROL VIT D3 1,000 UNITS TAB PO SCH (08:53)
[2017-05-05] MEDS: LACTULOSE 20 GM/30 ML UDCUP PO SCH ×2 (08:54→21:22)
--- NOTE | 2017-05-05 09:41 | PCMIDPN ---
Assessment/Plan: #Sepsis due to SBP #SBP with Ecoli with underlying Cirrhosis: Still quite tachy, confused (but likely due to cirrhosis), bandemia, no peritoneal signs, large amt ascites --continue ceftriaxone --repeat peritoneal tap to assure response to therapy --no sure how much CT will help, no peritoneal signs # encephalopathy: suspect due to cirrhosis and not taking lactulose due to poor PO intake. Meds Ceftriaxone 1gm IV daily #4, 05/02 s/p levo x 2 doses Microbiology 05/01/17 17:54 Peritoneal Fluid - Aspirate Body Fluid Culture: Escherichia Coli only R Amp, Amp/sulbactam 05/02/17 14:34 Blood Cx (2) NGTD Care reviewed with Marce Iraheta [employer] Subjective: patient c/o mild abdominal pain pulled out IV and bed wet from IVs going into bed (which included ceftriaxone) Confused but following commands Objective: Vital Signs Temp Pulse Resp BP Pulse Ox 36.8 C 115 H 16 104/85 H 90 L 05/05/17 08:00 05/05/17 08:00 05/05/17 08:00 05/05/17 08:00 05/05/17 08:00 Microbiology 05/01/17 17:54 Gram Stain - Final Peritoneal Fluid - Aspirate Body Fluid Culture - Final Escherichia Coli Laboratory Results 05/05/17 04:40 05/05/17 04:40 05/04/17 05/05/17 05/06/17 05:59 05:59 05:59 Intake Total 850 600 Output Total 400 Balance 850 200 - Physical Exam General Appearance: no apparent distress, thin EENT: scleral icterus, pale conjunctiva, dry mucous membranes Respiratory: lungs clear, No accessory muscle use Neck: supple Cardiac/Chest: tachycardia Abdomen: normal bowel sounds, non-tender, soft, ascites, No peritoneal signs Male Genitalia: No bernal Skin: jaundice, pallor Neuro/Psych: alert, confused - Time Spent With Patient Time Spent with Patient: greater than 35 minutes Time Spent with Patient: Greater than 35 minutes spent on this patients care, greater than 50% of time spent counseling, educating, and coordinating care regarding the above mentioned plan. ICD10 Worksheet Patient Problems: Problems Problem Status Onset Ascites Acute Dehydration Acute Vomiting Acute Abdominal pain Acute Alcoholism Acute Cirrhosis Acute Confusion Acute Hyperbilirubinemia Acute Hyponatremia Acute Septic shock Acute Spontaneous bacterial peritonitis Acute
[2017-05-05] MEDS ORDERED: ALBUMIN 25% 100 ML IV ONE ×2 (09:47→17:00)
--- NOTE | 2017-05-05 09:50 | HOSPPROG ---
Hospitalist Progress Note Assessment/Plan: Mr Hayes is a 56-year-old male presenting with abdominal pain and has acute spontaneous bacterial peritonitis. *SBP -Ceftriaxone #4 -patient c/o ongoing abdominal pain -s/p paracentesis w removal of close to 4 L of fluid -discussed w ID about further imaging, will hold off for now *ascites -abdomen larger, will get a paracentesis today (this will be his second one) -will get daily weights -hold diuretics/ patient is not eating or drinking much *acute encephalopathy -ammonia level elevated -patient has been declining lactulose. will take it when his is here -increased the dose to tid from bid *Hyponatremia -urine NA is low -hold diuretics -gave a dose of albumin -will give a fluid bolus now -recheck in a.m. *hypoalbuminemia -will give iv albumin now *nausea without vomiting -will order iv hydration if not drinking -no relief w zofran and phenegran, trial of low dose ativan *ESLD/MELD is 20 -on transplant list -hyperbilirubinemia. Better today * sepsis w Tachycardia with associated elevated WBC -due to SBP -lactate stable, wbc improving -cont to be tachycardic *hypoxemia -chest xray shows nothing acute -suspect it is from atelectasis and his abdomen (ascites is likely impacting him ) *continuous opiate dependency -home meds resumed *thrombocytopenia -will follow *DVT prophylaxis: encourage mobilization, has low platelet count Disposition. pending, Reviewed his care w Dr Cotter, ordered a paracentesis w albumin replacement Subjective: Nav is c/o ongoing abdominal pain. Objective: Vital Signs Temp Pulse Resp BP Pulse Ox 36.8 C 115 H 16 104/85 H 90 L 05/05/17 08:00 05/05/17 08:00 05/05/17 08:00 05/05/17 08:00 05/05/17 08:00 Microbiology 05/01/17 17:54 Gram Stain - Final Peritoneal Fluid - Aspirate Body Fluid Culture - Final Escherichia Coli Laboratory Results 05/05/17 04:40 05/05/17 04:40 05/04/17 05/05/17 05/06/17 05:59 05:59 05:59 Intake Total 850 600 Output Total 400 Balance 850 200 PT 19.8 SEC (12.0-15.0) H 05/01/17 16:43 INR 1.67 (0.83-1.16) H 05/01/17 16:43 - Physical Exam Constitutional: chronically ill appearing, uncomfortable Eyes: PERRL Ears, Nose, Mouth, Throat: hearing normal Cardiovascular: regular rate and rhythym, tachycardia Respiratory: no respiratory distress, reduced air movement Gastrointestinal: normoactive bowel sounds, tenderness, ascites Skin: warm Musculoskeletal: generalized weakness Neurologic: other (alert and oriented to person,place and time and why he's here , but this varies througout the day) Psychiatric: interacting appropriately ICD10 Worksheet Patient Problems: Problems Problem Status Onset Ascites Acute Dehydration Acute Vomiting Acute Abdominal pain Acute Alcoholism Acute Cirrhosis Acute Confusion Acute Hyperbilirubinemia Acute Hyponatremia Acute Septic shock Acute Spontaneous bacterial peritonitis Acute
[2017-05-05] MEDS ORDERED: LIDOCAINE 1% 300 MG/30 ML SDV ONE ×2 (11:43→17:34)
[2017-05-05] MEDS ORDERED: HYDROmorphONE/DILAUDID 1 MG/ML INJ IVP ONE ×2 (12:31→16:58)
[2017-05-05] MEDS ORDERED: LORazepam 1 MG TAB ONE (12:33)
[2017-05-05] MEDS: LORazepam 2 MG/ML INJ IVP PRN (16:22)
[2017-05-05] MEDS ORDERED: NS 250 ML IV ONE (16:35)
[2017-05-05] MEDS ORDERED: LR 250 ML IV ONE (17:00)
[2017-05-05] MEDS ORDERED: HYDROmorphONE/DILAUDID 1 MG/ML INJ ONE (17:02)
--- NOTE | 2017-05-05 18:02 | ASMTCMCOM ---
CM Note CM Note Notes: Pt very ill, with confusion and significant ascites. PT/OT recommend SNF, dc date unclear. CM to follow up with re snf choices. Date Signed: 05/05/2017 06:02 PM Electronically Signed By:Micheline Perez RN
[2017-05-05] MEDS: AMITRIPTYLINE HCL 25 MG TAB PO SCH (21:21)
[2017-05-06 04:55] LABS: PLATELET COUNT 43 10^3/uL (150-400)
[2017-05-06] MEDS: oxyCODONE IR 5 MG TAB PO PRN ×3 (08:00→18:47)
[2017-05-06] MEDS: CHOLECALCIFEROL VIT D3 1,000 UNITS TAB PO SCH (08:00)
[2017-05-06] MEDS: LACTULOSE 20 GM/30 ML UDCUP PO SCH ×3 (08:01→21:09)
[2017-05-06] MEDS: MIDODRINE HCL 5 MG TAB PO SCH ×3 (08:01→21:09)
[2017-05-06] MEDS: MULTIVITAMINS 1 EACH TAB PO SCH (08:01)
[2017-05-06] MEDS: RIFAXIMIN 550 MG TAB PO SCH ×2 (14:57→21:09)
--- NOTE | 2017-05-06 15:09 | HOSPPROG ---
Hospitalist Progress Note Assessment/Plan: Mr Hayes is a 56-year-old male presenting with abdominal pain and has acute spontaneous bacterial peritonitis. SBP -Ceftriaxone #5 -patient c/o ongoing abdominal pain -s/p paracentesis w removal of close to 4 L of fluid -discussed w ID about further imaging, will hold off for now ascites -abdomen larger, failed paracentesis yest 2/2 movement in IR suite -will get daily weights -restart diuretics acute encephalopathy start rifaximin Hyponatremia -urine NA is low -hold diuretics -gave a dose of albumin -will give a fluid bolus now -recheck in a.m. hypoalbuminemia -will give iv albumin now nausea without vomiting -will order iv hydration if not drinking -no relief w zofran and phenegran, trial of low dose ativan ESLD/MELD is 20 -on transplant list -hyperbilirubinemia. Better today sepsis w Tachycardia with associated elevated WBC -due to SBP -lactate stable, wbc improving -cont to be tachycardic *hypoxemia -chest xray shows nothing acute -suspect it is from atelectasis and his abdomen (ascites is likely impacting him ) *continuous opiate dependency -home meds resumed *thrombocytopenia -will follow *DVT prophylaxis: encourage mobilization, has low platelet count Subjective: case d/w samira mcnamara, at length Objective: Vital Signs Temp Pulse Resp BP Pulse Ox 36.6 C 104 H 18 114/80 95 05/06/17 11:21 05/06/17 11:21 05/06/17 11:21 05/06/17 11:21 05/06/17 11:21 Microbiology 05/05/17 18:00 Gram Stain - Final Abdomen - Aspirate Laboratory Results 05/06/17 04:15 05/06/17 04:15 05/05/17 05/06/17 05/07/17 05:59 05:59 05:59 Intake Total 600 1050 Output Total 400 Balance 200 1050 PT 19.8 SEC (12.0-15.0) H 05/01/17 16:43 INR 1.67 (0.83-1.16) H 05/01/17 16:43 - Physical Exam Constitutional: no apparent distress, chronically ill appearing Eyes: icteric sclera Ears, Nose, Mouth, Throat: moist mucous membranes, hearing normal Cardiovascular: regular rate and rhythym, no murmur, rub, or gallop Respiratory: no respiratory distress Gastrointestinal: ascites, other (sig ascites) Genitourinary: No bernal in urethra Skin: warm, normal color Musculoskeletal: full muscle strength Neurologic: No AAOx3 ICD10 Worksheet Patient Problems: Problems Problem Status Onset Ascites Acute Dehydration Acute Vomiting Acute Abdominal pain Acute Alcoholism Acute Cirrhosis Acute Confusion Acute Hyperbilirubinemia Acute Hyponatremia Acute Septic shock Acute Spontaneous bacterial peritonitis Acute
[2017-05-06] MEDS ORDERED: FUROSEMIDE 40 MG TAB PO ONE (15:11)
--- NOTE | 2017-05-06 16:07 | PCMIDPN ---
Assessment/Plan: Assessment: Spontaneous bacterial peritonitis-E coli as the pathogen. Patient is currently covered with ceftriaxone monotherapy. Clinically he is stable and perhaps his mentation is somewhat improved. White blood cells have normalized. His has expectations which are probably out of line with his potential. Will discuss with hospitalist about these long-term issues. Plan: 1. Continue ceftriaxone empiric therapy. 2. Follow clinical course. Continued mental status disturbances are secondary to underlying end-stage liver disease complicated by infection. They may not immediately resolve with treatment of that infection. Subjective: Patient is resting in his hospital bed. He has no new complaint. His notes that his abdomen appears more distended. He has no fevers or chills. Tolerating the ceftriaxone without obvious issue. Objective: Ceftriaxone # 5 Vital Signs Temp Pulse Resp BP Pulse Ox 36.7 C 100 18 117/76 93 05/06/17 15:42 05/06/17 15:42 05/06/17 15:42 05/06/17 15:42 05/06/17 15:42 Microbiology 05/05/17 18:00 Gram Stain - Final Abdomen - Aspirate Laboratory Results 05/06/17 04:15 05/06/17 04:15 05/05/17 05/06/17 05/07/17 05:59 05:59 05:59 Intake Total 600 1050 Output Total 400 Balance 200 1050 - Physical Exam General Appearance: WD/WN, alert, no apparent distress, non-toxic, other ( Chronically ill-appearing) Respiratory: lungs clear, normal breath sounds, No respiratory distress Cardiac/Chest: regular rate, rhythm, No tachycardia Abdomen: non-tender, soft, distended, ascites, No mass, No peritoneal signs Skin: warm/dry, jaundice, No rash Neuro/Psych: alert, normal mood/affect ICD10 Worksheet Patient Problems: Problems Problem Status Onset Ascites Acute Dehydration Acute Vomiting Acute Abdominal pain Acute Alcoholism Acute Cirrhosis Acute Confusion Acute Hyperbilirubinemia Acute Hyponatremia Acute Septic shock Acute Spontaneous bacterial peritonitis Acute
[2017-05-06] MEDS: SPIRONOLACTONE 50 MG TAB PO SCH (16:33)
[2017-05-06] MEDS: LORazepam 2 MG/ML INJ IVP PRN (21:09)
[2017-05-06] MEDS: AMITRIPTYLINE HCL 25 MG TAB PO SCH (21:09)
[2017-05-07 04:53] LABS: PLATELET COUNT 46 10^3/uL (150-400)
[2017-05-07] MEDS: CHOLECALCIFEROL VIT D3 1,000 UNITS TAB PO SCH (08:30)
[2017-05-07] MEDS: RIFAXIMIN 550 MG TAB PO SCH ×2 (08:30→21:08)
[2017-05-07] MEDS: MULTIVITAMINS 1 EACH TAB PO SCH (08:30)
[2017-05-07] MEDS: MIDODRINE HCL 5 MG TAB PO SCH ×3 (08:30→21:09)
[2017-05-07] MEDS: SPIRONOLACTONE 50 MG TAB PO SCH (08:30)
[2017-05-07] MEDS: FUROSEMIDE 40 MG TAB PO SCH ×2 (08:31→15:55)
[2017-05-07] MEDS: LACTULOSE 20 GM/30 ML UDCUP PO SCH ×3 (08:31→21:11)
--- NOTE | 2017-05-07 09:32 | HOSPPROG ---
Hospitalist Progress Note Assessment/Plan: Mr Hayes is a 56-year-old male presenting with abdominal pain and has acute spontaneous bacterial peritonitis. SBP Ceftriaxone #6 patient c/o ongoing abdominal pain s/p paracentesis w removal of close to 4 L of fluid discussed w ID about further imaging, will hold off for now ascites abdomen larger, failed paracentesis yest 2/2 movement in IR suite will get daily weights restart diuretics when he is more alert, will re-attempt paracentesis acute encephalopathy rifaximin started 05/06 continue lactulose not really any clearer today Hyponatremia stable nausea without vomiting resolved now eating ESLD/MELD is 20 on transplant list hyperbilirubinemia. sepsis w Tachycardia with associated elevated WBC due to SBP lactate stable, wbc improving cont to be tachycardic hypoxemia chest xray shows nothing acute suspect it is from atelectasis and his abdomen (ascites is likely impacting him) continuous opiate dependency home meds resumed thrombocytopenia expected, stable DVT prophylaxis: scd's thrombocytopenia low risk Subjective: case d/w dr medina. rifaximin started yesterday Objective: Vital Signs Temp Pulse Resp BP Pulse Ox 36.4 C 101 H 18 115/69 95 05/07/17 07:39 05/07/17 07:39 05/07/17 07:39 05/07/17 07:39 05/07/17 07:39 Microbiology 05/05/17 18:00 Gram Stain - Final Abdomen - Aspirate Laboratory Results 05/07/17 04:10 05/07/17 04:10 05/06/17 05/07/17 05/08/17 05:59 05:59 05:59 Intake Total 1050 Output Total 100 Balance 1050 -100 PT 19.8 SEC (12.0-15.0) H 05/01/17 16:43 INR 1.67 (0.83-1.16) H 05/01/17 16:43 - Physical Exam Constitutional: no apparent distress, appears nourished Eyes: PERRL, icteric sclera Ears, Nose, Mouth, Throat: moist mucous membranes, hearing normal Cardiovascular: regular rate and rhythym, no murmur, rub, or gallop, No systolic murmur Respiratory: no respiratory distress, no rales or rhonchi Gastrointestinal: normoactive bowel sounds, ascites, other (increased ascites) Genitourinary: No bernal in urethra Skin: warm, normal color Musculoskeletal: No full muscle strength Neurologic: No AAOx3 ICD10 Worksheet Patient Problems: Problems Problem Status Onset Ascites Acute Dehydration Acute Vomiting Acute Abdominal pain Acute Alcoholism Acute Cirrhosis Acute Confusion Acute Hyperbilirubinemia Acute Hyponatremia Acute Septic shock Acute Spontaneous bacterial peritonitis Acute
[2017-05-07] MEDS: oxyCODONE IR 5 MG TAB PO PRN (13:31)
--- NOTE | 2017-05-07 15:02 | PCMIDPN ---
Assessment/Plan: Assessment: Spontaneous bacterial peritonitis-E coli as the pathogen. Patient is currently covered with ceftriaxone monotherapy. He is completed 5 days of therapy. His ill status is slowly improving. Repeat ascitic fluid analysis shows PMN count of less than 250. This indicates we can stop active treatment at 5 days. Given that he has had a previous episode of SBP this puts him at a high risk for recurrence within the next year. He should continue with daily prophylaxis. We will use ciprofloxacin 500 mg p.o. daily. Plan: 1. Discontinue IV ceftriaxone. 2. Start antibiotic prophylaxis for SBP with ciprofloxacin 500 mg p.o. daily. 3. Stable for discharge from an infectious disease standpoint. 05/07/17 14:59 Subjective: Patient is resting in his hospital bed. His mental status is a little more alert today. Answering questions appropriately and quicker. No fevers or chills. Still with abdominal distention. Objective: Ceftriaxone # 6 Vital Signs Temp Pulse Resp BP Pulse Ox 36.7 C 107 H 18 112/73 94 05/07/17 11:21 05/07/17 13:26 05/07/17 11:21 05/07/17 13:26 05/07/17 11:21 Microbiology 05/05/17 18:00 Gram Stain - Final Abdomen - Aspirate Laboratory Results 05/07/17 04:10 05/07/17 04:10 05/06/17 05/07/17 05/08/17 05:59 05:59 05:59 Intake Total 1050 830 Output Total 100 Balance 1050 730 - Physical Exam General Appearance: WD/WN, alert, no apparent distress, non-toxic, other ( Chronically ill-appearing) Respiratory: lungs clear, normal breath sounds, No respiratory distress Cardiac/Chest: regular rate, rhythm, No tachycardia Abdomen: soft, distended, ascites Skin: warm/dry, jaundice Neuro/Psych: alert, normal mood/affect ICD10 Worksheet Patient Problems: Problems Problem Status Onset Ascites Acute Dehydration Acute Vomiting Acute Abdominal pain Acute Alcoholism Acute Cirrhosis Acute Confusion Acute Hyperbilirubinemia Acute Hyponatremia Acute Septic shock Acute Spontaneous bacterial peritonitis Acute
--- NOTE | 2017-05-07 15:58 | ASMTCMCOM ---
CM Note CM Note Notes: Chart reviewed. Patient therapies recommending SNF. Referrals placed. Awaiting responses. CM to follow. Date Signed: 05/07/2017 03:58 PM Electronically Signed By:Suzanne Travis RN
--- NOTE | 2017-05-07 16:10 | ASMTCMCOM ---
CM Note CM Note Notes: Met with patient and his . They were not aware of SNF recommendations for discharge plans. Reviewed possible plans with them that patient may benefit from SNF and more physical therapy versus if he improves to a point that HHC may be a possibility. I did discuss facilities in [place] as well as [facility]. CM to follow, Date Signed: 05/07/2017 04:10 PM Electronically Signed By:Suzanne Travis RN
[2017-05-07] MEDS: AMITRIPTYLINE HCL 25 MG TAB PO SCH (21:09)
[2017-05-08 07:20] VITALS: BP 126/81; PULSE 114; RESP 12; TEMP 97.7; O2SAT 91
[2017-05-08] MEDS ORDERED: CIPROFLOXACIN 500 MG TAB PO SCH (09:00)
--- NOTE | 2017-05-08 10:07 | ASMTCASEMG ---
Living Arrangements What is your living Answers: With Spouse arrangement? Who do you live with? Type Of Residence What kind of residence do Answers: House you live in? Discharge Plan Comments Coordination Status Comments Notes: NOTE CREATED IN ERROR Date Signed: 05/08/2017 10:07 AM Electronically Signed By:GAUDENCIO Yang
[2017-05-08] MEDS: FUROSEMIDE 40 MG TAB PO SCH (10:27)
[2017-05-08] MEDS: RIFAXIMIN 550 MG TAB PO SCH (10:27)
[2017-05-08] MEDS: CHOLECALCIFEROL VIT D3 1,000 UNITS TAB PO SCH (10:28)
[2017-05-08] MEDS: MIDODRINE HCL 5 MG TAB PO SCH (10:28)
[2017-05-08] MEDS: LACTULOSE 20 GM/30 ML UDCUP PO SCH (10:28)
[2017-05-08] MEDS: SPIRONOLACTONE 50 MG TAB PO SCH (10:28)
[2017-05-08] MEDS: MULTIVITAMINS 1 EACH TAB PO SCH (10:43)
[2017-05-08 11:20] LABS: INR 1.79 (0.83-1.16); PROTIME(PATIENT) 20.9 SEC (12.0-15.0)
[2017-05-08] MEDS ORDERED: LIDOCAINE 1% 300 MG/30 ML SDV ONE (11:44)
[2017-05-08] MEDS: oxyCODONE IR 5 MG TAB PO PRN (12:52)
--- NOTE | 2017-05-08 13:20 | HOSPPROG ---
Hospitalist Progress Note Assessment/Plan: Mr Hayes is a 56-year-old male presenting with abdominal pain and has acute spontaneous bacterial peritonitis. SBP Ceftriaxone #6 patient c/o ongoing abdominal pain s/p paracentesis w removal of close to 4 L of fluid discussed w ID about further imaging, will hold off for now ascites abdomen larger, failed paracentesis yest 2/2 movement in IR suite will get daily weights restart diuretics when he is more alert, will re-attempt paracentesis acute encephalopathy rifaximin started 05/06 continue lactulose not really any clearer today better today will prescribe rifaximin- may be cost prohibitive Hyponatremia stable nausea without vomiting resolved now eating ESLD/MELD is 20 on transplant list hyperbilirubinemia. sepsis w Tachycardia with associated elevated WBC due to SBP lactate stable, wbc improving cont to be tachycardic hypoxemia chest xray shows nothing acute suspect it is from atelectasis and his abdomen (ascites is likely impacting him) continuous opiate dependency home meds resumed thrombocytopenia expected, stable DVT prophylaxis: scd's thrombocytopenia low risk home today > 30 minutes on dc Subjective: s/p therapeutic paracentesis. 35' spent discussing dc w Objective: Vital Signs Temp Pulse Resp BP Pulse Ox 36.5 C 114 H 12 126/81 H 91 L 05/08/17 07:18 05/08/17 07:18 05/08/17 07:18 05/08/17 07:18 05/08/17 07:18 Microbiology 05/05/17 18:00 Gram Stain - Final Abdomen - Aspirate 05/02/17 14:41 Blood Culture - Final Blood 05/02/17 14:34 Blood Culture - Final Blood Laboratory Results 05/08/17 10:49 05/07/17 04:10 05/07/17 05/08/17 05/09/17 05:59 05:59 05:59 Intake Total 1380 Output Total 600 2400 Balance 780 -2400 PT 20.9 SEC (12.0-15.0) H 05/08/17 10:49 INR 1.79 (0.83-1.16) H 05/08/17 10:49 - Physical Exam Constitutional: no apparent distress, appears nourished Eyes: icteric sclera Ears, Nose, Mouth, Throat: moist mucous membranes, hearing normal Cardiovascular: regular rate and rhythym, no murmur, rub, or gallop Respiratory: no respiratory distress, no rales or rhonchi Gastrointestinal: ascites, No guarding, No rebound Genitourinary: No bernal in urethra Skin: warm, normal color Musculoskeletal: full muscle strength, no muscle tenderness Neurologic: AAOx3 ICD10 Worksheet Patient Problems: Problems Problem Status Onset Ascites Acute Dehydration Acute Vomiting Acute Abdominal pain Acute Alcoholism Acute Cirrhosis Acute Confusion Acute Hyperbilirubinemia Acute Hyponatremia Acute Septic shock Acute Spontaneous bacterial peritonitis Acute
--- NOTE | 2017-05-08 13:33 | PDIAF ---
- Diagnosis Diagnosis: cirrhosis; sbp Code Status: Full Code - Medication Management Discharge Medications: Medications to Continue on Transfer Amitriptyline HCl [Elavil] 25 mg PO HS 05/01/17 [Last Taken 04/30/17 21:00] Cholecalciferol Vit D3 [Vitamin D3 (*)] 3,000 units PO DAILY 05/01/17 [Last Taken 04/30/17 08:00] Midodrine HCl 5 mg PO TID 05/01/17 [Last Taken 04/30/17 16:00] Multivitamins [Multivitamin (*)] 1 tab PO DAILY 05/01/17 [Last Taken 04/30/17 08 :00] oxyCODONE IR [Oxycodone Ir (*)] 5 mg PO BID PRN 05/01/17 [Last Taken 04/30/17 21 :00] Ciprofloxacin [Cipro] 500 mg PO DAILY #30 tab 05/08/17 [Last Taken Unknown] Furosemide [Lasix 40 MG (*)] 40 mg PO BID@0900,1500 #60 tab 05/08/17 [Last Taken Unknown] Lactulose 20 gm PO TID #30 solution 05/08/17 [Last Taken Unknown] Rifaximin [Xifaxan] 550 mg PO BID #60 tab 05/08/17 [Last Taken Unknown] Spironolactone [Aldactone] 50 mg PO DAILY #30 tab 05/08/17 [Last Taken Unknown] Discharge Medications: Refer to the Discharge Home Medication list for PRN reason. - Orders Services needed: Home [facility] Face to Face: I certify that this patient was under my care and that I had the required [id number] encounter meeting the encounter requirements on the discharge day. My findings support the fact that the patient is homebound as defined in Home Care Face to Face Continued: CMS Chapter 7 Medicare Benefits Manual 30.1.1 , The condition of the patient is such that there exists a normal inability to leave home and consequently, leaving home would require a considerable and taxing effort. - Follow Up Care Current Providers and Referrals: Curt Colvin [Primary Care Provider] - As per Instructions
--- NOTE | 2017-05-08 14:46 | ASDISCHSUM ---
Discharge Information Plan Status:Home with Home Health Medically Cleared to Leave:05/07/2017 Discharge Date:05/08/2017 02:25 PM D/C Disposition: ADT D/C Disposition:Home, Routine, Self-Care Projected Discharge Date:05/08/2017 11:00 AM Transportation at D/C: Discharge Delay Reason: Follow-Up Date:05/08/2017 11:00 AM Discharge Slot: Final Diagnosis: Placement Information Referral Type:*Long Term/SNF Referral ID:[id number] Provider Name: Address 1: Phone Number: Address 2: Fax Number: City: Selection Factors: State: Referral Type:*Home Health Care Services Referral ID:[id number] Provider Name:[facility] Address 1:[address] [facility] [address] Address 2: City:[place] Selection Factors: State:[place] Patient Contact Information Contact Name:PAWAN Relationship: Address:[address] City:[place] Alternate Phone: State/Zip Code:[place] [address] Email: Financial Information Financial Class:[employer] Primary Plan Desc:[employer] Primary Plan Number:[id number] Secondary Plan Desc: Secondary Plan Number: Assessment Information [facility] Initial CM Assessment Living Arrangements What is your living Answers: With Spouse arrangement? Who do you live with? Type Of Residence What kind of residence do Answers: House you live in? Discharge Plan Comments Coordination Status Comments Notes: CM spoke w/ Susan RN regarding d/c POC. Pt is a 56 y/o man admitted for ascities and vomiting. Therapies have been ordered and awaiting recommendations. Needs are TBD at this time. CM to follow. Plan: TBD Date Signed: 05/02/2017 11:22 AM Electronically Signed By:GAUDENCIO Yang [facility] CM Progress Note CM Note CM Note Notes: Pt very ill, with confusion and significant ascites. PT/OT recommend SNF, dc date unclear. CM to follow up with re snf choices. Date Signed: 05/05/2017 06:02 PM Electronically Signed By:Micheline Perez RN [facility] CM Progress Note CM Note CM Note Notes: Chart reviewed. Patient therapies recommending SNF. Referrals placed. Awaiting responses. CM to follow. Date Signed: 05/07/2017 03:58 PM Electronically Signed By:Suzanne Travis RN [facility] CM Progress Note CM Note CM Note Notes: Met with patient and his . They were not aware of SNF recommendations for discharge plans. Reviewed possible plans with them that patient may benefit from SNF and more physical therapy versus if he improves to a point that HHC may be a possibility. I did discuss facilities in [place] as well as [facility]. CM to follow, Date Signed: 05/07/2017 04:10 PM Electronically Signed By:Suzanne Travis RN [facility] Initial CM Assessment Living Arrangements What is your living Answers: With Spouse arrangement? Who do you live with? Type Of Residence What kind of residence do Answers: House you live in? Discharge Plan Comments Coordination Status Comments Notes: NOTE CREATED IN ERROR Date Signed: 05/08/2017 10:07 AM Electronically Signed By:GAUDENCIO Yang Case Management Discharge Plan Note Case Management Discharge Discharge Order Complete? Answers: Yes Patient to Obtain Answers: via Family Medications Transportation Arranged Answers: Family/Friends EMTALA Complete Answers: No Agency/Facility Transfer Answers: Yes Report Printed & Faxed to Receiving Agency Family Notified Answers: Yes Discharge Comments Notes: CM spoke w/ Dr. Baxter regarding d/c POC. CM met w/ pt and for dispo planning. Pt and would like referral to [facility] for PT, OT, RN. Pt and are not interested in SNF at this time. reports her son will be home for the week to help out. also reports that she will be available this week. Referral made to [facility] and they are able to accept. CM provided ROSANNA Paez w/ phone number to [facility] to give report. CM available for changes. Plan: [facility]; PT, OT, RN Date Signed: 05/08/2017 10:15 AM Electronically Signed By:GAUDENCIO Yang Intervention Information
--- NOTE | 2017-05-09 03:57 | GDS ---
[f rep st] DISCHARGE SUMMARY DISCHARGE DIAGNOSES: 1. Spontaneous bacterial peritonitis with Escherichia coli. 2. End-stage liver disease with ascites, on the liver transplant list. 3. Hepatic encephalopathy. 4. History of hepatitis C, status post treatment. Please see admission history and physical by Dr. Ryan Ross. The patient presented with confusion. He also had vomiting. He was diagnosed with spontaneous bacterial peritonitis. He received 5 days of ceftriaxone with transition to ciprofloxacin. He had paracenteses x2 for volume removal. His hep atic encephalopathy largely cleared during this hospitalization. Addition of rifaximin 1 day prior t o discharge really helped. He was prescribed this on discharge. Prior authorization paperwork is in place to get him access to this. Because of his volume overload, his diuretics were increased from Lasix 20 twice daily to Lasix 40 twice daily, as well as Aldactone from 25 to 50. He was discharged home. He is to have outpatient followup with Dr. Waddell, as well as his primary care physician. /[id number]/MODL
--- NOTE | 2017-05-12 09:29 | PQFORM ---
PHYSICIAN QUERY FORM Needs Your Response This query form is being sent to you to assure this patient record is coded properly. 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 Baxter, The ED record and H&P dated 05/01/17, as well as the Infectious Disease Consultation dated 05/02/17 do not reflect the diagnosis of sepsis. The progress notes beginning with date 05/02/17 do state the diagnosis of sepsis. Would sepsis be appropriate as the principal diagnosis on the discharge summary ? Yes ___X__ No Other Clinically Undetermined Many thanks, LULI Ferreira [facility]/Coding Department W: [phone] INSTRUCTIONS FOR RESPONSE: Answer question by clicking on the "Edit Document" button. Move cursor to area below the stars. When complete, hit "Save." Click on the "Sign" button, then click "Sign" again. Type in your PIN and hit "Enter." MTDD
== END 2017-05-08 14:25 | disposition home health service (06) | DRG 372 ==
LOC: OBSVTOIN 17:46 → F3E 19:58
PROVIDERS: ADMIT Internal Medicine; ATTEND Internal Medicine
PROC: 0W9G3ZZ Drainage of Peritoneal Cavity, Percutaneous Approach (ICD-10-PCS; principal; 2017-05-01)
PROC: 0W9G3ZZ Drainage of Peritoneal Cavity, Percutaneous Approach (ICD-10-PCS; 2017-05-05)
PROC: 0W9G3ZZ Drainage of Peritoneal Cavity, Percutaneous Approach (ICD-10-PCS; 2017-05-08)
DX: K65.2 Spontaneous bacterial peritonitis (principal); K70.31 Alcoholic cirrhosis of liver with ascites; G94 Other disorders of brain in diseases classified elsewhere; F11.20 Opioid dependence, uncomplicated; E87.1 Hypo-osmolality and hyponatremia; D69.59 Other secondary thrombocytopenia; Z86.19 Personal history of other infectious and parasitic diseases; Z87.891 Personal history of nicotine dependence
CPT/HCPCS: 92523-GN; 97116-GP; 97161-GP; 97165-GO; 97535-GO; G8987-GO-CK; G8988-GO-CI; J0696; J1170; J1940; J1956; J2060; J2405; J2550; P9047

== ENCOUNTER → 2017-05-12 | Outpatient (CLI) | payer OTHER ==
[~2017-05-12] MED LIST changes: +ALBUMIN 25% 100 ML SOLN IV ONE; +ALBUMIN 25% 50 ML SOLN IV ONE; -LIDOCAINE 1% 300 MG/30 ML SDV ONE
== END ==
LOC: FIMAGING 15:30
PROVIDERS: ATTEND Internal Medicine
PROC: 0W9F3ZZ Drainage of Abdominal Wall, Percutaneous Approach (ICD-10-PCS; principal; 2017-05-12)
DX: R18.8 Other ascites (principal)
CPT/HCPCS: P9047

== ENCOUNTER → 2017-06-02 | Outpatient (CLI) | payer OTHER ==
[~2017-06-02] MED LIST changes: -ALBUMIN 25% 100 ML SOLN IV ONE; -ALBUMIN 25% 50 ML SOLN IV ONE; +LIDOCAINE 1% 300 MG/30 ML SDV ONE
== END ==
LOC: FIMAGING 11:53
PROVIDERS: ATTEND Internal Medicine
PROC: 0W9F3ZZ Drainage of Abdominal Wall, Percutaneous Approach (ICD-10-PCS; principal; 2017-06-02)
DX: R18.8 Other ascites (principal)

== ENCOUNTER 2017-06-18 08:14 | Inpatient (IN) | payer OTHER ==
--- NOTE | 2017-06-18 08:44 | EDPHY ---
Addendum entered and electronically signed by Cornelius Vasquez MD 06/18/17 11: 42: EKG: Complete interpretation has been separately recorded in the [facility] archive. Summary impression: Sinus tachycardia, rate 102 Original Note: H & P Smoking Status: Former smoker Time Seen by Provider: 06/18/17 08:25 HPI/ROS: CHIEF COMPLAINT: Unwitnessed fall, confusion HISTORY OF PRESENT ILLNESS: 56-year-old male presents to the emergency department by private vehicle with his with increasing confusion. His reports that their son was home when he fell and the patient was able to get up on his own and walk around. His states that he has had increasing confusion since the fall yesterday. She does not think that he hit his head. No reports of loss of consciousness. His noted bruising to his right flank and his back area. He is having pain with moving around. No injuries noted to the upper or lower extremities per his . Patient has longstanding history of end-stage renal disease and cirrhosis. No vomiting. He had paracentesis with over 2500 mL on 06/02/2017. He also has a history of spontaneous bacterial peritonitis. REVIEW OF SYSTEMS: Constitutional: No fever, no chills. Eyes: No double or blurry vision. ENT: No sore throat. Respiratory: No cough, no shortness of breath. Cardiac: No chest pain. Gastrointestinal: Abdominal pain as above. No vomiting or diarrhea Genitourinary: No dysuria. Musculoskeletal: Back pain as above. No neck pain Skin: No rashes. Neurological: No headache. 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 36.4. Jaundice. at bedside. Eyes: Pupils equal and round. Extraocular motions are all intact. ENT: Mouth: Mucous membranes very dry. Ecchymosis noted under his tongue. No other dental injury or malocclusion. Respiratory: No wheezing, rhonchi, or rales, lungs are clear to auscultation. Cardiovascular: Regular rate and rhythm. Gastrointestinal: The abdomen is distended. No pain with palpation. Positive CVA tenderness on the right, none on the left. Ecchymosis noted to the right flank. Neurological: Patient is confused. Unable to follow commands for cranial nerve testing. Skin: Warm and dry, no rashes. Ecchymosis noted to the right posterior flank. Musculoskeletal: Nontender to palpate along the cervical, thoracic or lumbar spine. Neck is supple. Extremities: Full range of motion and no peripheral edema. Psychiatric: Patient is oriented X 3, there is no agitation. (Elly Roberson) Constitutional: Initial Vital Signs Temperature (C) 36.4 C 06/18/17 08:18 Heart Rate 109 H 06/18/17 08:18 Respiratory Rate 16 06/18/17 08:18 Blood Pressure 105/77 06/18/17 08:18 O2 Sat (%) 90 L 06/18/17 08:18 O2 Delivery Mode Room Air O2 (L/minute) 2 Allergies/Adverse Reactions: No Known Allergies Allergy (Verified 06/18/17 10:24) Home Medications: Medication Instructions Recorded Amitriptyline HCl [Elavil] 25 mg PO HS 05/01/17 Midodrine HCl 10 mg PO TID 05/01/17 Multivitamins [Multivitamin (*)] 1 tab PO DAILY 05/01/17 oxyCODONE IR [Oxycodone Ir (*)] 5 mg PO BID PRN 05/01/17 Ciprofloxacin [Cipro] 500 mg PO DAILY #30 tab 05/08/17 Lactulose 20 gm PO TID #30 solution 05/08/17 Rifaximin [Xifaxan] 550 mg PO BID #60 tab 05/08/17 Cholestyramine (with Sugar) 4 gm PO TID 06/18/17 [Cholestyramine Packet] Ergocalciferol [Vitamin D2 (*)] 50,000 unit PO Q7D 06/18/17 Furosemide [Lasix 40 MG (*)] 40 mg PO BID 06/18/17 Spironolactone [Aldactone] 100 mg PO BID 06/18/17 Temazepam [Restoril 15 MG (*)] 15 mg PO HSPRN PRN 06/18/17 Medical Decision Making - Diagnostics Imaging Results: Imaging Impressions Head CT 06/18/17 08:45 Impression: 1. No significant intracranial abnormality seen.. 2. Mild diffuse cerebral atrophy. This is nonspecific but can be seen with underlying alcohol abuse, seizure medications, or hypovolemia. If symptoms worsen, additional imaging may be necessary. Findings discussed with Cornelius Vasquez at 9:36 hour, 06/18/2017. Abdomen/Pelvis CT 06/18/17 08:47 Impression: 1. Perinephric acute subcapsular hematoma mid to lower right kidney. This can contribute to page kidney if the patient develops hypertension. If there is further deterioration of the patient and consider CT angiogram of the abdomen for arterial as well as venous phase imaging. 2. Perinephric contusion on the right noted. 3. Nondisplaced fracture posterior lateral left seventh rib. 4. Moderate bibasilar pleural effusions with adjacent compressive atelectatic change at the lung bases. 5. Moderate splenomegaly. 6. Cholelithiasis. 7. Moderate ascites with hepatic cirrhosis. 8. Inguinal hernia on the left containing ascitic fluid. These findings discussed by telephone with Dr. Kings Vasquez at 9:40 hour, 2017. ED Course/Re-evaluation: 56-year-old male presents to the emergency department with flank pain and confusion after unwitnessed fall. Large area of ecchymosis noted to the right flank. The case was discussed with Dr. Vasquez, secondary supervising physician, who also evaluated the patient. Patient had elevated creatinine 1.[address] scan without contrast was ordered of the abdomen and pelvis. CT scan of the brain is also pending. CT imaging reported to Dr. Kings Vasquez who also talked with surgery and urologist. Patient admitted. (Elly Roberson) Differential Diagnosis: Back pain including but not limited to muscular pain, herniated disc, spine fracture, intra-abdominal causes and urinary tract infection. Altered mental status including but not limited to hypoglycemia, infectious process, electrolyte abnormality, head injury and intoxicants. (Elly Roberson) Other Provider: Independent physician evaluation: I evaluated and participated in the management of the patient. I also evaluated the patient independently. My co-signature indicates that I have reviewed this chart and I agree with the findings and plan of care as documented. My personal H&P findings include: The patient presents to the ED with weakness resulting in a mechanical fall with complaints of back pain and significant retroperitoneal ecchymoses. The patient has a history of recurrent ascites secondary to alcoholic liver disease. He is status post therapeutic and diagnostic paracentesis on June 02. The patient was treated for SBP at that time. The patient reports moderate to severe right flank pain, he complains of abdominal distension, recurrent ascites generalized weakness. Physical exam: General Appearance: Alert, no distress Eyes: Scleral icterus ENT, Mouth: Dry mucous membranes Respiratory: There are no retractions, lungs are clear to auscultation Cardiovascular: Regular rate and rhythm Gastrointestinal: Tense ascites, no abdominal tenderness Neurological: A&O, normal motor function, normal sensory exam, normal cranial nerves Skin: Extensive flank and retroperitoneal ecchymoses Musculoskeletal: Neck is supple nontender Extremities: symmetrical, full range of motion ED course: Patient was taken for CT scan of the head which demonstrates no evidence of intracranial hemorrhage. A noncontrast CT scan of the abdomen pelvis does demonstrate a perinephric hematoma resulting in mild renal compression on the right. The patient is not hypotensive. He will require admission to the hospital in the setting of his progressive liver disease, tense ascites and observation of his hematoma. Consultation was made with the hospitalist service. The patient will be admitted by Dr. Yang. I did speak with the on-call urologist Dr. Stein. He recommends q.8 hours hematocrit and a repeat CT scan in 24 hr. He should be consulted sooner for increasing pain, worsening creatinine, significantly decreasing hematocrit or for other concerns. I have ordered a diagnostic and therapeutic paracentesis. Interventional radiology is aware and will hopefully do this this afternoon. The patient will be transferred to a medical-surgical floor bed at 10:30 a.m.. (Cornelius Vasquez) - Data Points Laboratory Results: Laboratory Results 06/18/17 08:30 06/18/17 08:30 06/18/17 06/18/17 06/18/17 08:36 08:30 08:30 WBC RBC Hgb POC Hgb 12.9 gm/dL L gm/dL (13.7-17.5) Hct POC Hct 38 % L % (40-51) MCV MCH MCHC RDW Plt Count MPV Neut % (Auto) Lymph % (Auto) [place] % (Auto) Eos % (Auto) Baso % (Auto) Nucleat RBC Rel Count Absolute Neuts (auto) Absolute Lymphs (auto) Absolute Monos (auto) Absolute Eos (auto) Absolute Basos (auto) Absolute Nucleated RBC Immature Gran % Immature Gran # PT INR APTT POC Sodium 126 mEq/L L mEq/L (135-145) Sodium POC Potassium 5.0 mEq/L mEq/L (3.3-5.0) Potassium POC Chloride 92 mEq/L L mEq/L (97-110) Chloride Carbon Dioxide Anion Gap POC BUN 23 mg/dL mg/dL (7-23) BUN Creatinine POC Creatinine 1.8 mg/dL H mg/dL (0.7-1.3) Estimated GFR Glucose POC Glucose 126 mg/dL H mg/dL (70-100) Serum Osmolality 268 mosmo/kg L mosmo/kg (280-297) Calcium Total Bilirubin 2.7 mg/dL H mg/dL (0.1-1.4) Conjugated Bilirubin 1.1 mg/dL H mg/dL (0.0-0.5) Unconjugated Bilirubin 1.6 mg/dL H mg/dL (0.0-1.1) AST 55 IU/L IU/L (17-59) ALT 40 IU/L IU/L (21-72) Alkaline Phosphatase 113 IU/L IU/L (38-126) Ammonia Total Protein 7.4 g/dL g/dL (6.3-8.2) Albumin 2.8 g/dL L g/dL (3.5-5.0) Ethyl Alcohol 06/18/17 06/18/17 06/18/17 08:30 08:30 08:30 WBC RBC Hgb POC Hgb Hct POC Hct MCV MCH MCHC RDW Plt Count MPV Neut % (Auto) Lymph % (Auto) [place] % (Auto) Eos % (Auto) Baso % (Auto) Nucleat RBC Rel Count Absolute Neuts (auto) Absolute Lymphs (auto) Absolute Monos (auto) Absolute Eos (auto) Absolute Basos (auto) Absolute Nucleated RBC Immature Gran % Immature Gran # PT 17.3 SEC H SEC (12.0-15.0) INR 1.40 H (0.83-1.16) APTT 38.9 SEC H SEC (23.0-38.0) POC Sodium Sodium 125 mEq/L L mEq/L (135-145) POC Potassium Potassium 5.1 mEq/L mEq/L (3.5-5.2) POC Chloride Chloride 92 mEq/L L mEq/L (97-110) Carbon Dioxide 22 mEq/l mEq/l (22-31) Anion Gap 11 mEq/L mEq/L (8-16) POC BUN BUN 24 mg/dL H mg/dL (7-23) Creatinine 1.8 mg/dL H mg/dL (0.7-1.3) POC Creatinine Estimated GFR 39 Glucose 122 mg/dL H mg/dL (70-100) POC Glucose Serum Osmolality Calcium 8.6 mg/dL mg/dL (8.5-10.4) Total Bilirubin Conjugated Bilirubin Unconjugated Bilirubin AST ALT Alkaline Phosphatase Ammonia 13.0 uMOL/L uMOL/L (9.0-30.0) Total Protein Albumin Ethyl Alcohol < 10 mg/dL mg/dL (0-10) 06/18/17 08:30 WBC 10.54 10^3/uL H 10^3/uL (3.80-9.50) RBC 3.83 10^6/uL L 10^6/uL (4.40-6.38) Hgb 12.2 g/dL L g/dL (13.7-17.5) POC Hgb Hct 34.4 % L % (40.0-51.0) POC Hct MCV 89.8 fL fL (81.5-99.8) MCH 31.9 pg pg (27.9-34.1) MCHC 35.5 g/dL g/dL (32.4-36.7) RDW 15.5 % H % (11.5-15.2) Plt Count 102 10^3/uL L 10^3/uL (150-400) MPV 9.4 fL fL (8.7-11.7) Neut % (Auto) 75.2 % H % (39.3-74.2) Lymph % (Auto) 10.4 % L % (15.0-45.0) Traill % (Auto) 11.1 % % (4.5-13.0) Eos % (Auto) 1.5 % % (0.6-7.6) Baso % (Auto) 0.5 % % (0.3-1.7) Nucleat RBC Rel Count 0.0 % % (0.0-0.2) Absolute Neuts (auto) 7.92 10^3/uL H 10^3/uL (1.70-6.50) Absolute Lymphs (auto) 1.10 10^3/uL 10^3/uL (1.00-3.00) Absolute Monos (auto) 1.17 10^3/uL H 10^3/uL (0.30-0.80) Absolute Eos (auto) 0.16 10^3/uL 10^3/uL (0.03-0.40) Absolute Basos (auto) 0.05 10^3/uL 10^3/uL (0.02-0.10) Absolute Nucleated RBC 0.00 10^3/uL 10^3/uL (0-0.01) Immature Gran % 1.3 % H % (0.0-1.1) Immature Gran # 0.14 10^3/uL H 10^3/uL (0.00-0.10) PT INR APTT POC Sodium Sodium POC Potassium Potassium POC Chloride Chloride Carbon Dioxide Anion Gap POC BUN BUN Creatinine POC Creatinine Estimated GFR Glucose POC Glucose Serum Osmolality Calcium Total Bilirubin Conjugated Bilirubin Unconjugated Bilirubin AST ALT Alkaline Phosphatase Ammonia Total Protein Albumin Ethyl Alcohol Medications Given: Cholestyramine Resin (Questran) 4 gm PO TID [facility] Stop: 12/15/17 15:59 Last Admin: 06/18/17 17:24 Dose: 4 gm Hydromorphone HCl (Dilaudid) 0.4 mg IVP Q4HRS PRN PRN Reason: Pain, Severe Unable to Take PO Stop: 06/28/17 11:07 Last Admin: 06/18/17 16:51 Dose: 0.4 mg Ceftriaxone Sodium 1 gm/ (Sterile Water) 10 mls @ 150 mls/hr IV DAILY [facility]IL[facility] PRN Reason: Protocol Stop: 07/18/17 11:14 Last Admin: 06/18/17 12:08 Dose: 10 mls Albumin Human (Flexbumin 25 % (Premix)) 200 mls @ 0 mls/hr IV Q6H [facility]IL[facility] PRN Reason: As Directed Stop: 06/20/17 17:59 Last Admin: 06/18/17 17:24 Dose: 200 mls Lactulose (Cephulac) 20 gm PO TID [facility] Stop: 12/15/17 15:59 Last Admin: 06/18/17 16:40 Dose: 20 gm Lidocaine (Lidoderm 5%) 1 ea TD DAILY [facility] Stop: 12/15/17 11:14 Last Admin: 06/18/17 11:34 Dose: 1 ea Midodrine (Proamatine/Midodrin) 10 mg PO TID [facility] Stop: 12/15/17 15:59 Last Admin: 06/18/17 16:40 Dose: 10 mg Oxycodone HCl (Oxycodone Ir) 5 mg PO Q4HRS PRN PRN Reason: Pain, Severe Able to Take PO Stop: 06/28/17 11:08 Last Admin: 06/18/17 11:33 Dose: 5 mg Discontinued Medications Albumin Human (Flexbumin 25 % (Premix)) 200 mls @ 0 mls/hr IV Q6H [facility]ILIPP PRN Reason: As Directed Stop: 06/19/17 12:29 Last Admin: 06/18/17 14:10 Dose: Not Given Albumin Human (Flexbumin 25 % (Premix)) 200 mls @ 0 mls/hr IV ONCE ONE PRN Reason: As Directed Stop: 06/18/17 12:41 Last Admin: 06/18/17 12:55 Dose: 200 mls Point of Care Test Results: 06/18/17 08:36 POC Sodium 126 L POC Potassium 5.0 POC Chloride 92 L POC BUN 23 POC Creatinine 1.8 H POC Glucose 126 H Departure - Departure Disposition: [facility] Acute Clinical Impression: Confusion, Perinephric hematoma Cirrhosis Qualifiers: Hepatic cirrhosis type: alcoholic cirrhosis Ascites presence: with ascites Qualified Code(s): K70.31 - Alcoholic cirrhosis of liver with ascites Ascites Qualifiers: Ascites type: other type Qualified Code(s): R18.8 - Other ascites Condition: Fair
--- NOTE | 2017-06-18 08:55 | CPEKG ---
Heart Rate: 102 RR Interval: 588 P-R Interval: 152 QRSD Interval: 84 QT Interval: 324 QTC Interval: 423 P [place]: 27 QRS [place]: 10 T Wave [place]: 39 EKG Severity - OTHERWISE NORMAL ECG - EKG Impression: SINUS TACHYCARDIA EKG Impression: LOW VOLTAGE IN FRONTAL LEADS Electronically Signed By: Cornelius Vasquez 18-Jun-2017 11:42:06
[2017-06-18 08:57] LABS: PLATELET COUNT 102 10^3/uL (150-400)
[2017-06-18 09:26] LABS: INR 1.4 (0.83-1.16); PROTIME(PATIENT) 17.3 SEC (12.0-15.0)
[2017-06-18] MEDS ORDERED: ONDANSETRON DISINTEGRATING 4 MG TAB PO PRN (11:10)
[2017-06-18] MEDS ORDERED: ONDANSETRON 4 MG/2 ML VIAL IVP PRN (11:10)
[2017-06-18] MEDS ORDERED: HYDROmorphONE/DILAUDID 1 MG/ML INJ ONE (11:26)
[2017-06-18] MEDS ORDERED: oxyCODONE IR 5 MG TAB ONE (11:26)
[2017-06-18] MEDS ORDERED: LIDOCAINE 5% 1 EA PATCH TD ONE (11:27)
[2017-06-18] MEDS: HYDROmorphONE/DILAUDID 1 MG/ML INJ IVP PRN ×2 (11:33→16:51)
[2017-06-18] MEDS: oxyCODONE IR 5 MG TAB PO PRN ×2 (11:33→18:39)
[2017-06-18] MEDS: LIDOCAINE 5% 1 EA PATCH TD SCH (11:34)
[2017-06-18] MEDS: cefTRIAXone 1 GM in STERILE WATER INJ 10 ML IV SCH (12:08)
[2017-06-18] MEDS ORDERED: ALBUMIN 25% 200 ML IV SCH (12:30)
[2017-06-18] MEDS ORDERED: ALBUMIN 25% 200 ML IV ONE (12:40)
[2017-06-18] MEDS ORDERED: TEMAZEPAM 15 MG CAP PO PRN (12:42)
[2017-06-18] MEDS ORDERED: NS 1,000 ML IV SCH (12:45)
--- NOTE | 2017-06-18 12:47 | PDGENHP ---
History and Physical - Chief Complaint fall, confusion, flank pain - History of Present Illness 56 yo male with h/o ESLD, cirrhosis with ascites due to alcohol and Hep C, s/p Interferon treatment, who requires recurrent LVP, presents to ED one day after mechanical fall. His provides most of the history as patient is fairly confused. He apparently fell yesterday while their son was home. There was no reported LOC or head injury. He was able to get up and ambulate after the fall. Today, she noticed left side and flank bruising, increased tenderness, and confusion. He has been taking his lactulose three times daily. He was admitted to the hospital in 04/2017 with SBP (E coli on peritoneal culture) and completed his treatment course with antibiotics. A repeat peritoneal culture was negative. No fevers. His diuretic doses were doubled at discharge ~1 month ago. He has required 2 large volume paracenteses since then and continues to have abdominal distention. He vomited once 2 days [employer], no further vomiting and no reports of hematemesis, coffee ground emesis or melanotic stools. He does have grade 2-3 esophageal varices seen on EGD in 01/2017. In the ED, a CT scan revealed a right perinephric hematoma, along with left 7th rib fracture. Urology was consulted as was trauma. He is admitted to the hospital for further management. History Information - Allergies/Home Medication List Allergies/Adverse Reactions: No Known Allergies Allergy (Verified 06/18/17 10:24) Home Medications: Amitriptyline HCl [Elavil] 25 mg PO HS 05/01/17 [Last Taken 06/17/17] Midodrine HCl 10 mg PO TID 05/01/17 [Last Taken 06/17/17] Multivitamins [Multivitamin (*)] 1 tab PO DAILY 05/01/17 [Last Taken 06/17/17] oxyCODONE IR [Oxycodone Ir (*)] 5 mg PO BID PRN 05/01/17 [Last Taken 06/17/17] Cholestyramine (with Sugar) [Cholestyramine Packet] 4 gm PO TID 06/18/17 [Last Taken 06/17/17] Ergocalciferol [Vitamin D2 (*)] 50,000 unit PO Q7D 06/18/17 [Last Taken 06/12/17 ] Furosemide [Lasix 40 MG (*)] 40 mg PO BID 06/18/17 [Last Taken 06/17/17] Spironolactone [Aldactone] 100 mg PO BID 06/18/17 [Last Taken 06/17/17] Temazepam [Restoril 15 MG (*)] 15 mg PO HSPRN PRN 06/18/17 [Last Taken 06/17/17] I have personally reviewed and updated: family history, medical history, social history, surgical history - Past Medical History Additional medical history: End-stage liver disease secondary to alcohol and hepatitis C virus. Hepatitis C virus status post right of iron treatment, resulting in hemolytic anemia. Chronic anemia. H/O SBP 04/2017 - Surgical History Additional surgical history: Recurrent therapeutic and diagnostic paracenteses. Knee surgery - Family History Additional family history: Mother with colon cancer - Social History Smoking Status: Former smoker Additional social history: Previously independent in his ADLs, lives with Review of Systems Review of Systems: ROS: 10pt was reviewed & negative except for what was stated in HPI & below Physical Exam Physical Exam: Temp Pulse Resp BP Pulse Ox 36.6 C 100 19 120/86 H 90 L 06/18/17 11:08 06/18/17 11:08 06/18/17 11:08 06/18/17 11:08 06/18/17 11:08 O2 (L/minute) 2 Constitutional: no apparent distress, chronically ill appearing Eyes: PERRL, icteric sclera Ears, Nose, Mouth, Throat: dry mucous membranes Cardiovascular: regular rate and rhythym Respiratory: no respiratory distress, reduced air movement, inspiratory crackles Gastrointestinal: other (soft, moderate distention, diffuse TTP, worse in RUQ with focal swelling of right upper lateral abdomen and ecchymosis of right flank ) Skin: warm Musculoskeletal: generalized weakness Psychiatric: encephalopathic Lab Data & Imaging Review 06/18/17 15:00 06/18/17 08:30 WBC 10.54 10^3/uL (3.80-9.50) H 06/18/17 08:30 RBC 3.83 10^6/uL (4.40-6.38) L 06/18/17 08:30 Hgb 12.2 g/dL (13.7-17.5) L 06/18/17 08:30 POC Hgb 12.9 gm/dL (13.7-17.5) L 06/18/17 08:36 Hct 34.4 % (40.0-51.0) L 06/18/17 08:30 POC Hct 38 % (40-51) L 06/18/17 08:36 MCV 89.8 fL (81.5-99.8) 06/18/17 08:30 MCH 31.9 pg (27.9-34.1) 06/18/17 08:30 MCHC 35.5 g/dL (32.4-36.7) 06/18/17 08:30 RDW 15.5 % (11.5-15.2) H 06/18/17 08:30 Plt Count 102 10^3/uL (150-400) L 06/18/17 08:30 MPV 9.4 fL (8.7-11.7) 06/18/17 08:30 Neut % (Auto) 75.2 % (39.3-74.2) H 06/18/17 08:30 Lymph % (Auto) 10.4 % (15.0-45.0) L 06/18/17 08:30 [place] % (Auto) 11.1 % (4.5-13.0) 06/18/17 08:30 Eos % (Auto) 1.5 % (0.6-7.6) 06/18/17 08:30 Baso % (Auto) 0.5 % (0.3-1.7) 06/18/17 08:30 Nucleat RBC Rel Count 0.0 % (0.0-0.2) 06/18/17 08:30 Absolute Neuts (auto) 7.92 10^3/uL (1.70-6.50) H 06/18/17 08:30 Absolute Lymphs (auto) 1.10 10^3/uL (1.00-3.00) 06/18/17 08:30 Absolute Monos (auto) 1.17 10^3/uL (0.30-0.80) H 06/18/17 08:30 Absolute Eos (auto) 0.16 10^3/uL (0.03-0.40) 06/18/17 08:30 Absolute Basos (auto) 0.05 10^3/uL (0.02-0.10) 06/18/17 08:30 Absolute Nucleated RBC 0.00 10^3/uL (0-0.01) 06/18/17 08:30 Immature Gran % 1.3 % (0.0-1.1) H 06/18/17 08:30 Immature Gran # 0.14 10^3/uL (0.00-0.10) H 06/18/17 08:30 PT 17.3 SEC (12.0-15.0) H 06/18/17 08:30 INR 1.40 (0.83-1.16) H 06/18/17 08:30 APTT 38.9 SEC (23.0-38.0) H 06/18/17 08:30 POC Sodium 126 mEq/L (135-145) L 06/18/17 08:36 Sodium 125 mEq/L (135-145) L 06/18/17 08:30 POC Potassium 5.0 mEq/L (3.3-5.0) 06/18/17 08:36 Potassium 5.1 mEq/L (3.5-5.2) 06/18/17 08:30 POC Chloride 92 mEq/L (97-110) L 06/18/17 08:36 Chloride 92 mEq/L (97-110) L 06/18/17 08:30 Carbon Dioxide 22 mEq/l (22-31) 06/18/17 08:30 Anion Gap 11 mEq/L (8-16) 06/18/17 08:30 POC BUN 23 mg/dL (7-23) 06/18/17 08:36 BUN 24 mg/dL (7-23) H 06/18/17 08:30 Creatinine 1.8 mg/dL (0.7-1.3) H 06/18/17 08:30 POC Creatinine 1.8 mg/dL (0.7-1.3) H 06/18/17 08:36 Estimated GFR 39 06/18/17 08:30 Glucose 122 mg/dL (70-100) H 06/18/17 08:30 POC Glucose 126 mg/dL (70-100) H 06/18/17 08:36 Calcium 8.6 mg/dL (8.5-10.4) 06/18/17 08:30 Total Bilirubin 2.7 mg/dL (0.1-1.4) H 06/18/17 08:30 Conjugated Bilirubin 1.1 mg/dL (0.0-0.5) H 06/18/17 08:30 Unconjugated Bilirubin 1.6 mg/dL (0.0-1.1) H 06/18/17 08:30 AST 55 IU/L (17-59) 06/18/17 08:30 ALT 40 IU/L (21-72) 06/18/17 08:30 Alkaline Phosphatase 113 IU/L (38-126) 06/18/17 08:30 Ammonia 13.0 uMOL/L (9.0-30.0) 06/18/17 08:30 Total Protein 7.4 g/dL (6.3-8.2) 06/18/17 08:30 Albumin 2.8 g/dL (3.5-5.0) L 06/18/17 08:30 Urine Osmolality 407 mosmo/kg (300-900) 06/18/17 11:40 Ur Random Sodium 55 mEq/L (30-90) 06/18/17 11:40 Ethyl Alcohol < 10 mg/dL (0-10) 06/18/17 08:30 Assessment & Plan Assessment: Fall resulting in right perinephric hematoma and left rib fracture - Trauma service consult requested. Case reviewed with Urology by ED physician. Plan for serial H&H and repeat CT in AM. Call Urology for any acute change in status such as increased pain or hypertension. He is at risk for page kidney with subcapsular hematoma so hypertension could be sign of increasing hemorrhage. Pain control. ESLD / Cirrhosis with ascites 2/2 etoh and Hep C - MELD 20. On transplant list , followed by Dr. Waddell. Recently treated for SBP (Cx grew E coli, f/u Cx neg ). He has been on once daily Cipro presumably for prophylaxis. Given increased wbc's and tenderness with intra-abdominal trauma / bleeding, will cover with Ceftriaxone. He has moderate ascites, planning for paracentesis today with cell count, GS and Cx. Diuretics doubled last month and he appears intravascularly dry. Hold diuretics today. Acute encephalopathy - Volume depletion and hyponatremia may be contributing. Serum ammonia normal. Continue Xifaxan and Lactulose. Hydration planned. JON - Cr up to 1.8 from baseline of 0.7. BUN also elevated suggesting pre- renal state. Concern for hepatorenal syndrome exists. Send urine Na and urine Cr for calculation of FeNa. Will hold diuretics as above and plan for volume expansion with IV albumin q6h. Follow closely. Low threshold for renal consult if not improving. Hyponatremia - may be related to recent increase in diuretics vs cirrhosis/ ascites. Send serum osm, urine Na, urine osm. IV albumin for volume expansion as above. Holding diuretics. Anemia - Trending h&h as above. Reviewed EGD from 01/2017, +grade 2-3 esophageal varices noted. He has scope scheduled for 07/[address] Waddell. DVT PPLX - pt high risk for bleeding, defer Lovenox. Place SCD's Code status - discussed with pt and , full code Dispo - inpt, anticipate >48 hrs hospitalization for ongoing management of his traumatic injuries and ascites / ESLD.
--- NOTE | 2017-06-18 13:49 | GCON ---
[f rep st] CONSULTATION DATE OF CONSULTATION: 06/18/2017 REFERRING PHYSICIAN: Phyllis Yang DO REASON FOR CONSULTATION: Subcapsular hematoma. HISTORY OF PRESENT ILLNESS: This is a 56-year-old gentleman with end-stage alcoholism. He reports a recent fall. On CT without IV contrast on 06/18/2017 he was noted to have a subcapsular hematoma al shaka the periphery of the right kidney, measuring 28 mm in its greatest dimension over the mid and low er aspect of the right kidney. No real stones. No hydronephrosis. There is streaking of perinephri c fat compatible with perinephric contusion. The left kidney is normal. He also has a nondisplaced acute fracture of the posterolateral left 7th rib which is the opposite side. The patient is not abl e to give any significant history. The family was there. The family states that he has baseline con fusion but this confusion had been worse in the last 12 hours. His white count is 10.5, hematocrit i s 34, which is stable for him, platelets 102. INR is 1.4. He has end-stage liver disease secondary t o alcoholism. Sodium is 125, creatinine 1.8. Patient supposedly fell early on 06/17/2017. He has b een ambulating on his own since the fall. He is in end-stage liver disease with cirrhosis. REVIEW OF SYSTEMS: His helped with questions. There are no fevers or chills, no gross hematuri a, no specific urinary complaints. No change in vision. HEENT: No sore throat. RESPIRATORY: No rachel rtness of breath. CARDIAC: No chest pain. GASTROINTESTINAL: He has been having some bilateral fla nk pain. Denies any dysuria or UTI symptoms. SKIN: There are no rashes but he does have some ecchy mosis on the right flank. He has recurrent paracenteses, he has history of hepatitis C. He has a hi story of hepatic encephalopathy. He has long history of renal disease and has been on the transplant list for kidneys. PHYSICAL EXAMINATION: He is jaundice in appearance. He is in no distress, comfortable. The an d son are in the room with him. His pupils are equal and reactive to light. HEENT: Mucous membrane s are dry. No evidence of any head trauma. RESPIRATORY: Lungs are clear bilaterally. HEART: Regu lar rate and rhythm. ABDOMEN: Distended, protuberant. He has ecchymosis on the right and some tend erness. He also has some mild tenderness on the left. No suprapubic tenderness. Normal genitalia. NEUROLOGIC: Patient is confused. He is unable to have significant discussion or reliably answer an y questions. SKIN: Warm and dry. MUSCULOSKELETAL: Nontender to palpation. EXTREMITIES: Full ran ge of motion. PSYCHIATRIC: Patient is currently not agitated. ASSESSMENT AND PLAN: Patient with subcapsular hematoma. Due to liver disease he is somewhat anticoa gulated. There is increased risk of bleeding. Recommend serial hematocrits every 8 hours today, bernadine ry 12 hours tomorrow, and repeat CT scan in approximately 3 days. Due to renal failure it would have to be CT without contrast. If the CT in 3 days shows the hematoma is stable in nature he can be dis charged home and can follow up with me. He should stay on basically bedrest for approximately 2 week s to minimize the chance of active bleeding. They know to call if there is any change or worsening o f symptoms, especially any signs of anemia which I discussed with the family. /[id number]/MODL
--- NOTE | 2017-06-18 13:52 | PDMN ---
Medical Necessity Medical necessity: C//M review: Patient meets [facility] INPT criteria under [facility] M- 570 Liver disease complications, M-123 Dehydration, Systemic or infectious condition GRG (Hyponatremia): Acute - right perinephritic hematoma, left 7th rib fracture, ascites, encephalopathy, volume depletion, hyponatremia, anemia, concern for possible hepatorenal syndrome, MELD 20, WBC 10.54, Hgb 12.2, Hct 34.4, INR 1.40, Na 125, BUN 24, Cr 1.8, total bilirubin 2.7, requiring planned Trauma consult, planned 06/18/2017 paracentesis US, ongoing IV Ceftriaxone QD, IV Human albumin Q 6 hrs., IV fluids, IV Dilaudid, serial Hgb/Hct monitoring, comorbid ESLD/ cirrhosis secondary to alcohol and Hepatitis C, recently treated for spontaneous bacterial peritonitis, patient treated with daily oral Cipro for presumed prophylaxis, baseline Cr 0.7, 06/17/17 mechanical fall, grade 2-3 esophageal varices on 01/2017 EGD, patient on liver transplant list at [facility]. anticipates > 2 MN LOS for ongoing med nec for eval and TX of above.
--- NOTE | 2017-06-18 15:05 | GCON ---
[f rep st] CONSULTATION REFERRING PHYSICIAN: Naye Darling MD REASON FOR CONSULTATION: Fall, with right perinephric hematoma and left seventh rib fracture. HISTORY: The patient is a 56-year-old male who has hepatic encephalopathy. It was worse over the last 24 hours. He drank from his 20s to last July, has had hepatitis C, which was successfully treated with interferon, and he is hoping to be on the transplant list. He was hospitalized in April for E. coli spontaneous bacterial peritonitis. At that time, his diuretics were doubled on discharge. Yesterday, he fell backwards, knocking an easel over. There was no head injury or loss of consciousness. His said he was more fidgety and forgetful this morning reaching for items which were "not there". He was brought to the emergency department where a complete evaluation was carried out. He was found to have a head CT that shows mild diffuse atrophy but no acute injury. His abdominal CT shows a right renal subcapsular hematoma with perinephric signs of contusion. He has a right middle lobe atelectasis. He has bilateral pleural effusions. He has ascites. He has changes consistent with portal hypertension (enlarged spleen and known varices). He does have cirrhosis. He has multiple ( less than 5 mm) gallstones. He has a left inguinal hernia, as well as a nondisplaced left seventh rib fracture. PAST FAMILY MEDICAL HISTORY: He smoked starting at age 30 and continued to age 54. Toward the end he smoked up to 1 pack per day. ALLERGIES: He has no known drug allergies. MEDICATIONS: Include Cipro, which he has been taking prophylactically. This has been changed to ceftriaxone for this admission. He takes lactulose 3 times a day, Elavil 25 mg at bedtime, Midodrine 10 mg 3 times a day, multivitamin, OxyIR 5 mg b.i.d. p.r.n., he takes cholestyramine 4 g t.i.d., he takes vitamin D2 50,000 units every 7 days, he takes Lasix 40 mg twice a day, Aldactone 100 mg 3 times a day, he uses Restoril 15 mg p.o. q.h.s. p.r.n. PAST SURGERIES: Included right knee surgeries starting with ACL, then subsequent "clean outs." He has had multiple paracenteses. There is no history of rheumatic fever, tuberculosis. He has had transfusions as mentioned above. He has had hepatitis. REVIEW OF SYSTEMS: He has a left frontal artificial incisor on a bridge which is currently missing. It is thought to be somewhere in the house. PHYSICAL EXAMINATION: GENERAL: He is difficult to arouse and minimally cooperative. HEENT: His skull is normocephalic and atraumatic. His pupils appear to be equal, round, reactive. NEURO: He is poorly cooperative with the neurologic examination. I cannot assess whether he has asterixis or not. HEENT: His sclerae are icteric. NECK: Nontender. BACK: Shows abrasions and contusions over the left 9, 10, 11 ribs. Laterally on the right at approximately the sixth rib there are signs of contusions. LUNGS: Excursion is diminished, but breath sounds are clear. CARDIAC: Shows S1, S2 to be normal. I do not appreciate any murmurs, rubs, or gallops at this time. ABDOMEN: Fairly tensely distended. He is tender to palpation, particularly in the right upper quadrant. He certainly has a reducible left inguinal hernia. His pelvis is stable to AP and lateral compression. EXTREMITIES: Lower extremities are unremarkable. LABORATORIES: Reveal a white count of 10.5, with 75 neutrophils. His platelet count is 102. His INR is 1.4. His sodium is 126, his potassium is 5.0, his BUN is 24, his creatinine is 1.8 up from 0.7 in April. His bilirubin is 2.7. His ammonia level is normal at 13. His oxygen saturation was reported 90% on 2 L/minute. IMPRESSION AND PLAN: Patient with fall and nondisplaced left rib fracture which is minimally tender. A chest x-ray has been ordered to rule out a pneumothorax. He does have ascites. Paracentesis is planned for diagnostic purposes to see if there is any blood in the abdomen. The perinephric contusion contained within Gerota's fascia is resulting in some pressure on the kidney. I have asked Dr. Darling to request an arterial renal Doppler (and venous phase) to make sure that blood flow was not compromised. Urology has asked for followup CAT scan in several days. I will continue to follow this patient with you. Thank you for the consultation request. /[id number]/MODL MTDD
--- NOTE | 2017-06-18 15:29 | ASMTCMCOM ---
CM Note CM Note Notes: Pt admitted after unwitnessed fall at home, R perinephric hematoma, L rib fx, acute encephalopathy; pt has hx of ESLD, cirrhosis and ascites due to alcohol and Hep C and is on transplant list per H&P. Pt lives at home w/. DC needs not clear yet. PT/OT recs pending. CM will follow. Date Signed: 06/18/2017 03:28 PM Electronically Signed By:Diane Winters RN
[2017-06-18] MEDS: MIDODRINE HCL 5 MG TAB PO SCH ×2 (16:40→22:18)
[2017-06-18] MEDS: LACTULOSE 20 GM/30 ML UDCUP PO SCH ×2 (16:40→22:18)
[2017-06-18] MEDS: CHOLESTYRAMINE/SUCROSE 4 GM PKT PO SCH ×2 (17:24→22:18)
[2017-06-18] MEDS: ALBUMIN 25% 200 ML IV SCH ×2 (17:24→23:55)
[2017-06-18] MEDS ORDERED: LIDOCAINE 1% 300 MG/30 ML SDV ONE (21:38)
[2017-06-18] MEDS: RIFAXIMIN 550 MG TAB PO SCH (22:17)
[2017-06-18] MEDS: PATCH REMOVAL 1 EA PATCH TD SCH (22:22)
[2017-06-19] MEDS: ALBUMIN 25% 200 ML IV SCH ×4 (05:16→23:04)
[2017-06-19] MEDS: oxyCODONE IR 5 MG TAB PO PRN ×3 (05:16→15:11)
[2017-06-19 05:22] LABS: PLATELET COUNT 63 10^3/uL (150-400)
[2017-06-19] MEDS: RIFAXIMIN 550 MG TAB PO SCH ×2 (09:07→21:03)
[2017-06-19] MEDS: LACTULOSE 20 GM/30 ML UDCUP PO SCH ×3 (09:07→21:03)
[2017-06-19] MEDS: CHOLESTYRAMINE/SUCROSE 4 GM PKT PO SCH ×3 (09:07→21:03)
[2017-06-19] MEDS: cefTRIAXone 1 GM in STERILE WATER INJ 10 ML IV SCH (09:07)
[2017-06-19] MEDS: MIDODRINE HCL 5 MG TAB PO SCH ×3 (09:07→21:04)
--- NOTE | 2017-06-19 09:07 | HOSPPROG ---
Hospitalist Progress Note Assessment/Plan: Perinephric hematoma and left rib fracture secondary to mechanical fall - U/S this am with just slight increase of resistive index. No htn, unlikely to develop page kidney at this point. Hgb trending down. Planned for paracentesis to r/o peritoneal hemorrhage, but no sufficient fluid by u/s so deferring. -trauma and urology services following -plan for repeat CT in 1-2 days -relative bedrest for now to avoid further bleeding/injury ABLA - Hgb 12 --> 8.2. No hypotension. Exam unchanged. Reviewed EGD from 2016, +grade 2-3 esophageal varices noted, s/p banding. He has c-scope scheduled for 07/[address] Waddell. -trend h&h -transfuse for hgb <7 ESLD / Cirrhosis with portal htn and ascites 2/2 etoh and Hep C - MELD 20. On transplant list, followed by Dr. Waddell. Recently treated for SBP (Cx grew E coli, f/u Cx neg). He has been on once daily Cipro since for prophylaxis. Given increased wbc's on arrival and tenderness with intra-abdominal trauma / bleeding, will cover with Ceftriaxone. Paracentesis deferred due to insufficient fluid. -cont atbx until BCx neg 48-72 hrs, then resume cipro pplx. -holding diuretics for now, see below. JON - Cr 1.8 on admission from baseline of 0.7. FeNa 0.86% suggests pre-renal state and pt has had diuretics aggressively increased in past month ( spironolactone from 25 to 200 and lasix from 20 bid to 40 bid). Concern for hepatorenal syndrome exists, though Cr is improving with IV albumin q6h. -continue q6h albumin for another 24 hrs -cont to hold diuretics Acute encephalopathy - Volume depletion and hyponatremia may be contributing. Improving with hydration. Ammonia normal. -continue Xifaxan and Lactulose. Hyponatremia - likely 2/2 recent increase in diuretics vs cirrhosis/ascites. Improved with volume expansion and holding diuretics. DVT PPLX - pt high risk for bleeding with low plts, liver dz, defer Lovenox. Place SCD's Code status - discussed with pt and , full code. Dispo - inpt, anticipate >48 hrs hospitalization for ongoing management of his traumatic injuries and ascites / ESLD. Will request palliative care consult for ongoing discussion about goals of care given his poor prognosis jail. Subjective: Pt doing a bit better today, less confused, but still not at baseline. Denies pain. No N/V. No BRBPR or hematemesis. No fevers. No significant change in abdominal exam. Objective: Vital Signs Temp Pulse Resp BP Pulse Ox 36.4 C 94 17 101/83 H 92 06/19/17 07:27 06/19/17 07:27 06/19/17 07:27 06/19/17 07:27 06/19/17 07:27 Laboratory Results 06/19/17 07:55 06/19/17 04:25 06/18/17 06/19/17 06/20/17 05:59 05:59 05:59 Intake Total 1030 Output Total 950 Balance 80 PT 17.3 SEC (12.0-15.0) H 06/18/17 08:30 INR 1.40 (0.83-1.16) H 06/18/17 08:30 - Physical Exam Constitutional: chronically ill appearing Eyes: icteric sclera Ears, Nose, Mouth, Throat: dry mucous membranes Cardiovascular: regular rate and rhythym, no murmur, rub, or gallop Respiratory: no respiratory distress, clear to auscultation Gastrointestinal: normoactive bowel sounds, distension, other (right lateral / upper abdomen with palpable hematoma, +tenderness, no peritoneal signs) Skin: warm Musculoskeletal: generalized weakness Psychiatric: encephalopathic ICD10 Worksheet Patient Problems: Problems Problem Status Onset Ascites Acute Cirrhosis Acute Confusion Acute Perinephric hematoma Acute Abdominal pain Acute Alcoholism Acute Dehydration Acute Hyperbilirubinemia Acute Hyponatremia Acute Septic shock Acute Spontaneous bacterial peritonitis Acute Vomiting Acute
[2017-06-19] MEDS: LIDOCAINE 5% 1 EA PATCH TD SCH (09:08)
--- NOTE | 2017-06-19 11:45 | TRAUMAPN ---
Assessment/Plan: PAD#1 06/19/2017 Assessment: Agree with Dr. Darling's assessment. Patient stable. Kidney is stable but would suggest follow up doppler tomorrow to re-assess. I feel that would lead to a better evaluation as IV contrast is problematic and the doppler can again give us vascular parameters to compare as well as re-evaluate the size of the perinephric hematoma. Lungs clear, CXR had not shown a PTX Passing minimal flatus. Plan: follow H/H and transfuse as needed. Nothing further to add at this point. Please reconsult as needed Subjective: I feel about the same Objective: Vital Signs Temp Pulse Resp BP Pulse Ox 36.4 C 94 17 101/83 H 92 06/19/17 07:27 06/19/17 07:27 06/19/17 07:27 06/19/17 07:27 06/19/17 07:27 Laboratory Results 06/19/17 07:55 06/19/17 04:25 06/18/17 06/19/17 06/20/17 05:59 05:59 05:59 Intake Total 1030 Output Total 950 Balance 80 PT 17.3 SEC (12.0-15.0) H 06/18/17 08:30 INR 1.40 (0.83-1.16) H 06/18/17 08:30 Physical Exam - Physical Exam General Appearance: other (arousable) Respiratory: chest non-tender, lungs clear, normal breath sounds Cardiac/Chest: regular rate, rhythm (no gallop) Abdomen: distended (hypoactive bowel sounds) Male Genitalia: deferred Rectal: deferred Back: Normal inspection
[2017-06-19] MEDS: HYDROmorphONE/DILAUDID 1 MG/ML INJ IVP PRN (16:39)
[2017-06-19] MEDS: PATCH REMOVAL 1 EA PATCH TD SCH (21:17)
[2017-06-20] MEDS: ALBUMIN 25% 200 ML IV SCH (04:59)
[2017-06-20 05:14] LABS: PLATELET COUNT 58 10^3/uL (150-400)
[2017-06-20] MEDS: NS 1,000 ML IV SCH ×3 (08:30→22:34)
[2017-06-20] MEDS: cefTRIAXone 1 GM in STERILE WATER INJ 10 ML IV SCH (08:32)
[2017-06-20] MEDS: LIDOCAINE 5% 1 EA PATCH TD SCH (08:33)
--- NOTE | 2017-06-20 08:36 | HOSPPROG ---
Hospitalist Progress Note Assessment/Plan: Perinephric hematoma and left rib fracture secondary to mechanical fall - U/S with just slight increase of resistive index. No htn, unlikely to develop page kidney at this point. Hgb trending down. Planned for paracentesis to r/o peritoneal hemorrhage, but no sufficient fluid by u/s so deferring. -trauma and urology services following -repeat u/s today, following resistive index -relative bedrest for now to avoid further bleeding/injury ABLA - Hgb 12 --> 7.7 (was likely hemoconcentrated on arrival). No hypotension. A bit more distended today. Reviewed EGD from 01/2017, +grade 2-3 esophageal varices noted, s/p banding. He has c-scope scheduled for 07/[address] Waddell. No GI bleeding evident. -trend h&h -transfuse for hgb <7 ESLD / Cirrhosis with portal htn and ascites 2/2 etoh and Hep C - MELD 20. Not on transplant list yet, followed by Dr. Waddell. Recently treated for SBP (Cx grew E coli, f/u Cx neg). He has been on once daily Cipro since for prophylaxis. Given increased wbc's on arrival and tenderness with intra- abdominal trauma / bleeding, covering with Ceftriaxone. However, paracentesis deferred due to insufficient fluid. -cont atbx until BCx neg 48-72 hrs, then resume cipro pplx. -holding diuretics for now, see below. JON - Cr 1.8 on admission from baseline of 0.7. FeNa 0.86% suggests pre-renal state and pt has had diuretics aggressively increased in past month ( spironolactone from 25 to 200 and lasix from 20 bid to 40 bid). Concern for hepatorenal syndrome exists. He received 48 hrs of IV Albumin and Cr back up to 1.8. Albumin status improved. -still seems volume down, will run gentle NS and see if this improves his renal perfusion with better albumin status -cont to hold diuretics though anticipate may need to resume tomorrow at lower doses Acute encephalopathy - Ammonia normal on admission. Volume depletion and hyponatremia may be contributing. -continue Xifaxan and Lactulose Hyponatremia - likely 2/2 recent increase in diuretics vs cirrhosis/ascites. Improved with volume expansion and holding diuretics. -follow Thrombocytopenia - plts trending down Coagulopathy 2/2 ESLD - INR 1.4, lower than previous admissions DVT PPLX - pt high risk for bleeding with low plts, liver dz, defer Lovenox. Place SCD's Code status - discussed with pt and , full code. Dispo - Cont inpt. Palliative care consult today to discuss ongoing care goals. Prepared that he may not survive until transplant. Will eventually need to re-address code status. Subjective: Pt still a bit confused, but more interactive and awake. Denies pain. No N/V. Stooling here twice daily. No e/o GI bleeding. No fevers. Taking po fairly well. Objective: Vital Signs Temp Pulse Resp BP Pulse Ox 37.1 C 86 18 108/70 92 06/20/17 07:12 06/20/17 07:12 06/20/17 07:12 06/20/17 07:12 06/20/17 07:12 Laboratory Results 06/20/17 04:28 06/20/17 04:28 06/19/17 06/20/17 06/21/17 05:59 05:59 05:59 Intake Total 1030 1800 Output Total 950 350 Balance 80 1450 PT 17.3 SEC (12.0-15.0) H 06/18/17 08:30 INR 1.40 (0.83-1.16) H 06/18/17 08:30 - Physical Exam Constitutional: chronically ill appearing Eyes: PERRL Ears, Nose, Mouth, Throat: dry mucous membranes Cardiovascular: regular rate and rhythym Respiratory: no respiratory distress, clear to auscultation Gastrointestinal: other (soft, moderately distended, +right lateral hematoma palpable which is tender) Skin: warm Musculoskeletal: generalized weakness Psychiatric: encephalopathic ICD10 Worksheet Patient Problems: Problems Problem Status Onset Ascites Acute Cirrhosis Acute Confusion Acute Perinephric hematoma Acute Abdominal pain Acute Alcoholism Acute Dehydration Acute Hyperbilirubinemia Acute Hyponatremia Acute Septic shock Acute Spontaneous bacterial peritonitis Acute Vomiting Acute
[2017-06-20] MEDS: oxyCODONE IR 5 MG TAB PO PRN ×3 (08:44→22:31)
[2017-06-20] MEDS: MIDODRINE HCL 5 MG TAB PO SCH ×3 (08:44→22:30)
[2017-06-20] MEDS: LACTULOSE 20 GM/30 ML UDCUP PO SCH ×4 (08:45→22:38)
[2017-06-20] MEDS: RIFAXIMIN 550 MG TAB PO SCH ×2 (08:45→22:30)
[2017-06-20] MEDS: CHOLESTYRAMINE/SUCROSE 4 GM PKT PO SCH ×3 (08:45→22:30)
--- NOTE | 2017-06-20 10:45 | ASMTCMCOM ---
CM Note CM Note Notes: Spoke with Dr. Darling who states she plans to communicate with patient's who is not aware of the realities of patient's condition. Dr. Darling gave patient 3 month prognosis, which his Ivette was under the impression he had 5 years. Spoke with Casimiro also who states he met with patient and for a palliative care consult. But with the new prognosis the family may be changing direction. Casimiro states Ivette is not ready yet for hospice as she is trying to adjust to the new information. Patient's son who is 23 has moved back home and taken over the [employer] business.Casimiro encouraged Ivette to have her son attend the rescheduled meeting for palliatve tomorrow at 10:00. Casimiro will check in with Sophie Durham, social science professor who has the floor tomorrow to join in the meeting. The family will most likely want to take the patient home vs. any kind of rehab. CM will follow. Date Signed: 06/20/2017 10:44 AM Electronically Signed By:Adia Lion LCSW
[2017-06-20] MEDS: PATCH REMOVAL 1 EA PATCH TD SCH (22:50)
[2017-06-21 06:04] LABS: PLATELET COUNT 66 10^3/uL (150-400)
[2017-06-21] MEDS: oxyCODONE IR 5 MG TAB PO PRN ×5 (06:31→22:48)
[2017-06-21] MEDS: cefTRIAXone 1 GM in STERILE WATER INJ 10 ML IV SCH (08:22)
[2017-06-21] MEDS: LIDOCAINE 5% 1 EA PATCH TD SCH (08:33)
[2017-06-21] MEDS: LACTULOSE 20 GM/30 ML UDCUP PO SCH ×3 (08:35→21:03)
[2017-06-21] MEDS: MIDODRINE HCL 5 MG TAB PO SCH ×3 (08:36→20:58)
[2017-06-21] MEDS: RIFAXIMIN 550 MG TAB PO SCH ×2 (08:38→20:58)
[2017-06-21] MEDS: CHOLESTYRAMINE/SUCROSE 4 GM PKT PO SCH ×3 (11:18→23:16)
--- NOTE | 2017-06-21 15:53 | HOSPPROG ---
Hospitalist Progress Note Assessment/Plan: Assessment: 56 yo M p/w acute traumatic 2/2 JON/hypovolemia resulting in perinephric hematoma and left rib fracture Plan: # Perinephric hematoma. Repeat US w/o further expansion, cont to monitor - appreciate urology consult # Rib fracture. Ongoing pain, treating aggressing w/ oxy IR - appreciate ongoing trauma consult # Acute Blood Loss Anemia. Hgb 12->7 in setting of hematoma - Hgb 12 --> 7.7 - EGD from 01/2017, +grade 2-3 esophageal varices noted, s/p banding - has c-scope scheduled for 07/[address] 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 Waddell - given increased wbc's on arrival and tenderness with intra-abdominal trauma / bleeding, covering with Ceftriaxone - paracentesis deferred due to insufficient fluid - resume cipro ppx at discharge - restart diuretics tomorrow - continue Xifaxan and Lactulose # Chronic pain w/ continuous opiate dependency. Uptitrated oxy IR given rib fxr pain # JON. 2/2 hypovolemia and intravascular depletion in setting of high diuretic usage and low oncotic pressure - improving s/p IVF and albumin - stop fluids today, allow to re-equilibrate prior to restarting diuretics # Acute encephalopathy. Evidenced by global brain dysfunction characterized as confusion, disorientation, hallucinations, all of which are an acute change from his baseline, occurring s/p most recent hospitalization for sepsis, and likely 2/2 combination of metabolic effects of JON, hyponatremia - counseled extensively regarding the correlation between his mental decline and his functional decline, I believe the patient is moving toward end of life and I recommend we treat issues such as pain more palliatively w/ palliative care conf today to help define approach # Acute on Chronic Hyponatremia. Likely 2/2 recent increase in diuretics vs cirrhosis/ascites, improved with volume expansion and holding diuretic # Thrombocytopenia. Chronic, monitor # Coagulopathy 2/2 ESLD. Repeat in AM DVT PPLX - pt high risk for bleeding with low plts, liver dz, defer Lovenox. Placed SCD's Code status - discussed with pt and , full code. Dispo - Cont inpt, reinitiating diuretics tomorrow, gauge effect Subjective: ongoing pain in abd, left ribs Objective: Vital Signs Temp Pulse Resp BP Pulse Ox 36.6 C 86 18 101/73 92 06/21/17 14:45 06/21/17 14:45 06/21/17 14:45 06/21/17 14:45 06/21/17 14:45 Laboratory Results 06/21/17 04:25 06/21/17 04:25 06/20/17 06/21/17 06/22/17 05:59 05:59 05:59 Intake Total 1800 1250 Output Total 350 0 Balance 1450 1250 PT 17.3 SEC (12.0-15.0) H 06/18/17 08:30 INR 1.40 (0.83-1.16) H 06/18/17 08:30 - Time Spent With Patient Time Spent with Patient: greater than 35 minutes Time Spent with Patient: Greater than 35 minutes spent on this patients care, greater than 50% of time spent counseling, educating, and coordinating care regarding the above mentioned plan. - Physical Exam Constitutional: chronically ill appearing, uncomfortable, No not in pain (mild) Cardiovascular: systolic murmur (I/vi at all valves), No irregularly irregular, No tachycardia, No edema Respiratory: reduced air movement (bialt bases), No expiratory wheeze, No inspiratory crackles, No bronchial breath sounds, No respiratory distress Gastrointestinal: normoactive bowel sounds, tenderness (diffusely throughout), ascites, distension (moderate), No guarding Neurologic: sensation intact bilaterally, other (AAOx1), No facial droop Psychiatric: not anxious, encephalopathic, other (thinks he's in [place] and that we're at work), No agitated ICD10 Worksheet Patient Problems: Problems Problem Status Onset Abdominal pain Acute Ascites Acute Hyperbilirubinemia Acute Alcoholism Acute Spontaneous bacterial peritonitis Acute Septic shock Acute Hyponatremia Acute Dehydration Acute Cirrhosis Acute Confusion Acute Vomiting Acute Perinephric hematoma Acute
--- NOTE | 2017-06-21 16:25 | ASMTCMCOM ---
CM Note CM Note Notes: PT recommending homecare. Today SWer participated in Palliative Care conference with Pt., Deisi, son Vijay, Naty Barker RN, and Casimiro Garcia. could not join, but spoke with Deisi ahead of consult. Met at bedside. After some discussion, Deisi would like to pursue liver transplant for Pt. Deisi is now open to the idea of homecare for support. After consult, SWer called [facility] and asked for RN, PT, OT, and PROJECTOR BOOTH OPERATOR services. PROJECTOR BOOTH OPERATOR services could be helpful with resolving DME issues and also Pt. will need to go through "alcohol classes" to get a liver transplant and perhaps PROJECTOR BOOTH OPERATOR could find someone to come to the home since Pt. will be homebound. Naty Barker RN called later to see if Pt. might qualify for Medicaid. Pt. and appear to be according to the facesheet. However, Debra from [employer] to screen for Medicaid with Deisi. PCP is Dr. Vidal. SWer provided information to family regarding DME loan closets and low cost resources. [facility] will follow for homecare through [facility]. Per Olivia, need to get auth for each service. CM to follow. Date Signed: 06/21/2017 04:25 PM Electronically Signed By:Sophie Durham LCSW
[2017-06-21] MEDS: PATCH REMOVAL 1 EA PATCH TD SCH (21:03)
[2017-06-22] MEDS: oxyCODONE IR 5 MG TAB PO PRN ×4 (05:30→20:05)
[2017-06-22 05:44] LABS: PLATELET COUNT 64 10^3/uL (150-400)
[2017-06-22 06:03] LABS: INR 1.97 (0.83-1.16); PROTIME(PATIENT) 22.5 SEC (12.0-15.0)
[2017-06-22] MEDS: cefTRIAXone 1 GM in STERILE WATER INJ 10 ML IV SCH (08:11)
[2017-06-22] MEDS: RIFAXIMIN 550 MG TAB PO SCH ×2 (08:12→20:05)
[2017-06-22] MEDS: LACTULOSE 20 GM/30 ML UDCUP PO SCH ×3 (08:12→20:05)
[2017-06-22] MEDS: LIDOCAINE 5% 1 EA PATCH TD SCH (08:13)
[2017-06-22] MEDS: MIDODRINE HCL 5 MG TAB PO SCH ×3 (08:13→20:05)
[2017-06-22] MEDS: FUROSEMIDE 40 MG TAB PO SCH ×2 (08:47→14:51)
[2017-06-22] MEDS: CHOLESTYRAMINE/SUCROSE 4 GM PKT PO SCH ×3 (10:27→22:42)
--- NOTE | 2017-06-22 13:08 | ASMTCMCOM ---
CM Note CM Note Notes: Patient is going home with home care [facility] with PT/OT/RN/TOUCH UP PAINTER HAND support services. Currently, [facility] is working on securing a hospital bed for patient to be used in his home. Brissa Portillo LCSW on oncology unit is researching. [facility] will follow. Date Signed: 06/22/2017 01:07 PM Electronically Signed By:Adia Lion LCSW
--- NOTE | 2017-06-22 16:43 | HOSPPROG ---
Hospitalist Progress Note Assessment/Plan: Assessment: 56 yo M p/w acute traumatic 2/2 JON/hypovolemia resulting in perinephric hematoma and left rib fracture Plan: # Perinephric hematoma. Repeat US w/o further expansion, cont to monitor - appreciate urology consult # Rib fracture. Ongoing pain, treating aggressing w/ oxy IR - appreciate ongoing trauma consult - lidoderm, heat pad # Acute Blood Loss Anemia. Hgb 12->7 in setting of hematoma - Hgb 12 --> 7.7 - EGD from 01/2017, +grade 2-3 esophageal varices noted, s/p banding - has c-scope scheduled for 07/[address] 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 Waddell - given increased wbc's on arrival and tenderness with intra-abdominal trauma / bleeding, covering with Ceftriaxone - resume cipro ppx at discharge - restarted diuretics today, plan on diag/therapeutic para tomorrow AM and monitor volume status, attempt to reinitiate aldactone - continue Xifaxan and Lactulose - counseled patient/ regarding above, and also discussed yesterday's palliative conference, it does not seem that they want home palliative/hospice, but will continue to readdress with them given life expectancy < 3 months # Chronic pain w/ continuous opiate dependency. Uptitrated oxy IR given rib fxr pain # JON. 2/2 hypovolemia and intravascular depletion in setting of high diuretic usage and low oncotic pressure - monitor Cr on diuretics and para # Acute encephalopathy. Evidenced by global brain dysfunction characterized as confusion, disorientation, hallucinations, all of which are an acute change from his baseline, occurring s/p most recent hospitalization for sepsis, and likely 2/2 combination of metabolic effects of JON, hyponatremia - counseled extensively regarding the correlation between his mental decline and his functional decline, I believe the patient is moving toward end of life # Acute on Chronic Hyponatremia. Likely 2/2 recent increase in diuretics vs cirrhosis/ascites, improved with volume expansion and holding diuretic # Thrombocytopenia. Chronic, monitor # Coagulopathy 2/2 ESLD. Repeat in AM DVT PPLX - pt high risk for bleeding with low plts, liver dz, defer Lovenox. Placed SCD's Code status - discussed with pt and , full code. Dispo - Cont inpt, gauge effect of diuretics and para Subjective: ongoing abd pain, limited ambulatory ability Objective: Vital Signs Temp Pulse Resp BP Pulse Ox 36.7 C 81 18 102/72 91 L 06/22/17 15:56 06/22/17 15:56 06/22/17 15:56 06/22/17 15:56 06/22/17 15:56 Laboratory Results 06/22/17 04:33 06/22/17 04:33 06/21/17 06/22/17 06/23/17 05:59 05:59 05:59 Intake Total 1250 1800 350 Output Total 0 325 200 Balance 1250 1475 150 PT 22.5 SEC (12.0-15.0) H 06/22/17 04:33 INR 1.97 (0.83-1.16) H 06/22/17 04:33 - Time Spent With Patient Time Spent with Patient: greater than 35 minutes Time Spent with Patient: Greater than 35 minutes spent on this patients care, greater than 50% of time spent counseling, educating, and coordinating care regarding the above mentioned plan. - Physical Exam Constitutional: no apparent distress, not in pain, chronically ill appearing, uncomfortable Cardiovascular: regular rate and rhythym, no murmur, rub, or gallop, No edema Respiratory: reduced air movement (bilat bases), No expiratory wheeze, No inspiratory crackles, No bronchial breath sounds Gastrointestinal: normoactive bowel sounds, tenderness, ascites, distension Neurologic: other (AAOx2 (person, place)), No asterixes Psychiatric: not anxious, flat affect, other (intermittently engaged, other times appear to be responding to hallucinations), No agitated ICD10 Worksheet Patient Problems: Problems Problem Status Onset Abdominal pain Acute Ascites Acute Hyperbilirubinemia Acute Alcoholism Acute Spontaneous bacterial peritonitis Acute Septic shock Acute Hyponatremia Acute Dehydration Acute Cirrhosis Acute Confusion Acute Vomiting Acute Perinephric hematoma Acute
[2017-06-22] MEDS: PATCH REMOVAL 1 EA PATCH TD SCH (20:06)
[2017-06-23] MEDS: oxyCODONE IR 5 MG TAB PO PRN ×3 (00:05→20:25)
[2017-06-23 05:24] LABS: PLATELET COUNT 66 10^3/uL (150-400)
[2017-06-23] MEDS: LACTULOSE 20 GM/30 ML UDCUP PO SCH ×3 (08:39→20:25)
[2017-06-23] MEDS: RIFAXIMIN 550 MG TAB PO SCH ×2 (08:39→20:25)
[2017-06-23] MEDS: MIDODRINE HCL 5 MG TAB PO SCH ×3 (08:40→20:25)
[2017-06-23] MEDS: LIDOCAINE 5% 1 EA PATCH TD SCH (08:41)
[2017-06-23] MEDS: FUROSEMIDE 40 MG TAB PO SCH ×2 (08:41→16:33)
[2017-06-23] MEDS: cefTRIAXone 1 GM in STERILE WATER INJ 10 ML IV SCH (08:41)
[2017-06-23 09:03] LABS: INR 1.97 (0.83-1.16); PROTIME(PATIENT) 22.5 SEC (12.0-15.0)
[2017-06-23] MEDS: CHOLESTYRAMINE/SUCROSE 4 GM PKT PO SCH ×2 (10:11→17:14)
[2017-06-23] MEDS ORDERED: diphenhydrAMINE 25 MG CAP PO PRN (16:22)
[2017-06-23] MEDS ORDERED: MAGNESIUM HYDROXIDE 30 ML UDCUP PO PRN (16:22)
[2017-06-23] MEDS ORDERED: BISACODYL 10 MG SUPP PR PRN (16:22)
[2017-06-23] MEDS ORDERED: POLYETHYLENE GLYCOL 3350 17 GM PKT PO PRN (16:22)
[2017-06-23] MEDS ORDERED: SPIRONOLACTONE 25 MG TAB PO SCH (16:30)
--- NOTE | 2017-06-23 16:39 | HOSPPROG ---
Hospitalist Progress Note Assessment/Plan: Assessment: 56 yo M p/w acute traumatic 2/2 JON/hypovolemia resulting in perinephric hematoma and left rib fracture Plan: # Perinephric hematoma. Repeat US w/o further expansion, cont to monitor - appreciate urology consult # Rib fracture. Ongoing pain, lower oxy IR - appreciate ongoing trauma consult - lidoderm, heat pad # Acute Blood Loss Anemia. Hgb 12->7 in setting of hematoma - Hgb 12 --> 7.7 - EGD from 01/2017, +grade 2-3 esophageal varices noted, s/p banding - has c-scope scheduled for 07/[address] 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 Waddell - given increased wbc's on arrival and tenderness with intra-abdominal trauma / bleeding, covering with Ceftriaxone - resume cipro ppx at discharge - increase diuretics today, lasix 40 bid, aldactone 25 - continue Xifaxan and Lactulose - counseled patient/ regarding above, encouraged SNF b/c patient is requiring frequent redirection for safety # Chronic pain w/ continuous opiate dependency. Ongoing oxy IR # JON. 2/2 hypovolemia and intravascular depletion in setting of high diuretic usage and low oncotic pressure - monitor Cr on diuretics and para # Acute encephalopathy. Evidenced by global brain dysfunction characterized as confusion, disorientation, hallucinations, all of which are an acute change from his baseline, occurring s/p most recent hospitalization for sepsis, and likely 2/2 combination of metabolic effects of JON, hyponatremia - counseled extensively regarding the correlation between his mental decline and his functional decline, I believe the patient is moving toward end of life and is unsafe at home given his active delusions - reduce oxy IR to 2.5-5 - make sure he's having daily BMs - melatonin HS # Acute on Chronic Hyponatremia. Likely 2/2 recent increase in diuretics vs cirrhosis/ascites, improved with volume expansion and holding diuretic # Thrombocytopenia. Chronic, monitor # Coagulopathy 2/2 ESLD. Repeat in AM DVT PPLX - pt high risk for bleeding with low plts, liver dz, defer Lovenox. Placed SCD's Code status - discussed with pt and , full code. Dispo - Cont inpt, gauge effect of diuretics and para Subjective: abd distension, active delusions Objective: Vital Signs Temp Pulse Resp BP Pulse Ox 36.6 C 88 18 114/73 97 06/23/17 14:42 06/23/17 14:42 06/23/17 14:42 06/23/17 14:42 06/23/17 14:42 Laboratory Results 06/23/17 04:19 06/23/17 04:19 06/22/17 06/23/17 06/24/17 05:59 05:59 05:59 Intake Total 1800 1225 440 Output Total 325 600 700 Balance 1475 625 -260 PT 22.5 SEC (12.0-15.0) H 06/23/17 08:32 INR 1.97 (0.83-1.16) H 06/23/17 08:32 - Time Spent With Patient Time Spent with Patient: greater than 35 minutes Time Spent with Patient: Greater than 35 minutes spent on this patients care, greater than 50% of time spent counseling, educating, and coordinating care regarding the above mentioned plan. - Physical Exam Constitutional: no apparent distress, not in pain, chronically ill appearing, No uncomfortable Cardiovascular: systolic murmur (I/ at all valves), No irregularly irregular, No tachycardia, No edema Respiratory: reduced air movement (bilat bases), No expiratory wheeze, No inspiratory crackles, No bronchial breath sounds, No respiratory distress Gastrointestinal: normoactive bowel sounds, ascites, distension (moderate), No tenderness Neurologic: other (AAOx1 (person only)), No asterixes Psychiatric: not anxious, encephalopathic, poor memory, No agitated ICD10 Worksheet Patient Problems: Problems Problem Status Onset Abdominal pain Acute Ascites Acute Hyperbilirubinemia Acute Alcoholism Acute Spontaneous bacterial peritonitis Acute Septic shock Acute Hyponatremia Acute Dehydration Acute Cirrhosis Acute Confusion Acute Vomiting Acute Perinephric hematoma Acute
--- NOTE | 2017-06-23 17:00 | ASMTCMCOM ---
CM Note CM Note Notes: Patient's is now interested in SNF rehab placement for patient as a result of current cognitive impairment. Referrals were sent to [facility], [facility], and [facility]. Instructions for obtaining a hospital bed with insurance agreeing to cover the expense were given to Micheline who will be covering CM on Monday. [facility] does take [employer] insurance. However, there will need to be a prescription from the attending physician to qualify for renting the bed through insurance. This will be pursued more when a final decision is made as to the d/c plan. Currently, d/c plan has changed to SNF placement for rehab. CM will follow. Date Signed: 06/23/2017 04:59 PM Electronically Signed By:Adia Lion LCSW
[2017-06-23] MEDS: SENNOSIDES/DOCUSATE SODIUM TAB PO SCH (20:25)
[2017-06-23] MEDS: MELATONIN 3 MG TAB PO SCH (20:25)
[2017-06-23] MEDS: PATCH REMOVAL 1 EA PATCH TD SCH (21:57)
[2017-06-24] MEDS: oxyCODONE IR 5 MG TAB PO PRN ×3 (00:30→14:22)
[2017-06-24 04:51] LABS: PLATELET COUNT 58 10^3/uL (150-400)
[2017-06-24] MEDS: LACTULOSE 20 GM/30 ML UDCUP PO SCH ×4 (05:03→20:35)
[2017-06-24] MEDS ORDERED: SPIRONOLACTONE 25 MG TAB PO SCH (08:32)
[2017-06-24] MEDS: RIFAXIMIN 550 MG TAB PO SCH ×2 (09:53→20:35)
[2017-06-24] MEDS: FUROSEMIDE 40 MG TAB PO SCH ×2 (09:54→15:06)
[2017-06-24] MEDS: MIDODRINE HCL 5 MG TAB PO SCH ×3 (09:54→20:34)
[2017-06-24] MEDS: cefTRIAXone 1 GM in STERILE WATER INJ 10 ML IV SCH (09:55)
[2017-06-24] MEDS: SENNOSIDES/DOCUSATE SODIUM TAB PO SCH ×2 (09:55→20:38)
[2017-06-24] MEDS: LIDOCAINE 5% 1 EA PATCH TD SCH (09:55)
--- NOTE | 2017-06-24 15:59 | HOSPPROG ---
Hospitalist Progress Note Assessment/Plan: Assessment: 56 yo M p/w acute traumatic 2/2 JON/hypovolemia resulting in perinephric hematoma and left rib fracture Plan: # Perinephric hematoma. Repeat US w/o further expansion, cont to monitor - appreciate urology consult - if pain escalates, will repeat US # Rib fracture. Ongoing pain, lowered oxy IR, give 5mg now - appreciate trauma consult - lidoderm, heat pad # Acute Blood Loss Anemia. Hgb 12->7 in setting of hematoma - Hgb 12 --> 7.7 - EGD from 01/2017, +grade 2-3 esophageal varices noted, s/p banding - has c-scope scheduled for 07/[address] 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 Waddell - given increased wbc's on arrival and tenderness with intra-abdominal trauma / bleeding, covering with Ceftriaxone - resume cipro ppx at discharge - increased diuretics today, lasix 40 bid, aldactone 50, plan to bring aldactone up to pre-acute dose of 100mg - continue Xifaxan and Lactulose - not enough ascites to safely tap 2/2, will repeat US/para eval in several days , prior to DC for palliative comfort # Chronic pain w/ continuous opiate dependency. Ongoing oxy IR, attempting to dose sparingly # JON. 2/2 hypovolemia and intravascular depletion in setting of high diuretic usage and low oncotic pressure - monitor Cr on diuretics and para # Acute encephalopathy. Evidenced by global brain dysfunction characterized as confusion, disorientation, hallucinations, all of which are an acute change from his baseline, occurring s/p most recent hospitalization for sepsis, and likely 2/2 combination of metabolic effects of JON, hyponatremia, and opiate pain Rx w/ reduced clearing in setting of ESLD - patient is moving toward end of life and is unsafe at home given his active delusions, remains high fall risk, cont SNF search - reduced oxy IR to 2.5-5 - make sure he's having daily BMs - melatonin HS # Acute on Chronic Hyponatremia. Likely 2/2 recent increase in diuretics vs cirrhosis/ascites # Thrombocytopenia. Chronic, monitor # Coagulopathy 2/2 ESLD. Repeat in AM DVT PPLX - pt high risk for bleeding with low plts, liver dz, defer Lovenox. Placed SCD's Code status - discussed with pt and , full code. Dispo - Cont inpt, gauge effect of diuretics and para Subjective: more pain in abd today, fewer delusions Objective: Vital Signs Temp Pulse Resp BP Pulse Ox 36.7 C 76 15 110/72 95 06/24/17 15:32 06/24/17 15:32 06/24/17 15:32 06/24/17 15:32 06/24/17 15:32 Microbiology 06/18/17 12:00 Blood Culture - Final Blood 06/18/17 12:05 Blood Culture - Final Blood Laboratory Results 06/24/17 04:14 06/24/17 04:14 06/23/17 06/24/17 06/25/17 05:59 05:59 05:59 Intake Total 1225 2040 Output Total 600 2275 1100 Balance 625 -235 -1100 PT 22.5 SEC (12.0-15.0) H 06/23/17 08:32 INR 1.97 (0.83-1.16) H 06/23/17 08:32 - Physical Exam Constitutional: no apparent distress, chronically ill appearing, uncomfortable, No not in pain (moderate) Cardiovascular: systolic murmur (I. at sternum), No irregularly irregular, No tachycardia, No edema Respiratory: reduced air movement (bilat bses), No expiratory wheeze, No bronchial breath sounds, No respiratory distress Gastrointestinal: normoactive bowel sounds, tenderness, ascites, distension ( moderate) Neurologic: other (AAOx1 (person only)) Psychiatric: not anxious, encephalopathic, flat affect, No agitated ICD10 Worksheet Patient Problems: Problems Problem Status Onset Abdominal pain Acute Ascites Acute Hyperbilirubinemia Acute Alcoholism Acute Spontaneous bacterial peritonitis Acute Septic shock Acute Hyponatremia Acute Dehydration Acute Cirrhosis Acute Confusion Acute Vomiting Acute Perinephric hematoma Acute
[2017-06-24] MEDS: MELATONIN 3 MG TAB PO SCH (20:34)
[2017-06-24] MEDS: PATCH REMOVAL 1 EA PATCH TD SCH (20:36)
[2017-06-25 05:14] LABS: PLATELET COUNT 76 10^3/uL (150-400)
[2017-06-25] MEDS ORDERED: SPIRONOLACTONE 25 MG TAB PO SCH (09:00)
[2017-06-25] MEDS: RIFAXIMIN 550 MG TAB PO SCH ×2 (09:05→18:23)
[2017-06-25] MEDS: FUROSEMIDE 40 MG TAB PO SCH ×2 (09:05→16:43)
[2017-06-25] MEDS: MIDODRINE HCL 5 MG TAB PO SCH ×3 (09:06→20:11)
[2017-06-25] MEDS: oxyCODONE IR 5 MG TAB PO PRN ×2 (09:06→18:24)
[2017-06-25] MEDS: SPIRONOLACTONE 100 MG TAB PO SCH (09:07)
[2017-06-25] MEDS: cefTRIAXone 1 GM in STERILE WATER INJ 10 ML IV SCH (09:08)
[2017-06-25] MEDS: LACTULOSE 20 GM/30 ML UDCUP PO SCH ×3 (09:08→20:11)
[2017-06-25] MEDS: LIDOCAINE 5% 1 EA PATCH TD SCH (09:08)
[2017-06-25] MEDS: SENNOSIDES/DOCUSATE SODIUM TAB PO SCH ×2 (09:08→20:11)
[2017-06-25 15:29] VITALS: TEMP 97.9
--- NOTE | 2017-06-25 16:36 | HOSPPROG ---
Hospitalist Progress Note Assessment/Plan: Assessment: 56 yo M p/w acute traumatic fall 2/2 JON/hypovolemia/acute on chronic encephalopathy resulting in perinephric hematoma and left rib fracture Plan: # Acute on chronic encephalopathy. Evidenced by global brain dysfunction characterized as confusion, disorientation, hallucinations, all of which are an acute worsening from his baseline, occurring s/p most recent hospitalization for sepsis, and likely 2/2 combination of metabolic effects of JON, hyponatremia , and opiate pain Rx w/ reduced clearing in setting of ESLD - patient is moving toward end of life and is unsafe at home given his active delusions, remains high fall risk - although he interacts coherently, he is actively delusional most of the day and is VERY high risk of falls when unsupervised at home (his works most days and cannot supervise), so I counseled her again today about the safety of having him supervised at least temporarily in a SNF and working on getting nursing/aide help at home to cover the hours she is at work - she will consider this suggestion, but is leaning towards attempting to get him home directly from [facility] in a couple days w/ increased home nursing/aide rather than going to SNF - scripts for home Hospital Bed and 4-wheel walker completed, in chart - make sure he's having daily BMs - melatonin HS # Perinephric hematoma. Repeat US w/o further expansion, cont to monitor - if pain escalates, will repeat US # Rib fracture. Ongoing pain, lowered oxy IR, give 5mg now - lidoderm, heat pad # Acute Blood Loss Anemia. Hgb 12->7 in setting of hematoma - Hgb 12 --> 7.7 - EGD from 01/2017, +grade 2-3 esophageal varices noted, s/p banding - has c-scope scheduled for 07/[address] 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 Waddell - given increased wbc's on arrival and tenderness with intra-abdominal trauma / bleeding, covering with Ceftriaxone - resume cipro ppx at discharge - increased diuretics today, lasix 40 bid, aldactone 100, recommend continuing these doses (these were his stable home doses prior to uptitration in outpt setting that resulted in JON) - continue Xifaxan and Lactulose scheduled - not enough ascites to safely tap 06/23, rec repeat US/para eval 06/27 AM prior to DC for palliative comfort # Chronic pain w/ continuous opiate dependency. Ongoing oxy IR, attempting to dose sparingly - at home he was relatively stable on 5mg bid oxy IR, attempting to stabilize his current pain on that dosage, as he had significant cognitive impairment on higher doses - if he requires uptitration, would rec 5/.09/23 # JON. 2/2 hypovolemia and intravascular depletion in setting of high diuretic usage and low oncotic pressure - monitor Cr on diuretics # Acute on Chronic Hyponatremia. Likely 2/2 recent increase in diuretics vs cirrhosis/ascites # Thrombocytopenia. Chronic, monitor # Coagulopathy 2/2 ESLD. Repeat in AM DVT PPLX - pt high risk for bleeding with low plts, liver dz, defer Lovenox. Placed SCD's Code status - discussed with pt and , full code. Dispo - ADD 06/27, gauge effect of diuretics and mental status/safety Subjective: patient w/ ongoing but stable abd pain, having BMs Objective: Vital Signs Temp Pulse Resp BP Pulse Ox 36.6 C 100 16 115/69 95 06/25/17 15:29 06/25/17 15:29 06/25/17 15:29 06/25/17 15:29 06/25/17 15:29 Laboratory Results 06/25/17 04:26 06/25/17 04:26 06/24/17 06/25/17 06/26/17 05:59 05:59 05:59 Intake Total 2040 Output Total 2275 1700 Balance -235 -1700 PT 22.5 SEC (12.0-15.0) H 06/23/17 08:32 INR 1.97 (0.83-1.16) H 06/23/17 08:32 - Time Spent With Patient Time Spent with Patient: greater than 35 minutes Time Spent with Patient: Greater than 35 minutes spent on this patients care, greater than 50% of time spent counseling, educating, and coordinating care regarding the above mentioned plan. - Pending Discharge Pending Discharge Within 48 Hours: Yes Pending Discharge Date: 06/27/17 Pending Discharge Time: 11:00 - Physical Exam Constitutional: no apparent distress, chronically ill appearing, uncomfortable, No not in pain (moderate) Cardiovascular: systolic murmur (I/ AT sternum), No irregularly irregular, No tachycardia, No edema Respiratory: no respiratory distress, no rales or rhonchi, clear to auscultation Gastrointestinal: normoactive bowel sounds, tenderness (diffuse throughout), ascites (tense), distension (moderately), No guarding Skin: No rash Neurologic: sensation intact bilaterally, other (AAOx2 (person and place)), No weakness Psychiatric: not anxious, not encephalopathic, flat affect, poor memory, other ( active delusions/hallucinations), No agitated ICD10 Worksheet Patient Problems: Problems Problem Status Onset Abdominal pain Acute Ascites Acute Hyperbilirubinemia Acute Alcoholism Acute Spontaneous bacterial peritonitis Acute Septic shock Acute Hyponatremia Acute Dehydration Acute Cirrhosis Acute Confusion Acute Vomiting Acute Perinephric hematoma Acute
[2017-06-25] MEDS: MELATONIN 3 MG TAB PO SCH (18:24)
[2017-06-25] MEDS: PATCH REMOVAL 1 EA PATCH TD SCH (20:14)
[2017-06-26] MEDS: oxyCODONE IR 5 MG TAB PO PRN ×2 (04:52→11:48)
[2017-06-26 05:05] LABS: PLATELET COUNT 74 10^3/uL (150-400)
[2017-06-26 05:14] LABS: INR 1.86 (0.83-1.16); PROTIME(PATIENT) 21.5 SEC (12.0-15.0)
[2017-06-26 07:23] VITALS: BP 118/85; PULSE 100; RESP 18; O2SAT 93
[2017-06-26] MEDS: RIFAXIMIN 550 MG TAB PO SCH (08:00)
[2017-06-26] MEDS: MIDODRINE HCL 5 MG TAB PO SCH ×2 (08:01→16:09)
[2017-06-26] MEDS: FUROSEMIDE 40 MG TAB PO SCH ×2 (08:08→16:09)
[2017-06-26] MEDS: SPIRONOLACTONE 100 MG TAB PO SCH (08:08)
[2017-06-26] MEDS: SENNOSIDES/DOCUSATE SODIUM TAB PO SCH (08:08)
[2017-06-26] MEDS: cefTRIAXone 1 GM in STERILE WATER INJ 10 ML IV SCH (08:09)
[2017-06-26] MEDS: LIDOCAINE 5% 1 EA PATCH TD SCH (08:09)
[2017-06-26] MEDS: LACTULOSE 20 GM/30 ML UDCUP PO SCH (08:09)
--- NOTE | 2017-06-26 10:01 | ASMTCMCOM ---
[facility] Note CM Note Notes: As of this morning, patient's has decided she does not want SNF placement and in fact does not want it brought up in front of patient. Deisi wants to return to obtaining a hospital bed and caring for patient at home with support. She has said she and her son can split up the care with a caregiver there for the hours they are at work. Researching the cost of caregiver for her as well as other supports. Will meet with Deisi, jeff and Casimiro later today to discuss options.CM will follow. Date Signed: 06/26/2017 10:00 AM Electronically Signed By:Adia Lion LCSW
--- NOTE | 2017-06-26 11:53 | ASMTCMCOM ---
[facility] Note CM Note Notes: Spoke with patient and his re: d/c plan. Casimiro offered Palliative support on an outpatient basis. Referral sent to [facility] and they have accepted the patient. Patient and his agree they need home health care support. [facility] has accepted patient and will contact Deisi to set up a visit tomorrow. Patient will need PT/OT/Nursing. Deisi was given a list of 24 hour caregiving services if she wants to pursue this support as well. Patient is ready to d/c. Both he and his would really like to go home today as a result of her work schedule and her abilitiy to stay with him for the next couple of days before she has to return to work. She will be able to meet the home health care service tomorrow and assist with the admissions papers. CM will follow. Date Signed: 06/26/2017 11:52 AM Electronically Signed By:Adia Lion LCSW
--- NOTE | 2017-06-26 13:42 | PDIAF ---
- Diagnosis Diagnosis: Fall, ESLD, shirley-nephric hematoma Code Status: Full Code - Medication Management Discharge Medications: Medications to Continue on Transfer Midodrine HCl 10 mg PO TID 05/01/17 [Last Taken 06/17/17] Multivitamins [Multivitamin (*)] 1 tab PO DAILY 05/01/17 [Last Taken 06/17/17] oxyCODONE IR [Oxycodone Ir (*)] 5 mg PO BID PRN 05/01/17 [Last Taken 06/17/17] Ciprofloxacin [Cipro] 500 mg PO DAILY #30 tab 05/08/17 [Last Taken 06/17/17] Lactulose 20 gm PO TID #30 solution 05/08/17 [Last Taken 06/17/17] Rifaximin [Xifaxan] 550 mg PO BID #60 tab 05/08/17 [Last Taken 06/17/17] Ergocalciferol [Vitamin D2 (*)] 50,000 unit PO Q7D 06/18/17 [Last Taken 06/12/17 ] Furosemide [Lasix 40 MG (*)] 40 mg PO BID 06/18/17 [Last Taken 06/17/17] Melatonin [Melatonin 3 MG (*)] 3 mg PO DAILY20 tab 06/26/17 [Last Taken Unknown ] Spironolactone [Aldactone 100 MG (*)] 100 mg PO DAILY tab 06/26/17 [Last Taken Unknown] Discharge Medications: Refer to the Discharge Home Medication list for PRN reason. - Orders Services needed: Home Care, Registered Nurse, Certified Supply Chain Business Analyst, Physical Therapy, Occupational Therapy Home Care Face to Face: I certify that this patient was under my care and that I had the required [id number] encounter meeting the encounter requirements on the discharge day. My findings support the fact that the patient is homebound as defined in Home Care Face to Face Continued: CMS Chapter 7 Medicare Benefits Manual 30.1.1 , The condition of the patient is such that there exists a normal inability to leave home and consequently, leaving home would require a considerable and taxing effort. Diet Recommendation: sodium restricted - Labs/Radiology BMP Date: 06/29/17 (send to Dr Pearson) - Follow Up Care Current Providers and Referrals: Rizwan Stein MD [Medical Doctor] - Curt Colvin [Primary Care Provider] - As per Instructions Jacky Waddell [Medical Doctor] -
--- NOTE | 2017-06-26 14:13 | GDS ---
[f rep st] DISCHARGE SUMMARY CONSULTATIONS: 1. Trauma service. 2. Dr. Rizwan Stein. DIAGNOSES: 1. Acute on chronic encephalopathy. 2. Perinephric hematoma. 3. Fall. 4. Rib fracture. 5. Acute blood loss anemia. 6. 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 7. Chronic pain, on continuous narcotics. 8. Acute kidney injury. 9. Acute on chronic hyponatremia. 10. Thrombocytopenia. 11. Coagulopathy. HOSPITAL COURSE: A 56-year-old man who presented with a fall. 1. Fall: Likely due to dehydration due to over diuresis. His diuretics have been cut down to Lasix 40 mg p.o. twice daily and spironolactone 100 mg p.o. daily. I have written to have labs checked in 4 days after discharge and sent to Dr. Waddell. 2. Perinephric hematoma: Seen by Dr. Stein. Serial ultrasounds have shown no increase in size of the hematoma. He should follow up with Dr. Stein in about 1 week. 3. End-stage liver disease: Followed by Dr. Waddell. He hopes to be on the transplant list. He has been somewhat encephalopathic, though he has improved. We will continue lactulose, Xifaxan, diuretics at decreased doses. He follows up with Dr. Waddell. He will get outpatient endoscopies in about 1 month. 4. Encephalopathy: Per his , he is much better. They plan to have 24- hour help for him at home, as recommended by Physical Therapy. This will be primarily his , his 's son, and they will get help when they are at work. I have discussed the importance of this extensively with them. We will continue his medications including Xifaxan and lactulose. 5. Acute blood loss anemia: This has been stable. Likely due to perinephric hematoma. Based on hemoglobin, his blood loss has stopped. His hemoglobin has trended up over the past few days. 6. Acute kidney injury: Resolved. I note that he is on midodrine. 7. Medications: Have stopped all sedating medications including Elavil, temazepam. He feels that he still does require oxycodone. 8. He was seen by palliative care, and will continue to follow with palliative care as an outpatient. DISPOSITION: Discharged home with home care and 24-hour home assistance set up by his . BILLING: I spent more than 30 minutes on the day of discharge coordinating care. /[id number]/MODL MTDD
--- NOTE | 2017-06-26 16:47 | ASDISCHSUM ---
Discharge Information Plan Status:Home with Home Health Medically Cleared to Leave:06/25/2017 Discharge Date:06/26/2017 03:05 PM D/C Disposition: ADT D/C Disposition:Home, Routine, Self-Care Projected Discharge Date:06/26/2017 11:00 AM Transportation at D/C: Discharge Delay Reason: Follow-Up Date:06/26/2017 11:00 AM Discharge Slot: Final Diagnosis: Placement Information Referral Type:*Senior Living/SNF Referral ID:[id number] Provider Name: Address 1: Phone Number: Address 2: Fax Number: City: Selection Factors: State: Referral Type:Palliative Care Referral ID:[id number] Provider Name:[facility] Address 1:[address] Phone Number: Address 2: Fax Number: [facility]:[place] Selection Factors: State:[place] Referral Type:*Home Health Care Services Referral ID:[id number] Provider Name[facility] Address 1:[address] 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 Pt lives at home w/. DC needs not clear yet. PT/OT recs pending. CM will follow. Date Signed: 06/18/2017 03:28 PM Electronically Signed By:Diane Winters RN [facility] CM Progress Note CM Note CM Note Notes: Spoke with Dr. Darling who states she plans to communicate with patient's who is not aware of the realities of patient's condition. Dr. Darling gave patient 3 month prognosis, which his Ivette was under the impression he had 5 years. Spoke with Casimiro also who states he met with patient and for a palliative care consult. But with the new prognosis the family may be changing direction. Casimiro states Ivette is not ready yet for hospice as she is trying to adjust to the new information. Patient's son who is 23 has moved back home and taken over the [employer] business.Casimiro encouraged Ivette to have her son attend the rescheduled meeting for palliatve tomorrow at 10:00. Casimiro will check in with Sophie Durham, social media developer who has the floor tomorrow to join in the meeting. The family will most likely want to take the patient home vs. any kind of rehab. CM will follow. Date Signed: 06/20/2017 10:44 AM Electronically Signed By:Adia Lion LCSW [facility] CM Progress Note CM Note CM Note Notes: PT recommending homecare. Today Argentina participated in Palliative Care conference with Pt., Deisi, leoncio Vijay, Naty Barker RN, and Casimiro Garcia. could not join, but spoke with Deisi ahead of consult. Met at bedside. After some discussion, Deisi would like to pursue liver transplant for Pt. Deisi is now open to the idea of homecare for support. After consult, Argentina called [facility] and asked for RN, PT, OT, and STOCK BLENDER services. STOCK BLENDER services could be helpful with resolving DME issues and also Pt. will need to go through "alcohol classes" to get a liver transplant and perhaps STOCK BLENDER could find someone to come to the home since Pt. will be homebound. Naty Barker, RN called later to see if Pt. might qualify for Medicaid. Pt. and appear to be according to the facesheet. However, Debra from [employer] to screen for Medicaid with Deisi. PCP is Dr. Vidal. Argentina provided information to family regarding DME loan closets and low cost resources. [facility] will follow for homecare through [facility]. Per Olivia, need to get auth for each service. CM to follow. Date Signed: 06/21/2017 04:25 PM Electronically Signed By:Sophie Durham LCSW [facility] Progress Note CM Note [facility] Note Notes: Patient is going home with home care [facility] with PT/OT/RN/STOCK BLENDER support services. Currently, [facility] is working on securing a hospital bed for patient to be used in his home. Brissa Portillo LCSW on oncology unit is researching. CM will follow. Date Signed: 06/22/2017 01:07 PM Electronically Signed By:Adia Lion LCSW [facility] CM Progress Note CM Note CM Note Notes: Patient's is now interested in SNF rehab placement for patient as a result of current cognitive impairment. Referrals were sent to Ivy Cerna, Danni Okeefe, and [facility]. Instructions for obtaining a hospital bed with insurance agreeing to cover the expense were given to Micheline who will be covering CM on Monday. [facility] does take [facility] [employer] insurance. However, there will need to be a prescription from the attending physician to qualify for renting the bed through insurance. This will be pursued more when a final decision is made as to the d/c plan. Currently, d/c plan has changed to SNF placement for rehab. CM will follow. Date Signed: 06/23/2017 04:59 PM Electronically Signed By:Adia Lion LCSW [facility] Progress Note CM Note CM Note Notes: As of this morning, patient's has decided she does not want SNF placement and in fact does not want it brought up in front of patient. Deisi wants to return to obtaining a hospital bed and caring for patient at home with support. She has said she and her son can split up the care with a caregiver there for the hours they are at work. Researching the cost of caregiver for her as well as other supports. Will meet with Deisi, jeff and Casimiro later today to discuss options.CM will follow. Date Signed: 06/26/2017 10:00 AM Electronically Signed By:Adia Lion LCSW [facility] Progress Note CM Note CM Note Notes: Spoke with patient and his re: d/c plan. Casimiro offered Palliative support on an outpatient basis. Referral sent to [facility] and they have accepted the patient. Patient and his agree they need home health care support. [facility] has accepted patient and will contact Deisi to set up a visit tomorrow. Patient will need PT/OT/Nursing. Deisi was given a list of 24 hour caregiving services if she wants to pursue this support as well. Patient is ready to d/c. Both he and his would really like to go home today as a result of her work schedule and her abilitiy to stay with him for the next couple of days before she has to return to work. She will be able to meet the home health care service tomorrow and assist with the admissions papers. CM will follow. Date Signed: 06/26/2017 11:52 AM Electronically Signed By:Adia Lion LCSW Intervention Information
== END 2017-06-26 15:05 | disposition home health service (06) | DRG 699 ==
LOC: F3E 10:49
PROVIDERS: ADMIT Internal Medicine; ATTEND Student in an Organized Health Care Education/Training Program
DX: S37.021A Major contusion of right kidney, initial encounter (principal); J90 Pleural effusion, not elsewhere classified; K70.40 Alcoholic hepatic failure without coma; K70.31 Alcoholic cirrhosis of liver with ascites; K70.11 Alcoholic hepatitis with ascites; B18.2 Chronic viral hepatitis C; F07.9 Unspecified personality and behavioral disorder due to known physiological condition; F10.27 Alcohol dependence with alcohol-induced persisting dementia; D62 Acute posthemorrhagic anemia; S22.32XA Fracture of one rib, left side, initial encounter for closed fracture; E87.1 Hypo-osmolality and hyponatremia; D63.8 Anemia in other chronic diseases classified elsewhere; I85.10 Secondary esophageal varices without bleeding; N17.9 Acute kidney failure, unspecified; D68.9 Coagulation defect, unspecified; F10.21 Alcohol dependence, in remission; E86.0 Dehydration; R00.0 Tachycardia, unspecified; K40.90 Unilateral inguinal hernia, without obstruction or gangrene, not specified as recurrent; R16.1 Splenomegaly, not elsewhere classified; K80.20 Calculus of gallbladder without cholecystitis without obstruction; D69.6 Thrombocytopenia, unspecified; W19.XXXA Unspecified fall, initial encounter; Y92.019 Unspecified place in single-family (private) house as the place of occurrence of the external cause; Z87.891 Personal history of nicotine dependence
CPT/HCPCS: 82947-QW; 92507-GN; 92523-GN; 97116-GP; 97162-GP; 97166-GO; 97530-GO; 97535-GO; G0480; J0696; J1170; P9047

== ENCOUNTER 2017-08-08 07:20 | Inpatient (IN) | payer OTHER ==
[~2017-08-08 07:20] MED LIST changes: +HYDROmorphONE/DILAUDID 1 MG/ML INJ IVP PRN; -LIDOCAINE 1% 300 MG/30 ML SDV ONE
[2017-08-08] MEDS ORDERED: LR 1,000 ML IV ONE (08:08)
--- NOTE | 2017-08-08 08:55 | PDANEPAE ---
ANE History of Present Illness here for EGD/colon ANE Past Medical History - Cardiovascular History Hx Hypertension: Yes Hx Arrhythmias: No Hx Chest Pain: No Hx Coronary Artery / Peripheral Vascular Disease: No Hx CHF / Valvular Disease: No Hx Palpitations: No - Pulmonary History Hx COPD: No Hx Asthma/Reactive Airway Disease: No Hx Recent Upper Respiratory Infection: No Hx Oxygen in Use at Home: No Hx Sleep Apnea: No Sleep Apnea Screening Result - Last Documented: Positive Pulmonary History Comment: chace triggers - Neurologic History Hx Cerebrovascular Accident: No Hx Seizures: No Hx Dementia: No - Endocrine History Hx Diabetes: No - Renal History Hx Renal Disorders: Yes Renal History Comment: hx of hematoma on kidney - Liver History Hx Hepatic Disorders: Yes Hepatic History Comment: ascities. ESLD. portal htn - Neurological & Psychiatric Hx Hx Neurological and Psychiatric Disorders: Yes Neurological / Psychiatric History Comment: encephalopathy - Cancer History Hx Cancer: No - Congenital Disorder History Hx Congenital Disorders: No - GI History Hx Gastrointestinal Disorders: Yes Gastrointestinal History Comment: esophageal varices. hx of EGD with [facility] 2016 - Other Health History Other Health History: thromocytopenia. chronic hyponatremia. wears glasses - Chronic Pain History Chronic Pain: Yes (chronic pain) - Surgical History Prior Surgeries: paracentesis 06/10/17 2.55L. 01/25/17 EGD with [facility]. left knee surgery 06/13/10 ANE Review of Systems Review of systems is: negative Review of Systems: - Exercise capacity Exercise capacity: <4 METS METS (RN): 3 METS ANE Patient History - Allergies Allergies/Adverse Reactions: No Known Allergies Allergy (Verified 07/31/17 18:39) - Home Medications Home medications: home medication list seen and reviewed Home Medications: Midodrine HCl 05/01/17 [Last Taken 08/07/17] Multivitamins [Multivitamin (*)] 05/01/17 [Last Taken 08/07/17] oxyCODONE IR [Oxycodone Ir (*)] 05/01/17 [Last Taken 08/07/17] Ergocalciferol [Vitamin D2 (*)] 06/18/17 [Last Taken 08/04/17] Furosemide [Lasix 40 MG (*)] 06/18/17 [Last Taken 08/07/17] Lactulose 07/31/17 [Last Taken 08/06/17] Melatonin [Melatonin 3 MG (*)] 07/31/17 [Last Taken 2 Weeks Ago ~07/25/17] Rifaximin [Xifaxan] 07/31/17 [Last Taken 08/07/17] Spironolactone [Aldactone 100 MG (*)] 07/31/17 [Last Taken 08/07/17] Amitriptyline HCl 08/08/17 [Last Taken 08/07/17] Ciprofloxacin [Cipro] 08/08/17 [Last Taken 08/07/17] - NPO status NPO Status: no food or drink >8 hours NPO Since - Liquids (Date): 08/07/17 NPO Since - Liquids (Time): 10:30 NPO Since - Solids (Date): 08/07/17 NPO Since - Solids (Time): 08:30 - Smoking Hx Smoking Status: Former smoker - Family Anes Hx Family Hx Anesthesia Complications: none ANE Labs/Vital Signs - Labs Result Diagrams: 08/08/17 08:31 08/08/17 08:31 - Vital Signs Vital Signs: reviewed preoperatively; see RN documention for details Blood Pressure: 117/77 Heart Rate: 92 Respiratory Rate: 16 O2 Sat (%): 95 Height: 170.18 cm Weight: 62.7 kg ANE Physical Exam - Airway Neck exam: FROM Mallampati Score: Class 2 Mouth exam: small mouth opening - Pulmonary Pulmonary: no respiratory distress - Cardiovascular Cardiovascular: regular rate and rhythym - ASA Status ASA Status: III ANE Anesthesia Plan Anesthesia Plan: general endotracheal anesthesia, GA with mask
[2017-08-08] MEDS ORDERED: NS 500 ML IV PRN (09:06)
[2017-08-08] MEDS ORDERED: NALOXONE HCL 0.4 MG/ML INJ IVP PRN (09:06)
[2017-08-08] MEDS ORDERED: ALBUTEROL 3 ML DEYVIAL IH PRN (09:06)
[2017-08-08] MEDS ORDERED: DEXAMETHASONE 4 MG/ML VIAL IVP PRN (09:06)
[2017-08-08 09:10] LABS: PLATELET COUNT 88 10^3/uL (150-400)
--- NOTE | 2017-08-08 09:19 | PDGENHP ---
History & Physical Chief Complaint: screening colonoscopy, surveillance of varices History of Present Illness: Hx of portal hypertensive liver disease. Undergoing transplant eval. prior hx of varices Pertinent Past, Social, Family History: Cirrhotic liver disease Relevant Physical Exam: ascites present. RRR. CTA. normal mental status
[2017-08-08] MEDS ORDERED: PROPOFOL/EMULSION 500 MG/50 ML BOTTLE IV ONE (09:22)
[2017-08-08] MEDS ORDERED: ACETAMINOPHEN 325 MG TAB PO PRN (10:11)
[2017-08-08] MEDS ORDERED: ONDANSETRON 4 MG/2 ML VIAL IVP PRN (10:11)
[2017-08-08] MEDS ORDERED: ONDANSETRON DISINTEGRATING 4 MG TAB PO PRN (10:11)
[2017-08-08] MEDS ORDERED: SODIUM POLY SULF 15 GM/60 ML BOTTLE PO ONE ×2 (10:13→12:30)
[2017-08-08] MEDS ORDERED: VANCOMYCIN HCL/NORMAL SALINE 250 ML IV SCH (12:00)
[2017-08-08] MEDS ORDERED: MELATONIN 3 MG TAB PO PRN (12:21)
[2017-08-08] MEDS ORDERED: LACTULOSE PO PRN (12:21)
[2017-08-08] MEDS ORDERED: SPIRONOLACTONE 100 MG TAB PO SCH (12:30)
[2017-08-08] MEDS ORDERED: LACTULOSE 20 GM/30 ML UDCUP PO PRN (12:40)
[2017-08-08] MEDS ORDERED: VANCOMYCIN 1 GM in NS 250 ML IV SCH (13:00)
[2017-08-08] MEDS: RIFAXIMIN 550 MG TAB PO SCH ×2 (13:02→21:37)
[2017-08-08] MEDS: CIPROFLOXACIN 500 MG TAB PO SCH (13:02)
[2017-08-08] MEDS: oxyCODONE IR 5 MG TAB PO PRN ×3 (13:04→21:36)
[2017-08-08] MEDS: LIDOCAINE 5% 1 EA PATCH TD SCH ×7 (13:09→13:33)
--- NOTE | 2017-08-08 13:11 | GCON ---
[f rep st] CONSULTATION INPATIENT CONSULTATION NOTE REFERRING PHYSICIAN: Tyson Ross MD REASON FOR CONSULTATION: Liver disease and hyperkalemia. CHIEF COMPLAINT: Fatigue. HISTORY OF PRESENT ILLNESS: Briefly Mr. Hayes is a 56-year-old male with a known history of portal hypertensive liver disease. This has been complicated by encephalopathy, varices, and ascites. He presented to the hospital today to undergo upper endoscopy for variceal surveillance as well as colonoscopy for cancer screening. These tests are part of his preliver transplant evaluation. Laboratory testing was done preoperatively, and the patient was noted to have an elevated potassium. Anesthesia services recommend that the procedure be aborted, potassium managed, and consideration for rescheduling. Given his chronic liver disease, portal hypertension, ascites, etc. in the setting of an elevated potassium, he has been admitted to the hospital. His liver disease has been complicated by recurrent SBP as well as ascites. He has had prior treatment of varices with prophylactic banding. The etiology of his portal hypertensive liver disease is hepatitis C. He is currently followed by Dr. Waddell in our outpatient clinic. PAST MEDICAL HISTORY: Includes liver disease. SOCIAL HISTORY: He is currently not smoking or drinking. FAMILY HISTORY: Negative for liver disease. ALLERGIES: None. MEDICATIONS: Xifaxan, ciprofloxacin, furosemide, lactulose, midodrine, oxycodone, spironolactone. REVIEW OF SYSTEMS: A complete 14-point review was undertaken with the patient. The pertinent positives and negatives are described in history of present illness. PHYSICAL EXAMINATION: GENERAL: This is a chronically ill male in no apparent distress. HEENT: His pupils are equal, round, reactive to light and accommodation. His sclerae are mildly icteric. His oropharynx is clear but dry. NECK: Supple without lymphadenopathy. HEART: Regular without murmur. ABDOMEN: Soft, nontender, with normoactive bowel sounds. He has diffuse mild ascites without tenderness. EXTREMITIES: Free of cyanosis and clubbing. He has trace lower extremity edema. Blood count reveals white count of 4.89, hemoglobin of 11.1, hematocrit of 32.1 , platelet count of 88. Sodium of 132, potassium of 6.1, chloride of 100, bicarb of 25, BUN of 12, creatinine of 0.9. Prior potassium levels have been normal or only minimally elevated. IMPRESSION: The patient is a chronically ill man from portal hypertensive liver disease complicated by ascites, spontaneous bacterial peritonitis, encephalopathy, and varices. His outpatient upper and lower endoscopy have been postponed due to the discovery of elevated potassium. At this time, we will hold his spironolactone, engage the services of hospitalist medicine to help with admission and potassium management. We can reassess his candidacy for endoscopic evaluation tomorrow. Pending his clinical course, he may need some additional bowel prep to ensure a good visualization in the setting delaying his exam. /[id number]/MODL MTDD
[2017-08-08] MEDS: PATCH REMOVAL 1 EA PATCH TD SCH ×5 (13:13→13:33)
--- NOTE | 2017-08-08 14:06 | PDGENHP ---
History and Physical - Chief Complaint Acute hyperkalemia - History of Present Illness 56-year-old male presented today for scheduled colonoscopy and upper endoscopy, and was pre procedure early found to have a potassium level of 6.1. The procedure was unable to be performed. The patient has end-stage liver disease and experiences chronic encephalopathy characterized as transient disorientation and word-finding difficulty which is alleviated with redirection. He undertook a bowel prep last night which consisted of MiraLax and Gatorade, and the bowel prep was reportedly effective, resulting in associated, anticipated diarrhea. The patient has otherwise been taking all of his home medications as scheduled, and this does include Aldactone 100 mg daily as well as Lasix 40 mg twice daily. The patient reports that he has been functioning well at home since his most recent hospital discharge, and he denies any recent falls. He does report that he has pain located in the inguinal area, located specifically on the left, secondary to an inguinal hernia. He reports that the area bulges intermittently, and is exacerbated by bearing down and repositioning. He reports that is alleviated with oxycodone which she takes at home. History Information - Allergies/Home Medication List Allergies/Adverse Reactions: No Known Allergies Allergy (Verified 07/31/17 18:39) Home Medications: Multivitamins [Multivitamin (*)] 1 each PO DAILY 05/01/17 [Last Taken 08/07/17] oxyCODONE IR [Oxycodone Ir (*)] 5 - 10 mg PO Q4HRS PRN 05/01/17 [Last Taken ] Ergocalciferol [Vitamin D2 (*)] 50,000 units PO WE 06/18/17 [Last Taken 08/02/17 ] Furosemide [Lasix 40 MG (*)] 40 mg PO BID@,16 06/18/17 [Last Taken 08/07/17 16 :00] Lactulose 30 ml PO TID PRN 07/31/17 [Last Taken 08/06/17] Melatonin [Melatonin 3 MG (*)] 3 mg PO HS PRN 07/31/17 [Last Taken 2 Weeks Ago ~ 07/25/17] Rifaximin [Xifaxan] 550 mg PO BID 07/31/17 [Last Taken 08/07/17 21:00] Spironolactone [Aldactone 100 MG (*)] 100 mg PO DAILY 07/31/17 [Last Taken 08/07] Amitriptyline HCl 25 mg PO HS 08/08/17 [Last Taken 08/07/17] Ciprofloxacin [Cipro] 500 mg PO DAILY 08/08/17 [Last Taken 08/07/17] Midodrine HCl 10 mg PO TID 08/08/17 [Last Taken 08/07/17 21:00] traZODone [traZODONE 50MG (*)] 50 mg PO HS 08/08/17 [Last Taken 08/07/17] I have personally reviewed and updated: family history, medical history, social history, surgical history - Past Medical History Additional medical history: End-stage liver disease secondary to alcohol and hepatitis C virus. Hepatitis C virus status post right of iron treatment, resulting in hemolytic anemia. Chronic anemia. H/O SBP 04/2017 - Surgical History Additional surgical history: Recurrent therapeutic and diagnostic paracenteses. Knee surgery - Family History Additional family history: Mother with colon cancer - Social History Smoking Status: Former smoker Alcohol Use: Sober Drug Use: None Additional social history: Previously independent in his ADLs, lives with Review of Systems Review of Systems: ROS: 10pt was reviewed & negative except for what was stated in HPI & below Constitutional: Reports: weakness Genitourinary: Reports: other (Pain left inguinal area) Physical Exam Physical Exam: Temp Pulse Resp BP Pulse Ox 36.8 C 94 12 113/73 95 08/08/17 12:04 08/08/17 12:04 08/08/17 12:04 08/08/17 12:04 08/08/17 12:04 Constitutional: no apparent distress, chronically ill appearing, uncomfortable, cachectic, No not in pain (Moderate left inguinal area) Eyes: PERRL, EOMI, icteric sclera Ears, Nose, Mouth, Throat: moist mucous membranes, hearing normal, ears appear normal, no oral mucosal ulcers Cardiovascular: regular rate and rhythym, no murmur, rub, or gallop, edema ( Trace bilateral lower extremity) Respiratory: no respiratory distress, no rales or rhonchi, clear to auscultation Gastrointestinal: normoactive bowel sounds, distension (Moderate), No tenderness , No guarding Genitourinary: other (Palpable left inguinal hernia, possibly right inguinal hernia, does not reduce without pain) Skin: warm, No erythema, No rash Neurologic: sensation intact bilaterally, other (Alert awake oriented x2 to person and place not time), No asterixes Psychiatric: not anxious, other (Intermittent confusion and word-finding difficulty, resolved without intervention, concentration is 4/7), No agitated Lab Data & Imaging Review 08/08/17 08:55 08/08/17 08:31 WBC 4.89 10^3/uL (3.80-9.50) 08/08/17 08:55 RBC 3.50 10^6/uL (4.40-6.38) L 08/08/17 08:55 Hgb 11.1 g/dL (13.7-17.5) L 08/08/17 08:55 Hct 32.1 % (40.0-51.0) L 08/08/17 08:55 MCV 91.7 fL (81.5-99.8) 08/08/17 08:55 MCH 31.7 pg (27.9-34.1) 08/08/17 08:55 MCHC 34.6 g/dL (32.4-36.7) 08/08/17 08:55 RDW 16.0 % (11.5-15.2) H 08/08/17 08:55 Plt Count 88 10^3/uL (150-400) L 08/08/17 08:55 MPV 8.6 fL (8.7-11.7) L 08/08/17 08:55 Neut % (Auto) 73.1 % (39.3-74.2) 08/08/17 08:55 Lymph % (Auto) 11.5 % (15.0-45.0) L 08/08/17 08:55 Rice % (Auto) 11.7 % (4.5-13.0) 08/08/17 08:55 Eos % (Auto) 2.5 % (0.6-7.6) 08/08/17 08:55 Baso % (Auto) 0.6 % (0.3-1.7) 08/08/17 08:55 Nucleat RBC Rel Count 0.0 % (0.0-0.2) 08/08/17 08:55 Absolute Neuts (auto) 3.58 10^3/uL (1.70-6.50) 08/08/17 08:55 Absolute Lymphs (auto) 0.56 10^3/uL (1.00-3.00) L 08/08/17 08:55 Absolute Monos (auto) 0.57 10^3/uL (0.30-0.80) 08/08/17 08:55 Absolute Eos (auto) 0.12 10^3/uL (0.03-0.40) 08/08/17 08:55 Absolute Basos (auto) 0.03 10^3/uL (0.02-0.10) 08/08/17 08:55 Absolute Nucleated RBC 0.00 10^3/uL (0-0.01) 08/08/17 08:55 Immature Gran % 0.6 % (0.0-1.1) 08/08/17 08:55 Immature Gran # 0.03 10^3/uL (0.00-0.10) 08/08/17 08:55 Sodium 132 mEq/L (135-145) L 08/08/17 08:31 Potassium 6.1 mEq/L (3.5-5.2) H 08/08/17 08:31 Chloride 100 mEq/L (97-110) 08/08/17 08:31 Carbon Dioxide 25 mEq/l (22-31) 08/08/17 08:31 Anion Gap 7 mEq/L (8-16) L 08/08/17 08:31 BUN 12 mg/dL (7-23) 08/08/17 08:31 Creatinine 0.9 mg/dL (0.7-1.3) 08/08/17 08:31 Estimated GFR > 60 08/08/17 08:31 Glucose 104 mg/dL (70-100) H 08/08/17 08:31 Calcium 8.8 mg/dL (8.5-10.4) 08/08/17 08:31 Assessment & Plan Assessment: 56-year-old male presents with acute hyperkalemia in the setting of bowel prep to investigate esophageal varices Plan: 1. Hyperkalemia. Acute, new problem this provider, further workup indicated. Potentially secondary to electrolyte rich fluid consumed with the bowel prep last night, exacerbated by his Aldactone -will give 30 g of Kayexalate now, then repeat his metabolic profile -if potassium remains above 5.5 on recheck, will administer another 30 g of Kayexalate and recheck metabolic profile serially this evening -hold Aldactone -continue Lasix 2. Possible chronic varices. Patient with end-stage liver disease, warrants upper endoscopy to be performed by Dr. Euceda tomorrow 12:45 -d/w Dr. Euceda, he recommends 1/2 prep this evening, continue on clears, NPO after MN and will perform EGD/colon tomorrow -cont cipro ppx 3. End-stage liver disease. Patient with impaired synthetic liver function, with resultant chronic encephalopathy, he is currently sober and is being followed by Dr. Pearson with the hopes of consideration of transplant -reviewed outside records including 06/26/[address] Jaime ibanez, he reported that on discharge the patient was prescribed Lasix 40 mg twice daily, Aldactone 100 mg once daily, Xifaxan, lactulose, recommendations for 12/12 home assistance, follow-up labs, and close outpatient follow-up -continue all these medications with the exception of Aldactone prior to procedure 4. Pancytopenia. Secondary to end-stage liver disease Diet. Clears, then NPO after midnight Prophylaxis. High risk patient, SCDs, hold pharm given thrombocytopenia Code. Full at present, confirmed with patient Disposition. Anticipated discharge is 08/09, pending stabilization of conditions outlined above.
[2017-08-08] MEDS: FUROSEMIDE 40 MG TAB PO SCH (15:22)
[2017-08-08] MEDS: MIDODRINE HCL 5 MG TAB PO SCH ×2 (15:22→21:35)
[2017-08-08] MEDS ORDERED: NON-FORMULARY NEW DRUG (Midodrine Hcl [Midodrine Hcl] 10 MG) PO SCH (16:00)
[2017-08-08] MEDS ORDERED: PEG 3350/NA SULF,BICARB,CL/KCL (GAVILYTE-G) 4000 ML BTL PO ONE (16:00)
[2017-08-08] MEDS: traZODone 50 MG TAB PO SCH (21:35)
[2017-08-08] MEDS: AMITRIPTYLINE HCL 25 MG TAB PO SCH (21:37)
[2017-08-09 03:36] LABS: PLATELET COUNT 85 10^3/uL (150-400)
[2017-08-09 03:50] LABS: INR 1.6 (0.83-1.16); PROTIME(PATIENT) 19.2 SEC (12.0-15.0)
[2017-08-09] MEDS: oxyCODONE IR 5 MG TAB PO PRN ×4 (04:42→21:43)
[2017-08-09] MEDS ORDERED: ERGOCALCIFEROL 50,000 I.UNIT CAP PO SCH ×2 (10:00→12:21)
[2017-08-09] MEDS: CIPROFLOXACIN 500 MG TAB PO SCH (10:10)
[2017-08-09] MEDS: RIFAXIMIN 550 MG TAB PO SCH ×2 (10:10→21:43)
[2017-08-09] MEDS: FUROSEMIDE 40 MG TAB PO SCH ×2 (10:11→15:30)
[2017-08-09] MEDS: MULTIVITAMINS 1 EACH TAB PO SCH (10:11)
[2017-08-09] MEDS: MIDODRINE HCL 5 MG TAB PO SCH ×3 (10:11→21:44)
--- NOTE | 2017-08-09 13:00 | PDANEPAE ---
ANE Past Medical History - Cardiovascular History Hx Hypertension: No Hx Arrhythmias: No Hx Chest Pain: No Hx Coronary Artery / Peripheral Vascular Disease: No Hx CHF / Valvular Disease: No Hx Palpitations: No - Pulmonary History Hx COPD: No Hx Asthma/Reactive Airway Disease: No Hx Recent Upper Respiratory Infection: No Hx Oxygen in Use at Home: No Hx Sleep Apnea: No Sleep Apnea Screening Result - Last Documented: Positive Pulmonary History Comment: chace triggers - Neurologic History Hx Cerebrovascular Accident: No Hx Seizures: No Hx Dementia: No - Endocrine History Hx Diabetes: No - Renal History Hx Renal Disorders: No Renal History Comment: hx of hematoma on kidney - Liver History Hx Hepatic Disorders: Yes Hepatic History Comment: ESLD, HEpC and ETOH, abstinent x 6 mos - Neurological & Psychiatric Hx Hx Neurological and Psychiatric Disorders: No Neurological / Psychiatric History Comment: encephalopathy - Cancer History Hx Cancer: No - Congenital Disorder History Hx Congenital Disorders: No - GI History Hx Gastrointestinal Disorders: Yes Gastrointestinal History Comment: esophageal varices. hx of EGD with [facility] 2016 - Other Health History Other Health History: thromocytopenia. chronic hyponatremia. wears glasses - Chronic Pain History Chronic Pain: No - Surgical History Prior Surgeries: paracentesis 06/10/17 2.55L. 01/25/17 EGD with [facility]. left knee surgery 06/13/10 ANE Review of Systems Review of Systems: - Exercise capacity METS (RN): 3 METS ANE Patient History - Allergies Allergies/Adverse Reactions: No Known Allergies Allergy (Verified 07/31/17 18:39) - Home Medications Home Medications: Multivitamins [Multivitamin (*)] 1 each PO DAILY 05/01/17 [Last Taken 08/07/17] oxyCODONE IR [Oxycodone Ir (*)] 5 - 10 mg PO Q4HRS PRN 05/01/17 [Last Taken ] Ergocalciferol [Vitamin D2 (*)] 50,000 units PO WE 06/18/17 [Last Taken 08/02/17 ] Furosemide [Lasix 40 MG (*)] 40 mg PO BID@09,16 06/18/17 [Last Taken 08/07/17 16 :00] Lactulose 30 ml PO TID PRN 07/31/17 [Last Taken 08/06/17] Melatonin [Melatonin 3 MG (*)] 3 mg PO HS PRN 07/31/17 [Last Taken 2 Weeks Ago ~ 07/25/17] Rifaximin [Xifaxan] 550 mg PO BID 07/31/17 [Last Taken 08/07/17 21:00] Spironolactone [Aldactone 100 MG (*)] 100 mg PO DAILY 07/31/17 [Last Taken 08/07] Amitriptyline HCl 25 mg PO HS 08/08/17 [Last Taken 08/07/17] Ciprofloxacin [Cipro] 500 mg PO DAILY 08/08/17 [Last Taken 08/07/17] Midodrine HCl 10 mg PO TID 08/08/17 [Last Taken 08/07/17 21:00] traZODone [traZODONE 50MG (*)] 50 mg PO HS 08/08/17 [Last Taken 08/07/17] - NPO status NPO Since - Liquids (Date): 08/09/17 NPO Since - Liquids (Time): 12:40 NPO Since - Solids (Date): 08/09/17 NPO Since - Solids (Time): 12:40 - Smoking Hx Smoking Status: Former smoker - Alcohol Use Alcohol Use: Sober - Family Anes Hx Family Hx Anesthesia Complications: none ANE Labs/Vital Signs - Labs Result Diagrams: 08/09/17 03:20 08/09/17 03:20 - Vital Signs Blood Pressure: 97/67 Heart Rate: 87 Respiratory Rate: 18 O2 Sat (%): 91 Height: 170.18 cm Weight: 61 kg ANE Physical Exam - Airway Neck exam: FROM Mallampati Score: Class 1 Mouth exam: normal dental/mouth exam - Pulmonary Pulmonary: no respiratory distress, no rales or rhonchi, reduced air movement - Cardiovascular Cardiovascular: regular rate and rhythym, no murmur, rub, or gallop - ASA Status ASA Status: IV ANE Anesthesia Plan Anesthesia Plan: GA with mask
[2017-08-09] MEDS ORDERED: NALOXONE HCL 0.4 MG/ML INJ IVP PRN (13:01)
[2017-08-09] MEDS ORDERED: ALBUTEROL 3 ML DEYVIAL IH PRN (13:01)
[2017-08-09] MEDS ORDERED: PROPOFOL 200 MG/20 ML VIAL ONE ×2 (13:04)
--- NOTE | 2017-08-09 13:55 | POSTANESTH ---
Post Anesthetic Evaluation Cardiovascular Status: Normal, Stable, Similar to Pre-Op Cond Respiratory Status: Normal, Stable, Similar to Pre-op Cond. Level of Consciousness/Mental Status: Mildly Sleepy, Arousable Pain Control: Adequate, Prn Tx Ordered Nausea/Vomiting Control: Adequate, Prn Tx Ordered Complications Possibly Related to Anesthesia: None Noted
--- NOTE | 2017-08-09 13:58 | GIREPORT ---
[facility] Surgical Services - Endoscopy Department Patient Name: Rodo Hayes Procedure Date: 08/09/2017 1:04 PM Patient Type: Inpatient Attending MD/ ER Physician: Neymar Euceda MD Procedure: Upper GI endoscopy Indications: Cirrhosis with suspected esophageal varices Providers: Neymar Euceda MD Medicines: Sedation Administered by an Anesthesia Professional Complications: No immediate complications. Description of Procedure: After obtaining informed consent, the endoscope was passed under direct vision. Throughout the procedure, the patient's blood pressure, pulse, and oxygen saturations were monitored continuously. The Endoscope was intro duced through the mouth, and advanced to the third part of duodenum. The uppe r GI endoscopy was accomplished without difficulty. The patient tolerated th e procedure well. Findings: Grade II varices were found in the lower third of the esophagus. Two ba nds were successfully placed with complete eradication, resulting in deflat ion of varices. There was no bleeding during the maneuver. Portal hypertensive gastropathy was found in the entire examined stomac h. The examined duodenum was normal. Estimated Blood Loss: Estimated blood loss: none. Post Op Diagnosis: - Grade II esophageal varices. Completely eradicated. Banded. - Portal hypertensive gastropathy. - Normal examined duodenum. - No specimens collected. Recommendation: - Advance diet as tolerated. - Continue present medications. - Repeat upper endoscopy in 4 weeks for retreatment. Attending Participation: I personally performed the entire procedure. Neymar Euceda MD Neymar Euceda MD 08/09/2017 1:57:35 PM This report has been signed electronicallyDaus Kinsey MD Number of Addenda: 0 Note Initiated On: 08/09/2017 1:04 PM [email or web address]
--- NOTE | 2017-08-09 14:00 | GIREPORT ---
[facility] Surgical Services - Endoscopy Department Patient Name: Rodo Hayes Procedure Date: 08/09/2017 1:21 PM Patient Type: Inpatient Attending MD/ ER Physician: Neymar Euceda MD Procedure: Colonoscopy Indications: Screening for colorectal malignant neoplasm Providers: Neymar Euceda MD Medicines: Sedation Administered by an Anesthesia Professional Complications: No immediate complications. Description of Procedure: After obtaining informed consent, the scope was passed under direct vis ion. Throughout the procedure, the patient's blood pressure, pulse, and oxyg en saturations were monitored continuously. The Colonoscope with irrigatio n channel was introduced through the anus and advanced to the cecum, identified by appendiceal orifice and ileocecal valve. The colonoscopy was performed without difficulty. The patient tolerated the procedure well. The quality of the bowel preparation was inadequate. No anatomical landmark s were photographed. Findings: A moderate amount of stool was found in the entire colon, interfering w ith visualization. Estimated Blood Loss: Estimated blood loss: none. Post Op Diagnosis: - Preparation of the colon was inadequate. - Stool in the entire examined colon. - No specimens collected. Recommendation: - Repeat colonoscopy because the bowel preparation was poor. Attending Participation: I personally performed the entire procedure. Neymar Euceda MD Neymar Euceda MD 08/09/2017 2:00:17 PM This report has been signed electronicallyDaus Kinsey MD Number of Addenda: 0 Note Initiated On: 08/09/2017 1:21 PM Total Procedure Duration Time 0 hours 18 minutes 41 seconds [email or web address]
--- NOTE | 2017-08-09 14:06 | SUROPNOTE ---
[facility] Operative Report - Surgery BRIEF ENDO NOTE EGD/COLON Indication: varicea screening/surveillance, colon cancer screening Meds: per anesthesia Complications: none acutely Findings: EGD: 1. Grade II varices - banded x2 2. portal HTN gastropathy 3. normal duodenum COLON: poor prep, inadequate evaluation IMPRESSION/RECS: 1. Colon cancer screening - need to redo, due to poor prep - recommend patient stay in house - clears today - npo p MN - repeat prep tonight 2. ESLD - continue to monitor lytes - continue current meds - await OLTx listing 3. Varices - banded - will need f/u EGD in 4 weeks 4. HyperK - resolved - monitor - will follow
[2017-08-09] MEDS ORDERED: PEG 3350/NA SULF,BICARB,CL/KCL (GAVILYTE-G) 4000 ML BTL PO ONE ×2 (14:07→18:45)
--- NOTE | 2017-08-09 16:10 | ASMTCASEMG ---
Living Arrangements What is your living Answers: With Spouse arrangement? Who do you live with? Type Of Residence What kind of residence do Answers: House you live in? Discharge Plan Comments Coordination Status Comments Notes: Pts case reviewed in tx rounds. Pt is a 56 y/o man known to [facility]. Pt was admitted for hyperkalemia. Pt has a hx of ETOH. Pt has ESRD. PT and OT have been ordered. OT is recommending HC at this time. Awaiting recommendation from PT. Needs are TBD at this time. CM attempted to meet w/ pt and for dispo planning. is upset that pt had a failed colonoscopy today. did not want to meet w/ CM. CM to follow up tomorrow. Plan: TBD Date Signed: 08/09/2017 04:09 PM Electronically Signed By:GAUDENCIO Yang
--- NOTE | 2017-08-09 17:26 | HOSPPROG ---
Hospitalist Progress Note Assessment/Plan: Assessment: 56-year-old male presents with acute hyperkalemia and esophageal varices, ESLD Plan: 1. Hyperkalemia. Acute, prohibited procedure on 08/08, resolved w/ kayexelate and holding aldactone -cont to home aldactone so as to prevent it from interfering w/ tomorrow's colonoscopy -repeat level in AM 2. Esophageal varices. S/p EGD w/ banding today -cont cipro for SBP ppx 3. End-stage liver disease. W/ chronic hepatic encephalopathy and pancytopenia of cirrhosis -patient sober -cont home lasix, rifaxin, lactulose -mental status remarkably clear s/p EGD -patient requires colonoscopy in order to be a candidate for liver transplant list, so patient absolutely needs to get this procedure done before his evaluation in [place] -inadequate prep today, and Dr. Euceda has recommended clears this afternoon, re -prep tonight, then reattempt tomorrow -patient's is very upset about the procedures not occurring exactly as planned, and I comforted/counseled her as best I could, expressing that he really should stay to get the colonoscopy to facilitate the next step in evaluation for liver transplant, since that is their ultimate goal 4. Chronic pain w/ continuous opiate dependency. 2/2 ascites and L inguinal hernia -currently not a surgical candidate -tx supportively w/ oxycodone PRN Diet. Clears, then NPO after midnight Prophylaxis. High risk patient, SCDs, hold pharm given thrombocytopenia Code. Full at present, confirmed with patient Disposition. Upgrade to inpatient admission status re: anticipated LOS > 48hrs for reasonable medical necessity including esophageal varices requiring banding , diagnostic colonoscopy, high risk ESLD. Subjective: patient w/ inguinal pain, mentating well following EGD Objective: Vital Signs Temp Pulse Resp BP Pulse Ox 36.6 C 87 18 144/86 H 94 08/09/17 14:56 08/09/17 14:56 08/09/17 14:56 08/09/17 14:56 08/09/17 14:56 Laboratory Results 08/09/17 03:20 08/09/17 03:20 08/08/17 08/09/17 08/10/17 05:59 05:59 05:59 Intake Total 1675 200 Balance 1675 200 PT 19.2 SEC (12.0-15.0) H 08/09/17 03:20 INR 1.60 (0.83-1.16) H 08/09/17 03:20 - Time Spent With Patient Time Spent with Patient: greater than 35 minutes Time Spent with Patient: Greater than 35 minutes spent on this patients care, greater than 50% of time spent counseling, educating, and coordinating care regarding the above mentioned plan. - Physical Exam Constitutional: no apparent distress, chronically ill appearing, uncomfortable, No not in pain (moderate) Eyes: icteric sclera Neurologic: No facial droop Psychiatric: not anxious, flat affect, No agitated ICD10 Worksheet Patient Problems: Problems Problem Status Onset Abdominal pain Acute Ascites Acute Hyperbilirubinemia Acute Alcoholism Acute Spontaneous bacterial peritonitis Acute Septic shock Acute Hyponatremia Acute Dehydration Acute Cirrhosis Acute Confusion Acute Vomiting Acute Perinephric hematoma Acute
[2017-08-09] MEDS: traZODone 50 MG TAB PO SCH (21:43)
[2017-08-09] MEDS: AMITRIPTYLINE HCL 25 MG TAB PO SCH (21:43)
[2017-08-10] MEDS: oxyCODONE IR 5 MG TAB PO PRN ×5 (00:01→19:33)
[2017-08-10 04:20] LABS: INR 1.49 (0.83-1.16); PROTIME(PATIENT) 18.2 SEC (12.0-15.0)
--- NOTE | 2017-08-10 08:24 | PDMN ---
Medical Necessity Medical necessity: esophageal varies req banding, diagnostic colonoscopy- repeat in am. high risk ESLD further testing needed > 2 midnights
--- NOTE | 2017-08-10 08:53 | SOAPPROG ---
[facility] Progress Note Assessment/Plan: Assessment: 1. ESLD 2. Varices 3. Screening Colon. Plan: 1. ESLD - stable chronic - on diuretics, encephalopathy care, SBP prophylaxis - recent complication of hyperK - will need f/u with Dr. Bairon foley, to help monitor manage diuretics 2. Varices - banded - will need repeat EGD in 4 weeks 3. Screening colon - had original exam aborted due to hyperK - redo was aborted due to poor prep - this AM ate chips and jello, so have to cancel case (and RN reports stools are still brown/mud) - advised patient to NOT eat, reprep, and try again on 08/11, but he is reluctant and wants to go home and reschedule - will follow. If patient remains in house, can retry tomorrow to accomplish colonoscopy. Else, we will reschedule as outpt 08/10/17 08:44 Subjective: CC: f/u liver disease Objective: Vital Signs Temp Pulse Resp BP Pulse Ox 36.8 C 89 12 113/73 89 L 08/10/17 08:08 08/10/17 08:08 08/10/17 08:08 08/10/17 08:08 08/10/17 08:08 Laboratory Results 08/10/17 03:16 08/10/17 03:16 08/09/17 08/10/17 08/11/17 05:59 05:59 05:59 Intake Total 1675 2100 Output Total 225 Balance 1675 1875 PT 18.2 SEC (12.0-15.0) H 08/10/17 03:16 INR 1.49 (0.83-1.16) H 08/10/17 03:16 Physical Exam - Physical Exam General Appearance: WD/WN, no apparent distress EENT: PERRL/EOMI Neck: non-tender Respiratory: chest non-tender Cardiac/Chest: normal peripheral pulses Abdomen: normal bowel sounds, non-tender, distended, ascites Skin: normal color Extremities: normal range of motion Neuro/Psych: no motor/sensory deficits ICD10 Worksheet Patient Problems: Problems Problem Status Onset Abdominal pain Acute Alcoholism Acute Ascites Acute Cirrhosis Acute Confusion Acute Dehydration Acute Hyperbilirubinemia Acute Hyponatremia Acute Perinephric hematoma Acute Septic shock Acute Spontaneous bacterial peritonitis Acute Vomiting Acute
[2017-08-10] MEDS ORDERED: PEG 3350/NA SULF,BICARB,CL/KCL (GAVILYTE-G) 4000 ML BTL PO ONE ×2 (09:00→16:00)
[2017-08-10] MEDS: MIDODRINE HCL 5 MG TAB PO SCH ×3 (10:20→21:48)
[2017-08-10] MEDS: RIFAXIMIN 550 MG TAB PO SCH ×2 (10:21→19:34)
[2017-08-10] MEDS: CIPROFLOXACIN 500 MG TAB PO SCH (10:21)
[2017-08-10] MEDS: FUROSEMIDE 40 MG TAB PO SCH ×2 (10:23→14:56)
[2017-08-10] MEDS: MULTIVITAMINS 1 EACH TAB PO SCH (10:30)
--- NOTE | 2017-08-10 14:35 | HOSPPROG ---
Hospitalist Progress Note Assessment/Plan: 56-year-old male with known end-stage liver disease presented for a colonoscopy and was found to be hyperkalemic. Hyperkalemia is resolved but his prep is been inadequate for colonoscopy. Gentleman be re-prepped today. Patient is new to me today 1. Hyperkalemia. Acute, prohibited procedure on 08/08, resolved w/ kayexelate and holding aldactone -cont to home aldactone so as to prevent it from interfering w/ tomorrow's colonoscopy -repeat level in AM 2. Colonoscopy needed for placement on the liver transplant list. He has undergone prior prep which was an adequate and then 8 this morning before his colonoscopy. Plan is for colonoscopy tomorrow after 3 o'clock. He will be given a clear liquid diet until midnight and then re-prepped with go light. Patient is quite forgetful and will need frequent reminders of his need to take the go light and not to eat. 3. Esophageal varices. S/p EGD w/ banding today -cont cipro for SBP ppx 4. End-stage liver disease. W/ chronic hepatic encephalopathy and pancytopenia of cirrhosis -patient sober -cont home lasix, rifaxin, lactulose -mental status remarkably clear s/p EGD -patient requires colonoscopy in order to be a candidate for liver transplant list, so patient absolutely needs to get this procedure done before his evaluation in [place] -inadequate prep today, and Dr. Euceda has recommended clears this afternoon, re -prep tonight, then reattempt tomorrow -patient's is very upset about the procedures not occurring exactly as planned, and I comforted/counseled her as best I could, expressing that he really should stay to get the colonoscopy to facilitate the next step in evaluation for liver transplant, since that is their ultimate goal 5. Chronic pain w/ continuous opiate dependency. 2/2 ascites and L inguinal hernia -currently not a surgical candidate -tx supportively w/ oxycodone PRN Diet. Clears, then NPO after midnight Plan: Have explained the above to his in detail. All questions were answered. Though they are frustrated we will continue for a colonoscopy tomorrow. Subjective: He is alert oriented and seems easily forgetful. The confirms that he is forgetful and thus this makes pain his absence of taking the go light and eating. No complaints of abdominal pain chest pain or shortness of breath Objective: Vital Signs Temp Pulse Resp BP Pulse Ox 36.4 C 84 12 95/60 L 88 L 08/10/17 11:53 08/10/17 11:53 08/10/17 11:53 08/10/17 11:53 08/10/17 11:53 Laboratory Results 08/10/17 03:16 08/10/17 03:16 08/09/17 08/10/17 08/11/17 05:59 05:59 05:59 Intake Total 1675 2100 Output Total 225 Balance 1675 1875 PT 18.2 SEC (12.0-15.0) H 08/10/17 03:16 INR 1.49 (0.83-1.16) H 08/10/17 03:16 - Time Spent With Patient Time Spent with Patient: greater than 35 minutes Time Spent with Patient: Greater than 35 minutes spent on this patients care, greater than 50% of time spent counseling, educating, and coordinating care regarding the above mentioned plan. - Pending Discharge Pending Discharge Within 24 Hours: Yes Pending Discharge Date: 08/11/17 Pending Discharge Time: 11:00 - Physical Exam Constitutional: no apparent distress Eyes: icteric sclera Ears, Nose, Mouth, Throat: moist mucous membranes, hearing normal Cardiovascular: regular rate and rhythym, no murmur, rub, or gallop Respiratory: no respiratory distress Gastrointestinal: normoactive bowel sounds, soft, non-tender abdomen, distension Genitourinary: no bladder fullness Skin: warm, other (Several areas of ecchymosis secondary to superficial trauma are noted.) Musculoskeletal: generalized weakness Neurologic: AAOx3, other (Thinking is slow and he is easily forgetful) Psychiatric: interacting appropriately ICD10 Worksheet Patient Problems: Problems Problem Status Onset Abdominal pain Acute Alcoholism Acute Ascites Acute Cirrhosis Acute Confusion Acute Dehydration Acute Hyperbilirubinemia Acute Hyponatremia Acute Perinephric hematoma Acute Septic shock Acute Spontaneous bacterial peritonitis Acute Vomiting Acute
--- NOTE | 2017-08-10 15:02 | ASMTCMCOM ---
CM Note CM Note Notes: Pts case reviewed in morning rounds. CM met w/ pt and for dispo planning. is uncertain if she would like to have HC at this time. Pts colonoscopy has been postpone until tomorrow afternoon. CM to follow. Plan: TBD Date Signed: 08/10/2017 03:01 PM Electronically Signed By:GAUDENCIO Yang
[2017-08-10] MEDS: AMITRIPTYLINE HCL 25 MG TAB PO SCH (19:34)
[2017-08-11] MEDS: oxyCODONE IR 5 MG TAB PO PRN ×4 (00:36→17:48)
[2017-08-11] MEDS: traZODone 50 MG TAB PO SCH (02:49)
[2017-08-11 04:15] LABS: PLATELET COUNT 80 10^3/uL (150-400)
[2017-08-11 04:44] LABS: INR 1.55 (0.83-1.16); PROTIME(PATIENT) 18.7 SEC (12.0-15.0)
[2017-08-11 07:39] VITALS: PULSE 80
[2017-08-11] MEDS ORDERED: PEG 3350/NA SULF,BICARB,CL/KCL (GAVILYTE-G) 4000 ML BTL PO ONE (08:45)
[2017-08-11] MEDS: RIFAXIMIN 550 MG TAB PO SCH (09:03)
[2017-08-11] MEDS: CIPROFLOXACIN 500 MG TAB PO SCH (09:03)
[2017-08-11] MEDS: MIDODRINE HCL 5 MG TAB PO SCH ×2 (09:03→17:49)
[2017-08-11] MEDS: FUROSEMIDE 40 MG TAB PO SCH ×2 (09:03→17:49)
[2017-08-11] MEDS: MULTIVITAMINS 1 EACH TAB PO SCH (11:33)
--- NOTE | 2017-08-11 15:33 | PDANEPAE ---
ANE History of Present Illness 56 yo for colonoscopy ANE Past Medical History - Cardiovascular History Hx Hypertension: No Hx Arrhythmias: No Hx Chest Pain: No Hx Coronary Artery / Peripheral Vascular Disease: No Hx CHF / Valvular Disease: No Hx Palpitations: No - Pulmonary History Hx COPD: No Hx Asthma/Reactive Airway Disease: No Hx Recent Upper Respiratory Infection: No Hx Oxygen in Use at Home: No Hx Sleep Apnea: No Sleep Apnea Screening Result - Last Documented: Positive Pulmonary History Comment: chace triggers - Neurologic History Hx Cerebrovascular Accident: No Hx Seizures: No Hx Dementia: No - Endocrine History Hx Diabetes: No - Renal History Hx Renal Disorders: No Renal History Comment: hx of hematoma on kidney - Liver History Hx Hepatic Disorders: Yes Hepatic History Comment: ESLD, HEpC and ETOH, abstinent x 6 mos - Neurological & Psychiatric Hx Hx Neurological and Psychiatric Disorders: No Neurological / Psychiatric History Comment: encephalopathy - Cancer History Hx Cancer: No - Congenital Disorder History Hx Congenital Disorders: No - GI History Hx Gastrointestinal Disorders: Yes Gastrointestinal History Comment: esophageal varices. hx of EGD with [facility] 2016 - Other Health History Other Health History: thromocytopenia. chronic hyponatremia. wears glasses - Chronic Pain History Chronic Pain: No - Surgical History Prior Surgeries: paracentesis 06/10/17 2.55L. 01/25/17 EGD with [facility]. left knee surgery 06/13/10 ANE Review of Systems Review of Systems: - Exercise capacity METS (RN): 3 METS ANE Patient History - Allergies Allergies/Adverse Reactions: No Known Allergies Allergy (Verified 07/31/17 18:39) - Home Medications Home medications: home medication list seen and reviewed Home Medications: Multivitamins [Multivitamin (*)] 1 each PO DAILY 05/01/17 [Last Taken 08/07/17] oxyCODONE IR [Oxycodone Ir (*)] 5 - 10 mg PO Q4HRS PRN 05/01/17 [Last Taken ] Ergocalciferol [Vitamin D2 (*)] 50,000 units PO WE 06/18/17 [Last Taken 08/02/17 ] Furosemide [Lasix 40 MG (*)] 40 mg PO BID@09,16 06/18/17 [Last Taken 08/07/17 16 :00] Lactulose 30 ml PO TID PRN 07/31/17 [Last Taken 08/06/17] Melatonin [Melatonin 3 MG (*)] 3 mg PO HS PRN 07/31/17 [Last Taken 2 Weeks Ago ~ 07/25/17] Rifaximin [Xifaxan] 550 mg PO BID 07/31/17 [Last Taken 08/07/17 21:00] Spironolactone [Aldactone 100 MG (*)] 100 mg PO DAILY 07/31/17 [Last Taken 08/07] Amitriptyline HCl 25 mg PO HS 08/08/17 [Last Taken 08/07/17] Ciprofloxacin [Cipro] 500 mg PO DAILY 08/08/17 [Last Taken 08/07/17] Midodrine HCl 10 mg PO TID 08/08/17 [Last Taken 08/07/17 21:00] traZODone [traZODONE 50MG (*)] 50 mg PO HS 08/08/17 [Last Taken 08/07/17] - NPO status NPO Status: no food or drink >8 hours NPO Since - Liquids (Date): 08/11/17 NPO Since - Liquids (Time): 11:30 NPO Since - Solids (Date): 08/11/17 NPO Since - Solids (Time): 12:30 - Anes Hx Anes Hx: no prior problems - Smoking Hx Smoking Status: Former smoker - Alcohol Use Alcohol Use: Sober - Family Anes Hx Family Hx Anesthesia Complications: none ANE Labs/Vital Signs - Labs Result Diagrams: 08/11/17 03:57 08/11/17 03:57 - Vital Signs Blood Pressure: 100/62 Heart Rate: 80 Respiratory Rate: 12 O2 Sat (%): 92 Height: 5 ft 7 in Weight: 60.5 kg ANE Physical Exam - Airway Neck exam: FROM Mallampati Score: Class 2 Mouth exam: normal dental/mouth exam - Pulmonary Pulmonary: no respiratory distress - Cardiovascular Cardiovascular: regular rate and rhythym - ASA Status ASA Status: IV ANE Anesthesia Plan Anesthesia Plan: MAC
--- NOTE | 2017-08-11 15:47 | ASMTCMCOM ---
CM Note CM Note Notes: 08/11/2017 Case Management Note Discussed pt during rounds this morning. Pt to have colonoscopy today. PT is recommending home independent. There are no further case management d/c needs identified. Case Management d/c poc: home independent with follow up as directed. Case Management available if needs change. Date Signed: 08/11/2017 03:46 PM Electronically Signed By:Wanda Isaacs RN
--- NOTE | 2017-08-11 15:49 | SOAPPROG ---
[facility] Progress Note Assessment/Plan: Assessment: 1. ESLD 2. Varices 3. Screening Colon. Plan: 1. ESLD - stable chronic - on diuretics, encephalopathy care, SBP prophylaxis - recent complication of hyperK - will need f/u with Dr. Bairon foley, to help monitor manage diuretics 2. Varices - banded - will need repeat EGD in 4 weeks 3. Screening colon - colonoscopy today 08/10/17 08:44 08/11/17 15:49 Objective: Vital Signs Temp Pulse Resp BP Pulse Ox 36.4 C 80 12 100/62 92 08/11/17 13:29 08/11/17 15:32 08/11/17 15:32 08/11/17 15:32 08/11/17 15:32 Laboratory Results 08/11/17 03:57 08/11/17 03:57 08/10/17 08/11/17 08/12/17 05:59 05:59 05:59 Intake Total 2100 120 Output Total 225 Balance 1875 120 PT 18.7 SEC (12.0-15.0) H 08/11/17 03:57 INR 1.55 (0.83-1.16) H 08/11/17 03:57 ICD10 Worksheet Patient Problems: Problems Problem Status Onset Abdominal pain Acute Alcoholism Acute Ascites Acute Cirrhosis Acute Confusion Acute Dehydration Acute Hyperbilirubinemia Acute Hyponatremia Acute Perinephric hematoma Acute Septic shock Acute Spontaneous bacterial peritonitis Acute Vomiting Acute
[2017-08-11] MEDS ORDERED: PROPOFOL/EMULSION 500 MG/50 ML BOTTLE IV ONE (15:59)
[2017-08-11] MEDS ORDERED: NALOXONE HCL 0.4 MG/ML INJ IVP PRN (16:34)
--- NOTE | 2017-08-11 16:34 | GIREPORT ---
[facility] Surgical Services - Endoscopy Department Patient Name: Rodo Hayes Procedure Date: 08/11/2017 3:57 PM Patient Type: Inpatient Attending MD/ ER Physician: Neymar Euceda MD Procedure: Colonoscopy Indications: Screening for colorectal malignant neoplasm Providers: Neymar Euceda MD Medicines: Sedation Administered by an Anesthesia Professional Complications: No immediate complications. Description of Procedure: After obtaining informed consent, the scope was passed under direct vis ion. Throughout the procedure, the patient's blood pressure, pulse, and oxyg en saturations were monitored continuously. The Colonoscope with irrigatio n channel was introduced through the anus and advanced to the cecum, identified by appendiceal orifice and ileocecal valve. The colonoscopy was performed without difficulty. The patient tolerated the procedure well. The quality of the bowel preparation was good. The ileocecal valve, appendi ceal orifice, and rectum were photographed. Findings: The entire examined colon appeared normal. Estimated Blood Loss: Estimated blood loss: none. Post Op Diagnosis: - The entire examined colon is normal. - No specimens collected. Recommendation: - Resume previous diet. - Continue present medications. - Repeat colonoscopy in 10 years for screening purposes. Attending Participation: I personally performed the entire procedure. Neymar Euceda MD Neymar Euceda MD 08/11/2017 4:33:55 PM This report has been signed electronicallyDaus MD Kinsey Number of Addenda: 0 Note Initiated On: 08/11/2017 3:57 PM Total Procedure Duration Time 0 hours 14 minutes 5 seconds [email or web address]
--- NOTE | 2017-08-11 16:37 | SUROPNOTE ---
[facility] Operative Report - Surgery BRIEF GI NOTE COLONOSCOPY: indication: screening meds: per anesthesia complications: none acutely findings: - normal exam - prominent rectal varix (incidental) IMPRESSION/RECS 1. ESLD - ok to reusme meds and dc home - would dc with hold of aldactone - i will arrange outpt f/u with dr. santiago in next 1-2 weeks 2. hyper K - corrected - dc home OFF aldactone 3. colon cancer screening - normal exam today 4. varices - will eed repeat EGD in 4 weeks, I will arrange - will sign off.
[2017-08-11 17:13] VITALS: TEMP 97.3
[2017-08-11 17:16] VITALS: BP 111/71; RESP 18; O2SAT 94
--- NOTE | 2017-08-12 18:56 | GDS ---
[f rep st] DISCHARGE SUMMARY NEW AND ACUTE DIAGNOSES ON THIS ADMISSION: 1. Hyperkalemia secondary to electrolyte IV infusions and the use of Aldactone. 2. End-stage liver disease. 3. Pancytopenia. 4. Chronic varices. CONSULTATIONS: Gastroenterology. PROCEDURES: 1. Colonoscopy was attempted on 08/09, but preparation of the colon was inadequate. 2. Colonoscopy was repeated on 08/11 with the entire colon appearing normal. HOSPITAL COURSE: This 56-year-old male was noted to be hyperkalemic following an attempted colonosco py. He was admitted, and his hyperkalemia was managed in the usual fashion successfully. Potassium began at 6.1 and fell nicely to 4.7, and he suffered no adverse consequences. He has known end-stage liver disease and is seeking to be on a transplant list. In order to obtain that, he needs a clean colonoscopy. The initial attempt at a colonoscopy showed an inadequate preparation. Preparation was difficult during hospitalization as the patient failed to cooperate with taking the electrolyte solu tion and would often eat some food. He is often quite forgetful at baseline. Ultimately, a good pre p was obtained, and a colonoscopy was performed and showed entirely normal colon. Note, that he persists with an electrolyte abnormality with hyponatremia with sodium 133, which is fe lt secondary to his chronic liver disease. He has hypoalbuminemia and severe protein caloric malnutr ition with an albumin of 2.7. DISCHARGE MEDICATIONS: His continued medications are multivitamins, oxycodone IR 5-10 mg q.4 hours p .r.n., vitamin D2 48185 units weekly, Lasix 40 mg b.i.d., lactulose 30 mL p.o. t.i.d. p.r.n., melaton in 3 mg p.o. q.h.s., rifaximin 550 mg b.i.d., Cipro 500 mg daily, amitriptyline 25 mg h.s., midodrine 10 mg t.i.d., and trazodone 50 mg Discontinued medications are spironolactone 100 mg daily. PLAN: This gentleman will follow up with Dr. Neymar Euceda within the next 1-2 weeks regarding his candida er transplant referral. He is seen also by Dr. Jacky Waddell and Dr. Curt Colvin. TIME: This discharge required ultimately 40 minutes, greater than 50% to intake counselor, coordinate his car e, and assure the gentleman understood the plan for referral, and speaking with his . /[id number]/GORDONL
== END 2017-08-11 17:56 | disposition home or self-care (01) | DRG 641 ==
LOC: FSGY 07:20 → F2W 10:11 → OBSVTOIN 08-09 15:18
PROVIDERS: ADMIT Internal Medicine; ATTEND Internal Medicine Pulmonary Disease
PROC: 06L38CZ Occlusion of Esophageal Vein with Extraluminal Device, Via Natural or Artificial Opening Endoscopic (ICD-10-PCS; 2017-08-09 12:45)
PROC: 0DJD8ZZ Inspection of Lower Intestinal Tract, Via Natural or Artificial Opening Endoscopic (ICD-10-PCS; 2017-08-09 12:45)
PROC: 0DJD8ZZ Inspection of Lower Intestinal Tract, Via Natural or Artificial Opening Endoscopic (ICD-10-PCS; principal; 2017-08-11 14:30)
DX: E87.5 Hyperkalemia (principal); I85.10 Secondary esophageal varices without bleeding; K76.6 Portal hypertension; D61.818 Other pancytopenia; K70.11 Alcoholic hepatitis with ascites; K72.10 Chronic hepatic failure without coma; D63.8 Anemia in other chronic diseases classified elsewhere; G89.29 Other chronic pain; F11.20 Opioid dependence, uncomplicated; K40.90 Unilateral inguinal hernia, without obstruction or gangrene, not specified as recurrent; Z87.891 Personal history of nicotine dependence; Z80.0 Family history of malignant neoplasm of digestive organs; Z12.11 Encounter for screening for malignant neoplasm of colon
CPT/HCPCS: 97161-GP; 97165-GO; 97535-GO; G0378; J2405; J2704; J3370

== ENCOUNTER 2017-09-18 09:24 | Day surgery (SDC) | payer OTHER ==
[2017-09-18] MEDS ORDERED: LR 1,000 ML IV ONE (09:47)
[2017-09-18] MEDS ORDERED: PROPOFOL 200 MG/20 ML VIAL ONE ×2 (10:24→10:31)
[2017-09-18] MEDS ORDERED: fentaNYL 100 MCG/2 ML INJ ONE (10:25)
[2017-09-18] MEDS ORDERED: SUCCINYLCHOLINE CHLORIDE 200 MG/10 ML SYR IVP ONE (10:31)
--- NOTE | 2017-09-18 10:43 | GIREPORT ---
[facility] Surgical Services - Endoscopy Department Patient Name: Rodo Hayes Procedure Date: 09/18/2017 10:08 AM Patient Type: Outpatient Attending MD/ ER Physician: Neymar Euceda MD Procedure: Upper GI endoscopy Indications: Portal hypertension with suspected esophageal varices Providers: Neymar Euceda MD Medicines: Sedation Administered by an Anesthesia Professional Complications: No immediate complications. Description of Procedure: After obtaining informed consent, the endoscope was passed under direct vision. Throughout the procedure, the patient's blood pressure, pulse, and oxygen saturations were monitored continuously. The Endoscope was intro duced through the mouth, and advanced to the third part of duodenum. The uppe r GI endoscopy was accomplished without difficulty. The patient tolerated th e procedure well. Findings: Grade II varices were found in the lower third of the esophagus. Three bands were successfully placed with complete eradication, resulting in deflat ion of varices. There was no bleeding during the procedure. Moderate portal hypertensive gastropathy was found in the entire examin ed stomach. The examined duodenum was normal. Estimated Blood Loss: Estimated blood loss: none. Post Op Diagnosis: - Grade II esophageal varices. Completely eradicated. Banded. - Portal hypertensive gastropathy. - Normal examined duodenum. - No specimens collected. Recommendation: - Written discharge instructions were provided to the patient. - The signs and symptoms of potential delayed complications were discus sed with the patient. - Patient has a contact number available for emergencies. - Return to normal activities tomorrow. - Resume previous diet. - Continue present medications. - Repeat upper endoscopy in 4 weeks for retreatment. Attending Participation: I personally performed the entire procedure. Neymar Euceda MD Neymar Euceda MD 09/18/2017 10:43:31 AM This report has been signed electronicallyNeymar Euceda MD Number of Addenda: 0 Note Initiated On: 09/18/2017 10:08 AM [email or web address]
--- NOTE | 2017-09-18 11:02 | PDANEPAE ---
ANE History of Present Illness 57 year old male for banding of esophageal varicies. End stage liver disease. ANE Past Medical History - Cardiovascular History Hx Hypertension: Yes Hx Arrhythmias: No Hx Chest Pain: No Hx Coronary Artery / Peripheral Vascular Disease: No Hx CHF / Valvular Disease: No Hx Palpitations: No Cardiovascular History Comment: HYPOTENSION RECENTLY - Pulmonary History Hx COPD: No Hx Asthma/Reactive Airway Disease: No Hx Recent Upper Respiratory Infection: No Hx Oxygen in Use at Home: No Hx Sleep Apnea: No Sleep Apnea Screening Result - Last Documented: Positive Pulmonary History Comment: chace triggers - Neurologic History Hx Cerebrovascular Accident: No Hx Seizures: No Hx Dementia: No - Endocrine History Hx Diabetes: No - Renal History Hx Renal Disorders: No Renal History Comment: hx of hematoma on kidney - Liver History Hx Hepatic Disorders: Yes Hepatic History Comment: ESLD, ETOH, abstinent X 1 YR - Neurological & Psychiatric Hx Hx Neurological and Psychiatric Disorders: No Neurological / Psychiatric History Comment: encephalopathy - Cancer History Hx Cancer: No - Congenital Disorder History Hx Congenital Disorders: No - GI History Hx Gastrointestinal Disorders: Yes Gastrointestinal History Comment: esophageal varices - Other Health History Other Health History: thromocytopenia. HX- CHRONIC HEP C - Chronic Pain History Chronic Pain: No - Surgical History Prior Surgeries: EGD & COLONOSCOPY 07/2017. paracentesis 06/10/17 2.55L. 01/25 EGD with [facility]. left knee surgery 06/13/10 ANE Review of Systems Review of Systems: - Exercise capacity METS (RN): 4 METS ANE Patient History - Allergies Allergies/Adverse Reactions: No Known Allergies Allergy (Verified 07/31/17 18:39) - Home Medications Home Medications: Multivitamins [Multivitamin (*)] 1 each PO DAILY 05/01/17 [Last Taken 09/13/17] oxyCODONE IR [Oxycodone Ir (*)] 5 - 10 mg PO Q4HRS PRN 05/01/17 [Last Taken ] Ergocalciferol [Vitamin D2 (*)] 50,000 units PO WE 06/18/17 [Last Taken 09/14/17 ] Furosemide [Lasix 40 MG (*)] 40 mg PO BID@09,16 06/18/17 [Last Taken 09/17/17] Lactulose 30 ml PO TID PRN 07/31/17 [Last Taken 09/17/17] Melatonin [Melatonin 3 MG (*)] 3 mg PO HS PRN 07/31/17 [Last Taken 2 Weeks Ago ~ 07/25/17] Rifaximin [Xifaxan] 550 mg PO BID 07/31/17 [Last Taken 09/17/17] Ciprofloxacin [Cipro] 500 mg PO DAILY 08/08/17 [Last Taken 08/07/17] Midodrine HCl 10 mg PO TID 08/08/17 [Last Taken 09/17/17] traZODone [traZODONE 50MG (*)] 50 mg PO HS 08/08/17 [Last Taken 09/17/17] - NPO status NPO Since - Liquids (Date): 09/17/17 NPO Since - Liquids (Time): 22:00 NPO Since - Solids (Date): 09/17/17 NPO Since - Solids (Time): 18:00 - Smoking Hx Smoking Status: Former smoker - Family Anes Hx Family Hx Anesthesia Complications: none ANE Labs/Vital Signs - Vital Signs Blood Pressure: 132/87 Heart Rate: 90 Respiratory Rate: 14 O2 Sat (%): 100 Height: 170.18 cm Weight: 63.503 kg ANE Physical Exam - Airway Neck exam: FROM Mallampati Score: Class 2 Mouth exam: normal dental/mouth exam - Pulmonary Pulmonary: no respiratory distress - Cardiovascular Cardiovascular: regular rate and rhythym - ASA Status ASA Status: III ANE Anesthesia Plan Anesthesia Plan: MAC
[2017-09-18] MEDS ORDERED: NALOXONE HCL 0.4 MG/ML INJ IVP PRN (11:03)
[2017-09-18 12:06] VITALS: BP 130/88
== END 2017-09-18 12:00 | disposition home or self-care (01) ==
LOC: FSGY 09:24
PROVIDERS: ATTEND Internal Medicine Gastroenterology
PROC: 0DJ08ZZ Inspection of Upper Intestinal Tract, Via Natural or Artificial Opening Endoscopic (ICD-10-PCS; principal; 2017-09-18 11:00)
PROC: 06L38CZ Occlusion of Esophageal Vein with Extraluminal Device, Via Natural or Artificial Opening Endoscopic (ICD-10-PCS; principal; 2017-09-18 11:00)
DX: K70.31 Alcoholic cirrhosis of liver with ascites (principal); I85.10 Secondary esophageal varices without bleeding; K31.89 Other diseases of stomach and duodenum; K76.6 Portal hypertension; B19.20 Unspecified viral hepatitis C without hepatic coma; F10.21 Alcohol dependence, in remission
CPT/HCPCS: J0330; J2704; J3010

== ENCOUNTER → 2017-10-10 | Outpatient (CLI) | payer OTHER ==
[~2017-10-10] MED LIST changes: +ALBUMIN 25% 100 ML SOLN IV ONE; -HYDROmorphONE/DILAUDID 1 MG/ML INJ IVP PRN; +LIDOCAINE 1% 300 MG/30 ML SDV ONE
== END ==
LOC: FIMAGING 13:28
PROVIDERS: ATTEND Radiology Diagnostic Radiology
PROC: 0W9F3ZZ Drainage of Abdominal Wall, Percutaneous Approach (ICD-10-PCS; principal; 2017-10-10)
DX: R18.8 Other ascites (principal)
CPT/HCPCS: P9047

== ENCOUNTER → 2017-10-24 | Outpatient (CLI) | payer OTHER | LOC: FIMAGING 10:38 | PROVIDERS: ATTEND Internal Medicine | PROC: 0W9G3ZZ Drainage of Peritoneal Cavity, Percutaneous Approach (ICD-10-PCS; principal; 2017-10-24) | DX: R18.8 Other ascites (principal); K74.60 Unspecified cirrhosis of liver | CPT/HCPCS: P9047 ==

== ENCOUNTER 2017-10-29 14:37 | Emergency (ER) | payer OTHER ==
--- NOTE | 2017-10-29 15:47 | EDPHY ---
HPI/HX/ROS/PE/MDM Narrative: CHIEF COMPLAINT: Testicular swelling, liver failure HPI: The patient is a 57 y/o male with end-stage liver failure arriving with his complaining of testicular swelling onset a couple days ago. Swelling is associated with localized pain. He most recently had paracenteses on 10/10/17 and 10/24/17, 5 days ago. He has never had testicular swelling before. He denies other acute symptoms including fever, rash, or dysuria. No recent trauma or illness. REVIEW OF SYSTEMS: Aside from elements discussed in the HPI, a comprehensive 10-point review of systems was reviewed and is negative. PMH: 1. End-stage liver disease 2. 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 Esophageal varices 4. Perinephric hematoma and left rib fracture 06/18/17 5. Chronic pain on continuous narcotics SOCIAL HISTORY: at bedside. PCP: Dr. Colvin, Liver: Dr. Aguilar. Prior medical records reviewed including admission 06/18/17 for fall and confusion, recent paracentesis reports 10/10/17 and 10/24/17 reviewed. PHYSICAL EXAM: General:Patient is alert, in no acute distress. ENT:Eyes are normal to inspection. ENT inspection normal. Neck: Normal inspection. Full range of motion. Respiratory:No respiratory distress. Breath sounds normal bilaterally. Cardiovascular: Regular rate and rhythm. Strong peripheral pulses. Normal cap refill. Abdomen:The abdomen is distended and nontender to palpation. There are no peritoneal signs. : Swollen scrotum approximately the size of a grapefruit. No erythema or lesions. Back: Normal to inspection. No tenderness to palpation. Skin: Jaundiced. No rash. Warm and dry. Extremities: Normal appearance. Full range of motion. Neuro: Oriented x3. Normal motor function. Normal sensory function. ED Course: This is a 57 y/o male with end-stage liver disease and recent paracentesis 5 days ago who presents with a 2-day history of testicular swelling and pain. No urinary or infectious symptoms. On exam, he is jaundiced with distended abdomen and has symmetric scrotal edema. Presentation is consistent with anasarca. Plan for labs including LFTs and pain medication. 1 tab PO oxycodone ordered. Reviewed labs with patient. He will be discharged with a small script of OxyIR. He understands he needs to follow up with his doctors this week. Return precautions discussed. He is comfortable with plan for discharge. MDM: This patient has a history of chronic liver disease and ascites, with frequent recent paracentesis. He is here today because swelling has no started to involve his scrotum. I see no signs of cellulitis or testicular torsion or other primary pathology. This appears to represent extension of his ascites. He has no fever or abdominal pain to suggest SBP or need for emergent paracentesis. He is comfortable with the plan to follow-up with his PCP tomorrow morning. - Data Points Laboratory Results: Laboratory Results 10/29/17 15:15 10/29/17 15:15 10/29/17 10/29/17 15:15 15:15 WBC 6.43 10^3/uL 10^3/uL (3.80-9.50) RBC 4.01 10^6/uL L 10^6/uL (4.40-6.38) Hgb 12.1 g/dL L g/dL (13.7-17.5) Hct 35.7 % L % (40.0-51.0) MCV 89.0 fL fL (81.5-99.8) MCH 30.2 pg pg (27.9-34.1) MCHC 33.9 g/dL g/dL (32.4-36.7) RDW 15.8 % H % (11.5-15.2) Plt Count 107 10^3/uL L 10^3/uL (150-400) MPV 9.5 fL fL (8.7-11.7) Neut % (Auto) 66.1 % % (39.3-74.2) Lymph % (Auto) 17.1 % % (15.0-45.0) [place] % (Auto) 12.3 % % (4.5-13.0) Eos % (Auto) 3.7 % % (0.6-7.6) Baso % (Auto) 0.5 % % (0.3-1.7) Nucleat RBC Rel Count 0.0 % % (0.0-0.2) Absolute Neuts (auto) 4.25 10^3/uL 10^3/uL (1.70-6.50) Absolute Lymphs (auto) 1.10 10^3/uL 10^3/uL (1.00-3.00) Absolute Monos (auto) 0.79 10^3/uL 10^3/uL (0.30-0.80) Absolute Eos (auto) 0.24 10^3/uL 10^3/uL (0.03-0.40) Absolute Basos (auto) 0.03 10^3/uL 10^3/uL (0.02-0.10) Absolute Nucleated RBC 0.00 10^3/uL 10^3/uL (0-0.01) Immature Gran % 0.3 % % (0.0-1.1) Immature Gran # 0.02 10^3/uL 10^3/uL (0.00-0.10) Platelet Estimate Pending Sodium 131 mEq/L L mEq/L (135-145) Potassium 5.5 mEq/L H mEq/L (3.3-5.0) Chloride 96 mEq/L L mEq/L (97-110) Carbon Dioxide 29 mEq/l mEq/l (22-31) Anion Gap 6 mEq/L L mEq/L (8-16) BUN 13 mg/dL mg/dL (7-23) Creatinine 1.2 mg/dL mg/dL (0.7-1.3) Estimated GFR > 60 Glucose 105 mg/dL H mg/dL (70-100) Calcium 8.3 mg/dL L mg/dL (8.5-10.4) Total Bilirubin 2.0 mg/dL H mg/dL (0.1-1.4) Conjugated Bilirubin 0.9 mg/dL H mg/dL (0.0-0.5) Unconjugated Bilirubin 1.1 mg/dL mg/dL (0.0-1.1) AST 39 IU/L IU/L (17-59) ALT 25 IU/L IU/L (21-72) Alkaline Phosphatase 98 IU/L IU/L (38-126) Total Protein 6.9 g/dL g/dL (6.3-8.2) Albumin 2.7 g/dL L g/dL (3.5-5.0) Medications Given: Discontinued Medications Oxycodone/Acetaminophen (Percocet 5/325) 1 tab PO EDNOW ONE Stop: 10/29/17 16:00 Last Admin: 10/29/17 16:07 Dose: 1 tab General Time Seen by Provider: 10/29/17 15:33 Initial Vital Signs: Initial Vital Signs Temperature (C) 37.0 C 10/29/17 14:43 Heart Rate 72 10/29/17 14:43 Respiratory Rate 16 10/29/17 14:43 Blood Pressure 105/70 10/29/17 14:43 O2 Sat (%) 95 10/29/17 14:43 O2 Delivery Mode Room Air Allergies/Adverse Reactions: No Known Allergies Allergy (Verified 07/31/17 18:39) Home Medications: Medication Instructions Recorded Multivitamins [Multivitamin (*)] 1 each PO DAILY 05/01/17 oxyCODONE IR [Oxycodone Ir (*)] 5 - 10 mg PO Q4HRS PRN 05/01/17 Ergocalciferol [Vitamin D2 (*)] 50,000 units PO WE 06/18/17 Furosemide [Lasix 40 MG (*)] 40 mg PO BID@09,16 06/18/17 Lactulose 30 ml PO TID PRN 07/31/17 Melatonin [Melatonin 3 MG (*)] 3 mg PO HS PRN 07/31/17 Rifaximin [Xifaxan] 550 mg PO BID 07/31/17 Ciprofloxacin [Cipro] 500 mg PO DAILY 08/08/17 Midodrine HCl 10 mg PO TID 08/08/17 traZODone [traZODONE 50MG (*)] 50 mg PO HS 08/08/17 oxyCODONE IR [Oxycodone Ir (*)] 5 mg PO Q4H PRN #7 tab 10/29/17 Departure - Departure Disposition: Home, Routine, Self-Care Clinical Impression: Anasarca, End stage liver disease Condition: Good Instructions: Oxycodone/Acetaminophen (By mouth), Oxycodone, Rapid Release (By mouth), Edema (ED) Additional Instructions: 1. Take OxyIR as prescribed as needed for severe pain. This medication can make you drowsy and constipated. Do not drive while using it. Please be aware the ED cannot provide additional narcotic prescriptions for this complaint and you will need to follow up with your doctor if you require additional pain management. 2. Follow up with Dr. Colvin and Dr. Lauren as planned. 3. Return to the ED for worsening of condition. Referrals: Curt Colvin [Primary Care Provider] - As per Instructions Prescriptions: oxyCODONE IR [Oxycodone Ir (*)] 5 mg PO Q4H PRN #7 tab PRN Reason: Pain, Severe Report Scribed for: Max Barba Report Scribed by: Alicia Zuñiga Date of Report: 10/29/17 Time of Report: 15:49 Physician Review and Approval Statement: Portions of this note were transcribed by an ED scribe. I personally performed the history, physical exam, and medical decision making; and confirm the accuracy of the information in the transcribed note.
[2017-10-29] MEDS ORDERED: OXYCODONE/APAP 5/325 TAB PO ONE (15:59)
[2017-10-29 16:17] LABS: PLATELET COUNT 107 10^3/uL (150-400)
[2017-10-29 16:25] VITALS: BP 98/56
== END 2017-10-29 16:25 | disposition home or self-care (01) ==
DX: R60.1 Generalized edema (principal); K72.90 Hepatic failure, unspecified without coma

== ENCOUNTER 2017-11-15 12:01 | Emergency (ER) | payer OTHER ==
--- NOTE | 2017-11-15 12:13 | EDPHY ---
H & P Stated Complaint: hx cirrhosis seen at [facility] yesterday sent to ed for paracentesis Time Seen by Provider: 11/15/17 12:09 HPI/ROS: CHIEF COMPLAINT: Worsening encephalopathy HISTORY OF PRESENT ILLNESS: The patient is referred to the emergency department for evaluation of worsening encephalopathy. The patient has a history of end-stage liver disease and is currently on the transplant list. The patient is on Xifaxan and lactulose in addition to diuretic therapy. I was contacted by the nurse practitioner at the [facility] who requested the patient undergo evaluation of resistant SBP. The patient is currently on chronic ciprofloxacin. The patient reports he has been compliant with his medications. The patient denies any acute change in his level of mentation. The patient is accompanied by caregiver who also states that the patient's mentation has been appropriate. The patient denies any acute fever. He denies any additional complaints. REVIEW OF SYSTEMS: A comprehensive 10 point review of systems is otherwise negative aside from elements mentioned in the history of present illness. Source: Patient Exam Limitations: No limitations - Personal History Current Tetanus/Diphtheria Vaccine: Yes - Medical/Surgical History Hx Asthma: No Hx Chronic Respiratory Disease: No Hx Diabetes: No Hx Cardiac Disease: No Hx Renal Disease: No Hx Cirrhosis: Yes Hx Alcoholism: Yes Hx HIV/AIDS: No Hx Splenectomy or Spleen Trauma: No Other PMH: Bilateral meniscus and ACL tear/injury, Tib/Fib fracture, marijuana user, ETOH (former), ascites, Hep C, sepsis'. cirrhosis, end stage liver disease, hx falls with rib fracture, hernia - Social History Smoking Status: Former smoker - Physical Exam Exam: General Appearance: Thin male, cachectic Eyes: Pupils equal and round no pallor or injection ENT, Mouth: Mucous membranes moist Respiratory: There are no retractions, lungs are clear to auscultation Cardiovascular: Regular rate and rhythm Gastrointestinal: Protuberant, ascites Neurological: 5/5 strength all 4 extremities Skin: Warm and dry, no rashes Musculoskeletal: Neck is supple nontender Extremities: symmetrical, full range of motion Constitutional: Initial Vital Signs Temperature (C) 36.7 C 11/15/17 12:03 Heart Rate 111 H 11/15/17 12:03 Respiratory Rate 18 11/15/17 12:03 Blood Pressure 132/71 H 11/15/17 12:03 O2 Sat (%) 95 11/15/17 12:03 O2 Delivery Mode Room Air Allergies/Adverse Reactions: No Known Allergies Allergy (Verified 11/15/17 12:02) Home Medications: Medication Instructions Recorded Multivitamins [Multivitamin (*)] 1 each PO DAILY 05/01/17 oxyCODONE IR [Oxycodone Ir (*)] 5 - 10 mg PO Q4HRS PRN 05/01/17 Ergocalciferol [Vitamin D2 (*)] 50,000 units PO WE 06/18/17 Furosemide [Lasix 40 MG (*)] 40 mg PO BID@09,16 06/18/17 Lactulose 30 ml PO TID PRN 07/31/17 Melatonin [Melatonin 3 MG (*)] 3 mg PO HS PRN 07/31/17 Rifaximin [Xifaxan] 550 mg PO BID 07/31/17 Ciprofloxacin [Cipro] 500 mg PO DAILY 08/08/17 Midodrine HCl 10 mg PO TID 08/08/17 traZODone [traZODONE 50MG (*)] 50 mg PO HS 08/08/17 oxyCODONE IR [Oxycodone Ir (*)] 5 mg PO Q4H PRN #7 tab 10/29/17 Medical Decision Making - Diagnostics Imaging Results: Imaging Impressions Chest X-Ray 11/15/17 12:09 Impression: Left lower lobe consolidation and a small left effusion. Differential diagnosis includes scar from prior consolidation, active pneumonia or potentially pulmonary infarction. Results called and discussed with Cornelius Vasquez, at 11/15/2017 12:38 Abdomen Ultrasound 11/15/17 12:43 Impression: 1. Minimal ascites. 2. Small bilateral pleural effusions. Findings and recommendations discussed with Emergency Department physician, Cornelius Vasquez at 14:53 hour, 11/15/2017. Final report concurs with initial preliminary interpretation. ED Course/Re-evaluation: The patient is well-appearing and not acutely encephalopathic. The patient has some recurrent ascites which is not tense in nature. The patient's laboratory studies are within his baseline ranges. Pending at this time is analysis of his ascitic fluid. [facility] has asked for an update on the patient's evaluation after his paracentesis. The radiologist is unable to appreciate significant ascites on the patient's abdominal ultrasound and does not feel that a safe paracentesis can be performed. The patient is well-appearing and not encephalopathic. He is advised to follow up with the [facility]. The patient is comfortable with the plan for discharge. I did page hepatology and have not heard back from them as of 3:00 p.m.. The patient is anxious to be discharged to home and is leaving the department now. Differential Diagnosis: Differential diagnosis considered includes SBP, dehydration, renal failure, hepatic encephalopathy - Data Points Laboratory Results: Laboratory Results 11/15/17 12:21 11/15/17 12:21 11/15/17 11/15/17 11/15/17 12:21 12:21 12:21 WBC 10.07 10^3/uL H 10^3/uL (3.80-9.50) RBC 4.02 10^6/uL L 10^6/uL (4.40-6.38) Hgb 12.3 g/dL L g/dL (13.7-17.5) Hct 34.5 % L % (40.0-51.0) MCV 85.8 fL fL (81.5-99.8) MCH 30.6 pg pg (27.9-34.1) MCHC 35.7 g/dL g/dL (32.4-36.7) RDW 16.1 % H % (11.5-15.2) Plt Count 152 10^3/uL 10^3/uL (150-400) MPV 9.5 fL fL (8.7-11.7) Neut % (Auto) 70.6 % % (39.3-74.2) Lymph % (Auto) 13.6 % L % (15.0-45.0) [place] % (Auto) 12.4 % % (4.5-13.0) Eos % (Auto) 2.4 % % (0.6-7.6) Baso % (Auto) 0.3 % % (0.3-1.7) Nucleat RBC Rel Count 0.0 % % (0.0-0.2) Absolute Neuts (auto) 7.11 10^3/uL H 10^3/uL (1.70-6.50) Absolute Lymphs (auto) 1.37 10^3/uL 10^3/uL (1.00-3.00) Absolute Monos (auto) 1.25 10^3/uL H 10^3/uL (0.30-0.80) Absolute Eos (auto) 0.24 10^3/uL 10^3/uL (0.03-0.40) Absolute Basos (auto) 0.03 10^3/uL 10^3/uL (0.02-0.10) Absolute Nucleated RBC 0.00 10^3/uL 10^3/uL (0-0.01) Immature Gran % 0.7 % % (0.0-1.1) Immature Gran # 0.07 10^3/uL 10^3/uL (0.00-0.10) PT 17.3 SEC H SEC (12.0-15.0) INR 1.40 H (0.83-1.16) APTT 36.3 SEC SEC (23.0-38.0) Sodium 127 mEq/L L mEq/L (135-145) Potassium 5.2 mEq/L H mEq/L (3.3-5.0) Chloride 90 mEq/L L mEq/L (97-110) Carbon Dioxide 28 mEq/l mEq/l (22-31) Anion Gap 9 mEq/L mEq/L (8-16) BUN 17 mg/dL mg/dL (7-23) Creatinine 1.2 mg/dL mg/dL (0.7-1.3) Estimated GFR > 60 Glucose 107 mg/dL H mg/dL (70-100) Calcium 8.6 mg/dL mg/dL (8.5-10.4) Total Bilirubin 2.5 mg/dL H mg/dL (0.1-1.4) Conjugated Bilirubin 1.0 mg/dL H mg/dL (0.0-0.5) Unconjugated Bilirubin 1.5 mg/dL H mg/dL (0.0-1.1) AST 91 IU/L H IU/L (17-59) ALT 42 IU/L IU/L (21-72) Alkaline Phosphatase 126 IU/L IU/L (38-126) Total Protein 8.0 g/dL g/dL (6.3-8.2) Albumin 3.1 g/dL L g/dL (3.5-5.0) Lipase 82 IU/L IU/L (23-300) Medications Given: Discontinued Medications Morphine Sulfate (Morphine) 2 mg IVP EDNOW ONE Stop: 11/15/17 14:05 Last Admin: 11/15/17 14:05 Dose: 2 mg Departure - Departure Disposition: Home, Routine, Self-Care Clinical Impression: End stage liver disease Condition: Good Instructions: Cirrhosis (ED) Additional Instructions: 1. Follow up as scheduled with [facility]. 2. Return to the ED for any fever, acutely worsening abdominal pain, confusion or other concerns. Referrals: Curt Colvin [Primary Care Provider] - As per Instructions
[2017-11-15 12:29] LABS: PLATELET COUNT 152 10^3/uL (150-400)
[2017-11-15 12:37] LABS: INR 1.4 (0.83-1.16); PROTIME(PATIENT) 17.3 SEC (12.0-15.0)
[2017-11-15] MEDS ORDERED: LIDOCAINE 1% 300 MG/30 ML SDV ONE (14:01)
[2017-11-15 15:10] VITALS: BP 129/80
== END 2017-11-15 15:10 | disposition home or self-care (01) ==
DX: K72.90 Hepatic failure, unspecified without coma (principal); Z87.891 Personal history of nicotine dependence
CPT/HCPCS: 96374; J2270

== ENCOUNTER 2017-11-21 11:57 | Emergency (ER) | payer OTHER ==
[2017-11-21 12:05] VITALS: BP 106/72
--- NOTE | 2017-11-21 12:49 | EDPHY ---
H & P Stated Complaint: liver failure/cirrhosis seen at [facility]/potassium high 6.0 Time Seen by Provider: 11/21/17 12:45 - Personal History Current Tetanus Diphtheria and Acellular Pertussis (TDAP): Yes - Medical/Surgical History Hx Asthma: No Hx Chronic Respiratory Disease: No Hx Diabetes: No Hx Cardiac Disease: No Hx Renal Disease: No Hx Cirrhosis: Yes Hx Alcoholism: Yes Hx HIV/AIDS: No Hx Splenectomy or Spleen Trauma: No Other PMH: Bilateral meniscus and ACL tear/injury, Tib/Fib fracture, marijuana user, ETOH (former), ascites, Hep C, sepsis'. cirrhosis, end stage liver disease, hx falls with rib fracture, hernia - Social History Smoking Status: Former smoker Constitutional: Initial Vital Signs Temperature (C) 36.8 C 11/21/17 12:03 Heart Rate 92 11/21/17 12:03 Respiratory Rate 17 11/21/17 12:03 Blood Pressure 106/72 11/21/17 12:03 O2 Sat (%) 96 11/21/17 12:03 O2 Delivery Mode Room Air Allergies/Adverse Reactions: No Known Allergies Allergy (Verified 11/21/17 12:02) Home Medications: Medication Instructions Recorded Multivitamins [Multivitamin (*)] 1 each PO DAILY 05/01/17 oxyCODONE IR [Oxycodone Ir (*)] 5 - 10 mg PO Q4HRS PRN 05/01/17 Ergocalciferol [Vitamin D2 (*)] 50,000 units PO WE 06/18/17 Furosemide [Lasix 40 MG (*)] 40 mg PO BID@09,16 06/18/17 Lactulose 30 ml PO TID PRN 07/31/17 Melatonin [Melatonin 3 MG (*)] 3 mg PO HS PRN 07/31/17 Rifaximin [Xifaxan] 550 mg PO BID 07/31/17 Ciprofloxacin [Cipro] 500 mg PO DAILY 08/08/17 Midodrine HCl 10 mg PO TID 08/08/17 traZODone [traZODONE 50MG (*)] 50 mg PO HS 08/08/17 oxyCODONE IR [Oxycodone Ir (*)] 5 mg PO Q4H PRN #7 tab 10/29/17 Medical Decision Making ED Course/Re-evaluation: CHIEF COMPLAINT: High potassium level HISTORY OF PRESENT ILLNESS: The patient is a 57 y/o male with a history of end stage liver disease, hepatitis C, and ascites complaining of an elevated potassium level. He is normally seen at [facility] in [place] as he is trying to get on the liver transplant list. Yesterday he had lab work done and was called today regarding a potassium level of 6.0. Currently he states he is in pain due to a left lower quadrant hernia. Even with this pain, he has been doing better than normal. Denies headache, chest pain, shortness of breath, urinary or bowel complaints, numbness, paresthesias, fever. REVIEW OF SYSTEMS: A 10 point review of systems was performed and is negative with the exception of the elements mentioned in the history of present illness. PHYSICAL EXAM: HR, BP, O2 Sat, RR. Temp noted General Appearance: Alert, well hydrated, appropriate, and non-toxic appearing. Head: Atraumatic without scalp tenderness or obvious injury Eyes: Pupils equal, round, reactive to light and accommodation, EOMI, no trauma , no injection. Ears: Clear bilaterally, no perforation, normal landmarks Nose: Atraumatic, no rhinorrhea, clear. Throat: There is no erythema or exudates, no lesions, normal tonsils, mucus membranes moist. Neck: Supple nontender, no lymphadenopathy. Respiratory: No retractions, no distress, no wheezes, and no accessory muscle use. Lungs are clear to auscultation bilaterally. Cardiovascular: Regular rate and rhythm, no murmurs, rubs, or gallops. Good capillary refill all extremities. Gastrointestinal: Left lower quadrant tenderness at area of hernia. Abdomen is soft, non-distended, no masses, no rebound, no guarding, no peritoneal signs. Musculoskeletal: Normal active ROM of all extremities, atraumatic. Neurological: Alert, appropriate, and interactive. Non-focal neuro. Skin: No rashes, good turgor, no nodules on palpation. 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 MEDICAL DECISION MAKING: The patient is a 57 y/o male with a history of end stage liver disease, hepatitis C, and ascites presenting with an elevated potassium level yesterday. His physical exam is normal. CBC, BMP, LFT, and I-Stat ordered. Imaging studies are not indicated at this time. 1315: Patient's potassium is 5.1, which is lower than 6.0 from yesterday. He also has mild hyponatremia and hypochloremia. However, the potassium, sodium and chloride levels are consistent with prior values. 1320: Reassessed patient and discussed laboratory findings. I have advised him to follow up with [facility] where is trying to get on the liver transplant list. Return precautions provided; patient is comfortable with this plan. - Data Points Laboratory Results: Laboratory Results 11/21/17 12:20 11/21/17 12:20 11/21/17 11/21/17 12:20 12:20 WBC 9.21 10^3/uL 10^3/uL (3.80-9.50) RBC 4.48 10^6/uL 10^6/uL (4.40-6.38) Hgb 13.7 g/dL g/dL (13.7-17.5) Hct 39.0 % L % (40.0-51.0) MCV 87.1 fL fL (81.5-99.8) MCH 30.6 pg pg (27.9-34.1) MCHC 35.1 g/dL g/dL (32.4-36.7) RDW 16.4 % H % (11.5-15.2) Plt Count 154 10^3/uL 10^3/uL (150-400) MPV 9.9 fL fL (8.7-11.7) Neut % (Auto) 80.7 % H % (39.3-74.2) Lymph % (Auto) 8.1 % L % (15.0-45.0) [place] % (Auto) 8.6 % % (4.5-13.0) Eos % (Auto) 1.4 % % (0.6-7.6) Baso % (Auto) 0.3 % % (0.3-1.7) Nucleat RBC Rel Count 0.2 % % (0.0-0.2) Absolute Neuts (auto) 7.43 10^3/uL H 10^3/uL (1.70-6.50) Absolute Lymphs (auto) 0.75 10^3/uL L 10^3/uL (1.00-3.00) Absolute Monos (auto) 0.79 10^3/uL 10^3/uL (0.30-0.80) Absolute Eos (auto) 0.13 10^3/uL 10^3/uL (0.03-0.40) Absolute Basos (auto) 0.03 10^3/uL 10^3/uL (0.02-0.10) Absolute Nucleated RBC 0.02 10^3/uL H 10^3/uL (0-0.01) Immature Gran % 0.9 % % (0.0-1.1) Immature Gran # 0.08 10^3/uL 10^3/uL (0.00-0.10) Sodium 127 mEq/L L mEq/L (135-145) Potassium 5.1 mEq/L H mEq/L (3.3-5.0) Chloride 92 mEq/L L mEq/L (97-110) Carbon Dioxide 24 mEq/l mEq/l (22-31) Anion Gap 11 mEq/L mEq/L (8-16) BUN 14 mg/dL mg/dL (7-23) Creatinine 0.9 mg/dL mg/dL (0.7-1.3) Estimated GFR > 60 Glucose 132 mg/dL H mg/dL (70-100) Calcium 8.7 mg/dL mg/dL (8.5-10.4) Total Bilirubin 3.0 mg/dL H mg/dL (0.1-1.4) Conjugated Bilirubin 1.3 mg/dL H mg/dL (0.0-0.5) Unconjugated Bilirubin 1.7 mg/dL H mg/dL (0.0-1.1) AST 80 IU/L H IU/L (17-59) ALT 23 IU/L IU/L (21-72) Alkaline Phosphatase 141 IU/L H IU/L (38-126) Total Protein 8.1 g/dL g/dL (6.3-8.2) Albumin 3.1 g/dL L g/dL (3.5-5.0) Departure - Departure Disposition: Home, Routine, Self-Care Clinical Impression: Hyperkalemia, Hypochloremia, Hyponatremia, End stage liver disease Condition: Good Instructions: Hyperkalemia (ED) Additional Instructions: 1. Follow up with your physician at [facility]. 2. Follow-up with your primary doctor within 72 hours. 3. Return to the Emergency Department for fever, chest pain, shortness of breath , increasing pain or other worsening of condition. Referrals: Curt Colvin [Primary Care Provider] - As per Instructions Report Scribed for: Hasmukh Brandt Report Scribed by: Afshan Mcdowell Date of Report: 11/21/17 Time of Report: 12:48
--- NOTE | 2017-11-21 12:51 | EDPHY ---
H & P Stated Complaint: liver failure/cirrhosis seen at [facility]/potassium high 6.0 Time Seen by Provider: 11/21/17 12:45 - Personal History Current Tetanus Diphtheria and Acellular Pertussis (TDAP): Yes - Medical/Surgical History Hx Asthma: No Hx Chronic Respiratory Disease: No Hx Diabetes: No Hx Cardiac Disease: No Hx Renal Disease: No Hx Cirrhosis: Yes Hx Alcoholism: Yes Hx HIV/AIDS: No Hx Splenectomy or Spleen Trauma: No Other PMH: Bilateral meniscus and ACL tear/injury, Tib/Fib fracture, marijuana user, ETOH (former), ascites, Hep C, sepsis'. cirrhosis, end stage liver disease, hx falls with rib fracture, hernia - Social History Smoking Status: Former smoker Constitutional: Initial Vital Signs Temperature (C) 36.8 C 11/21/17 12:03 Heart Rate 92 11/21/17 12:03 Respiratory Rate 17 11/21/17 12:03 Blood Pressure 106/72 11/21/17 12:03 O2 Sat (%) 96 11/21/17 12:03 O2 Delivery Mode Room Air Allergies/Adverse Reactions: No Known Allergies Allergy (Verified 11/21/17 12:02) Home Medications: Medication Instructions Recorded Multivitamins [Multivitamin (*)] 1 each PO DAILY 05/01/17 oxyCODONE IR [Oxycodone Ir (*)] 5 - 10 mg PO Q4HRS PRN 05/01/17 Ergocalciferol [Vitamin D2 (*)] 50,000 units PO WE 06/18/17 Furosemide [Lasix 40 MG (*)] 40 mg PO BID@09,16 06/18/17 Lactulose 30 ml PO TID PRN 07/31/17 Melatonin [Melatonin 3 MG (*)] 3 mg PO HS PRN 07/31/17 Rifaximin [Xifaxan] 550 mg PO BID 07/31/17 Ciprofloxacin [Cipro] 500 mg PO DAILY 08/08/17 Midodrine HCl 10 mg PO TID 08/08/17 traZODone [traZODONE 50MG (*)] 50 mg PO HS 08/08/17 oxyCODONE IR [Oxycodone Ir (*)] 5 mg PO Q4H PRN #7 tab 10/29/17 Medical Decision Making ED Course/Re-evaluation: CHIEF COMPLAINT: HISTORY OF PRESENT ILLNESS: must have 4 elements: Location, Quality, Severity , Duration, Timing, Context, Modifying Factors, Associated Signs and Symptoms REVIEW OF SYSTEMS: A 10 point review of systems was performed and is negative with the exception of the elements mentioned in the history of present illness. PHYSICAL EXAM: HR, BP, O2 Sat, RR. Temp noted General Appearance: Alert, well hydrated, appropriate, and non-toxic appearing. Head: Atraumatic without scalp tenderness or obvious injury Eyes: Pupils equal, round, reactive to light and accommodation, EOMI, no trauma , no injection. Ears: Clear bilaterally, no perforation, normal landmarks Nose: Atraumatic, no rhinorrhea, clear. Throat: There is no erythema or exudates, no lesions, normal tonsils, mucus membranes moist. Neck: Supple, 2+ carotid upstroke, nontender, no lymphadenopathy. Respiratory: No retractions, no distress, no wheezes, and no accessory muscle use. Lungs are clear to auscultation bilaterally. Cardiovascular: Regular rate and rhythm, no murmurs, rubs, or gallops. Bilateral carotid, radial, dorsalis pedis, and posterior tibial pulses intact. Good capillary refill all extremities. Gastrointestinal: Abdomen is soft, nontender, non-distended, no masses, no rebound, no guarding, no peritoneal signs. Musculoskeletal: Normal active ROM of all extremities, atraumatic. Neurological: Alert, appropriate, and interactive. The patient has normal DTRs and non-focal cranial nerves, motor, sensory, and cerebellar exam. Skin: No rashes, good turgor, no nodules on palpation. Past medical history: Past surgical history: Family history: Social history: DIAGNOSTICS/PROCEDURES/CRITICAL CARE TIME: DIFFERENTIAL DIAGNOSIS: MEDICAL DECISION MAKING: Departure - Departure Referrals: Curt Colvin [Primary Care Provider] - As per Instructions
[2017-11-21 12:57] LABS: PLATELET COUNT 154 10^3/uL (150-400)
== END 2017-11-21 13:44 | disposition home or self-care (01) ==
DX: E87.5 Hyperkalemia (principal); E87.8 Other disorders of electrolyte and fluid balance, not elsewhere classified; E87.1 Hypo-osmolality and hyponatremia; K72.90 Hepatic failure, unspecified without coma; Z87.891 Personal history of nicotine dependence

== ENCOUNTER → 2017-12-04 | Outpatient (CLI) | payer OTHER ==
[~2017-12-04] MED LIST changes: -ALBUMIN 25% 100 ML SOLN IV ONE
== END ==
LOC: FIMAGING 10:09
PROVIDERS: ATTEND Internal Medicine
PROC: 0W9F30Z Drainage of Abdominal Wall with Drainage Device, Percutaneous Approach (ICD-10-PCS; principal; 2017-12-04)
DX: R18.8 Other ascites (principal)

== ENCOUNTER → 2017-12-05 | Outpatient (CLI) | payer OTHER | LOC: FIMAGING 07:54 | DX: Z01.818 Encounter for other preprocedural examination (principal); J90 Pleural effusion, not elsewhere classified; J98.11 Atelectasis; R91.8 Other nonspecific abnormal finding of lung field; K70.31 Alcoholic cirrhosis of liver with ascites ==

== ENCOUNTER 2017-12-12 15:01 | Inpatient (IN) | payer OTHER ==
[2017-12-12 15:40] LABS: PLATELET COUNT 157 10^3/uL (150-400)
--- NOTE | 2017-12-12 15:56 | CPEKG ---
Heart Rate: 92 RR Interval: 652 P-R Interval: 136 QRSD Interval: 72 QT Interval: 320 QTC Interval: 396 P Freedom: 16 QRS Freedom: 5 T Wave Freedom: 29 EKG Severity - OTHERWISE NORMAL ECG - EKG Impression: SINUS RHYTHM EKG Impression: LOW VOLTAGE IN FRONTAL LEADS Electronically Signed By: Mavis Huitron 12-Dec-2017 18:00:26
--- NOTE | 2017-12-12 16:00 | EDPHY ---
H & P Stated Complaint: HIGH POTASSIUM Time Seen by Provider: 12/12/17 15:31 HPI/ROS: CHIEF COMPLAINT: High potassium HISTORY OF PRESENT ILLNESS: 57-year-old male with end-stage liver disease presents with elevated potassium level. 1 week ago, spironolactone was discontinued and Lasix was lowered from 80 to 40 mg daily. Since then he has had increasing pain and swelling in his groin especially, but also his abdomen/ legs. Routine laboratory tests today revealed a potassium of 6.5. He was sent here for further evaluation. He was seen in this emergency department on 2017 for scrotal swelling and pain. Testicular ultrasound revealed scrotal wall edema. Since then he has continued to have pain, which is disrupting his sleep. He takes oxycodone 5 mg orally as needed for pain. No fever and no urinary symptoms. REVIEW OF SYSTEMS: complete 10 point ROS negative except at noted in the HPI - Personal History Current Tetanus Diphtheria and Acellular Pertussis (TDAP): Yes - Medical/Surgical History Hx Asthma: No Hx Chronic Respiratory Disease: No Hx Diabetes: No Hx Cardiac Disease: No Hx Renal Disease: No Hx Cirrhosis: Yes Hx Alcoholism: Yes Hx HIV/AIDS: No Hx Splenectomy or Spleen Trauma: No Other PMH: Bilateral meniscus and ACL tear/injury, Tib/Fib fracture, marijuana user, ETOH (former), ascites, Hep C, sepsis'. cirrhosis, end stage liver disease, hx falls with rib fracture, hernia - Social History Smoking Status: Former smoker Alcohol Use: Sober Drug Use: None Additional Social History: - Physical Exam Exam: General Appearance: Alert, pleasant Eyes: Pupils equal and round, no conjunctival pallor ENT, Mouth: Mucous membranes moist Neck: Normal inspection Respiratory: Lungs are clear to auscultation Cardiovascular: Regular rate and rhythm Gastrointestinal: Abdomen is distended, nontender Genitourinary: Scrotum is swollen, erythematous and tender, no peroneal swelling or tenderness Neurological: A&O, nonfocal exam Skin: Warm and dry Extremities: Bilateral pedal edema Psychiatric: Mood and affect normal Constitutional: Initial Vital Signs Temperature (C) 36.6 C 12/12/17 15:03 Heart Rate 106 H 12/12/17 15:03 Respiratory Rate 16 12/12/17 15:03 Blood Pressure 120/82 H 12/12/17 15:03 O2 Sat (%) 92 12/12/17 15:03 O2 Delivery Mode Room Air Allergies/Adverse Reactions: No Known Allergies Allergy (Verified 11/21/17 12:02) Home Medications: Medication Instructions Recorded oxyCODONE IR [Oxycodone Ir (*)] 5 - 10 mg PO Q4HRS PRN 05/01/17 Ergocalciferol [Vitamin D2 (*)] 50,000 units PO WE 06/18/17 Lactulose 30 ml PO TID PRN 07/31/17 Ciprofloxacin [Cipro] 500 mg PO DAILY 08/08/17 Midodrine HCl 10 mg PO TID 08/08/17 Furosemide [Lasix 40 MG (*)] 40 mg PO DAILY 12/12/17 Multivitamins [Multivitamin (*)] 1 each PO DAILY 12/12/17 Rifaximin [Xifaxan] 550 mg PO BID 12/12/17 Temazepam [Restoril 15 MG (*)] 15 mg PO HS 12/12/17 Medical Decision Making - Diagnostics EKG Interpretation: EKG interpreted by me reveals normal sinus rhythm, rate 92, low voltage throughout, no ST or T segment changes. Interpretation abnormal EKG. ED Course/Re-evaluation: This patient presents with acute hyperkalemia. Stat EKG reveals no evidence of changes related to hyperkalemia. Kayexalate 30 g orally given. Repeat potassium is 6.3. Lasix 40 mg IV and insulin/glucose given. Scrotal cellulitis present. Bld cx's drawn, Ancef 1 gm IV given. Does not meet SIRS criteria. The hospitalist service was consulted for admission to PCU. Initial lactate is 2.1. IV fluids per the sepsis protocol were not given because of anasarca, hyponatremia and because he does not meet SIRS criteria. Repeat lactate 1.3. Repeat potassium 4.7, improved after medications. Differential Diagnosis: For scrotal swelling includes though not limited to urinary tract infection, testicular torsion, necrotizing fasciitis, anasarca. - Data Points Laboratory Results: Laboratory Results 12/12/17 15:30 12/12/17 15:30 12/12/17 12/12/17 12/12/17 15:30 15:30 15:30 WBC 9.57 10^3/uL H 10^3/uL (3.80-9.50) RBC 4.13 10^6/uL L 10^6/uL (4.40-6.38) Hgb 12.6 g/dL L g/dL (13.7-17.5) Hct 35.0 % L % (40.0-51.0) MCV 84.7 fL fL (81.5-99.8) MCH 30.5 pg pg (27.9-34.1) MCHC 36.0 g/dL g/dL (32.4-36.7) RDW 16.8 % H % (11.5-15.2) Plt Count 157 10^3/uL 10^3/uL (150-400) MPV 9.2 fL fL (8.7-11.7) Neut % (Auto) 72.1 % % (39.3-74.2) Lymph % (Auto) 11.3 % L % (15.0-45.0) Archer % (Auto) 11.4 % % (4.5-13.0) Eos % (Auto) 3.9 % % (0.6-7.6) Baso % (Auto) 0.3 % % (0.3-1.7) Nucleat RBC Rel Count 0.0 % % (0.0-0.2) Absolute Neuts (auto) 6.90 10^3/uL H 10^3/uL (1.70-6.50) Absolute Lymphs (auto) 1.08 10^3/uL 10^3/uL (1.00-3.00) Absolute Monos (auto) 1.09 10^3/uL H 10^3/uL (0.30-0.80) Absolute Eos (auto) 0.37 10^3/uL 10^3/uL (0.03-0.40) Absolute Basos (auto) 0.03 10^3/uL 10^3/uL (0.02-0.10) Absolute Nucleated RBC 0.00 10^3/uL 10^3/uL (0-0.01) Immature Gran % 1.0 % % (0.0-1.1) Immature Gran # 0.10 10^3/uL 10^3/uL (0.00-0.10) Sodium 119 mEq/L L* mEq/L (135-145) Potassium 6.3 mEq/L H* mEq/L (3.3-5.0) Chloride 88 mEq/L L mEq/L (97-110) Carbon Dioxide 24 mEq/l mEq/l (22-31) Anion Gap 7 mEq/L L mEq/L (8-16) BUN 19 mg/dL mg/dL (7-23) Creatinine 1.1 mg/dL mg/dL (0.7-1.3) Estimated GFR > 60 Glucose 127 mg/dL H mg/dL (70-100) Serum Osmolality 260 mosmo/kg L mosmo/kg (280-297) Calcium 8.5 mg/dL mg/dL (8.5-10.4) Medications Given: Ondansetron HCl (Zofran) 4 mg IVP Q4HRS PRN PRN Reason: Nausea/Vomiting, Can't Take PO Stop: 06/10/18 16:51 Last Admin: 12/12/17 17:17 Dose: 4 mg Discontinued Medications Dextrose (Dextrose 50% Syringe) 25 gm IVP EDNOW ONE Stop: 12/12/17 16:38 Last Admin: 12/12/17 16:55 Dose: 25 gm Furosemide (Lasix Injection) 40 mg IVP EDNOW ONE Stop: 12/12/17 16:34 Last Admin: 12/12/17 16:42 Dose: 40 mg Cefazolin Sodium/Dextrose (Ancef 1 Gm (Premix)) 50 mls @ 200 mls/hr IV EDNOW ONE PRN Reason: Protocol Stop: 12/12/17 17:04 Last Admin: 12/12/17 17:23 Dose: 50 mls Insulin Human Regular (Humulin R) 10 unit IVP EDNOW ONE Stop: 12/12/17 16:38 Last Admin: 12/12/17 16:54 Dose: 10 units Morphine Sulfate (Morphine) 6 mg IVP EDNOW ONE Stop: 12/12/17 16:54 Last Admin: 12/12/17 17:00 Dose: 6 mg Sodium Polystyrene Sulfonate (Kayexalate) 30 gm PO EDNOW ONE Stop: 12/12/17 16:03 Last Admin: 12/12/17 16:21 Dose: 30 gm Departure - Departure Disposition: [facility] Acute Clinical Impression: Acute hyperkalemia, Cellulitis of scrotum Condition: Serious
[2017-12-12] MEDS ORDERED: SODIUM POLY SULF 15 GM/60 ML BOTTLE PO ONE (16:02)
[2017-12-12] MEDS ORDERED: FUROSEMIDE 40 MG/4 ML VIAL IVP ONE (16:33)
[2017-12-12] MEDS ORDERED: D50W 25 GM/50 ML SYR IVP ONE (16:37)
[2017-12-12] MEDS ORDERED: INSULIN REGULAR HUMAN 100 UNIT/ML UNIT IVP ONE (16:37)
[2017-12-12] MEDS ORDERED: ONDANSETRON 4 MG/2 ML VIAL IVP PRN (16:52)
[2017-12-12] MEDS ORDERED: ACETAMINOPHEN 325 MG TAB PO PRN (16:52)
[2017-12-12] MEDS ORDERED: LACTULOSE 20 GM/30 ML UDCUP PO PRN (19:17)
[2017-12-12] MEDS: oxyCODONE IR 5 MG TAB PO PRN (20:03)
--- NOTE | 2017-12-12 20:57 | GHP ---
[f rep st] HISTORY AND PHYSICAL DATE OF ADMISSION: 12/12/2017 PRIMARY [employer]ER: Dr. Waddell. HISTORY OF PRESENT ILLNESS: A 57-year-old male with alcohol/HCV cirrhosis, hypertension, presenting with scrotal and leg swelling. Seen in the ED with similar complaints on 12/08/2017, and discharged home to resume his home medications. Last week his Lasix dose was decreased from 80 mg to 40 daily, and spironolactone was discontinued. Routine labs today showed a potassium of 6.5, and he was referred to the ER. The swelling in his groin is very painful, especially when showering, the skin is rubbed off. He had testicular ultrasound on 12/08, that showed scrotal wall edema. He denies fevers or sweats. He is chilled here. His last paracentesis was a week ago. Denies dizziness or lightheadedness. He is having one or two bowel movements a day. Gets nauseated with eating, but no emesis. Initial Na 121 in clinic this morning; 119 in ER. REVIEW OF SYSTEMS: I completed a 10-point review of systems, negative except in HPI. 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 Hypertension, coagulopathy, portal hypertension, with esophageal varices, status post banding, thrombocytopenia, inguinal hernia. FAMILY HISTORY: Mother with colon cancer. SOCIAL HISTORY: Stopped drinking alcohol in July 2016. Lives in [place] with his . No tobacco currently. PAST SURGICAL HISTORY: Weekly paracentesis, knee surgery. MEDICATIONS: Lasix reduced from 80 mg. stopped aldactone. Multivitamin. Restoril 50 mg at bedtime, oxycodone 5-10 mg q.4 hours p.r.n., rifaximin 550 mg twice daily, midodrine 10 mg three times daily, lactulose 30 mL three times daily p.r.n., ergocalciferol 50,000 units weekly, Cipro 500 mg daily. ALLERGIES: None. PHYSICAL EXAM: VITAL SIGNS: Temperature 36.4, blood pressure 113/73, heart rate in the 90s, respirations 16, 96% on room air. GENERAL: Chronically ill appearing, no acute distress. HEENT: Abrasion of his left forehead. EOMI. PERRLA. Moist mucous membranes. CV: Regular rate and rhythm. LUNGS: Diminished anteriorly. ABDOMEN: Significantly distended, soft, nontender, protruding hernia. : Scrotal edema, with erythema and warm to touch. There is maceration, no purulence. MUSCULOSKELETAL: +2 ankle edema, +1 up to the thigh. NEUROLOGIC: 2-12 intact. PSYCHIATRIC: Alert and oriented x3. LABORATORY DATA: Sodium 122, potassium 6.5, chloride 87, anion gap 6, creatinine is 1.1, baseline is 1. Glucose 83, calcium 8.7, TSH 1.75. Repeat sodium 119. Potassium 6.3 at 1530. Now, most recently, sodium 124, potassium 4.6, chloride 86, glucose 153. Lactate was 2.1, repeat is 1.3. Coags are pending. Urine negative. Urine osmolality 243. WBCs 9, hemoglobin 12, hematocrit 35, platelets 157. EKG: personally reviewed by me. NSR, no peaked T-waves Testicular ultrasound, 12/08/2017: Diffuse edema and thickening of the scrotal wall, without hyperemia. ASSESSMENT/PLAN: 1. Acute hyperkalemia: spironolactone was discontinued a week ago for prioe hyperkalemia. No peaked T-waves. Treated with Lasix, insulin and dextrose in ER. Repeat potassium is normal. A urine potassium is pending. 2. Hypervolemic hyponatremia: baseline sodium 125-131. Initial Na 121 in clinic this morn, 119 in ER. Was dosed Lasix for hyperkalemia and repeat 124. Spoke with Dr. Peres about rapid increase. Goal rise in Na is 6meq/24hrs. Repeat BMP; if trending up, dose DDAVP, fluid restriction. 3. Scrotal edema/possible cellulitis: He is afebrile, but chills. IV Ancef, wound care consult. 4. Decompensated alcoholic/HCV cirrhosis: Lasix given in ED. Resume home Lasix tomorrow if creatinine stable. Consulted IR for paracentesis; hold off if bump in Cr. Lactulose, Rifaximin. Cipro for SBP ppx 5. Portal hypertension:h/o esophageal varices, status post banding. 6. Vit D deficiency: ergocalciferol 7. Diet: Low sodium, fluid restriction. 8. Deep vein thrombosis prophylaxis with SCDs. DISPOSITION: Patient warrants inpatient admission for acute hyperkalemia, hyponatremia, requiring serial labs, also a large volume paracentesis and IV antibiotics. Critical care time spent: 45 min reviewing records, examining pt and consulting Dr. Peres /[id number]/MODL MTDD
[2017-12-12] MEDS: TEMAZEPAM 15 MG CAP PO SCH (22:05)
[2017-12-12] MEDS: HEPARIN 5,000 UNIT/0.5 ML INJ SC SCH (22:12)
[2017-12-12] MEDS: RIFAXIMIN 550 MG TAB PO SCH (22:12)
[2017-12-12] MEDS: MIDODRINE HCL 5 MG TAB PO SCH (22:12)
[2017-12-13] MEDS: oxyCODONE IR 5 MG TAB PO PRN ×5 (00:46→18:21)
[2017-12-13 03:39] LABS: INR 1.47 (0.83-1.16)
[2017-12-13] MEDS: HEPARIN 5,000 UNIT/0.5 ML INJ SC SCH ×3 (05:59→21:08)
[2017-12-13] MEDS: ONDANSETRON DISINTEGRATING 4 MG TAB PO PRN ×2 (06:00→14:36)
--- NOTE | 2017-12-13 06:24 | PDMN ---
Medical Necessity Medical necessity: Pt meets INPT criteria per [place] [facility] [id number] Liver Disease Complications (acute hyperkalemia - K+ 6.5, hypervolemic hyponatremia - Na 119, decompensated alcoholic/HCV cirrhosis - large volume paracentesis pending; portal hypertension s/p banding; scrotal edema/possible cellulitis requiring IVABx).
[2017-12-13] MEDS: RIFAXIMIN 550 MG TAB PO SCH ×2 (08:10→21:08)
[2017-12-13] MEDS: MULTIVITAMINS 1 EACH TAB PO SCH (08:10)
[2017-12-13] MEDS: MIDODRINE HCL 5 MG TAB PO SCH ×3 (08:10→21:08)
[2017-12-13] MEDS: CIPROFLOXACIN 500 MG TAB PO SCH (08:51)
--- NOTE | 2017-12-13 08:56 | ASMTLACE ---
NATHEN Acuity / Level of Answers: Yes Care: Did the patient have an inpatient admission? Comorbidities - select Answers: Moderate or severe liver all that apply or renal disease Other Notes: HTN # of Emergency department Answers: 5-8 visits in the last 6 months Social determinants Answers: History of substance abuse (ETOH, street drugs, prescription drugs, etc.) Score: 15 Date Signed: 12/13/2017 08:55 AM Electronically Signed By:Ade Kramer
--- NOTE | 2017-12-13 09:25 | ASMTCMCOM ---
CM Note CM Note Notes: 57yr old male admitted for: Hypernatremia, Hyperkalemia, Scrotal and leg swelling. He has a Hx of ETOH/HCV, Cirrhosis, HTN, Hep C, Esophageal varices s/p banding. Patient reports that he stopped drinking July of 2016. Receiving IV ABX. Patient lives with his in [place]. CM to follow for discharge needs. Date Signed: 12/13/2017 09:24 AM Electronically Signed By:Sarah Campos LCSW
--- NOTE | 2017-12-13 10:05 | HOSPPROG ---
Hospitalist Progress Note Assessment/Plan: 57 yo M w HCV cirrhosis herer w hyperkalemia, hyponatremia, scotal pain hyponatremia: lasix plus cirrhosis basline 125-130 rising at appropriate rate continue fluid restriction will redose lasix as needed hyperkalemia: resolved suspect 2/2 lingering spironolactone effect ekg w normal qrs, no peaked t's (interp by me) scrotal pain: likely 2/2 edema, some skin breakdown w/out signs of fourniers or necrosis on cefazolin, will continue hand pain: suspected fracture film today ascites: paracentesis today dispo: to floor Subjective: case d/w dr curtis Objective: Vital Signs Temp Pulse Resp BP Pulse Ox 36.6 C 87 15 104/76 96 12/13/17 08:00 12/13/17 08:00 12/13/17 08:00 12/13/17 08:00 12/13/17 08:00 Laboratory Results 12/13/17 03:25 12/12/17 12/13/17 12/14/17 05:59 05:59 05:59 Intake Total 250 250 Balance 250 250 PT 18.0 SEC (12.0-15.0) H 12/13/17 03:25 INR 1.47 (0.83-1.16) H 12/13/17 03:25 - Physical Exam Constitutional: no apparent distress, appears nourished Eyes: PERRL, anicteric sclera Ears, Nose, Mouth, Throat: moist mucous membranes, hearing normal Cardiovascular: regular rate and rhythym, no murmur, rub, or gallop Respiratory: no respiratory distress, no rales or rhonchi Gastrointestinal: normoactive bowel sounds, soft, non-tender abdomen, ascites Genitourinary: other (scrotum edematous and tender w skin sloughing, no necrosis ) Skin: warm, normal color Musculoskeletal: full muscle strength Neurologic: AAOx3 ICD10 Worksheet Patient Problems: Problems Problem Status Onset Acute hyperkalemia Acute Cellulitis of scrotum Acute Abdominal pain Acute Alcoholism Acute Ascites Acute Cirrhosis Acute Confusion Acute Dehydration Acute Hyperbilirubinemia Acute Hyponatremia Acute Perinephric hematoma Acute Septic shock Acute Spontaneous bacterial peritonitis Acute Vomiting Acute
[2017-12-13] MEDS ORDERED: LIDOCAINE 1% 300 MG/30 ML SDV ONE (10:48)
[2017-12-13 11:37] LABS: INR 1.34 (0.83-1.16); PROTIME(PATIENT) 16.8 SEC (12.0-15.0)
--- NOTE | 2017-12-13 15:37 | WOCRNPDOC ---
WOCRN Advanced Assessment Note - Skin Integrity Problem, Advanced Assess Scrotum Dressing Type: Open to Air Skin Integrity Problem Comment: Scrotum swollen and painful. No wounds present. May want to try MAD cream for pain relief. Fela MARTE aware of MAD cream recommendation. Wound care will sign off. Please reconsult PRN.
[2017-12-13] MEDS ORDERED: ERTAPENEM 1 GM in NS 100 ML IV ONE (18:30)
--- NOTE | 2017-12-13 18:57 | GCON ---
[f rep st] CONSULTATION REFERRING PHYSICIAN: Jonathan Baxter MD REASON FOR CONSULTATION: Scrotal swelling. HISTORY OF PRESENT ILLNESS: A 57-year-old with alcoholic and hep C cirrhosis, hypertension who presented on December 12, 2017, with severe scrotal and leg swelling. His Lasix dose was recently decreased and spironolactone discontinued. He reports that his scrotum was extremely swollen last night and very tender. The swelling has gone down, but he is still very tender. He does report leg cramping. PAST MEDICAL HISTORY: Alcoholic and hep C cirrhosis, hepatitis C, hypertension , coagulopathy, portal hypertension, inguinal hernia. FAMILY HISTORY: Colon cancer. SOCIAL HISTORY: He stopped drinking alcohol in july 2016. No tobacco. PAST SURGICAL HISTORY: Knee surgery and multiple paracentesis. ALLERGIES: No known drug allergies. REVIEW OF SYSTEMS: Per HPI. PHYSICAL EXAMINATION: VITAL SIGNS: 36.6, 85/56, 86, 16, 90% on room air. GENERAL: thin man with cirrhotic features pleasant, able to move from sitting to standing easily. HEENT: Normocephalic. No gross hearing deficits. Mucous membranes moist. No scleral icterus. LUNGS: No increased work of breathing. ABDOMEN: Protuberant. : Testes are descended. He does have some erythema and edema on his scrotum. There is some skin sloughing; however, there is no definite wound. There is not appear to be evidence of necrotizing fasciitis. LABORATORY/IMAGING: Results reviewed. His sodium is chronically low. Creatinine is normal white blood cell count 9.57, platelets 157. IMPRESSION/PLAN: The patient is a 57-year-old man with a painful, edematous scrotum. I do not believe this represents necrotizing fasciitis. I will order a scrotal ultrasound. I know that one has recently been performed about a week ago, but his pain is increased. I do recommend antibiotics. It is a possibility that these could be broadened. I recommended elevation of his scrotum. He reports that icing makes the pain worse, so do creams. I will follow him. /[id number]/MODL MTDD
[2017-12-13] MEDS: ERGOCALCIFEROL 50,000 I.UNIT CAP PO SCH (21:08)
[2017-12-13] MEDS: TEMAZEPAM 15 MG CAP PO SCH (21:08)
[2017-12-13] MEDS: LIDO/ZINC OX/CLOTRIMAZOLE (MAD) 116 GM CREAM TP SCH (21:10)
[2017-12-14] MEDS: oxyCODONE IR 5 MG TAB PO PRN ×5 (05:20→23:30)
[2017-12-14] MEDS: HEPARIN 5,000 UNIT/0.5 ML INJ SC SCH ×2 (05:21→14:09)
[2017-12-14] MEDS: RIFAXIMIN 550 MG TAB PO SCH ×2 (07:36→20:27)
[2017-12-14] MEDS: ERGOCALCIFEROL 50,000 I.UNIT CAP PO SCH (07:37)
[2017-12-14] MEDS: ONDANSETRON DISINTEGRATING 4 MG TAB PO PRN ×3 (07:38→17:59)
[2017-12-14] MEDS: MULTIVITAMINS 1 EACH TAB PO SCH (07:38)
[2017-12-14] MEDS: MIDODRINE HCL 5 MG TAB PO SCH ×3 (07:38→20:27)
[2017-12-14] MEDS: CIPROFLOXACIN 500 MG TAB PO SCH (07:38)
[2017-12-14] MEDS: LIDO/ZINC OX/CLOTRIMAZOLE (MAD) 116 GM CREAM TP SCH ×2 (07:39→20:27)
[2017-12-14] MEDS: ERTAPENEM 1 GM in NS 100 ML IV SCH (08:49)
--- NOTE | 2017-12-14 14:18 | HOSPPROG ---
Hospitalist Progress Note Assessment/Plan: 57 yo M w HCV cirrhosis herer w hyperkalemia, hyponatremia, scotal pain hyponatremia: lasix plus cirrhosis basline 125-130 rising at appropriate rate continue fluid restriction will redose lasix as needed stable at 121 restart lasix hyperkalemia: resolved suspect 2/2 lingering spironolactone effect ekg w normal qrs, no peaked t's (interp by me) scrotal pain: w edema and decreased flow on ultrasound improved today no perineal involvement and scrotal edema improved after paracentesis suspect this is all scrotal edema and mild scrotal cellulitis urology to see today hand pain: suspected fracture film today ascites: paracentesis today dispo: to floor Subjective: case d/w fronzak. s/p paracentesis Objective: Vital Signs Temp Pulse Resp BP Pulse Ox 37.0 C 76 16 96/57 L 93 12/14/17 11:40 12/14/17 11:40 12/14/17 11:40 12/14/17 11:40 12/14/17 11:40 Laboratory Results 12/14/17 08:28 12/14/17 08:28 12/13/17 12/14/17 12/15/17 05:59 05:59 05:59 Intake Total 250 790 Balance 250 790 PT 16.8 SEC (12.0-15.0) H 12/13/17 11:20 INR 1.34 (0.83-1.16) H 12/13/17 11:20 - Physical Exam Constitutional: no apparent distress, appears nourished Eyes: PERRL, anicteric sclera Ears, Nose, Mouth, Throat: moist mucous membranes, hearing normal Cardiovascular: regular rate and rhythym, no murmur, rub, or gallop Respiratory: no respiratory distress, no rales or rhonchi Gastrointestinal: normoactive bowel sounds, soft, non-tender abdomen, other ( decreased ascites) Genitourinary: other (scrotum w decreased erythema and edema. perineal skin normal) Skin: warm, normal color Musculoskeletal: full muscle strength Neurologic: AAOx3 ICD10 Worksheet Patient Problems: Problems Problem Status Onset Acute hyperkalemia Acute Cellulitis of scrotum Acute Abdominal pain Acute Alcoholism Acute Ascites Acute Cirrhosis Acute Confusion Acute Dehydration Acute Hyperbilirubinemia Acute Hyponatremia Acute Perinephric hematoma Acute Septic shock Acute Spontaneous bacterial peritonitis Acute Vomiting Acute
[2017-12-14] MEDS: FUROSEMIDE 40 MG TAB PO SCH (15:05)
[2017-12-14] MEDS: TEMAZEPAM 15 MG CAP PO SCH (20:27)
[2017-12-15] MEDS: oxyCODONE IR 5 MG TAB PO PRN ×2 (06:11→10:29)
[2017-12-15 06:14] LABS: PLATELET COUNT 134 10^3/uL (150-400)
[2017-12-15] MEDS: ONDANSETRON DISINTEGRATING 4 MG TAB PO PRN (07:21)
[2017-12-15] MEDS: ERTAPENEM 1 GM in NS 100 ML IV SCH (07:59)
[2017-12-15] MEDS: RIFAXIMIN 550 MG TAB PO SCH (08:00)
[2017-12-15] MEDS: FUROSEMIDE 40 MG TAB PO SCH (08:00)
[2017-12-15] MEDS: MULTIVITAMINS 1 EACH TAB PO SCH (08:00)
[2017-12-15] MEDS: MIDODRINE HCL 5 MG TAB PO SCH (08:00)
[2017-12-15] MEDS: LIDO/ZINC OX/CLOTRIMAZOLE (MAD) 116 GM CREAM TP SCH (10:29)
--- NOTE | 2017-12-15 12:21 | PDCONSULT ---
[facility] [place] Note: CC scrotal swelling and pain Consult requested by Sarwat Baxter MD HPI 57M w cirrhosis, ascites, scrotal swelling. Swelling apparently was 3x larger a few days ago. He was not taking optimal diuretics at the presentation to the hospital. He says his swelling is much improved. He c/o skin pain on his scrotum, burning sensation. 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 ROS 10pt ROS performed, as stated in HPI, otherwise neg PMH FH/SH reviewed. Gen NAD A&O CV regular Lungs Normal effort Abd distended from ascites scrotum not swollen at this time, has a topical power on it. Tender to palpation. No evidence of infection, no crepitus, no area of eschar or necrosis , no fluctuant area. There is pitting edema. The superficial skin as some cracking/superficial scabs - I suspect this is from the skin stretching w the severe edema and being injured with this stretching, and then now the edema is resolved but the skin injury remains. None of the skin injury has concern for infection. A/P Scrotal edema 2/2 ascites/liver dysfunction, poorly controlled at time of swelling. Edema as significantly resolved. No concern for infection or fourniers on exam. Control of ascites will help reduce recurrence of scrotal edema. Superficial skin irritation from the edema can be managed with ointment like bacitracin. Recommend supportive cares for scrotal discomfort - scrotal elevation, scrotal support w jock strap, ice to scrotum as needed. OK for DC from urology standpoint.
[2017-12-15 12:41] VITALS: BP 110/65
--- NOTE | 2017-12-15 13:45 | HOSPPROG ---
Hospitalist Progress Note Assessment/Plan: 57 yo M w HCV cirrhosis herer w hyperkalemia, hyponatremia, scotal pain hyponatremia: lasix plus cirrhosis basline 125-130 rising at appropriate rate continue fluid restriction will redose lasix as needed stable at 121 restart lasix hyperkalemia: resolved suspect 2/2 lingering spironolactone effect ekg w normal qrs, no peaked t's (interp by me) scrotal pain: w edema and decreased flow on ultrasound improved today no perineal involvement and scrotal edema improved after paracentesis suspect this is all scrotal edema and mild scrotal cellulitis urology to see today hand pain: suspected fracture film today ascites: paracentesis today dispo: home today w outpt follow up > 30 minutes Subjective: case d/w dr dunbar. very anxious for dc Objective: Vital Signs Temp Pulse Resp BP Pulse Ox 36.4 C 80 16 110/65 92 12/15/17 12:00 12/15/17 12:00 12/15/17 12:00 12/15/17 12:00 12/15/17 12:00 Laboratory Results 12/15/17 04:40 12/15/17 11:13 12/14/17 12/15/17 12/16/17 05:59 05:59 05:59 Intake Total 790 136 Balance 790 136 PT 16.8 SEC (12.0-15.0) H 12/13/17 11:20 INR 1.34 (0.83-1.16) H 12/13/17 11:20 - Physical Exam Constitutional: no apparent distress, appears nourished Eyes: anicteric sclera Ears, Nose, Mouth, Throat: moist mucous membranes, ears appear normal Cardiovascular: regular rate and rhythym, no murmur, rub, or gallop Respiratory: no respiratory distress, no rales or rhonchi Gastrointestinal: normoactive bowel sounds, soft, non-tender abdomen Genitourinary: no bladder fullness, other (scrotum w decreased erythema ), No bernal in urethra Musculoskeletal: full muscle strength, no muscle tenderness Neurologic: AAOx3 Psychiatric: interacting appropriately Lymph, Heme, Immunologic: no cervical LAD ICD10 Worksheet Patient Problems: Problems Problem Status Onset Acute hyperkalemia Acute Cellulitis of scrotum Acute Abdominal pain Acute Alcoholism Acute Ascites Acute Cirrhosis Acute Confusion Acute Dehydration Acute Hyperbilirubinemia Acute Hyponatremia Acute Perinephric hematoma Acute Septic shock Acute Spontaneous bacterial peritonitis Acute Vomiting Acute
--- NOTE | 2017-12-15 14:45 | ASDISCHSUM ---
Discharge Information Plan Status:Home with Home Health Medically Cleared to Leave: Discharge Date: D/C Disposition:Home Health Service [facility] D/C Disposition: Projected Discharge Date: Transportation at D/C:Family Discharge Delay Reason: Follow-Up Date: Discharge Slot: Final Diagnosis:Hypernatremia, Hyperkalemia, Scrotal and leg swelling Placement Information Patient Contact Information Contact Name:PAWAN Relationship: Address:[address] City:Located within [facility] Phone: State/Zip Code:[place] [address] Email: Financial Information Financial Class:Hublished Primary Plan Desc:FAWN GARZON Primary Plan Number:[id number] Secondary Plan Desc: Secondary Plan Number: Assessment Information LACE LACE Acuity / Level of Answers: Yes Care: Did the patient have an inpatient admission? Comorbidities - select Answers: Moderate or severe liver all that apply or renal disease Other Notes: HTN # of Emergency department Answers: 5-8 visits in the last 6 months Social determinants Answers: History of substance abuse (ETOH, street drugs, prescription drugs, etc.) Score: 15 Date Signed: 12/13/2017 08:55 AM Electronically Signed By:Ade Kramer [facility] Progress Note CM Note CM Note Notes: 57yr old male admitted for: Hypernatremia, Hyperkalemia, Scrotal and leg swelling. He has a Hx of ETOH/HCV, Cirrhosis, HTN, Hep C, Esophageal varices s/p banding. Patient reports that he stopped drinking July of 2016. Receiving IV ABX. Patient lives with his in [place]. CM to follow for discharge needs. Date Signed: 12/13/2017 09:24 AM Electronically Signed By:Sarah Campos LCSW Case Management Discharge Plan Note Case Management Discharge Discharge Order Complete? Answers: Yes Patient to Obtain Answers: Independently Medications Transportation Arranged Answers: Family/Friends Faxed Final Orders Answers: Yes Notes: [facility] Family Notified Answers: Yes Discharge Comments Notes: Pt to D/C home with [facility]. They will provide nursing. Date Signed: 12/15/2017 02:43 PM Electronically Signed By:Riddhi Shukla Intervention Information
--- NOTE | 2017-12-15 15:21 | PDIAF ---
- Diagnosis Diagnosis: cirrhosis Code Status: Full Code - Medication Management Discharge Medications: Medications to Continue on Transfer oxyCODONE IR [Oxycodone Ir (*)] 5 - 10 mg PO Q4HRS PRN 05/01/17 [Last Taken ] Ergocalciferol [Vitamin D2 (*)] 50,000 units PO WE 06/18/17 [Last Taken 12/06/17 ] Lactulose 30 ml PO TID PRN 07/31/17 [Last Taken 12/11/17] Ciprofloxacin [Cipro] 500 mg PO DAILY 08/08/17 [Last Taken 12/11/17] Midodrine HCl 10 mg PO TID 08/08/17 [Last Taken 12/11/17] Multivitamins [Multivitamin (*)] 1 each PO DAILY 12/12/17 [Last Taken 12/11/17] Rifaximin [Xifaxan] 550 mg PO BID 12/12/17 [Last Taken 12/11/17] Temazepam [Restoril 15 MG (*)] 15 mg PO HS 12/12/17 [Last Taken 12/11/17] Furosemide [Lasix 40 MG (*)] 40 mg PO DAILY #1 tab 12/15/17 [Last Taken Unknown] Ondansetron Odt [Zofran Odt 4 mg (*)] 4 mg PO Q4HRS PRN #30 tab 12/15/17 [Last Taken Unknown] Discharge Medications: Refer to the Discharge Home Medication list for PRN reason. - Orders Services needed: Home Care, Registered Nurse Home Care Face to Face: I certify that this patient was under my care and that I had the required [id number] encounter meeting the encounter requirements on the discharge day. My findings support the fact that the patient is homebound as defined in Home Care Face to Face Continued: CMS Chapter 7 Medicare Benefits Manual 30.1.1 , The condition of the patient is such that there exists a normal inability to leave home and consequently, leaving home would require a considerable and taxing effort. - Follow Up Care Current Providers and Referrals: Curt Colvin [Primary Care Provider] - As per Instructions
--- NOTE | 2017-12-15 16:00 | GDS ---
[f rep st] DISCHARGE SUMMARY DISCHARGE DIAGNOSES: 1. Hyponatremia. 2. Cirrhosis. 3. Ascites. 4. Scrotal swelling concerning for possible cellulitis. Please see admission history and physical by Dr. Naa Mendoza. The patient presented with scrotal and leg swelling, skin sloughing on the scrotum that was somewhat red, so he was started on antibioti cs. His sodium was in the 119-121 range. He was alert and oriented and walking without difficulty. He had a paracentesis that was therapeutic. He was seen by Urology and General Surgery and felt the scrotum was not evidence of Hetal's or significant infection. He received 3 days of antibiotics but were not continued on discharge. The patient's sodium was 120 at the time of discharge. The patient was adamant about leaving, and he has followup with Dr. Waddell, his broadcast director operations, tomorrow, whom I have called regarding these labs, and we did not force the patient to leave [facility]. He was discharged, advised to return for unsteadiness on his feet. His creatinine bumped to 1.5. I advised him to hold his Lasix for 3 days and resume i t as an outpatient. He does not take spironolactone. /[id number]/MODL
== END 2017-12-15 14:44 | disposition home health service (06) | DRG 641 ==
LOC: F2N 19:47 → F3E 12-13 13:44
PROVIDERS: ADMIT Internal Medicine; ATTEND Internal Medicine
PROC: 0W9G3ZZ Drainage of Peritoneal Cavity, Percutaneous Approach (ICD-10-PCS; principal; 2017-12-13)
DX: E87.5 Hyperkalemia (principal); T50.0X5A Adverse effect of mineralocorticoids and their antagonists, initial encounter; E87.1 Hypo-osmolality and hyponatremia; N50.89 Other specified disorders of the male genital organs; N49.2 Inflammatory disorders of scrotum; K70.31 Alcoholic cirrhosis of liver with ascites; K74.69 Other cirrhosis of liver; K76.6 Portal hypertension; I85.10 Secondary esophageal varices without bleeding; K72.10 Chronic hepatic failure without coma; K70.40 Alcoholic hepatic failure without coma; B18.2 Chronic viral hepatitis C; D68.8 Other specified coagulation defects; I10 Essential (primary) hypertension; F10.21 Alcohol dependence, in remission; Z87.891 Personal history of nicotine dependence
CPT/HCPCS: 82435-PO; 82565-PO; 82947-PO; 84132-PO; 84295-PO; 84520-PO; 85014-PO; 96374; J0690; J1335; J1644; J1815; J1940; J2270; J2405

== ENCOUNTER → 2018-01-05 | Outpatient (CLI) | payer OTHER | LOC: FIMAGING 07:19 | PROVIDERS: ATTEND Internal Medicine | PROC: 0W993ZZ Drainage of Right Pleural Cavity, Percutaneous Approach (ICD-10-PCS; principal; 2018-01-05) | DX: J90 Pleural effusion, not elsewhere classified (principal) ==

== ENCOUNTER 2018-01-13 09:43 | Inpatient (IN) | payer OTHER ==
[2018-01-13] MEDS ORDERED: ONDANSETRON DISINTEGRATING 4 MG TAB PO PRN (13:43)
[2018-01-13] MEDS ORDERED: oxyCODONE IR 5 MG TAB PO PRN (13:43)
--- NOTE | 2018-01-13 13:56 | PDGENHP ---
History and Physical History and Physical: CC: Transferred from [facility] to this hospital today, with ongoing HISTORY: This patient was admitted here initially January 08 with shortness of breath. He has end-stage liver disease, and was found at that time to have acute renal failure. His meld score was 27. Of concern for his hemodynamic renal issues and his worsening liver function, he was transferred to the [facility] on that same date to assess for possible liver transplant. 2 days later on January 10 our laboratory here reported growth of Silvina glabrata from his blood cultures from our ER visit. This was forwarded to the [facility] physicians. At the [facility] he had a significant upper GI bleed with hypotension and shock, acute respiratory failure ensued to during endoscopy for banding of a single varix. He was intubated and admitted to their intensive care unit on pressors. He was able to be weaned off of pressors and extubated overnight and moved back out of ICU the next day. He has been treated with antifungal medicine for his fungal bacteremia. He was also identified at the [facility] of having what is felt to be an acute portal vein thrombus and there was concern for possible infection of that thrombus. Other diagnoses they have listed from the [facility] include hepatic encephalopathy, large volume ascites, large pleural effusion which was tapped for 3 L, and deconditioning. The patient has known chronic liver disease due to hepatitis C and prior alcohol use. At the [facility] the patient's was assessed and felt not to be a candidate at this time for liver transplant due to his infection, however was also noted that he had apparently been turned down as a transplant candidate there due to some complaints issues during a prior assessment. Is not clear to me from the records they sent when that actually occurred. Note that at the [facility] they were not using diuretics due to the patient's hypotensive episode and his renal issues. As he is not a candidate for transplant at their center at this time, and as his insurance apparently does not cover ongoing stay at that hospital, between the medical staff and family was determined to transfer for the patient back to our hospital and he has arrived here now today by ambulance. The patient tells me that he feels overall better, has very little abdominal discomfort but notes that his abdomen is becoming more distended over the last couple days. He is not short of breath, he has been eating well over the past 24 hr. He does not have symptoms of fever. He has not noticed any bleeding in the last couple of days. His and son who were with him note that his mentation has been good yesterday and today. Note that during the patient's previous hospital stay here January 08, he did have a paracentesis. There is a very minimal number of neutrophils and no other specific findings to suggest that this was not a transudative fluid, though notably an albumin was not measured. ROS: A comprehensive 10 system review revealed no other significant findings PAST MEDICAL HISTORY: End-stage liver disease New finding of acute renal failure on January 08, creatinine 2.5 with a baseline of 1 in November of this year Prior alcohol abuse Chronic hepatitis-C FAMILY MEDICAL HISTORY: Colon cancer No other relevant medical issues in family at this point SOCIAL HISTORY: lives with his No current alcohol or drug use MEDICATIONS: The patients list has been reconciled by our clinical pharmacist in the EMR. I have reviewed the list and ordered appropriate medicines. PHYSICAL EXAMINATION: Vital Signs: All normal without fever Examination: General: alert, oriented, good mentation, relaxed Skin: warm, dry, good color, no rash HEENT: normal Neck: no mass or jvd Resps: relaxed Lungs: Some bilateral rales but moving air well Heart: regular, no murmur Abdomen: soft, distended with positive fluid wave, nontender, +BS, no mass Upper Extremities: normal Lower Extremities: Remarkable pitting edema bilaterally to above the knees No Bleeding or bruising Neurologic: normal speech/language, normal health center manager, no focal weakness IV site: looks normal LABORATORY DATA: None from today so far at either hospital RADIOLOGY STUDIES: None so far here during this hospital stay ASSESSMENT: *ACUTE SILVINA FUNGEMIA *S/P ACUTE SHOCK REQUIRING PRESSORS *S/P ACUTE RESP FAILURE REQUIRING INTUBATION MECH VENTILATION *ACUTE PORTAL VEIN THROMBUS, WITH SUSPICION FOR INFECTION OF THROMBUS WITH SILVINA *ACUTE UPPER GI BLEED REQUIRING TRANSFUSION OF 2 UNITS PRBC'S; S/P BANDING OF A SINGLE VARIX *IMAGING FINDINGS SUSPICIOUS FOR POSSIBLE COCCI *END STAGE LIVER DISEASE MELD 31 *ACUTE RENAL FAILURE, LIKELY HEPATORENAL *HEPATIC ENCEPHALOPATHY ACUTE *PROTEIN CALORIE MALNUTRITION *DECONDITIONING *VITAMIN D DEFICIENCY *HEP C AND ALCOHOL INDUCED CIRRHOSIS PLANS: * continue cipro for prophylaxis for SBP * continue antifungal with mycafungin * ID consult * follow renal fxn, meld scores very closely * GI consult * continue PPI * continue octreotide * avoid nephrotoxins * follow Hg closely * no anticoagulant med for now, given his recent upper GI bleed with esophageal varices; ongoing review with Gastroenterology, ideally if he were at any point felt to be stable from a bleeding standpoint would want to anticoagulate for his thrombus I have reviewed the patient's case in detail with Dr. Scales I have reviewed the patient's past medical records as part of this assessment, including previous admission records from this hospital as well as notes sent with him from the [facility].
[2018-01-13] MEDS: MIDODRINE HCL 5 MG TAB PO SCH (15:04)
[2018-01-13] MEDS: CIPROFLOXACIN 500 MG TAB PO SCH (15:04)
[2018-01-13] MEDS: MICAFUNGIN NA 100 MG in NS 100 ML IV SCH (17:35)
--- NOTE | 2018-01-13 20:31 | PDMN ---
Medical Necessity Medical necessity: [facility]: M570 liver disease complications; A-2 days; gus fungemia, imaging suspicious for poss. cocci, ARF, likely hepatorenal, ESLD, hepatic encephalopathy, acute, protein calorie malnutrition, deconditioning, Vit D deff., Hep C and ETOH induced cirrhosis, ongoing med nec care, monitoring and tx. anticipate > 2 MN. pt transfer from [place]
[2018-01-13] MEDS: RIFAXIMIN 550 MG TAB PO SCH (21:26)
[2018-01-13] MEDS: PANTOPRAZOLE SODIUM 40 MG TAB PO SCH (21:26)
[2018-01-13] MEDS: traZODone 50 MG TAB PO SCH (21:26)
[2018-01-13] MEDS: OCTREOTIDE ACETATE 50 MCG/ML INJ SC SCH (21:46)
[2018-01-13] MEDS: oxyCODONE IR 5 MG TAB PO PRN (21:54)
[2018-01-14 05:34] LABS: PLATELET COUNT 52 10^3/uL (150-400)
[2018-01-14 05:38] LABS: INR 1.91 (0.83-1.16)
[2018-01-14] MEDS ORDERED: PNEUMOCOCCAL 0.5ML VACCINE VIAL IM ONE (06:23)
[2018-01-14] MEDS: MIDODRINE HCL 5 MG TAB PO SCH ×3 (07:17→16:50)
[2018-01-14] MEDS: RIFAXIMIN 550 MG TAB PO SCH ×2 (07:17→21:25)
[2018-01-14] MEDS: PANTOPRAZOLE SODIUM 40 MG TAB PO SCH ×2 (07:18→21:25)
[2018-01-14] MEDS: MULTIVITAMINS 1 EACH TAB PO SCH (07:18)
[2018-01-14] MEDS: CIPROFLOXACIN 500 MG TAB PO SCH (07:18)
[2018-01-14] MEDS: oxyCODONE IR 5 MG TAB PO PRN ×3 (08:35→21:25)
[2018-01-14] MEDS: MICAFUNGIN NA 100 MG in NS 100 ML IV SCH (08:36)
--- NOTE | 2018-01-14 10:44 | PCMIDPN ---
Assessment/Plan: Assessment: Patient known to me from previous consultation in April of last year. Patient has end-stage liver disease secondary to hepatitis C and alcoholism. Currently sober. Presented on 01/08/2018 with acute encephalopathy and was eventually diagnosed with Latanya glabrata fungemia. Patient is in the midst of treatment with IV micafungin. We will continue this therapy. He is also on Cipro daily for SBP prophylaxis. We will continue this as well. We will try to hold off of PICC line placement for now although he will eventually need this and drawn other set of blood cultures to assure clearance of fungemia. He does have a set of blood cultures at [facility] that apparently is not growing any pathogens at this point however the question was brought up due to the portal vein thrombosis that he may have a septic thrombosis situation. Suspect that this is not the case but will recheck blood cultures none the less. Plan: 1. Continue IV micafungin. 2. Recheck blood cultures. 3. Hold off on PICC line currently and follow up on blood culture results. 01/14/18 10:40 Subjective: Patient is awake and alert and conversant. His is in the room. Both are in good spirits. He denies any fevers or chills. Still feels a little wiped out compared to baseline. Objective: Micafungin # 4 Vital Signs Temp Pulse Resp BP Pulse Ox 36.9 C 76 12 88/62 L 99 01/14/18 08:00 01/14/18 08:00 01/14/18 08:00 01/14/18 08:00 01/14/18 08:00 Laboratory Results 01/14/18 04:27 01/14/18 04:27 01/13/18 01/14/18 01/15/18 05:59 05:59 05:59 Intake Total 930 Output Total 200 Balance 730 - Physical Exam General Appearance: WD/WN, alert, no apparent distress, non-toxic Respiratory: lungs clear, normal breath sounds, No respiratory distress Cardiac/Chest: regular rate, rhythm, No tachycardia Abdomen: soft, distended, No mass Skin: normal color, warm/dry, No rash Neuro/Psych: alert, normal mood/affect, oriented x 3 ICD10 Worksheet Patient Problems: Problems Problem Status Onset Abdominal pain Acute Acute hyperkalemia Acute Alcoholism Acute Ascites Acute Cellulitis of scrotum Acute Cirrhosis Acute Confusion Acute Dehydration Acute Hyperbilirubinemia Acute Hyperkalemia Acute Hypoalbuminemia Acute Hyponatremia Acute Hypoxic Acute Perinephric hematoma Acute Pleural effusion Acute Septic shock Acute Spontaneous bacterial peritonitis Acute Vomiting Acute
--- NOTE | 2018-01-14 12:10 | GCON ---
[f rep st] CONSULTATION GASTROINTESTINAL CONSULTATION DATE OF CONSULTATION: 01/14/2018 REFERRING PHYSICIAN: Gui Medina MD REASON FOR CONSULTATION: Liver failure. HISTORY OF PRESENT ILLNESS: The patient is a 57-year-old gentleman, well known to our practice, followed by Dr. Waddell as an outpatient with end-stage liver failure, secondary to combination of hepatitis C and chronic alcoholism who was recently admitted to [facility] on January 08 with shortness of breath, worsening liver failure, acute renal failure, and fluid overload who was transferred to [facility] for possible liver transplant. During his stay at the [facility], he was found to have Latanya glabrata positive blood cultures (from the emergency room at [facility]), and was started on antifungal therapy. He also developed an acute upper GI bleed requiring emergent esophagogastroduodenoscopy with banding of a single varix. He did have respiratory failure during endoscopy requiring intubation, intensive care unit, and IV pressors due to hypotension. He did recover from this episode, was put on antifungals, and was noted on CT scan to have what they felt was an acute portal vein thrombosis. He was noted to have large ascites and large left pleural effusion and received a 3 L tap of his abdomen during that time. He did have transient hepatic encephalopathy, which cleared. He was transferred back to [facility] yesterday as he was felt not to be a liver transplant candidate and was out of network for that hospital, and [facility] accepted the transfer back here per the patient and family's request. He is alert today in a lounge chair in his room in no apparent distress. MEDICATIONS: Present hospital medications: Ciprofloxacin 500 mg p.o. daily, vitamin D2 50,000 units p.o. daily, lactulose 20 g p.o. t.i.d. p.r.n. to maintain 2-3 bowel movements per day, micafungin 100 mg IV daily, ProAmatine 10 mg p.o. t.i.d., multivitamin 1 daily, octreotide 50 mcg subcu t.i.d., Zofran 4 mg p.o. q.4 hours p.r.n. nausea, OxyContin 5 mg p.o. q.4 hours p.r.n. pain, Protonix 40 mg p.o. b.i.d., Xifaxan 550 mg p.o. b.i.d., trazodone 50 mg p.o. q.h.s. ALLERGIES: He has no known drug allergies. PAST MEDICAL HISTORY: Significant for end-stage liver failure, secondary to a combination of hepatitis C and alcohol use (abstained from alcohol for greater than 1 years time). Acute renal failure on January 10, Latanya glabrata bacteremia documented through the ER at [facility] on January 08, and possible portal vein thrombosis. FAMILY HISTORY: Positive for colon cancer in a second-degree relative. Otherwise, negative for liver disease. SOCIAL HISTORY: He is , lives with his in [place]. He does not smoke cigarettes and has not used illicit drugs, or consumed alcohol in the recent past. REVIEW OF SYSTEMS: Other than complaints of fatigue and exercise intolerance were negative for comprehensive review of systems. PHYSICAL EXAMINATION: VITAL SIGNS: On my examination today: Temperature is 36.9 Celsius, pulse is 70 regular, blood pressure 88/62, respiratory rate was 12 , O2 saturation 99% on 3 L per nasal cannula. GENERAL: A cachectic appearing gentleman with a distended abdomen sitting in a lounge chair in his room. INTEGUMENT: Hyperpigmented. HEENT: Head atraumatic, normocephalic. Pupils equal, round, reactive to light. EOMs were intact. Sclerae nonicteric. Mucous membranes moist. Dentition good. NECK: Supple. Trachea midline. LYMPHATIC: No cervical or axillary adenopathy. LUNGS: Decreased breath sounds bilaterally, otherwise clear to percussion and auscultation. CARDIOVASCULAR: Regular rhythm rate. Normal S1, S2 without murmur. Peripheral pulses decreased bilaterally. No pedal edema (MELANIE socks on bilaterally). ABDOMEN: Markedly distended, hypertympanic to percussion. Positive fluid wave. EXTREMITIES: Without deformity. NEURO: Patient is alert , oriented x3. No focal neurologic deficits. LABORATORY DATA: White count 5.52, hemoglobin 8.8, hematocrit 26.0, RDW 17.9. Pro time 22.0, INR 1.91. Sodium 134, potassium 4.3, chloride 98, CO2 31, anion gap 5, BUN 30, creatinine 1.1, total bilirubin 2.9, conjugated 1.0, unconjugated 1.9, AST 36, ALT 24, ALP 41, albumin 2.6. IMPRESSION: 1. End-stage liver disease, secondary to combination of prior chronic alcohol abuse and hepatitis C with recent decompensation; now improved clinically. 2. Recent esophageal variceal bleed with post-hemorrhagic anemia with likely bone marrow suppression from liver disease complicating anemia. 3. Recent Latanya glabrata on blood culture, presently on antifungals. 4. New diagnosis of portal vein thrombosis. 5. Fluid overload with recent high volume tap of the peritoneum at the [facility]. 6. Recent acute renal failure with improvement. RECOMMENDATIONS: 1. Continue with p.o. PPI therapy and Xifaxan for portal systemic encephalopathy. 2. Could discontinue lactulose in 24 to 48 hours. 3. Could discontinue octreotide in 48 hours. 4. Would defer to Nephrology as to appropriate diuretic dosage in this gentleman to control his fluid overload/ascites. 5. We will follow with you. 6. We will consult with Dr. Waddell Monday concerning chronic care of the patient's liver failure as an outpatient. /[id number]/MODL MTDD
[2018-01-14] MEDS: OCTREOTIDE ACETATE 50 MCG/ML INJ SC SCH ×3 (12:27→21:26)
--- NOTE | 2018-01-14 12:30 | SOAPPROG ---
SOAP Progress Note Assessment/Plan: Assessment: 57 y/o M w/ h/o ESLD (HCV/EtOH), admitted 01/08 with JON now resolved, transferred to [facility] for possible Tx but denied due to fungemia, while there had EGD for UGIB, complicated by acute respiratory failure, returns now for further care 1. JON - -Previous episode resolved, possibly HRS -Currently with normal GFR -Will try to balance diuretic needs with minimal impact to decline renal function -Cont midodrine to maintain systemic pressures 2. Cirrhosis - -ESLD/HCV -Had paracentesis while at [facility] -Feels fluid is reaccumulating and needs it again -Will need tap, diuretics can help slow rate of recurrence but unlikely to resolve -Replace Abumin 8g/L removed with tap -Add spironolactone 50mg BID, consider increase to 100mg BID if BP tolerates 3. Fungemia - -On AFx Plan: 01/14/18 12:31 01/14/18 12:35 Subjective: Feels OK, notes generally his edema is better although he feels that he needs another paracentesis, moderately uncomfortable. Denies other complaint. Objective: Vital Signs Temp Pulse Resp BP Pulse Ox 36.6 C 77 16 84/53 L 97 01/14/18 12:00 01/14/18 12:00 01/14/18 12:00 01/14/18 12:00 01/14/18 12:00 Laboratory Results 01/14/18 04:27 01/14/18 04:27 01/13/18 01/14/18 01/15/18 05:59 05:59 05:59 Intake Total 930 Output Total 200 Balance 730 PT 22.0 SEC (12.0-15.0) H 01/14/18 04:27 INR 1.91 (0.83-1.16) H 01/14/18 04:27 Physical Exam - Physical Exam General Appearance: WD/WN, alert, no apparent distress Respiratory: chest non-tender, wheezing (cleared on coughing, then CTA) Cardiac/Chest: regular rate, rhythm Abdomen: distended (moderate, with ascites) Extremities: non-tender, swelling (1+ b/l LE, compression hose in place) ICD10 Worksheet Patient Problems: Problems Problem Status Onset Abdominal pain Acute Acute hyperkalemia Acute Alcoholism Acute Ascites Acute Cellulitis of scrotum Acute Cirrhosis Acute Confusion Acute Dehydration Acute Hyperbilirubinemia Acute Hyperkalemia Acute Hypoalbuminemia Acute Hyponatremia Acute Hypoxic Acute Perinephric hematoma Acute Pleural effusion Acute Septic shock Acute Spontaneous bacterial peritonitis Acute Vomiting Acute
--- NOTE | 2018-01-14 17:13 | ASMTCMCOM ---
CM Note CM Note Notes: Pt well known to us with ESLD lives at home with and son. Pt previously at [facility] for possible liver transplant returned to [facility] for treatment of fungemia complicated by respiratory failure. PT deb is recommending SNF or HHC at this time. Blood Cultures pending to determine timing for placement of new central line for detention IV antifungal medications. CM to follow as care progresses. D/C TBD: SNF or HHC with IV antifungals Date Signed: 01/14/2018 05:12 PM Electronically Signed By:Vani Rothman
--- NOTE | 2018-01-14 17:55 | HOSPPROG ---
Hospitalist Progress Note Assessment/Plan: DIAGNOSES: *ACUTE SILVINA FUNGEMIA *S/P ACUTE SHOCK REQUIRING PRESSORS *S/P ACUTE RESP FAILURE REQUIRING INTUBATION MECH VENTILATION *ACUTE PORTAL VEIN THROMBUS, WITH SUSPICION FOR INFECTION OF THROMBUS WITH SILVINA *ACUTE UPPER GI BLEED REQUIRING TRANSFUSION OF 2 UNITS PRBC'S; S/P BANDING OF A SINGLE VARIX *IMAGING FINDINGS SUSPICIOUS FOR POSSIBLE COCCI *END STAGE LIVER DISEASE MELD 31 *ACUTE RENAL FAILURE, LIKELY HEPATORENAL *HEPATIC ENCEPHALOPATHY ACUTE *PROTEIN CALORIE MALNUTRITION *DECONDITIONING *VITAMIN D DEFICIENCY *HEP C AND ALCOHOL INDUCED CIRRHOSIS I reviewed in detail today with Dr. Duenas PLANS: * Continue Micofungin with 4 weeks of antifungal therapy * Eventual placement of PICC to facilitate that * Continue Xifaxan * Continue lactulose for another couple days then stop * Continue Cipro for prophylaxis after bleeding and procedures * Plan on paracentesis tomorrow if his renal function is stable and blood pressure stable; administer albumin at a g per L removed * Diuresis attempt with Aldactone right now but hold on Lasix for the moment * Follow blood pressures, orthostasis, renal function very closely * Continue midodrine to support blood pressure and renal perfusion * Eugene stockings on legs as much as he can tolerate it * Await input from Dr. Mullins * Continue proton pump inhibitors * Follow hemoglobin closely SUBJECTIVE: Feels better today, ambulating eating No fever symptoms No pain OBJECTIVE Vitals reviewed: Blood pressures are low but in the range of expect for his overall scenario, otherwise stable no fever Exam: alert oriented skin warm dry color ok resps not labored lungs rales at both bases heart regular abd quite distended with positive fluid wave, mildly to moderately tense, nontender no palpable mass limbs warm, edema somewhat decreased with Eugene stockings on now iv site ok Laboratory data: Creatinine improved at 1.1 Electrolytes good Mild elevation of bilirubin Hemoglobin stable 8.8 Objective: Vital Signs Temp Pulse Resp BP Pulse Ox 36.8 C 83 16 96/68 L 97 01/14/18 16:00 01/14/18 16:00 01/14/18 16:00 01/14/18 16:00 01/14/18 16:00 Laboratory Results 01/14/18 04:27 01/14/18 04:27 01/13/18 01/14/18 01/15/18 06:59 06:59 06:59 Intake Total 930 Output Total 200 Balance 730 PT 22.0 SEC (12.0-15.0) H 01/14/18 04:27 INR 1.91 (0.83-1.16) H 01/14/18 04:27 - Time Spent With Patient Time Spent with Patient: greater than 35 minutes Time Spent with Patient: Greater than 35 minutes spent on this patients care, greater than 50% of time spent counseling, educating, and coordinating care regarding the above mentioned plan. ICD10 Worksheet Patient Problems: Problems Problem Status Onset Abdominal pain Acute Acute hyperkalemia Acute Alcoholism Acute Ascites Acute Cellulitis of scrotum Acute Cirrhosis Acute Confusion Acute Dehydration Acute Hyperbilirubinemia Acute Hyperkalemia Acute Hypoalbuminemia Acute Hyponatremia Acute Hypoxic Acute Perinephric hematoma Acute Pleural effusion Acute Septic shock Acute Spontaneous bacterial peritonitis Acute Vomiting Acute
[2018-01-14] MEDS: SPIRONOLACTONE 50 MG TAB PO SCH (21:25)
[2018-01-14] MEDS: traZODone 50 MG TAB PO SCH (21:25)
[2018-01-15] MEDS: CIPROFLOXACIN 500 MG TAB PO SCH (08:01)
[2018-01-15] MEDS: MULTIVITAMINS 1 EACH TAB PO SCH (08:01)
[2018-01-15] MEDS: oxyCODONE IR 5 MG TAB PO PRN ×4 (08:01→20:50)
[2018-01-15] MEDS: RIFAXIMIN 550 MG TAB PO SCH ×2 (08:01→20:51)
[2018-01-15] MEDS: SPIRONOLACTONE 50 MG TAB PO SCH (08:02)
[2018-01-15] MEDS: PANTOPRAZOLE SODIUM 40 MG TAB PO SCH ×2 (08:02→20:51)
[2018-01-15] MEDS: MIDODRINE HCL 5 MG TAB PO SCH ×3 (08:02→16:01)
--- NOTE | 2018-01-15 08:55 | SOAPPROG ---
SOAP Progress Note Assessment/Plan: Assessment: 1. Ens Stage Liver Failure; clinically improved. 2. Ascites. 3. Portal Vein thrombosis. 4. ARF. 5. ? Latanya infection vs contaminated BC. Plan: 1. Will D/C Spironolactone today (patient had severe hyperkalemia on this drug in past per Dr Waddell). 2. Paracentesis today. 3. Doppler US of Abdomen to assess flow of portal vein. 4. Patient will be referred to [facility] Transplant team at discharge. Syd Scales MD 01/15/18 08:50 Subjective: CC: Liver Failure. Interval HPI: Patient feeling better today with less SOB and increased energy. Objective: Vital Signs Temp Pulse Resp BP Pulse Ox 37.1 C 86 16 92/58 L 94 01/15/18 07:56 01/15/18 07:56 01/15/18 03:56 01/15/18 07:56 01/15/18 07:56 Laboratory Results 01/15/18 04:30 01/15/18 04:30 01/14/18 01/15/18 01/16/18 05:59 05:59 05:59 Intake Total 930 890 Output Total 200 250 75 Balance 730 640 -75 PT 22.0 SEC (12.0-15.0) H 01/14/18 04:27 INR 1.91 (0.83-1.16) H 01/14/18 04:27 Physical Exam - Physical Exam General Appearance: alert, no apparent distress Respiratory: lungs clear, other (decrease BS at bases.) Cardiac/Chest: regular rate, rhythm, edema (trace pedal) Abdomen: normal bowel sounds, non-tender, distended, ascites Skin: normal color, warm/dry Extremities: normal range of motion Neuro/Psych: alert, normal mood/affect, oriented x 3 ICD10 Worksheet Patient Problems: Problems Problem Status Onset Abdominal pain Acute Acute hyperkalemia Acute Alcoholism Acute Ascites Acute Cellulitis of scrotum Acute Cirrhosis Acute Confusion Acute Dehydration Acute Hyperbilirubinemia Acute Hyperkalemia Acute Hypoalbuminemia Acute Hyponatremia Acute Hypoxic Acute Perinephric hematoma Acute Pleural effusion Acute Septic shock Acute Spontaneous bacterial peritonitis Acute Vomiting Acute
--- NOTE | 2018-01-15 10:30 | SOAPPROG ---
SOAP Progress Note Assessment/Plan: Assessment: Pt met. Chart reviewed. I noted the Dr. Scales stopped spironolactone as pt has hx of hyperkalemia. At this point, his Cr is better. He does have ongoing volume overload. He has had similar episodes in the past. He has been following with [facility]. We will sign off. Please call if we can be of further assistance. Plan: 01/15/18 10:28 01/15/18 10:29 Subjective: Cr better. Objective: Vital Signs Temp Pulse Resp BP Pulse Ox 37.1 C 86 16 92/58 L 94 01/15/18 07:56 01/15/18 07:56 01/15/18 03:56 01/15/18 07:56 01/15/18 07:56 Laboratory Results 01/15/18 04:30 01/15/18 04:30 01/14/18 01/15/18 01/16/18 05:59 05:59 05:59 Intake Total 930 890 Output Total 200 250 75 Balance 730 640 -75 PT 22.0 SEC (12.0-15.0) H 01/14/18 04:27 INR 1.91 (0.83-1.16) H 01/14/18 04:27 Physical Exam - Physical Exam General Appearance: mild distress Respiratory: lungs clear, decreased breath sounds Cardiac/Chest: regular rate, rhythm Abdomen: ascites Extremities: pedal edema Neuro/Psych: oriented x 3 ICD10 Worksheet Patient Problems: Problems Problem Status Onset Abdominal pain Acute Acute hyperkalemia Acute Alcoholism Acute Ascites Acute Cellulitis of scrotum Acute Cirrhosis Acute Confusion Acute Dehydration Acute Hyperbilirubinemia Acute Hyperkalemia Acute Hypoalbuminemia Acute Hyponatremia Acute Hypoxic Acute Perinephric hematoma Acute Pleural effusion Acute Septic shock Acute Spontaneous bacterial peritonitis Acute Vomiting Acute
[2018-01-15] MEDS: OCTREOTIDE ACETATE 50 MCG/ML INJ SC SCH ×3 (12:04→20:53)
[2018-01-15] MEDS: MICAFUNGIN NA 100 MG in NS 100 ML IV SCH (12:05)
[2018-01-15] MEDS ORDERED: LIDOCAINE 1% 300 MG/30 ML SDV ONE (13:33)
--- NOTE | 2018-01-15 14:36 | PCMIDPN ---
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 Patient is in the midst of treatment with IV micafungin. We will continue this therapy. He is also on Cipro daily for SBP prophylaxis. We will continue this as well. The ventral PICC line placement. Clinically he is doing much better. Plan: 1. Continue IV micafungin. 2. Hold off on PICC line currently and follow up on blood culture results. 01/14/18 10:40 01/15/18 14:34 Subjective: Patient is sitting up in his chair. He feels much improved. His mentation is normal in at baseline. He denies any fevers or chills. Objective: Micafungin # 5 Vital Signs Temp Pulse Resp BP Pulse Ox 36.9 C 83 20 88/51 L 90 L 01/15/18 11:22 01/15/18 11:22 01/15/18 11:22 01/15/18 11:22 01/15/18 11:22 Laboratory Results 01/15/18 04:30 01/15/18 04:30 01/14/18 01/15/18 01/16/18 05:59 05:59 05:59 Intake Total 930 890 Output Total 200 250 75 Balance 730 640 -75 - Physical Exam General Appearance: WD/WN, alert, no apparent distress, non-toxic Respiratory: lungs clear, normal breath sounds, No respiratory distress Cardiac/Chest: regular rate, rhythm, No tachycardia Abdomen: soft, distended Skin: normal color, warm/dry, No rash Neuro/Psych: alert, normal mood/affect, oriented x 3 ICD10 Worksheet Patient Problems: Problems Problem Status Onset Abdominal pain Acute Acute hyperkalemia Acute Alcoholism Acute Ascites Acute Cellulitis of scrotum Acute Cirrhosis Acute Confusion Acute Dehydration Acute Hyperbilirubinemia Acute Hyperkalemia Acute Hypoalbuminemia Acute Hyponatremia Acute Hypoxic Acute Perinephric hematoma Acute Pleural effusion Acute Septic shock Acute Spontaneous bacterial peritonitis Acute Vomiting Acute
--- NOTE | 2018-01-15 18:46 | HOSPPROG ---
Hospitalist Progress Note Assessment/Plan: DIAGNOSES: *ACUTE SILVINA FUNGEMIA *S/P ACUTE SHOCK REQUIRING PRESSORS (at [facility] before transfer here ) *S/P ACUTE RESP FAILURE REQUIRING INTUBATION MECH VENTILATION (at [facility] before transfer here) *ACUTE PORTAL VEIN THROMBUS, WITH SUSPICION FOR INFECTION OF THROMBUS WITH SILVINA *ACUTE UPPER GI BLEED REQUIRING TRANSFUSION OF 2 UNITS PRBC'S; S/P BANDING OF A SINGLE VARIX (at [facility] before transfer here) *END STAGE LIVER DISEASE MELD 31 at highest over past 10 days *ACUTE RENAL FAILURE, LIKELY HEPATORENAL, notably improved at this time *HEPATIC ENCEPHALOPATHY ACUTE (at [facility] before transfer here) *PROTEIN CALORIE MALNUTRITION *DECONDITIONING *VITAMIN D DEFICIENCY *HEP C AND ALCOHOL INDUCED CIRRHOSIS I reviewed in detail today with Dr. Scales at the bedside. At this time will continue treatment of his fungemia, rely upon paracentesis for fluid removal due to his renal disease and electrolyte issues, work on nutrition, Is suggested by Dr. Scales that if this patient eventually does come to further referrals for possible liver transplant that he be referred to [facility] PLANS: * Continue Micofungin with 4 weeks of antifungal therapy * Eventual placement of PICC to facilitate that, once we have negative repeat cultures for fungi Sosa * Continue Xifaxan * Continue lactulose for another couple days then stop * Continue Cipro for prophylaxis after bleeding and procedures * Follow blood pressures, orthostasis, renal function very closely * Continue midodrine to support blood pressure and renal perfusion * Eugene stockings on legs as much as he can tolerate it * Await input from Dr. Aguilar * Continue proton pump inhibitors with recent GI bleed * Follow hemoglobin closely SUBJECTIVE: Doing reasonably well, still eating okay but does note increasing pain in abdomen with increasing distension No other new symptoms OBJECTIVE Vitals reviewed: Blood pressures better today, otherwise stable without fever Exam: alert oriented skin warm dry color ok resps not labored lungs rales at both bases heart regular abd quite distended with positive fluid wave, moderately tense, nontender no palpable mass limbs warm, edema somewhat decreased with Eugene stockings on now iv site ok Laboratory data: Creatinine stable at 1.2 Electrolytes good Mild elevation of bilirubin Hemoglobin stable 8.2 Objective: Vital Signs Temp Pulse Resp BP Pulse Ox 36.6 C 80 18 87/57 L 90 L 01/15/18 16:00 01/15/18 16:00 01/15/18 16:00 01/15/18 16:00 01/15/18 16:00 Laboratory Results 01/15/18 04:30 01/15/18 04:30 01/14/18 01/15/18 01/16/18 06:59 06:59 06:59 Intake Total 930 890 Output Total 423 469 0535 Balance 730 640 -1325 PT 22.0 SEC (12.0-15.0) H 01/14/18 04:27 INR 1.91 (0.83-1.16) H 01/14/18 04:27 - Time Spent With Patient Time Spent with Patient: greater than 35 minutes Time Spent with Patient: Greater than 35 minutes spent on this patients care, greater than 50% of time spent counseling, educating, and coordinating care regarding the above mentioned plan. ICD10 Worksheet Patient Problems: Problems Problem Status Onset Abdominal pain Acute Acute hyperkalemia Acute Alcoholism Acute Ascites Acute Cellulitis of scrotum Acute Cirrhosis Acute Confusion Acute Dehydration Acute Hyperbilirubinemia Acute Hyperkalemia Acute Hypoalbuminemia Acute Hyponatremia Acute Hypoxic Acute Perinephric hematoma Acute Pleural effusion Acute Septic shock Acute Spontaneous bacterial peritonitis Acute Vomiting Acute
[2018-01-15] MEDS: traZODone 50 MG TAB PO SCH (20:51)
[2018-01-16] MEDS: oxyCODONE IR 5 MG TAB PO PRN ×6 (00:50→22:25)
[2018-01-16] MEDS: CIPROFLOXACIN 500 MG TAB PO SCH (07:52)
[2018-01-16] MEDS: PANTOPRAZOLE SODIUM 40 MG TAB PO SCH ×2 (07:52→22:25)
[2018-01-16] MEDS: MIDODRINE HCL 5 MG TAB PO SCH ×3 (07:53→18:16)
[2018-01-16] MEDS: RIFAXIMIN 550 MG TAB PO SCH ×2 (07:53→22:24)
[2018-01-16] MEDS: MULTIVITAMINS 1 EACH TAB PO SCH (07:53)
[2018-01-16] MEDS: OCTREOTIDE ACETATE 50 MCG/ML INJ SC SCH ×3 (07:53→22:24)
[2018-01-16] MEDS: MICAFUNGIN NA 100 MG in NS 100 ML IV SCH (07:53)
[2018-01-16] MEDS ORDERED: ALTEPLASE 2 MG VIAL IVP PRN (14:27)
--- NOTE | 2018-01-16 14:29 | PCMIDPN ---
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 He reports that his lower extremity edema is worse today. His son is at bedside and reports that his that is a tiny bit more sleepy today than yesterday Objective: Vital Signs Temp Pulse Resp BP Pulse Ox 36.3 C 62 19 84/51 L 97 01/16/18 12:00 01/16/18 12:00 01/16/18 12:00 01/16/18 12:00 01/16/18 12:00 Laboratory Results 01/15/18 04:30 01/15/18 04:30 01/15/18 01/16/18 01/17/18 05:59 05:59 05:59 Intake Total 890 400 220 Output Total 250 1325 1 Balance 640 -925 219 - Physical Exam General Appearance: alert, no apparent distress EENT: No thrush Respiratory: other (Decreased breath sounds in the bases), No accessory muscle use Neck: supple, other (IJ site on the right C/D/I) Cardiac/Chest: regular rate, rhythm Extremities: pedal edema (3+ lower extremity edema) Abdomen: ascites (Tense), other (Mild discomfort diffusely to palpation with reducible hernia midline) Male Genitalia: No bernal Skin: jaundice, pallor, No diaphoresis, No rash Neuro/Psych: alert, normal mood/affect, oriented x 3 - Time Spent With Patient Time Spent with Patient: greater than 35 minutes (Reviewed records from outside hospital, coordination of care with Dr. Medina) Time Spent with Patient: Greater than 35 minutes spent on this patients care, greater than 50% of time spent counseling, educating, and coordinating care regarding the above mentioned plan. ICD10 Worksheet Patient Problems: Problems Problem Status Onset Abdominal pain Acute Acute hyperkalemia Acute Alcoholism Acute Ascites Acute Cellulitis of scrotum Acute Cirrhosis Acute Confusion Acute Dehydration Acute Hyperbilirubinemia Acute Hyperkalemia Acute Hypoalbuminemia Acute Hyponatremia Acute Hypoxic Acute Perinephric hematoma Acute Pleural effusion Acute Septic shock Acute Spontaneous bacterial peritonitis Acute Vomiting Acute
--- NOTE | 2018-01-16 14:34 | SOAPPROG ---
SOAP Progress Note Assessment/Plan: Assessment: 1. End Stage Liver Failure; clinically improved. 2. Ascites tap yesterday. 3. Portal Vein thrombosis. 4. ARF, improved. 5. ? Latanya infection on antifungal therapy. Plan: 1. Call out to Dr Way at [facility] Liver Transplant Service re; need for declotting of portal vein and possible transfer to [facility]. 2. ABD CT with IV contrast tomorrow to assess extent of portal vein thrombosis. 3. IR Radiologist consultation with Dr Manuela Moon in am. Syd Scales MD 01/16/18 14:30 Subjective: CC: Portal Vein Thrombosis, ESLF. Interval HPI: Patient without signs of GI Bleed or PSE. Feeling better today. Objective: Vital Signs Temp Pulse Resp BP Pulse Ox 36.3 C 62 19 84/51 L 97 01/16/18 12:00 01/16/18 12:00 01/16/18 12:00 01/16/18 12:00 01/16/18 12:00 Laboratory Results 01/15/18 04:30 01/15/18 04:30 01/15/18 01/16/18 01/17/18 05:59 05:59 05:59 Intake Total 890 400 220 Output Total 250 1325 1 Balance 640 -925 219 PT 22.0 SEC (12.0-15.0) H 01/14/18 04:27 INR 1.91 (0.83-1.16) H 01/14/18 04:27 Physical Exam - Physical Exam General Appearance: WD/WN, alert, no apparent distress Respiratory: lungs clear, normal breath sounds Cardiac/Chest: regular rate, rhythm Abdomen: normal bowel sounds, soft, distended Skin: warm/dry (Hyperpigmented) Neuro/Psych: alert, normal mood/affect, oriented x 3 ICD10 Worksheet Patient Problems: Problems Problem Status Onset Abdominal pain Acute Acute hyperkalemia Acute Alcoholism Acute Ascites Acute Cellulitis of scrotum Acute Cirrhosis Acute Confusion Acute Dehydration Acute Hyperbilirubinemia Acute Hyperkalemia Acute Hypoalbuminemia Acute Hyponatremia Acute Hypoxic Acute Perinephric hematoma Acute Pleural effusion Acute Septic shock Acute Spontaneous bacterial peritonitis Acute Vomiting Acute
--- NOTE | 2018-01-16 16:22 | PDIAF ---
- Diagnosis Diagnosis: Latanya glabrata fungemia - Medication Management Discharge Medications: Medications to Continue on Transfer oxyCODONE IR [Oxycodone Ir (*)] 5 - 10 mg PO Q4HRS PRN 05/01/17 [Last Taken ] Ergocalciferol [Vitamin D2 (*)] 50,000 units PO WE 06/18/17 [Last Taken 01/10/18 ] Lactulose 30 ml PO TID PRN 07/31/17 [Last Taken 01/12/18] Midodrine HCl 10 mg PO TID 08/08/17 [Last Taken 01/12/18] Multivitamins [Multivitamin (*)] 1 each PO DAILY 12/12/17 [Last Taken 01/12/18] Rifaximin [Xifaxan] 550 mg PO BID 12/12/17 [Last Taken 01/12/18] Ondansetron Odt [Zofran Odt 4 mg (*)] 4 mg PO Q4HRS PRN #30 tab 12/15/17 [Last Taken 01/07/18] traZODone [traZODONE 50MG (*)] 50 mg PO HS 01/08/18 [Last Taken 01/12/18] Albumin 25% [Albumin 25 % (Premix)] 100 ml IV MO 01/13/18 [Last Taken Unknown] Ciprofloxacin [Cipro] 500 mg PO DAILY 01/13/18 [Last Taken 01/12/18] Fpc Antibiotics: Micafungin 100 mg IV daily Fpc Antibiotic Stop Date: 02/06/18 Discharge Medications: Refer to the Discharge Home Medication list for PRN reason. PICC Care - Routine: Yes - Orders Services needed: Home Care, Registered Nurse Home Care Face to Face: I certify that this patient was under my care and that I had the required [id number] encounter meeting the encounter requirements on the discharge day. My findings support the fact that the patient is homebound as defined in Home Care Face to Face Continued: CMS Chapter 7 Medicare Benefits Manual 30.1.1 , The condition of the patient is such that there exists a normal inability to leave home and consequently, leaving home would require a considerable and taxing effort. - Labs/Radiology CBC w/diff Date: 01/23/18 (Weekly Monday) CMP Date: 01/23/18 (Weekly Monday) Call or Fax Lab and Imaging Results to: Valerie Cotter MD [facility] at fax [phone] - Follow Up Care Current Providers and Referrals: Curt Colvin [Primary Care Provider] -
[2018-01-16] MEDS: LACTULOSE 20 GM/30 ML UDCUP PO PRN (17:07)
--- NOTE | 2018-01-16 19:24 | HOSPPROG ---
Hospitalist Progress Note Assessment/Plan: DIAGNOSES: *ACUTE SILVINA FUNGEMIA *S/P ACUTE SHOCK REQUIRING PRESSORS (at [facility] before transfer here ) *S/P ACUTE RESP FAILURE REQUIRING INTUBATION MECH VENTILATION (at [facility] before transfer here) *ACUTE PORTAL VEIN THROMBUS, WITH SUSPICION FOR INFECTION OF THROMBUS WITH SILVINA *RECURRENT ASCITES AFTER RECENT PARACENTESIS HERE AND AGAIN AT [facility] LAST WEEK * Paracentesis for 2+ L here 01/15; still some abdominal distension but most likely primarily bowel gas *RECENT THORACENTESIS AT [facility] FOR LARGE VOLUME PLEURAL EFFUSION * Stable here now without shortness of breath and with improving ambulation *ACUTE UPPER GI BLEED REQUIRING TRANSFUSION OF 2 UNITS PRBC'S; S/P BANDING OF A SINGLE VARIX (at [facility] before transfer here) *END STAGE LIVER DISEASE MELD 31 at highest over past 10 days *ACUTE RENAL FAILURE, LIKELY HEPATORENAL, notably improved at this time *HEPATIC ENCEPHALOPATHY ACUTE (at [facility] before transfer here) *PROTEIN CALORIE MALNUTRITION *DECONDITIONING *VITAMIN D DEFICIENCY *HEP C AND ALCOHOL INDUCED CIRRHOSIS I reviewed in detail today with Dr. Scales At this time will continue treatment of his fungemia, rely upon paracentesis for fluid removal due to his renal disease and electrolyte issues, work on nutrition, Dr. Scales is planning discussions with Dr. Moon here as well as with physicians at [facility] for possible interventional radiology treatment of his portal vein thrombosis. Will await input from him on that PLANS: * Continue Micofungin with 4 weeks of antifungal therapy * Eventual placement of PICC to facilitate that, once we have negative repeat cultures for fungi Sosa * Continue Xifaxan for prevention of encephalopathy * Follow blood pressures, orthostasis, renal function very closely * Continue midodrine to support blood pressure and renal perfusion * Eugene stockings on legs as much as he can tolerate it * Await input from Dr. Aguilar; await recommendations from Dr. Scales of her to he discusses possible interventional radiology procedure for portal vein thrombus here or at [facility] * Continue proton pump inhibitors with recent GI bleed * Follow hemoglobin closely SUBJECTIVE: Doing reasonably well, still eating okay but does note increasing pain in abdomen with increasing distension No other new symptoms OBJECTIVE Vitals reviewed: Blood pressures stable today, otherwise stable without fever Exam: alert oriented skin warm dry color ok resps not labored lungs rales at both bases heart regular abd still fairly distended but without fluid wave, less tense, nontender no palpable mass limbs warm, edema still notable both legs iv site ok Objective: Vital Signs Temp Pulse Resp BP Pulse Ox 36.2 C 73 14 94/57 L 88 L 01/16/18 19:05 01/16/18 19:05 01/16/18 19:05 01/16/18 19:05 01/16/18 19:05 Laboratory Results 01/15/18 04:30 01/15/18 04:30 01/15/18 01/16/18 01/17/18 06:59 06:59 06:59 Intake Total 956 317 2822 Output Total 250 1325 3 Balance 640 -925 1017 PT 22.0 SEC (12.0-15.0) H 01/14/18 04:27 INR 1.91 (0.83-1.16) H 01/14/18 04:27 - Time Spent With Patient Time Spent with Patient: greater than 35 minutes Time Spent with Patient: Greater than 35 minutes spent on this patients care, greater than 50% of time spent counseling, educating, and coordinating care regarding the above mentioned plan. ICD10 Worksheet Patient Problems: Problems Problem Status Onset Abdominal pain Acute Acute hyperkalemia Acute Alcoholism Acute Ascites Acute Cellulitis of scrotum Acute Cirrhosis Acute Confusion Acute Dehydration Acute Hyperbilirubinemia Acute Hyperkalemia Acute Hypoalbuminemia Acute Hyponatremia Acute Hypoxic Acute Perinephric hematoma Acute Pleural effusion Acute Septic shock Acute Spontaneous bacterial peritonitis Acute Vomiting Acute
[2018-01-16] MEDS: traZODone 50 MG TAB PO SCH (22:30)
[2018-01-17] MEDS: oxyCODONE IR 5 MG TAB PO PRN ×6 (02:12→22:21)
[2018-01-17] MEDS: MIDODRINE HCL 5 MG TAB PO SCH ×3 (07:40→17:50)
[2018-01-17] MEDS: PANTOPRAZOLE SODIUM 40 MG TAB PO SCH ×3 (08:55→22:21)
[2018-01-17] MEDS: CIPROFLOXACIN 500 MG TAB PO SCH (08:57)
[2018-01-17] MEDS: RIFAXIMIN 550 MG TAB PO SCH ×3 (08:57→22:21)
[2018-01-17] MEDS: MULTIVITAMINS 1 EACH TAB PO SCH (08:58)
[2018-01-17] MEDS ORDERED: ERGOCALCIFEROL 50,000 I.UNIT CAP PO SCH (09:00)
[2018-01-17] MEDS: OCTREOTIDE ACETATE 50 MCG/ML INJ SC SCH ×3 (09:20→22:22)
[2018-01-17] MEDS: LACTULOSE 20 GM/30 ML UDCUP PO PRN (10:17)
--- NOTE | 2018-01-17 10:28 | ASMTCMCOM ---
CM Note CM Note Notes: Pt will need about 3 weeks IV antifungal, per Maricarmen at [facility], he is covered at 100%. Pt has used [facility] in the past, Maricarmen here to speak with pt. Still needs PICC line. [facility] Date Signed: 01/17/2018 10:18 AM Electronically Signed By:Micheline Perez RN
[2018-01-17] MEDS: MICAFUNGIN NA 100 MG in NS 100 ML IV SCH (11:57)
--- NOTE | 2018-01-17 13:08 | SOAPPROG ---
SOAP Progress Note Assessment/Plan: Assessment: 1. End Stage Liver Failure; clinically stable. 2. Portal Vein thrombosis. 3. ARF, improved. 4. Latanya infection on antifungal therapy. Plan: 1. Discussed with Dr Way at [facility] Liver Transplant Service and Manuela Moon yesterday and today. Under evaluation for need for declotting of portal vein here or and possible transfer to [facility] for further care. 2. ABD CT with IV contrast today to assess extent of portal vein thrombosis. Syd Scales MD 01/17/18 13:05 Subjective: CC: Liver failure, portal vein thrombosis. Interval; HPI: Patient without new complaints. IV to be changed to PICC today. Objective: Vital Signs Temp Pulse Resp BP Pulse Ox 36.5 C 83 16 90/65 L 91 L 01/17/18 12:00 01/17/18 12:00 01/17/18 12:00 01/17/18 12:00 01/17/18 12:00 Laboratory Results 01/15/18 04:30 01/17/18 05:20 01/16/18 01/17/18 01/18/18 05:59 05:59 05:59 Intake Total 400 1570 Output Total 1325 3 Balance -925 1567 PT 22.0 SEC (12.0-15.0) H 01/14/18 04:27 INR 1.91 (0.83-1.16) H 01/14/18 04:27 Physical Exam - Physical Exam General Appearance: alert, no apparent distress Respiratory: lungs clear, normal breath sounds Cardiac/Chest: regular rate, rhythm Abdomen: normal bowel sounds, non-tender, distended, ascites Skin: normal color, warm/dry Neuro/Psych: alert, normal mood/affect, oriented x 3 ICD10 Worksheet Patient Problems: Problems Problem Status Onset Abdominal pain Acute Acute hyperkalemia Acute Alcoholism Acute Ascites Acute Cellulitis of scrotum Acute Cirrhosis Acute Confusion Acute Dehydration Acute Hyperbilirubinemia Acute Hyperkalemia Acute Hypoalbuminemia Acute Hyponatremia Acute Hypoxic Acute Perinephric hematoma Acute Pleural effusion Acute Septic shock Acute Spontaneous bacterial peritonitis Acute Vomiting Acute
--- NOTE | 2018-01-17 13:50 | HOSPPROG ---
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 He has thrombosis of the portal vein and this will require IR intervention prior to a transplant. A decision about where this will occur is pending. Dr. Scales has been discussing this with Dr. Moon and with Dr. Way (at [facility]). A CT scan is being performed today to help make a decision on where this will occur. -monitor Cr. closely given contrast today -he is not a candidate for AC given his recent bleed and coagulopathy. I discussed the above with Dr. Scales Subjective: no cp or sob. Had PICC today. Objective: Vital Signs Temp Pulse Resp BP Pulse Ox 36.5 C 83 16 90/65 L 91 L 01/17/18 12:00 01/17/18 12:00 01/17/18 12:00 01/17/18 12:00 01/17/18 12:00 Laboratory Results 01/15/18 04:30 01/17/18 05:20 01/16/18 01/17/18 01/18/18 05:59 05:59 05:59 Intake Total 400 1570 Output Total 1325 3 Balance -925 1567 PT 22.0 SEC (12.0-15.0) H 01/14/18 04:27 INR 1.91 (0.83-1.16) H 01/14/18 04:27 - Physical Exam Constitutional: chronically ill appearing Eyes: PERRL Ears, Nose, Mouth, Throat: moist mucous membranes Cardiovascular: regular rate and rhythym, No edema Respiratory: no respiratory distress, reduced air movement Gastrointestinal: normoactive bowel sounds, distension Skin: warm Neurologic: AAOx3 Psychiatric: interacting appropriately, not anxious, not encephalopathic ICD10 Worksheet Patient Problems: Problems Problem Status Onset Abdominal pain Acute Acute hyperkalemia Acute Alcoholism Acute Ascites Acute Cellulitis of scrotum Acute Cirrhosis Acute Confusion Acute Dehydration Acute Hyperbilirubinemia Acute Hyperkalemia Acute Hypoalbuminemia Acute Hyponatremia Acute Hypoxic Acute Perinephric hematoma Acute Pleural effusion Acute Septic shock Acute Spontaneous bacterial peritonitis Acute Vomiting Acute
[2018-01-17] MEDS: traZODone 50 MG TAB PO SCH ×2 (21:00→22:21)
[2018-01-18] MEDS: oxyCODONE IR 5 MG TAB PO PRN ×6 (02:12→23:01)
[2018-01-18 02:43] LABS: PLATELET COUNT 100 10^3/uL (150-400)
[2018-01-18] MEDS: MICAFUNGIN NA 100 MG in NS 100 ML IV SCH (08:14)
[2018-01-18] MEDS: OCTREOTIDE ACETATE 50 MCG/ML INJ SC SCH ×3 (08:16→22:15)
[2018-01-18] MEDS: RIFAXIMIN 550 MG TAB PO SCH ×2 (08:21→22:14)
[2018-01-18] MEDS: MIDODRINE HCL 5 MG TAB PO SCH ×3 (08:22→16:06)
[2018-01-18] MEDS: CIPROFLOXACIN 500 MG TAB PO SCH (08:22)
[2018-01-18] MEDS: MULTIVITAMINS 1 EACH TAB PO SCH (08:22)
[2018-01-18] MEDS: PANTOPRAZOLE SODIUM 40 MG TAB PO SCH ×2 (08:22→22:14)
[2018-01-18] MEDS ORDERED: oxyCODONE IR 15 MG TAB PO ONE (08:38)
--- NOTE | 2018-01-18 11:09 | SOAPPROG ---
SOAP Progress Note Assessment/Plan: Assessment: 1. End Stage Liver Failure; clinically stable. 2. Portal Vein thrombosis with abdominal discomfort today likely secondary to the acute portal vein thrombosis. 3. ARF, improved albeit still with elevated Cr at twice outpatient level. 4. Latanya infection on antifungal therapy. 5. Recent EVB without rebleed. Can start heparin on Monday for treatment of portal vein thrombosis. 6. PSE; clinically resolved on antibiotics. Plan: 1. Discussed with Dr Way at [facility] Liver Transplant Service and Manuela Moon yesterday and will discuss further with them today. Under evaluation for need for declotting of portal vein here or and possible transfer to [facility] for further care. 2. ABD CT with IV contrast cancelled due to concern of renal toxicity of IV contrast. Discussed with Edyta (IR) today and he recommended MR of liver today as IV contrast for MR is not nephrotoxic. I will order this today. Syd Scales MD 01/18/18 11:13 Subjective: CC: ESLF with acute portal vein thrombosis. Interval HPI: Patient complaining of more abdominal distension and diffuse abdominal pain today. Objective: Vital Signs Temp Pulse Resp BP Pulse Ox 36.6 C 99 18 113/77 90 L 01/18/18 08:00 01/18/18 08:00 01/18/18 08:00 01/18/18 08:00 01/18/18 08:00 Laboratory Results 01/18/18 02:20 01/18/18 02:20 01/17/18 01/18/18 01/19/18 05:59 05:59 05:59 Intake Total 1570 2720 Output Total 3 Balance 1567 2720 PT 22.0 SEC (12.0-15.0) H 01/14/18 04:27 INR 1.91 (0.83-1.16) H 01/14/18 04:27 Physical Exam - Physical Exam General Appearance: mild distress Respiratory: chest non-tender, lungs clear, other (decreased BS at bases) Cardiac/Chest: regular rate, rhythm, edema (+2 Pedal) Abdomen: normal bowel sounds, distended (mildly tender without rebound) Skin: warm/dry Neuro/Psych: alert, oriented x 3, depressed affect ICD10 Worksheet Patient Problems: Problems Problem Status Onset Abdominal pain Acute Acute hyperkalemia Acute Alcoholism Acute Ascites Acute Cellulitis of scrotum Acute Cirrhosis Acute Confusion Acute Dehydration Acute Hyperbilirubinemia Acute Hyperkalemia Acute Hypoalbuminemia Acute Hyponatremia Acute Hypoxic Acute Perinephric hematoma Acute Pleural effusion Acute Septic shock Acute Spontaneous bacterial peritonitis Acute Vomiting Acute
--- NOTE | 2018-01-18 12:41 | HOSPPROG ---
Hospitalist Progress Note Assessment/Plan: #Latanya glabrata fungemia - Continue micafungin (stop date 02/06/18), PICC placed 01/17 - TTE at [facility] negative for vegetation - Unclear if he's had ophtho exam #Portal vein thrombosis - MR today to assess extent of clot (avoiding CT due to need for contrast) #Renal insufficiency: Baseline Cr 0.9-1.0, currently 1.2. 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 Tense again, will plan for repeat para tomorrow with albumin. Continue cipro for SPB ppx - Coagulopathy: not bleeding - Pleural effusions: holding diuresis with renal issues, doing well on room air - Dr Scales facilitating potential transfer to [facility] transplant service #Recent GIB: H/H stable. Had banding of single varix at [facility] recently. Diet: renal, fluid restricted VTE ppx: ambulate Code: full Dispo: remain inpatient for management of above issues, IV antifungals Subjective: More "spacy" today per his . Having increased abdominal pain. Still haivng 3-4 BMs/day. Objective: Vital Signs Temp Pulse Resp BP Pulse Ox 36.6 C 81 16 110/70 91 L 01/18/18 11:10 01/18/18 11:10 01/18/18 11:10 01/18/18 11:10 01/18/18 11:10 Laboratory Results 01/18/18 02:20 01/18/18 02:20 01/17/18 01/18/18 01/19/18 05:59 05:59 05:59 Intake Total 1570 2720 Output Total 3 Balance 1567 2720 PT 22.0 SEC (12.0-15.0) H 01/14/18 04:27 INR 1.91 (0.83-1.16) H 01/14/18 04:27 - Physical Exam Constitutional: no apparent distress, not in pain, other (temporal wasting) Eyes: anicteric sclera Cardiovascular: regular rate and rhythym, no murmur, rub, or gallop Respiratory: other (absent breath sounds at bases) Gastrointestinal: tenderness (diffuse), ascites, distension (tense) Neurologic: other (inattentive) ICD10 Worksheet Patient Problems: Problems Problem Status Onset Abdominal pain Acute Acute hyperkalemia Acute Alcoholism Acute Ascites Acute Cellulitis of scrotum Acute Cirrhosis Acute Confusion Acute Dehydration Acute Hyperbilirubinemia Acute Hyperkalemia Acute Hypoalbuminemia Acute Hyponatremia Acute Hypoxic Acute Perinephric hematoma Acute Pleural effusion Acute Septic shock Acute Spontaneous bacterial peritonitis Acute Vomiting Acute
[2018-01-18] MEDS ORDERED: GADOBUTROL 10 ML VIAL IVP ONE (13:39)
[2018-01-18] MEDS ORDERED: FUROSEMIDE 40 MG/4 ML VIAL IVP ONE (19:37)
[2018-01-18] MEDS: traZODone 50 MG TAB PO SCH (22:15)
[2018-01-19] MEDS: oxyCODONE IR 5 MG TAB PO PRN ×6 (02:01→20:27)
[2018-01-19 05:35] LABS: INR 1.93 (0.83-1.16); PROTIME(PATIENT) 22.1 SEC (12.0-15.0)
[2018-01-19] MEDS: OCTREOTIDE ACETATE 50 MCG/ML INJ SC SCH ×3 (08:06→20:27)
[2018-01-19] MEDS: PANTOPRAZOLE SODIUM 40 MG TAB PO SCH ×2 (08:17→20:27)
[2018-01-19] MEDS: RIFAXIMIN 550 MG TAB PO SCH ×2 (08:17→20:27)
[2018-01-19] MEDS: MIDODRINE HCL 5 MG TAB PO SCH ×3 (08:17→16:16)
[2018-01-19] MEDS: MULTIVITAMINS 1 EACH TAB PO SCH (08:20)
[2018-01-19] MEDS: CIPROFLOXACIN 500 MG TAB PO SCH (08:20)
[2018-01-19] MEDS: MICAFUNGIN NA 100 MG in NS 100 ML IV SCH (10:41)
--- NOTE | 2018-01-19 11:13 | SOAPPROG ---
SOAP Progress Note Assessment/Plan: Assessment: 1. End Stage Liver Failure; incresing abdominal distension and pain. 2. Portal Vein thrombosis with abdominal discomfort today likely secondary to the acute portal vein thrombosis. Can start SQ heparin therapy today. 3. ARF, improved albeit still with elevated Cr at twice outpatient level. 4. Latanya infection on antifungal therapy. 5. Recent EVB without rebleed. Can start heparin today for treatment of portal vein thrombosis. 6. PSE more confused today albeit NH3 normal. Plan: 1. Discussed with Dr Way at [facility] Liver Transplant Service today. Insurance determination for ability to transplant at [facility] albeit can transfer there for further medical care. I discussed at length with patient's son and have a call out to his to get agreement with her on transfer to [facility]. 2. ABD US directed high volume paracentesis today. Syd Scales MD 01/19/18 11:08 Subjective: CC: ESLF with portal vein clot. Interval HPI: Continued abdominal pain and distension. Son states that patient more confused today. Objective: Vital Signs Temp Pulse Resp BP Pulse Ox 36.8 C 93 18 121/70 H 90 L 01/19/18 07:40 01/19/18 07:40 01/19/18 07:40 01/19/18 07:40 01/19/18 07:40 Laboratory Results 01/19/18 05:10 01/19/18 05:10 01/18/18 01/19/18 01/20/18 05:59 05:59 05:59 Intake Total 2720 1050 Output Total 300 Balance 2720 750 PT 22.1 SEC (12.0-15.0) H 01/19/18 05:10 INR 1.93 (0.83-1.16) H 01/19/18 05:10 Physical Exam - Physical Exam General Appearance: mild distress, obtunded (mildly) Respiratory: lungs clear, normal breath sounds Cardiac/Chest: regular rate, rhythm, edema (+2 pedal) Abdomen: normal bowel sounds, distended, other (moderately tender in all 4 quads without rebound) Skin: warm/dry ICD10 Worksheet Patient Problems: Problems Problem Status Onset Abdominal pain Acute Acute hyperkalemia Acute Alcoholism Acute Ascites Acute Cellulitis of scrotum Acute Cirrhosis Acute Confusion Acute Dehydration Acute Hyperbilirubinemia Acute Hyperkalemia Acute Hypoalbuminemia Acute Hyponatremia Acute Hypoxic Acute Perinephric hematoma Acute Pleural effusion Acute Septic shock Acute Spontaneous bacterial peritonitis Acute Vomiting Acute
[2018-01-19] MEDS ORDERED: LIDOCAINE 1% 300 MG/30 ML SDV ONE (12:52)
--- NOTE | 2018-01-19 14:11 | PDDCSUM ---
Discharge Summary Discharge Summary: Date of Admission: 01/13/2018 Date of Discharge: 01/19/2018 Disposition: Transferred to [facility] in [place], [place] Consultants: Gastroenterology, Infectious Disease Procedures/Studies: therapeutic paracentesis x2, abdominal MRI, abdominal US Discharge Diagnoses: 1. Decompensated liver cirrhosis/ESLD 2. Acute portal vein thrombosis 3. Renal insufficiency, concern for HRS 4. Latanya glabrata fungemia 5. Hepatic encephalopathy 6. Ascites 7. Bilateral pleural effusions 8. Acute hypoxemic respiratory insufficiency 9. Recent UGIB due to bleeding esophageal varix 10. Coagulopathy of liver disease 11. H/o hepatitis C infection s/p treatment 12. H/o etoh use Brief Hospital Course: 57yo M with liver cirrhosis due to prior EtOH use and treated HCV (previously followed by Dr Aguilar at [facility]) initially presented to this facility 01/08 with dyspnea found to have volume overload and renal insufficiency. He underwent a diagnostic thoracentesis (c/w hepatic hydrothorax). Renal was consulted who thought rise in creatinine likely consistent with HRS and added octreotide and albumin to his regimen which already included midodrine. He was transferred to [facility] in [place] for transplant evaluation. There, he developed hemorrhagic shock and respiratory failure due to esophageal varix that was banded. Blood cultures from 01/08 returned + for Latanya glabrata and he was started on antifungal coverage with micafungin. He was also diagnosed with an acute portal vein thrombosis however no intervention was undertaken. As far as I can tell, he was felt not to be a transplant candidate at that time due to active infection however these circumstances are unclear and patient was transferred back to [facility] on 01/13. Since re-admission to this facility, ID and GI have been consulted. Recurrent blood cultures have been negative. ID recommends micafungin through 02/06; a PICC line has been placed. He has not had any further bleeding. He has required supplemental oxygen (2-4L) in the setting of fluid overload. We have not diuresed due to tenuous renal function (creatinine currently 1.2) and concern for HRS. His hepatic encephalopathy has worsened and he has required 2 therapeutic paracenteses for recurrent ascites. We have attributed his worsening clinical status due to acute portal vein thrombosis; however, we have not anticoagulated due to recent hemodynamically significant UGIB. Thus, he is now being transferred to [facility] for ongoing management, potential declotting of PVT via IR, and evaluation for liver transplant (Dr Bryn Way). His MELD is 23 (previously 31 on admission). The patient's and son have been involved in his care and are agreeable to transfer to [facility]. Medications at Discharge: Please refer to EMR for complete list. Follow Up Plan: 1. Pending management at [facility] Physical Exam: Vitals reviewed, satting 96% on 4L NC with stable HR and BP. He is alert but encephalopathic with asterixis. Distended abdomen but improved after paracentesis. Diminished breath sounds at lung bases. Heart regular rate and rhythm. He has lower extremity edema.
--- NOTE | 2018-01-19 14:28 | ASMTLACE ---
LACE Length of stay for Answers: 4-6 days current admission Acuity / Level of Answers: Yes Care: Did the patient have an inpatient admission? Comorbidities - select Answers: Moderate or severe liver all that apply or renal disease Opioid dependence / Chronic pain Other Notes: Hep-C # of Emergency department Answers: 5-8 visits in the last 6 months Social determinants Answers: History of substance abuse (ETOH, street drugs, prescription drugs, etc.) Score: 23 Date Signed: 01/19/2018 02:28 PM Electronically Signed By:Micheline Perez RN
--- NOTE | 2018-01-19 14:35 | ASMTCMCOM ---
CM Note CM Note Notes: Spoke w/, pt will be transferred to [facility] for futher treatment, pending transplant list placement. Pt's approved transfer. had peer to peer phone call, CM waiting for [facility] to call for transfer details. DC Plan: Transfer to [facility] Date Signed: 01/19/2018 02:34 PM Electronically Signed By:Micheline Perez RN
[2018-01-19] MEDS: traZODone 50 MG TAB PO SCH (20:27)
[2018-01-19 20:53] VITALS: BP 104/70
== END 2018-01-19 21:00 | disposition short-term general hospital (02) | DRG 867 ==
LOC: F3E 12:29
PROVIDERS: ADMIT Internal Medicine; ATTEND Internal Medicine
PROC: 0W9G3ZZ Drainage of Peritoneal Cavity, Percutaneous Approach (ICD-10-PCS; principal; 2018-01-15)
PROC: BW40ZZZ Ultrasonography of Abdomen (ICD-10-PCS; principal; 2018-01-15)
PROC: 02HV33Z Insertion of Infusion Device into Superior Vena Cava, Percutaneous Approach (ICD-10-PCS; 2018-01-17)
PROC: B51M1ZA Fluoroscopy of Right Upper Extremity Veins using Low Osmolar Contrast, Guidance (ICD-10-PCS; 2018-01-17)
PROC: B54MZZA Ultrasonography of Right Upper Extremity Veins, Guidance (ICD-10-PCS; 2018-01-17)
PROC: BW40ZZZ Ultrasonography of Abdomen (ICD-10-PCS; 2018-01-19)
PROC: 0W9G3ZZ Drainage of Peritoneal Cavity, Percutaneous Approach (ICD-10-PCS; 2018-01-19)
DX: B48.8 Other specified mycoses (principal); I81 Portal vein thrombosis; N18.6 End stage renal disease; K70.31 Alcoholic cirrhosis of liver with ascites; K70.40 Alcoholic hepatic failure without coma; B18.2 Chronic viral hepatitis C; F05 Delirium due to known physiological condition; D68.4 Acquired coagulation factor deficiency; F10.11 Alcohol abuse, in remission; E46 Unspecified protein-calorie malnutrition; E55.9 Vitamin D deficiency, unspecified; Z80.0 Family history of malignant neoplasm of digestive organs; Z23 Encounter for immunization
CPT/HCPCS: 97116-GP; 97162-GP; 97166-GO; 97530-GO; 97535-GO; A9585; C1751; G0009; J1940; J2248; J2354

== ENCOUNTER 2018-01-27 11:49 | Emergency (ER) | payer OTHER ==
--- NOTE | 2018-01-27 13:04 | EDPHY ---
H & P Stated Complaint: bleeding from right arm PICC line site, pulled 2 days ago Time Seen by Provider: 01/27/18 12:54 HPI/ROS: CHIEF COMPLAINT: Bleeding from PICC line site HISTORY OF PRESENT ILLNESS: 57-year-old male with end-stage liver disease presents with bleeding from his PICC line site. He had a PICC line in place during hospitalization recently and it was removed 2 days ago. He had a dressing in place. Today, he developed swelling over the site and after touching it, he had a large amount of bleeding. The bleeding was controlled with direct pressure and has now stopped. REVIEW OF SYSTEMS: complete 10 point ROS negative except at noted in the HPI - Medical/Surgical History Hx Asthma: No Hx Chronic Respiratory Disease: No Hx Diabetes: No Hx Cardiac Disease: No Hx Renal Disease: No Hx Cirrhosis: Yes Hx Alcoholism: Yes Hx HIV/AIDS: No Hx Splenectomy or Spleen Trauma: No Other PMH: Bilateral meniscus and ACL tear/injury, Tib/Fib fracture, marijuana user, ETOH (former), ascites, Hep C, sepsis'. cirrhosis, end stage liver disease, hx falls with rib fracture, hernia - Social History Smoking Status: Former smoker - Physical Exam Exam: Alert and oriented, pleasant Extremities: Right upper extremity-small open wound on the lower aspect of the upper arm, no active bleeding and no ecchymosis Skin: No erythema Neuro: Motor and sensory intact Vascular: Capillary refill brisk distally Constitutional: Initial Vital Signs Temperature (C) 36.6 C 01/27/18 11:56 Heart Rate 86 01/27/18 11:56 Respiratory Rate 18 01/27/18 11:56 Blood Pressure 90/49 L 01/27/18 11:56 O2 Sat (%) 92 01/27/18 11:56 O2 Delivery Mode Room Air Allergies/Adverse Reactions: No Known Allergies Allergy (Verified 01/27/18 11:55) Home Medications: Medication Instructions Recorded Ergocalciferol [Vitamin D2 (*)] 50,000 units PO WE 06/18/17 Lactulose 30 ml PO TID PRN 07/31/17 Midodrine HCl 10 mg PO TID 08/08/17 Multivitamins [Multivitamin (*)] 1 each PO DAILY 12/12/17 Rifaximin [Xifaxan] 550 mg PO BID 12/12/17 Ondansetron Odt [Zofran Odt 4 mg 4 mg PO Q4HRS PRN #30 tab 12/15/17 (*)] traZODone [traZODONE 50MG (*)] 50 mg PO HS 01/08/18 Albumin 25% [Albumin 25 % (Premix)] 100 ml IV MO 01/13/18 Ciprofloxacin [Cipro] 500 mg PO DAILY 01/13/18 Micafungin Na [Mycamine 100Mg Vial] 100 mg IV DAILY vial 01/19/18 Octreotide Acetate [Sandostatin 50 50 mcg SC TID inj 01/19/18 mcg/ml (*)] Pantoprazole Sodium [Protonix 40mg 40 mg PO BID tab 01/19/18 (*)] oxyCODONE IR [Oxycodone Ir (*)] 5 - 10 mg PO Q3 PRN tab 01/19/18 Medical Decision Making ED Course/Re-evaluation: The PICC line site was cleansed and a dressing was placed. No bleeding throughout his emergency department stay. Instructions given Departure - Departure Disposition: Home, Routine, Self-Care Clinical Impression: bleeding from picc line site Condition: Good Instructions: Additional Information Additional Instructions: If bleeding recurs, apply direct pressure over the wound. Referrals: Curt Colvin [Primary Care Provider] - As per Instructions
[2018-01-27 13:24] VITALS: BP 128/95
== END 2018-01-27 13:24 | disposition home or self-care (01) ==
DX: T85.838A Hemorrhage due to other internal prosthetic devices, implants and grafts, initial encounter (principal); K76.9 Liver disease, unspecified

== ENCOUNTER → 2018-01-30 | Outpatient (CLI) | payer OTHER | LOC: FIMAGING 02:00 | PROVIDERS: ATTEND Internal Medicine | PROC: 0W9G30Z Drainage of Peritoneal Cavity with Drainage Device, Percutaneous Approach (ICD-10-PCS; principal; 2018-01-30) | DX: R18.8 Other ascites (principal) ==

== ENCOUNTER → 2018-02-14 | Outpatient (CLI) | payer OTHER | LOC: FIMAGING 12:22 | PROVIDERS: ATTEND Internal Medicine | PROC: 0W9G3ZZ Drainage of Peritoneal Cavity, Percutaneous Approach (ICD-10-PCS; principal; 2018-02-14) | PROC: 0W9G3ZX Drainage of Peritoneal Cavity, Percutaneous Approach, Diagnostic (ICD-10-PCS; principal; 2018-02-14) | DX: R18.8 Other ascites (principal) ==

== ENCOUNTER → 2018-02-21 | Outpatient (CLI) | payer OTHER | LOC: FIMAGING 09:50 | PROVIDERS: ATTEND Internal Medicine | DX: R18.8 Other ascites (principal) ==

== ENCOUNTER → 2018-08-08 | Outpatient (CLI) | payer OTHER | LOC: FIMAGING 08:54 | PROVIDERS: ATTEND Internal Medicine | DX: K70.30 Alcoholic cirrhosis of liver without ascites (principal); K80.20 Calculus of gallbladder without cholecystitis without obstruction ==

== ENCOUNTER 2018-09-16 07:56 | Emergency (ER) | payer OTHER ==
--- NOTE | 2018-09-16 08:21 | EDPHY ---
H & P Stated Complaint: abd distentiion hx cirrhosis Time Seen by Provider: 09/16/18 08:11 HPI/ROS: CHIEF COMPLAINT: Ventral swelling HISTORY OF PRESENT ILLNESS: The patient has a history of end-stage liver disease with a significant improvement in his meld score recently. He presents the emergency department today with his son who is noticed some ventral abdominal swelling. The patient has chronic abdominal pain which is not worsened. The patient denies any fever or vomiting. The son was concerned about the possibility of recurrent ascites after their last meeting with the gunstock repairer they were informed recurrent side is would be unlikely. The patient does have a history of a hernia which they thought was in the groin. REVIEW OF SYSTEMS: A comprehensive 10 point review of systems is otherwise negative aside from elements mentioned in the history of present illness. Source: Patient, Family Exam Limitations: No limitations - Personal History Current Tetanus Diphtheria and Acellular Pertussis (TDAP): Yes - Medical/Surgical History Hx Asthma: No Hx Chronic Respiratory Disease: No Hx Diabetes: No Hx Cardiac Disease: No Hx Renal Disease: No Hx Cirrhosis: Yes Hx Alcoholism: Yes Hx HIV/AIDS: No Hx Splenectomy or Spleen Trauma: No Other PMH: Bilateral meniscus and ACL tear/injury, Tib/Fib fracture, marijuana user, ETOH (former), ascites, Hep C, sepsis'. cirrhosis, end stage liver disease, hx falls with rib fracture, hernia - Social History Smoking Status: Former smoker - Physical Exam Exam: General Appearance: Thin male, no acute distress Eyes: Pupils equal and round no pallor or injection ENT, Mouth: Mucous membranes moist Respiratory: There are no retractions, lungs are clear to auscultation Cardiovascular: Regular rate and rhythm Gastrointestinal: Mild generalized abdominal tenderness, no peritoneal signs, ventral soft tissue swelling noted, cannot palpate a obvious defect Neurological: 5/5 strength all 4 extremities, no asterixis Skin: Warm and dry, no rashes Musculoskeletal: Neck is supple nontender Extremities: symmetrical, full range of motion Constitutional: Initial Vital Signs Temperature (C) 36.8 C 09/16/18 07:59 Heart Rate 86 09/16/18 07:59 Respiratory Rate 18 09/16/18 07:59 Blood Pressure 123/70 H 09/16/18 07:59 O2 Sat (%) 95 09/16/18 07:59 O2 Delivery Mode Room Air Allergies/Adverse Reactions: No Known Allergies Allergy (Verified 09/16/18 07:57) Home Medications: Medication Instructions Recorded Ergocalciferol [Vitamin D2 (*)] 50,000 units PO WE 06/18/17 Lactulose 30 ml PO TID PRN 07/31/17 Midodrine HCl 10 mg PO TID 08/08/17 Multivitamins [Multivitamin (*)] 1 each PO DAILY 12/12/17 Rifaximin [Xifaxan] 550 mg PO BID 12/12/17 Ondansetron Odt [Zofran Odt 4 mg 4 mg PO Q4HRS PRN #30 tab 12/15/17 (*)] traZODone [traZODONE 50MG (*)] 50 mg PO HS 01/08/18 Albumin 25% [Albumin 25 % (Premix)] 100 ml IV MO 01/13/18 Micafungin Na [Mycamine 100Mg Vial] 100 mg IV DAILY vial 01/19/18 Pantoprazole Sodium [Protonix 40mg 40 mg PO BID tab 01/19/18 (*)] oxyCODONE IR [Oxycodone Ir (*)] 5 - 10 mg PO Q3 PRN tab 01/19/18 Medical Decision Making ED Course/Re-evaluation: Limited bedside ultrasound demonstrates no evidence of significant ascites. The patient was taken for CT scan of the abdomen pelvis without contrast which does demonstrate a extraperitoneal adipose tissue. He has a non incarcerated left inguinal hernia with fat only. There is no evidence of incarcerated bowel. The patient was reassured that he does not have recurrent ascites. His examination is not 1 consistent with SBP. The patient has no acute complaints other than being concerned about the possibility of recurrent ascites. I feel that additional workup is not indicated at this point time. Differential Diagnosis: Differential diagnosis considered includes perforation, obstruction, SBP, recurrent ascites Departure - Departure Disposition: Home, Routine, Self-Care Clinical Impression: Cirrhosis Condition: Good Additional Instructions: 1. Your imaging studies demonstrate no evidence of recurrent ascites. You do have a small left inguinal hernia which is not causing any bowel obstruction. You do have fat noted in your anterior abdominal wall which is likely the source of the swelling your noted. This is not related to a problem with a ventral hernia or recurrent ascites. 2. Return to the ED for any acutely worsening abdominal pain, vomiting, decreased bowel movements, fever or other concerns. 3. Follow up with your gunstock repairer as scheduled. Referrals: Jacky Waddell [Medical Doctor] - As per Instructions
[2018-09-16 09:37] VITALS: BP 122/68
== END 2018-09-16 09:37 | disposition home or self-care (01) ==
DX: K70.30 Alcoholic cirrhosis of liver without ascites (principal); N18.6 End stage renal disease; B18.2 Chronic viral hepatitis C

== ENCOUNTER 2018-11-16 14:23 | Observation (INO) | payer OTHER | END 2018-11-17 15:40 | disposition home health service (06) | LOC: F3N 19:11 ==